=== PATIENT | female | born 1955 | race Caucasian/White ===

== ENCOUNTER → 2016-08-15 | Outpatient (CLI) | payer BC ==
[~2016-08-15] MED LIST: ACET1TAB84 PO; CHOL100010 PO; GLUC1CAP35 PO; GLUCTAB7 PO; HEMP OIL PO; HYDR12.56 PO; HYZ/50125 PO; IBUP-1050 PO; LEVO175T PO; LEVO200T6 PO; MULT-884 PO; OXYC-57 PO; WARF2TAB PO
== END | disposition home or self-care (01) ==
LOC: C.RDSM 08:43
PROVIDERS: ATTEND Physical Medicine & Rehabilitation Sports Medicine
DX: M25.561 Pain in right knee (principal); M25.562 Pain in left knee

== ENCOUNTER → 2017-02-20 | Outpatient (CLI) | payer BC | END | disposition home or self-care (01) | LOC: C.RDSM 01-31 13:04 | PROVIDERS: ATTEND Physical Medicine & Rehabilitation Sports Medicine | DX: M17.0 Bilateral primary osteoarthritis of knee (principal); Z96.642 Presence of left artificial hip joint ==

== ENCOUNTER → 2017-03-03 | Outpatient (CLI) | payer BC ==
[~2017-03-03] MED LIST changes: -CHOL100010 PO; -GLUCTAB7 PO; -HYDR12.56 PO; -LEVO175T PO; -MULT-884 PO
--- NOTE | 2017-03-03 16:02 | DIAGNOSTIC IMAGING REPORT ---
CHEST 2 VIEWS ROUTINE HISTORY: PRE OP,LAB THEN RAD THEN CPL COMPARISON: Chest 04/10/2015. FINDINGS: The lungs are clear. Cardiac silhouette is normal in size. No pleural effusions. No pneumothorax. IMPRESSION: No acute process. Electronically signed by: Joce Minaya M.D. 03/03/2017 4:00 PM Dictated Date/Time: 03/03/2017 3:59 PM
[2017-03-03 16:37] LABS: BASO % 0.4 %; BASO ABS # 0.04 K/uL (0-0.2); COMPLETE YES; EOS % 2.3 %; HEMATOCRIT 43.4 % (37-47); IG% 0.2 %; LYMPH % 28.9 %; LYMPH ABS # 2.94 K/uL (1.2-3.4); MEAN CELL VOLUME 87.5 fL (80-100); MONO % 7.4 %; NEUT % 60.8 %; PLATELET COUNT 299 K/uL (130-400); RED BLOOD COUNT 4.96 M/uL (4.2-5.4); WHITE BLOOD COUNT 10.16 K/uL (4.8-10.8)
[2017-03-03 16:40] LABS: URINE APPEARANCE CLEAR (CLEAR); URINE BILIRUBIN NEG (NEG); URINE COLOR YELLOW; URINE NITRITE NEG (NEG); URINE SPECIFIC GRAVITY 1.021 (1.000-1.030); UROBILINOGEN NEG (NEG); ZZUR CULT IF INDIC CLEAN CATCH NO
[2017-03-03 16:41] LABS: MANUAL MICROSCOPIC REQUIRED? NO; REVIEW REQ? NO
[2017-03-03 16:44] LABS: INR 0.9 (0.9-1.1); PARTIAL THROMBOPLASTIN RATIO 1.1; PROTHROMBIN TIME (PATIENT) 9.9 SECONDS (9.0-12.0)
[2017-03-03 16:57] LABS: BLOOD UREA NITROGEN 19 mg/dl (7-18); BUN/CREATININE RATIO 21.7 (10-20); CALCIUM 9.9 mg/dl (8.5-10.1); CARBON DIOXIDE 29 mmol/L (21-32); CHLORIDE 103 mmol/L (98-107); CREATININE 0.89 mg/dl (0.60-1.20); GLUCOSE 82 mg/dl (70-99); SODIUM 139 mmol/L (136-145)
== END | disposition home or self-care (01) ==
LOC: C.RAD 15:26
PROVIDERS: ATTEND Family Medicine
DX: Z01.810 Encounter for preprocedural cardiovascular examination (principal); Z01.811 Encounter for preprocedural respiratory examination; Z01.812 Encounter for preprocedural laboratory examination; R94.31 Abnormal electrocardiogram [ECG] [EKG]

== ENCOUNTER 2017-03-22 05:00 | Inpatient (IN) | payer BC ==
[2017-02-28 10:12] VITALS: BMI 48.0
--- NOTE | 2017-03-13 20:29 | HISTORY & PHYSICAL EXAMINATION ---
DATE OF ADMISSION: 03/22/[address] Mari. CHIEF COMPLAINT: Left knee pain. HISTORY OF PRESENT ILLNESS: This 61-year-old white female presented to the office with complaints of ongoing left knee pain. She has bilateral knee pain, left greater than right, for the last several years. Pain has become worse over the last 6-9 months. She previously tried activity modification, use of a cane, physical therapy, oral anti-inflammatories, oral pain medication, and viscosupplementation without lasting relief. She elects to proceed with surgical intervention in hopes of alleviating her pain. Pain is worse with weightbearing. It is affecting her ADLs. She denies any effusions. She does get night pain. She has a history of total hip arthroplasties and did well with those. No numbness or tingling. PAST MEDICAL HISTORY: Significant for depression, heart murmur, hypothyroidism, obesity, osteoarthritis, TMJ syndrome, and chronic low back pain. PREVIOUS SURGERIES: Right and left total hip arthroplasties, endometrial ablation, dilation and curettage, oophorectomy, tonsillectomy, adenoidectomy, and cholecystectomy. ALLERGIES: KNOWN ALLERGY TO DOXYCYCLINE, LATEX AND MORPHINE. CURRENT MEDICATIONS: Losartan unknown dose daily, Synthroid 175 mcg p.o. daily, Tylenol Arthritis p.r.n. FAMILY HISTORY: Significant for cancer. SOCIAL HISTORY: The patient is employed at the [employer]. . No tobacco use, no ETOH use. REVIEW OF SYSTEMS: Significant for above stated conditions, otherwise unremarkable. PHYSICAL EXAMINATION: GENERAL: Well-developed, well-nourished middle aged white female in no acute distress. Sitting in a chair. Alert and oriented. SKIN: Warm and dry with good turgor. No rashes or lesions. No ecchymosis or erythema. HEENT: Normocephalic, atraumatic. EYES: PERRLA, EOMI. Nares patent bilaterally without turbinate enlargement. Oropharynx without erythema or exudate. No lesions noted. Uvula midline. Oral mucosa moist. Good dentition. HEART: RRR. No MGR. LUNGS: Clear to auscultation bilaterally. No crackles, rhonchi or wheezing. Good air movement. ABDOMEN: Obese. Bowel sounds present x4, soft, nontender. No organomegaly. No masses. MUSCULOSKELETAL: Left knee reveals no intra-articular effusion. No redness or warmth. She lacks about 5 degrees of terminal extension. Flexion to greater than 100 degrees. Strength is 5/5 with fair quad tone. Focal discomfort with palpation over the medial and lateral joint lines. Slight varus alignment. Stable collateral ligaments. No defect in the patellar tendon or quadriceps tendon. Ambulatory with an antalgic gait. NEUROLOGIC: Gross sensation is intact across the lower extremities by soft touch. Peripheral pulses are 2+. DATA: Radiographic imaging previously obtained shows end-stage DJD of the medial compartment with varus alignment and subluxation of the tibia laterally. Periarticular osteophytes and subchondral sclerosis are also present. IMPRESSION: Left knee end-stage degenerative joint disease. PLAN: The patient was educated regarding today's findings. Informed written consent will be obtained the day of surgery to proceed with left total knee arthroplasty. Anticipate discharge to home with home health services. She already has a walker and cane. Preoperative lab work, EKG, and chest x-ray have been ordered. Medical clearance has been requested from Dr. Walls.
[2017-03-22] VITALS (9 sets, daily range): BP systolic 122–152; BP diastolic 69–90; PULSE 66–78; TEMP 36.3–36.8; O2SAT 92–99; Ht 170.2 cm; Wt 140.0 kg
[~2017-03-22] VITALS: Ht 170.2 cm; Wt 140.0 kg
[~2017-03-22 05:00] MED LIST changes: -GLUC1CAP35 PO; -IBUP-1050 PO; -OXYC-57 PO; -WARF2TAB PO
[2017-03-22] MEDS ORDERED: TRANEXAMIC ACID INJ 1,000 MG in SODIUM CHLORIDE 0.9% 100ML 100 ML IV SCH ×2 (06:00→15:00)
[2017-03-22] MEDS ORDERED: CEFAZOLIN 3000 MG/65 ML D5W IV SCH (06:00)
[2017-03-22] MEDS ORDERED: LACTATED RINGER'S 1000ML 1,000 ML IV SCH (06:00)
[2017-03-22] MEDS ORDERED: ROPIVACAINE 5MG/ML 30 ML 150 MG, BUPIVACAINE/EPINEPHR 0.5% MPF 30 ML, KETOROLAC TROMETH... INFIL SCH ×7 (06:00)
[2017-03-22] MEDS ORDERED: LACTATED RINGER'S 1000ML IV SCH (06:00)
[2017-03-22] MEDS ORDERED: EpINEphrine INJ 1MG/ML AMP 1 MG/ML AMP ONE (06:20)
[2017-03-22] MEDS ORDERED: BUPIVACAINE 0.5 % 5 MG/1 ML PF 10ML VIAL ONE (06:20)
[2017-03-22] MEDS ORDERED: BUPIVACAINE 0.25% 30 ML VIAL ONE (06:20)
--- NOTE | 2017-03-22 06:27 | History & Physical Bridge Note ---
H&P Re-Evaluation Bridge Note: I have examined the patient, reviewed the History & Physical and in the interval since the performance of the History & Physical I have noted the following changes of clinical significance: consent obtained.No changes noted
[2017-03-22] MEDS ORDERED: POVIDONE-IODINE OP SOLN 30 ML BTL ONE (06:32)
[2017-03-22] MEDS ORDERED: ORTHO JOINT ANESTHETIC ONE (06:32)
[2017-03-22] MEDS ORDERED: MIDAZOLAM HCL 1 MG/ML 2ML VIAL ONE ×3 (06:40→08:05)
[2017-03-22] MEDS ORDERED: PHENYLEPHRINE 100MCG/ML 5ML SYR ONE (07:30)
[2017-03-22] MEDS ORDERED: PROPOFOL IV EMULSION 10 MG/ML 20 ML VIAL IV ONE ×2 (07:42→09:45)
[2017-03-22] MEDS ORDERED: EpHEDrine SULFATE INJ 50 MG/ML AMP IV PRN (08:15)
[2017-03-22] MEDS ORDERED: ATROPINE SULFATE 0.1 MG/ML 5ML SYR IV PRN (08:15)
--- NOTE | 2017-03-22 08:46 | [facility] Post Operative Brief Note ---
Immediate Operative Summary Operative Date Mar 22, 2017. Pre-Operative Diagnosis Left Knee End-Stage Degenerative Joint Disease Post-Operative Diagnosis Left Knee End-Stage Degenerative Joint Disease Procedure(s) Performed Left Total Knee Arthroplasty Surgeon Dr. Mari Life Skills Educator Surgeon(s) Dr. Rivera (Fellow)/VEL Boyd Estimated Blood Loss 50 ml Findings severe disease with flexion/varus deformity Fluids (cc crystalloids) 1900cc Specimens A. Left Knee Bone and Tissue Drains none Anesthesia spinal/obturator block Complication(s) None Disposition Recovery Room / PACU
--- NOTE | 2017-03-22 09:11 | OPERATIVE REPORT ---
DATE OF OPERATION: 03/22/2017 SURGEON: Pasha Mari MD OIL WELL SHOOTER: Miguel. SECOND OIL WELL SHOOTER: Andrew Ponce MD THIRD OIL WELL SHOOTER: Albert Gan PA-C PREOPERATIVE DIAGNOSIS: Severe osteoarthritis with varus and flexion deformity, left knee. POSTOPERATIVE DIAGNOSIS: Same. OPERATION PERFORMED: Cemented left total knee replacement. SUMMARY OF IMPLANTS: Size 3 posterior cruciate substituting femur, size 3 rotating tibial platform with keel, oval domed 3 peg patella size 38, tibial insert platform, rotating platform stabilized, posterior cruciate size 3 10 mm thick. Two bags of Palacos G cement. ESTIMATED BLOOD LOSS: 50 mL. FLUIDS: 1800 mL of fluid. PERIOPERATIVE SITUATION: Medically cleared female with intractable knee pain, has significant varus and flexion deformity bilaterally, wants to proceed with the left knee first. PROCEDURE: The patient appropriately identified, site verified, consent verified, 3 grams of Ancef confirmed as being given. The left lower extremity was prepped and draped in the usual routine fashion. Total tourniquet time was approximately an hour. Midline exposure utilized, parapatellar arthrotomy performed. Soft tissue release was performed. Distal femur resected 12 mm, proximal tibia 4 mm, extension gap was excellent after slight adjustment on the posterior capsule. The femur was sized to between a 4 and a 3, it was measured 4 cut 3, there was no notching. The flexion gap was then slightly tight laterally. Capsular release took care of that. The femur was then cut 2-3 with appropriate condylar and chamfer cuts. Again, the flexion gap was excellent. The box cut was then made and then the size 3 trial fit well. The tibia was then subluxated and broached and reamed to a size 3 with appropriate rotation and a 10 mm spacer offered excellent stability in all full range including mid range flexion and the extension was 0. The patella tracked well. The patella was sized to a 38, it was resected leaving 15 mm and then the seating holes made and the trial tracked well. All trial implants were then removed. The wound irrigated with a Betadine Pulsavac and injected with ortho mix, and then the permanents cemented into position. After 12 minutes, the tourniquet was deflated. After 14 minutes, the knee was flexed, minor cement removal occurred, irrigation with Betadine, removal of trial implant and spacer. Permanent spacer then inserted and seated, knee reduced, and then closed in flexion with #1 Ethibond, #1 Vicryl, 2-0 Vicryl, and stainless steel clips. Appropriate dressing applied. The patient will be kept without motion due to her size to prevent wound problems for 10 days. She will have a Zane Fields dressing on overnight, then placed with an incisional wound VAC, knee immobilizer, and then follow up in a week and see how things are going. Will leave sutures in at least 2 weeks. DVT prophylaxis with Coumadin. Estimated blood loss again 50 mL, crystalloid 1900 mL SUMMARY OF IMPLANTS: Size 3 posterior cruciate substituting femur, size 3 rotating tibial platform, size 3 spacer 10 mm thick posterior cruciate substituting, oval domed 3 pegged patella size 38, Palacos G 2 bags. I attest to the content of the Intraoperative Record and any orders documented therein. Any exception s are noted below.
[2017-03-22] MEDS ORDERED: ACETAMINOPHEN 325 MG TAB PO PRN (09:15)
[2017-03-22] MEDS ORDERED: BISACODYL 10 MG SUPP PR PRN (09:15)
[2017-03-22] MEDS ORDERED: ALUMINUM/MAGNESIUM/SIMETH (MAALOX MAX) 30 ML UDC PO PRN (09:15)
[2017-03-22] MEDS ORDERED: ONDANSETRON INJ 2 MG/ML 2 ML VIAL IV PRN (09:15)
[2017-03-22] MEDS ORDERED: ACETAMINOPHEN IV 100 ML IV PRN (09:15)
[2017-03-22] MEDS ORDERED: HYDROmorphone INJ 1 MG/ML SYR IV PRN (09:15)
[2017-03-22] MEDS ORDERED: MAGNESIUM HYDROXIDE SUSP 30 ML UDC PO PRN (09:15)
[2017-03-22] MEDS ORDERED: DiphenhydrAMINE HCL 50 MG/ML VIAL IV PRN (09:15)
[2017-03-22] MEDS: FENTANYL CITRATE INJ 50 MCG/1 ML 2 ML VIAL IV PRN ×2 (09:23→09:29)
--- NOTE | 2017-03-22 09:34 | Anesthesiology Progress Note ---
Anesthesia Post Op Note Date & Time Mar 22, 2017 at 09:33 Vital Signs Pain Intensity: 6 Vital Signs Past 12 Hours Date Time Temp Pulse Resp B/P (MAP) Pulse Ox O2 Delivery O2 Flow Rate FiO2 03/22/17 09:20 70 15 141/77 98 Nasal Cannula 2 03/22/17 09:10 36.0 71 19 127/75 99 Nasal Cannula 2 03/22/17 09:03 36.0 70 16 116/88 100 Nasal Cannula 2 03/22/17 05:46 36.8 78 20 125/90 99 Room Air Notes Mental Status: alert / awake / arousable, participated in evaluation Pt Amnestic to Procedure: Yes Nausea / Vomiting: adequately controlled Pain: adequately controlled Airway Patency, RR, SpO2: stable & adequate BP & HR: stable & adequate Hydration State: stable & adequate Neuraxial Anesthesia: was administered, sensory block is resolving Anesthetic Complications: no major complications apparent
[2017-03-22] MEDS ORDERED: VANCOMYCIN INJ 2,000 MG in SODIUM CHLORIDE 0.9% 500ML 500 ML IV SCH (10:00)
--- NOTE | 2017-03-22 10:52 | DIAGNOSTIC IMAGING REPORT ---
TWO VIEWS LEFT KNEE CLINICAL HISTORY: Postoperative examination. FINDINGS: AP and crosstable lateral portable views of the left knee are obtained. A left knee arthroplasty is in near anatomic alignment. There has been undersurface remodeling of the patella. No acute fracture is seen. There are expected postoperative changes around the knee including skin clips, soft tissue edema, and subcutaneous gas. IMPRESSION: Expected postoperative changes status post left knee arthroplasty. No acute fracture is seen. Electronically signed by: Red Storm M.D. 03/22/2017 10:51 AM Dictated Date/Time: 03/22/2017 10:50 AM
[2017-03-22] MEDS ORDERED: OXYCODONE HCL IR 5 MG TAB (IMMEDIATE RELEASE) ONE (11:03)
[2017-03-22] MEDS: OXYCODONE HCL IR 5 MG TAB (IMMEDIATE RELEASE) PO PRN ×3 (11:06→19:45)
[2017-03-22] MEDS: KETOROLAC TROMETHAMINE 30 MG/ML VIAL IV. SCH ×3 (11:07→23:31)
[2017-03-22] MEDS ORDERED: D5W AND 1/2NSS + 20MEQ KCL 1,000 ML IV SCH (11:30)
--- NOTE | 2017-03-22 11:36 | [facility] Operative Report ---
Operative Report Operative Date Mar 22, 2017. Pre-Operative Diagnosis Left Knee End-Stage Degenerative Joint Disease Post-Operative Diagnosis Left Knee End-Stage Degenerative Joint Disease Procedure(s) Performed Left Total Knee Arthroplasty Surgeon Dr. Mari Home Health Nurse Licensed Practical Surgeon(s) Dr. Rivera (Fellow)/VEL Boyd Estimated Blood Loss 50 ml Findings Left knee DJD Fluids (cc crystalloids) 1900cc Specimens A. Left Knee Bone and Tissue Drains none Complication(s) None Disposition Recovery Room / PACU Indications This 61-year-old white female presented the office with complaints of intractable left knee pain. She had tried conservative care measures including activity modification, oral anti-inflammatories, horizontal injections, viscous supplementation injections, and use of assistive devices. Preoperative imaging was obtained. She elected to proceed with surgical intervention after being educated about potential risks and outcomes. Description of Procedure Patient was administered a spinal anesthetic and then taken to the operating room where she was given sedation. She was prepped and draped in usual sterile fashion. Please see Dr. Mari's operative report for specifics of the procedure. I was present for the entire case from initial patient positioning through final wound closure. Assistance was provided in tissue traction, hemostasis, trial implant placement, final implant placement, and final wound closure. Patient was taken to the recovery room in satisfactory condition. I attest to the content of the Intraoperative Record and any orders documented therein. Any exceptions are noted below.
[2017-03-22] MEDS ORDERED: IBUP-1050 PO (12:17)
[2017-03-22] MEDS ORDERED: GLUC1CAP35 PO (12:17)
[2017-03-22] MEDS: FERROUS GLUCONATE 324 MG TAB PO SCH ×2 (12:39→17:50)
--- NOTE | 2017-03-22 12:40 | PROGRESS NOTE ---
DATE: 03/22/2017 Postop check status post left total knee replacement. The patient is doing well. Denies chest pain, shortness of breath, fever, chills, nausea, vomiting or headache. Abdomen is soft and nontender. On neurovascular check, femoral sciatic nerve is good. Cast is in place and no issues. ASSESSMENT: Doing well. Continue with the pressure dressing and Zane Fields cast. We will remove that tomorrow, place an incisional wound VAC on, and knee immobilizer. No bend to her knee for roughly 10 days. This is based on the quality of the soft tissue envelope of the knee and the thickness of the subcutaneous tissue. We will try to minimize seroma and wound complication. DVT prophylaxis with Coumadin.
[2017-03-22] MEDS ORDERED: NURSING VERBAL MED ORDER ONE (13:15)
--- NOTE | 2017-03-22 13:19 | Medical Consult ---
Consultation Date of Consultation: Mar 22, 2017. Attending Physician: Pasha Mari M.D. Reason for Consultation: Post Op Medical Management History of Present Illness 61 year old female who is s/p left total knee arthroplasty today by Dr. Mari. Patient has been having increasing knee pain for the past several years. She failed outpatient conservative measures and therefore presented for the planned procedure today. Post operatively the patient is doing well. She reports her pain is well controlled. She denies numbness or tingling to the BLLE. No chest pain, shortness of breath, or palpitations. She denies abdominal pain, nausea, or vomiting. No lightheadedness or dizziness. She has not voided since surgery. Past Medical/Surgical History Medical Problems: (1) Fibromyalgia Status: Chronic (2) HTN (hypertension) Status: Chronic (3) Hypothyroidism Status: Chronic (4) Obesity Status: Chronic Surgical Problems: (1) History of bilateral oophorectomy Status: Chronic (2) History of cholecystectomy Status: Chronic (3) History of tonsillectomy Status: Chronic (4) History of total left hip arthroplasty Status: Chronic (5) History of total right hip arthroplasty Status: Chronic (6) S/P endometrial ablation Status: Chronic Family History Hypertension MOTHER Social History Smoking Status: Former Smoker Alcohol Use: none Drug Use: none Occupation Status: employed Allergies Coded Allergies: Adhesives (Verified Allergy, Unknown, SOME TAPE-RED BLISTERS, 03/22/17) Doxycycline (Verified Allergy, Unknown, RASH, 02/28/17) Latex1 -Allergic Contact Dermititis (Verified Allergy, Unknown, RASH, RED BLISTERS, 02/28/17) Morphine (Verified Allergy, Unknown, WHOLE BODY HOT,SOB,CHEST PAIN, ) TOLERATES OXYCODONE AND HYDROCODONE Penicillins (Verified Allergy, Unknown, rash, 02/28/17) Has had PCNs in past without ADRs Home Medications Glucosamine Chondroitin (Aawgcjupknw-Wscupuqaqiw-Pcb C-) 1 Cap Cap 1 Cap PO BID Advil (Ibuprofen) 200 Mg Tab 400-600 Mg PO Q6H PRN [Hemp Oil ] 1 Tbs PO QAM Hyzaar 12.5MG/50MG (HCTZ/Losartan Potassium) Tab 1 Tab PO QAM Tylenol Arthritis Ext Rel (Acetaminophen) 650 Mg Cplt 650 Mg PO QID PRN Levothyroxine Sodium 200 Mcg Tab 1 Tab PO QAM 90 Days Current Inpatient Medications Current Inpatient Medications Medications (Trade) Dose Ordered Sig/Natalya Route Start Time Stop Time Status Last Admin Dose Admin Fentanyl Citrate (Fentanyl Inj) 50 mcg Q5M PRN IV 03/22/17 08:15 03/22/17 13:15 03/22/17 09:29 50 MCG Ephedrine Sulfate (EpHEDrine SULFATE INJ) 5 mg Q5M PRN IV 03/22/17 08:15 03/22/17 13:15 Atropine Sulfate (Atropine Sulfate 0.1MG/Ml Inj) 0.5 mg Q1M PRN IV 03/22/17 08:15 03/22/17 13:15 Potassium Chloride/Dextrose/ Sod Cl 1,000 ml @ 100 mls/hr Q10H IV 03/22/17 11:30 03/23/17 09:03 03/22/17 11:39 100 MLS/HR Cefazolin Sodium 2000 mg/Dextrose 60 ml @ 100 mls/hr Q8H IV 03/22/17 14:00 03/22/17 22:35 Vancomycin HCl 2000 mg/Sodium Chloride 540 ml @ 125 mls/hr TODAY@1000 IV 03/22/17 10:00 03/22/17 14:00 03/22/17 09:48 125 MLS/HR Ketorolac Tromethamine (Toradol Inj) 30 mg Q6H IV. 03/22/17 12:00 03/23/17 09:14 03/22/17 11:07 30 MG Oxycodone HCl (Roxicodone Immediate Rel Tab) 1 TABLET FOR PAIN RATING... Q4H PRN PO 03/22/17 09:15 04/05/17 09:14 03/22/17 11:06 10 MG Acetaminophen (Tylenol Tab) 650 mg Q6H PRN PO 03/22/17 09:15 04/21/17 09:14 Magnesium Hydroxide (Milk Of Magnesia Susp) 30 ml Q6H PRN PO 03/22/17 09:15 04/21/17 09:14 Bisacodyl (Dulcolax Supp) 10 mg DAILY PRN NE 03/22/17 09:15 04/21/17 09:14 Docusate Sodium (coLACE CAP) 100 mg BID PO 03/22/17 21:00 04/21/17 20:59 Diphenhydramine HCl (Benadryl Inj) 25 mg Q8H PRN IV 03/22/17 09:15 04/21/17 09:14 Al Hydrox/Mg Hydrox/Simethicone (Maalox Max Susp) 15 ml Q4H PRN PO 03/22/17 09:15 04/21/17 09:14 Multivitamins (Multivitamin Tab) 1 tab QAM PO 03/23/17 09:00 04/22/17 08:59 Ondansetron HCl (Zofran Inj) 4 mg Q6H PRN IV 03/22/17 09:15 04/21/17 09:14 Ferrous Gluconate (Ferrous Gluconate Tab) 324 mg TIDM PO 03/22/17 12:30 04/21/17 12:29 03/22/17 12:39 324 MG Pantoprazole Sodium (Protonix Tab) 40 mg QAM PO 03/23/17 09:00 04/22/17 08:59 Tranexamic Acid 1000 mg/Sodium Chloride 110 ml @ 660 mls/hr Q6H IV 03/22/17 15:00 03/22/17 15:09 Dexamethasone Sodium Phosphate 10 mg/Syringe 2.5 ml @ 1 mls/min TODAY@0730 IV 03/23/17 07:30 03/23/17 07:33 HCTZ/Losartan Potassium (Hyzaar 50-12.5 Tab) 1 tab QAM PO 03/23/17 09:00 04/22/17 08:59 Levothyroxine Sodium (Synthroid Tab) 200 mcg DAILYBB PO 03/23/17 06:00 04/22/17 05:59 Acetaminophen 100 ml @ 400 mls/hr Q8H PRN IV 03/22/17 09:15 03/23/17 09:00 Hydromorphone HCl (Dilaudid Inj) 1 mg Q2H PRN IV 03/22/17 09:15 04/05/17 09:14 Warfarin Sodium (Coumadin Tab) 5 mg DAILY@16 PO 03/22/17 16:00 03/22/17 16:01 Miscellaneous Information (Pending Order) 1 ea TODAY@1400 N/A 03/22/17 14:00 03/22/17 14:01 Review of Systems ROS per HPI, all other systems reviewed and negative Physical Exam Date Time Temp Pulse Resp B/P (MAP) Pulse Ox O2 Delivery O2 Flow Rate FiO2 03/22/17 12:16 36.5 69 18 140/69 (92) 98 Nasal Cannula 2.0 03/22/17 11:20 66 18 152/77 (102) 97 03/22/17 10:50 70 16 151/78 (102) 98 Nasal Cannula 2.0 03/22/17 10:20 98 Nasal Cannula 2.0 03/22/17 10:20 36.4 74 16 122/74 (90) 98 Nasal Cannula 2.0 03/22/17 10:20 98 Nasal Cannula 2.0 03/22/17 10:00 75 18 138/81 98 Nasal Cannula 2 03/22/17 09:50 73 15 143/77 96 Nasal Cannula 2 03/22/17 09:40 73 15 142/77 96 Nasal Cannula 2 03/22/17 09:30 72 14 144/81 95 Nasal Cannula 2 03/22/17 09:20 70 15 141/77 98 Nasal Cannula 2 03/22/17 09:10 36.0 71 19 127/75 99 Nasal Cannula 2 03/22/17 09:03 36.0 70 16 116/88 100 Nasal Cannula 2 03/22/17 05:46 36.8 78 20 125/90 99 Room Air General Appearance: no apparent distress Head: normocephalic, atraumatic Eyes: normal inspection, sclerae normal ENT: hearing grossly normal Neck: supple, no JVD Respiratory/Chest: lungs clear, normal breath sounds, no respiratory distress Cardiovascular: regular rate, rhythm, no edema, normal peripheral pulses Abdomen/GI: normal bowel sounds, non tender, soft Extremities/Musculoskelatal: + pertinent finding (s/p right knee surgery, cast in place to RLE, CSM checks intact to RLE) Neurologic/Psych: no motor/sensory deficits, alert, normal mood/affect, oriented x 3 Skin: normal color, warm/dry Laboratory Results Last 24 Hours Test 03/22/17 12:43 Assessment & Plan S/P RIGHT TKA - POD#0 - activity and wound care orders as per ortho - pain control with bowel regimen - PT/OT - monitor H/H for acute blood loss anemia and transfuse blood products PRN HTN - BP controlled, continue losartan/HCTZ HYPOTHYROIDISM - continue levothyroxine DVT PROPHYLAXIS - Coumadin as per ortho Thank you for this consultation. We will follow the patient with you during their hospital stay. You can reach a [facility] via pager @ . ADDENDUM: I have seen and examined the patient and agree with the assessment and plan as stated above. Gautam, DO
[2017-03-22] MEDS ORDERED: INFLUENZA VIRUS QUAD VACCINE 0.5 ML SYR IM. ONE (14:15)
[2017-03-22] MEDS ORDERED: INFLUENZA ADMINISTRATION CHARGE ONE (14:15)
[2017-03-22] MEDS: CEFAZOLIN IV 2,000 MG in DEXTROSE 5% 50ML 50 ML IV SCH ×2 (15:24→23:31)
[2017-03-22] MEDS ORDERED: WARFARIN SOD 5 MG TAB PO SCH (16:00)
[2017-03-22] MEDS: DOCUSATE SODIUM 100 MG CAP PO SCH (20:42)
[2017-03-23 03:08] VITALS: BP 124/74; PULSE 77; TEMP 36.5; O2SAT 96
[2017-03-23] MEDS: KETOROLAC TROMETHAMINE 30 MG/ML VIAL IV. SCH (05:31)
[2017-03-23 05:52] LABS: HEMATOCRIT 35.2 % (37-47); MEAN CELL VOLUME 88.7 fL (80-100); MEAN CORPUSCULAR HEMOGLOBIN 27.5 pg (25-34); MEAN PLATELET VOLUME 9.9 fL (7.4-10.4); PLATELET COUNT 260 K/uL (130-400); RED BLOOD COUNT 3.97 M/uL (4.2-5.4); WHITE BLOOD COUNT 11.77 K/uL (4.8-10.8)
[2017-03-23 06:00] LABS: PROTHROMBIN TIME (PATIENT) 10.2 SECONDS (9.0-12.0)
[2017-03-23] MEDS ORDERED: LEVOTHYROXINE 200 MCG TAB PO SCH (06:00)
[2017-03-23 06:26] LABS: BUN/CREATININE RATIO 20.8 (10-20); CALCIUM 8.3 mg/dl (8.5-10.1); CREATININE 0.81 mg/dl (0.60-1.20); POTASSIUM 4.1 mmol/L (3.5-5.1)
[2017-03-23] MEDS: OXYCODONE HCL IR 5 MG TAB (IMMEDIATE RELEASE) PO PRN ×3 (06:42→15:47)
--- NOTE | 2017-03-23 07:16 | PROGRESS NOTE ---
DATE: 03/23/2017 Postop day #1 progress note status post left total knee replacement. SUBJECTIVE: The patient denies chest pain, shortness of breath, fever, chills, nausea, vomiting or headache. She is comfortable. Pain is well managed. OBJECTIVE: VITAL SIGNS: Vital signs are stable. She is afebrile. Abdomen, chest, nontender. Calves nontender. Neurovascular check femoral sciatic nerve is good. Can do a straight leg raise. Bulky Zane Fields dressing without drainage. Neurovascular check again femoral sciatic nerve is normal. Hematocrit stable. INR is subtherapeutic. ASSESSMENT: Doing well. Will proceed with removal of Zane Fields dressing later today followed by placing an incisional wound VAC secondary to her leg size and prevent knee range of motion for a week. It will be in a straight leg immobilizer, can be full weightbearing. Can do a straight leg raise and quad sets but no knee range of motion. Keep INR 1.8-2.2. Coumadin per nomogram today; if she goes home today, discharge on 4 mg. We will see how she does with PT, OT, get social media intern assessment on how she does well this afternoon could to be discharged. Follow up 1 week for wound check. TR
[2017-03-23 07:20] VITALS: BP 126/73; PULSE 79; TEMP 36.3; O2SAT 94
--- NOTE | 2017-03-23 07:24 | DISCHARGE SUMMARY ---
____ CHIEF COMPLAINT: Left knee pain. HISTORY OF PRESENT ILLNESS: A 61-year-old female who has significant problems with bilateral knee osteoarthritis. She has failed conservative management and wants to proceed with surgical treatment. She underwent left total knee replacement. Due to her size and the depth of the subcutaneous tissue was elected to treat her with no motion for at least a week until the wound is clean and dry. She was placed in a Zane Fields cotton dressing with a cast material overnight. This will be removed and placed in an incisional wound VAC and a knee immobilizer. She can do straight leg raise, quad sets with no range of motion. She can be full weightbearing once the cast is off. PAST MEDICAL HISTORY: Remarkable for depression, heart murmur, hypothyroidism, obesity, osteoarthritis, TMJ syndrome, chronic low back pain. PAST SURGICAL HISTORY: Includes bilateral hip replacements, endometrial ablation, dilatation and curettage, oophorectomy, tonsillectomy, adenoidectomy, and cholecystectomy. ALLERGIES: DOXYCYCLINE, LATEX AND MORPHINE. PREADMISSION MEDICATIONS: Include losartan, Synthroid and Tylenol Arthritis p.r.n. She will discontinue the Tylenol Arthritis and continue her other meds and add Coumadin to keep INR 1.8 to 2.2, will discharge on 4 mg daily. Check INR on Monday. p.r.n. pain management. A prescription for that to be given by [facility]. FAMILY HISTORY: Remarkable for cancer. SOCIAL HISTORY: Reveals she is employed. She works at the [employer]. She is . She has no tobacco or alcohol use. REVIEW OF SYSTEMS: Reveals no chest pain, shortness of breath, fever, chills, nausea, vomiting or headache. ASSESSMENT: Did well after total knee replacement. PLAN: As mentioned above in order to prevent wound seroma and issues, will keep knee range of motion still for 1 solid week and reevaluate in the office at that time. She can be full weightbearing. She will have an incisional wound VAC on until she returns to get her wound check. Coumadin to keep INR 1.8 to 2.2, discharge on 4 mg. Check INR on Monday.
[2017-03-23] MEDS ORDERED: DEXAMETHASONE INJ 10 MG in SYRINGE 0 ML IV SCH (07:30)
[2017-03-23 07:55] VITALS: O2SAT 96
[2017-03-23] MEDS ORDERED: MULTIVITAMIN TAB PO SCH (09:00)
[2017-03-23] MEDS ORDERED: PANTOprazole SOD 40 MG TAB PO SCH (09:00)
[2017-03-23] MEDS ORDERED: LOSARTAN/HCTZ 50-12.5 EA TAB PO SCH (09:00)
[2017-03-23] MEDS: FERROUS GLUCONATE 324 MG TAB PO SCH ×2 (09:04→12:43)
[2017-03-23] MEDS: DOCUSATE SODIUM 100 MG CAP PO SCH (09:05)
--- NOTE | 2017-03-23 09:20 | Anesthesiology Progress Note ---
Anesthesia Post Op Note Date & Time Mar 23, 2017 at 09:20 Vital Signs Pain Intensity: 5.0 Vital Signs Past 12 Hours Date Time Temp Pulse Resp B/P (MAP) Pulse Ox O2 Delivery O2 Flow Rate FiO2 03/23/17 07:55 96 Room Air 03/23/17 07:20 36.3 79 16 126/73 (90) 94 Room Air 03/23/17 03:08 36.5 77 16 124/74 (91) 96 Room Air 03/22/17 23:19 36.6 68 16 135/79 (97) 94 Room Air 03/22/17 22:30 Room Air Notes Mental Status: alert / awake / arousable, participated in evaluation Pt Amnestic to Procedure: Yes Nausea / Vomiting: adequately controlled Pain: adequately controlled Airway Patency, RR, SpO2: stable & adequate BP & HR: stable & adequate Hydration State: stable & adequate Neuraxial Anesthesia: sensory block resolved Anesthetic Complications: no major complications apparent
--- NOTE | 2017-03-23 10:40 | Orthopedic Progress Note ---
Orthopedic Progress Note Date of Service Mar 23, 2017. Subjective Post OP Day: 1 Reports: feeling well, pain controlled w PO medications, Denies: complaints, chest pain, SOB, nausea / vomiting, light headedness, calf pain Additional Notes: states she has minimal pain. Has been out of bed multiple times. Objective calves soft nontender, N/V intact, splint C/D/I, hip located, capillary refill less than 2 sec., dressing C/D/I, incision C/D/I, A&O x3, toes mobile, CMS intact cast removed. Scant drainage on dressings, no active drainage. Date Time Temp Pulse Resp B/P (MAP) Pulse Ox O2 Delivery O2 Flow Rate FiO2 03/23/17 07:55 96 Room Air 03/23/17 07:20 36.3 79 16 126/73 (90) 94 Room Air 03/23/17 03:08 36.5 77 16 124/74 (91) 96 Room Air 03/22/17 23:19 36.6 68 16 135/79 (97) 94 Room Air 03/22/17 22:30 Room Air 03/22/17 19:17 36.3 71 18 133/87 (102) 92 Room Air 03/22/17 15:35 Room Air 03/22/17 15:12 36.7 67 18 128/80 (96) 93 Room Air 03/22/17 13:20 36.7 68 16 127/69 (88) 95 Nasal Cannula 2.0 03/22/17 12:16 36.5 69 18 140/69 (92) 98 Nasal Cannula 2.0 03/22/17 11:20 66 18 152/77 (102) 97 03/22/17 10:50 70 16 151/78 (102) 98 Nasal Cannula 2.0 Laboratory Results 24 Hours: Test 03/23/17 05:34 Hematocrit 35.2 % Hemoglobin 10.9 g/dL Prothromb Time International Ratio 1.0 Prothrombin Time 10.2 SECONDS Assessment & Plan Assessment: Left knee s/p total knee arthroplasty, post op day 1 Plan: PT/OT today incisional wound vac applied. coumadin per nomogram dressing changed this morning-wound looks very good D/C to home today start [facility] PT in 1 week, start home nursing on Monday for PT/ INR follow up in office in 1 week for wound vac eval. Discharge Planning Discharge Planning: home with home health Pain Management: Percocet DVT Prophylaxis: TEDs, SCDs, Coumadin Therapy: Physical Therapy
[2017-03-23] MEDS ORDERED: OXYC-57 PO (10:42)
[2017-03-23] MEDS ORDERED: WARF2TAB PO (10:42)
--- NOTE | 2017-03-23 10:43 | Discharge Instructions ---
Discharge Instructions Date of Service Mar 22, 2017. Admission Reason for Admission: Left Knee Degenerative Joint Disease Discharge Discharge Diagnosis / Problem: Left knee s/p total knee replacement Discharge Goals Goal(s): Decrease discomfort, Improve function, Increase independence Activity Recommendations Activity Limitations: as noted below Lifting Limitations: gradually increase as tolerated Exercise/Sports Limitations: until after follow-up appointment Shower/Bathe: keep incision dry Driving or Machine Use: No driving until cleared by Dr. Mari Weightbearing Status: Left weightbearing (as tolerated) . Instructions / Follow-Up Instructions / Follow-Up New Medicine: * You will likely be taking one or more of these medications: 1. Percocet - Take, as directed, when you need it, every four to six hours to control your pain. 2. Coumadin - Thins your blood to lessen the chance of forming a blood clot. The dose of this is different for each person and is based on your blood tests that are done twice a week. * The most common side effects of pain medicine and iron are nausea and constipation. If nausea or constipation is too much of a problem or if you have any questions about your new medicines or doses, call [facility] at . We will try to help you manage these issues. VERY IMPORTANT TO READ AND REVIEW" Blood Clots and Blood Thinning Medicine: * You are given Coumadin during the immediate post-operative period to lessen the risk of blood clots forming in your legs and/or lungs. Coumadin is usually given for six weeks after surgery. * The prescription is for 2 mg tablets. At discharge, you should understand your dose and take it all at the same time every day, preferably after dinner. * You need to get your blood checked 1 - 2 times per week for six weeks or as directed. * If your dose needs to change, we will call you. Do not take your medication on the day of the blood test until we call you. Pain: * The immediate post-operative period after knee replacement surgery is often quite painful. * You are given a prescription for pain medicine. You should take it, as directed, when you need it, especially before physical therapy and before going to bed. Pain that interferes with sleep is very common and can last several months. * You will likely need pain medicine for the first four to six weeks. It will not stop all of the pain. The pain will lessen and as you feel better, you may change to milder pain medicine such as Tylenol. * The most common side effects of pain medicine are nausea and constipation, so don't take more than you need. Physical Therapy: * You will have physical therapy two or three times each week for four to six weeks after your surgery in order to regain your knee range of motion and to retrain your knee to work properly. * It is just as important to make sure you are getting your knee perfectly straight as it is to regain your knee bend. * Taking a pain pill an hour before therapy can help you have a more productive and comfortable therapy session if needed. Home Exercise: * You were shown a series of exercises (heel props, heel slides, etc.) in the hospital. Do these exercises three to four times each day including the exercises you were shown in physical therapy. Walking: * Get up and walk several times each day. For the first four weeks, try not to stand or walk for more than one hour at a time. If you do stand or walk for more than one hour, you will not hurt anything, but your knee and leg will likely swell. * As you feel comfortable, you may change from the walker or crutches to a cane and then to independent walking. SELF CARE INSTRUCTIONS AFTER TOTAL KNEE REPLACEMENT A. You may need to continue a physical therapy program after discharge from the hospital. There are several options available to you. Your doctor will assist you in selecting the best one for you. 1. An out-patient facility 2 to 3 times a week for therapy or home therapy. 2. Continue working on all exercises taught to you in the hospital. Your goals should be to increase bending of your knee to 90 degrees and beyond and to fully straighten your knee. B. You may progress at your own pace from walking with a walker or crutches to a cane; then to no assistive devices. C. Make walking a part of your daily routine. Be up as much as comfortable with rest periods throughout the day. Rest with leg elevation is very important. Use the ice wrap frequently for the first 3-4 weeks. D. There are no restrictions on activities. You may ride in a car, shop, participate in process improvement analyst and all social activities. E. Wear the long elastic stockings (JOHN hose) 20 hours a day for six weeks after surgery. They can be removed several times a day for laundering and for a shower. F. Do not place a pillow behind your knee when resting. A pillow at your ankle is okay. VERY IMPORTANT TO READ AND REVIEW A. Take Coumadin, Aspirin or Lovenox (blood thinning medications) as directed by your doctor. If on Coumadin, have a pro-time (blood test) drawn according to your doctor's instructions. This will tell the doctor how well the Coumadin is thinning your blood. 1. YOU WILL BE GIVEN AN ORDER AT DISCHARGE FOR PT/INR (BLOOD WORK). PLEASE HAVE THIS DONE INSTRUCTED. PLEASE CALL OUR OFFICE AFTER YOUR BLOODWORK IS COMPLETE SO WE CAN TRACK YOUR RESULTS. IF YOU ARE GOING TO OUTPATIENT PHYSICAL THERAPY, YOU WILL NEED TO GO TO OUTPATIENT TESTING TO HAVE IT DRAWN. B. There are a few signs you need to watch for after you are home. Call [facility] if you notice any of the followin. Increased severe knee pain. Some pain is expected especially when you exercise. 2. Increased swelling in your leg or knee; pain or swelling of the calf muscle in either lower leg. 3. Any fluid drainage from the incision. 4. Shortness of breath or chest pain. C. Please call [facility] at if you have any concerns or questions about your operation or recovery. The doctor or his nurse will return your call promptly. D. You must take antibiotics before dental work, bladder, bowel or other surgery. Call the office to obtain a prescription at least 2 days prior to your appointment. * CALL IF INCREASED PAIN, REDNESS, DRAINAGE OR FEVER GREATER THAT 101. * Sutures should be removed 12-14 days after surgery unless you are on chronic steriods, then it will be 14-18 days after surgery. Call your doctor if: * Temperature above 101 degrees F. * Pain not relieved by pain medicine ordered. * Increased drainage or redness from incision. * Notify your doctor with any questions or concerns. Current Hospital Diet Patient's current hospital diet: Regular Diet Discharge Diet Recommended Diet: Regular Diet Procedures Procedures Performed: Left Total Knee Arthroplasty Pending Studies Studies pending at discharge: no Medical Emergencies . Who to Call and When: Medical Emergencies: If at any time you feel your situation is an emergency, please call 911 immediately. . Non-Emergent Contact Non-Emergency issues call your: Primary Care Provider, Surgeon Call Non-Emergent contact if: temperature is above 101, wound has increased drainage, wound has increased redness, wound has increased pain, you have any medication questions . "Provider Documentation" section prepared by Albert Gan PA-C. . VTE Core Measure Inpt VTE Proph given/why not?: Warfarin (Coumadin), T.E.D. Stockings, SCD's [place] Drug Monitoring Program Search Results: no issues identified
[2017-03-23 11:55] VITALS: BP 145/81; PULSE 67; TEMP 36.7; O2SAT 96
[2017-03-23 15:36] VITALS: BP 143/85; PULSE 81; TEMP 36.8; O2SAT 99
[2017-03-23] MEDS ORDERED: WARFARIN SOD 5 MG TAB PO SCH (16:00)
== END 2017-03-23 14:45 | disposition home or self-care (01) | DRG 470 ==
LOC: C.ACU 05:00 → C.3E 06:20 → ENRESERV 09:49
PROVIDERS: ADMIT Physical Medicine & Rehabilitation Sports Medicine; ATTEND Physical Medicine & Rehabilitation Sports Medicine
PROC: 0SRD0J9 Replacement of Left Knee Joint with Synthetic Substitute, Cemented, Open Approach (ICD-10-PCS; principal; 2017-03-22 07:00)
DX: M17.12 Unilateral primary osteoarthritis, left knee (principal); Z68.42 Body mass index [BMI] 45.0-49.9, adult; F32.9 Major depressive disorder, single episode, unspecified; R01.1 Cardiac murmur, unspecified; E03.9 Hypothyroidism, unspecified; E66.9 Obesity, unspecified; G89.29 Other chronic pain; M54.5 Low back pain; Z96.643 Presence of artificial hip joint, bilateral; Z90.49 Acquired absence of other specified parts of digestive tract; Z80.9 Family history of malignant neoplasm, unspecified

== ENCOUNTER → 2017-03-24 | Outpatient (CLI) | payer BC ==
[~2017-03-24] MED LIST changes: +OXYC-57 PO; +WARF2TAB PO
[2017-03-24 13:23] LABS: PROTHROMBIN TIME (PATIENT) 10.6 SECONDS (9.0-12.0)
--- NOTE | 2017-03-31 18:12 | CODING QUERY NO DIAGNOSIS ---
Valid Physician Order Needed A valid physician order must be submitted in order to properly bill for the service(s) provided, including date of service(s), valid diagnosis, and physician signature. If these tests are done on a recurring basis the original physican order must be submitted in order to code and bill for the service(s) provided. Please fax us the original, signed physician order so that we may expedite billing to [phone] DOS 03/24/17 * PT/INR Thank you Natalia [facility] Information Management
== END | disposition home or self-care (01) ==
LOC: C.LABSPEC 12:26
PROVIDERS: ATTEND Physical Medicine & Rehabilitation Sports Medicine
DX: Z01.89 Encounter for other specified special examinations (principal)

== ENCOUNTER → 2017-03-27 | Outpatient (CLI) | payer BC ==
[2017-03-27 12:04] LABS: INR 1.1 (0.9-1.1); PROTHROMBIN TIME (PATIENT) 11.5 SECONDS (9.0-12.0)
== END | disposition home or self-care (01) ==
LOC: C.LABSPEC 11:45
PROVIDERS: ATTEND Physical Medicine & Rehabilitation Sports Medicine
DX: Z51.81 Encounter for therapeutic drug level monitoring (principal); Z79.01 Long term (current) use of anticoagulants

== ENCOUNTER → 2017-05-15 | Outpatient (CLI) | payer BC | END | disposition home or self-care (01) | LOC: C.RDSM 10:31 | PROVIDERS: ATTEND Physical Medicine & Rehabilitation Sports Medicine | DX: M17.0 Bilateral primary osteoarthritis of knee (principal) ==

== ENCOUNTER → 2018-02-12 | Outpatient (CLI) | payer BC, OTHER ==
[~2018-02-12] MED LIST changes: -OXYC-57 PO; -WARF2TAB PO
== END | disposition home or self-care (01) ==
LOC: C.RDSM 09:18
PROVIDERS: ATTEND Physical Medicine & Rehabilitation Sports Medicine
DX: Z96.652 Presence of left artificial knee joint (principal)

== ENCOUNTER 2020-11-20 17:20 | Inpatient (IN) ==
[2020-11-20] MEDS ORDERED: ONDANSETRON INJ 2 MG/ML 2 ML VIAL IV STA (18:03)
[2020-11-20] MEDS ORDERED: HYDROmorphone INJ 0.5 MG/0.5 ML SYR IV PRN ×4 (18:03→23:31)
--- NOTE | 2020-11-20 18:13 | Emergency Department Note ---
Impression & Plan Bilateral ureteral calculi, Acute right flank pain, Nausea & vomiting, Staghorn calculus, REINA (acute kidney injury) ED Provider Note INFORMANT: Patient ED PROVIDER(S): Ren Banuelos MD CHIEF COMPLAINT: Flank pain PLAN: Disposition: Admitted Condition: Good Outpatient prescription management: none Referral: None MEDICAL DECISION MAKING: Patient presented to emergency room complaining of flank pain. Her symptoms were concerning for possible kidney stone or UTI. She had an IV established blood work was obtained. The patient had an unremarkable urinalysis. Chemistry panel was concerning for acute kidney injury. The patient underwent CT imaging and was found to have not only a right ureteral stone but I left ureteral stone as well. Consultation was made with Dr. Dias of urology. He recommended admission and the patient will need surgical intervention. His plan is for surgery in the morning. Given the patient's leukocytosis and bilateral obstruction he felt an antibiotic dose would be reasonable. The patient was given a dose of IV Rocephin. [facility] Patient was evaluated in the ER admitted for further management. Triage Nursing notes reviewed and agree them. Vital Signs: reviewed and remarkable for no significant abnormalities Differential diagnosis: Renal colic, UTI, appendicitis, diverticulitis, mesenteric ischemia, aortic pathology, infections, inflammatory bowel disease, PUD, biliary pathology, as well as other pathologies. Diagnostics interpreted by me: ECG: none Cardiac Monitoring: Cardiac monitoring ordered by me: The patient was placed on continuous cardiac monitoring and observed. It revealed a normal sinus rhythm at 90 beats per minute without ectopy or evidence of dysrhythmia. Imaging studies: CT: 1. A 4 mm obstructing stone at the left ureteropelvic junction resulting in mild left hydronephrosis. 2. A 3.1 x 2.1 cm left renal staghorn calculus. 3. There is moderate right hydroureteronephrosis which extends into the deep pelvis. 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 However, coronal reformatted images suggest the possibility of a 4 mm stone within the distal right ureter immediately proximal to the right ureterovesical junction. HPI: The patient is a 65 year old female who presents to the Emergency Room with complaints of right flank pain. This started last night and is waxing and waning, sharp and radiated to the RLQ. The patient also notes the following associated symptoms, nausea, vomiting, dysuria. The patient has found no relieving factors. Current pain is rated as 4/10. Pain was a 8/10. Pt denies LOC, headache, fevers, chills, diaphoresis, visual changes, neck pain, chest pain, breathing difficulties, nback pain, melena, hematochezia, numbness, weakness, lymphadenopathy, rash, or other complaints. ROS: See above HPI for pertinent positives & negatives. A total of 10 systems reviewed and were otherwise negative. PAST MEDICAL HISTORY:See Below , kidney stones PAST SURGICAL HISTORY:See Below, THR FAMILY HISTORY:See Below SOCIAL HISTORY:See Below, no tobacco HOME MEDICATIONS:See Below ALLERGIES:See Below VITALS:See Below PHYSICAL EXAMINATION: GENERAL: Awake, alert, well-appearing, in no distress HENT: Normocephalic, atraumatic. Oropharynx unremarkable. EYES: Normal conjunctiva. Sclera non-icteric. NECK: Inspection normal. Non-tender. Supple. No nuchal rigidity. FROM. No masses. RESPIRATORY: Clear to auscultation. No wheezes. No rales. Normal respiratory effort. CARDIAC: Normal rate. Normal rhythm. No murmurs. No rubs. Extremities warm and well perfused. Pulses equal. No JVD. GI: Soft, non-distended. No tenderness to palpation. No rebound or guarding. No masses. RECTAL: Deferred. MUSCULOSKELETAL: Atraumatic. Chest examination reveals no tenderness. The back is symmetrical on inspection without obvious abnormality. There is right CVA tenderness to palpation. No joint edema. LOWER EXTREMITIES: Calves are equal size bilaterally and non-tender. No edema. No discoloration. NEURO: Normal sensorium. No sensory or motor deficits noted. SKIN: No rash or jaundice noted. Ren Banuelos MD Past Med/Surg History Medical History (Updated 11/21/20 @ 00:08 by Ren Banuelos MD) Adjustment reaction with anxiety and depression Dietary counseling and surveillance Elevated blood-pressure reading, without diagnosis of hypertension Fatigue Fibromyalgia HTN (hypertension) Hypothyroidism Morbid obesity Obesity Osteoarthritis Recurrent UTI (urinary tract infection) Surgical History History of bilateral oophorectomy History of cholecystectomy History of tonsillectomy History of total left hip arthroplasty History of total right hip arthroplasty S/P endometrial ablation Family History Mother , MVA, age 72 Osteoarthritis Fibromyalgia Hypothyroidism (acquired) Obesity Father , age 91 Lymphoma Sister Fibromyalgia Osteoarthritis Autoimmune disease Brother Osteoarthritis Social History Smoking Status: Never smoker Hx Alcohol Use: No Hx Substance Use: No marital status: marital status details: 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 Current Living Situation: Alone current occupational status: employed 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[employer], 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 [employer] Feels Safe at Home: Yes Allergies Allergies Allergy/AdvReac Type Severity Reaction Status Date / Time adhesive Allergy Unknown SOME Verified 11/20/20 20:39 TAPE-RED BLISTERS doxycycline Allergy Unknown RASH Verified 11/20/20 20:39 latex Allergy Unknown RASH, RED Verified 11/20/20 20:39 BLISTERS morphine Allergy Unknown WHOLE BODY Verified 11/20/20 20:39 HOT,SOB,CHEST PAIN Penicillins Allergy Unknown rash Verified 11/20/20 20:39 gluten AdvReac FAMILY HX Unverified 11/20/20 20:41 OF GI DISTRESS Home Meds Home Medications Medication Instructions Recorded Confirmed acetaminophen 650 mg 650 mg PO Q12H 11/13/19 11/20/20 tablet,extended release flurbiprofen 100 mg tablet 100 mg PO BID 11/13/19 11/20/20 levothyroxine 200 mcg tablet 200 mcg PO DAILY 11/13/19 11/20/20 cholecalciferol (vitamin D3) 0 mcg PO DAILY 11/20/20 11/20/20 [Vitamin D3] vitamin K2 0 mcg PO DAILY 11/20/20 11/20/20 Previous Rx's Medication Instructions Recorded levothyroxine 25 mcg tablet 25 mcg PO DAILY #30 tab 12/17/19 Results & Data (ED) Vital Signs Vital Signs - 24 hr 11/20/20 17:23 11/20/20 18:01 11/20/20 18:03 Temperature 36.0 C L Temperature Source Skin Pulse Rate 93 H 86 81 Pulse Rate from SpO2 Sensor 85 81 Respiratory Rate 20 19 22 Respiratory Effort / Characteristics Non-Labored Spontaneous Respiratory Depth Normal Respiratory Pattern Regular Blood Pressure 161/70 H 158/106 H Blood Pressure Mean 100 123 Pulse Oximetry 96 95 95 Oxygen Delivery Method Room Air Sepsis Recent Fever Within 48 Hours No Sepsis New/Unexplained Change in Mental Status N/A Sepsis Action Taken by Nursing No Action Required 11/20/20 18:30 11/20/20 18:31 11/20/20 19:00 Temperature Temperature Source Pulse Rate 77 77 84 Pulse Rate from SpO2 Sensor 78 77 84 Respiratory Rate 21 21 25 H Respiratory Effort / Characteristics Respiratory Depth Respiratory Pattern Blood Pressure 191/94 H Blood Pressure Mean 126 Pulse Oximetry 93 93 96 Oxygen Delivery Method Sepsis Recent Fever Within 48 Hours Sepsis New/Unexplained Change in Mental Status Sepsis Action Taken by Nursing 11/20/20 19:01 11/20/20 19:30 11/20/20 20:00 Temperature Temperature Source Pulse Rate 82 79 81 Pulse Rate from SpO2 Sensor 81 79 Respiratory Rate 27 H 30 H 20 Respiratory Effort / Characteristics Respiratory Depth Respiratory Pattern Blood Pressure 183/96 H 172/100 H 123/99 Blood Pressure Mean 125 124 107 Pulse Oximetry 96 96 Oxygen Delivery Method Sepsis Recent Fever Within 48 Hours Sepsis New/Unexplained Change in Mental Status Sepsis Action Taken by Nursing 11/20/20 20:30 Temperature Temperature Source Pulse Rate 84 Pulse Rate from SpO2 Sensor Respiratory Rate 21 Respiratory Effort / Characteristics Respiratory Depth Respiratory Pattern Blood Pressure 172/65 H Blood Pressure Mean 100 Pulse Oximetry Oxygen Delivery Method Sepsis Recent Fever Within 48 Hours Sepsis New/Unexplained Change in Mental Status Sepsis Action Taken by Nursing Laboratory Data Result diagrams: 11/20/20 17:43 11/20/20 17:43 Lab Results 11/20/20 11/20/20 11/20/20 Range/Units 17:43 17:43 17:49 WBC 17.12 H (4.8-10.8) K/uL RBC 5.14 (4.2-5.4) M/uL Hgb 14.1 (12.0-16.0) g/dL Hct 43.3 (37-47) % MCV 84.2 (80-100) fL MCH 27.4 (25-34) pg MCHC 32.6 (32-36) g/dL RDW Std Deviation 46.1 (36.4-46.3) fL RDW Coeff of Rose 14.9 H (11.5-14.5) % Plt Count 287 (130-400) K/uL MPV 11.3 H (7.4-10.4) fL Immature Gran % (Auto) 0.4 % Neut % (Auto) 82.8 % Lymph % (Auto) 9.6 % Pickett % (Auto) 7.0 % Eos % (Auto) 0.1 % Baso % (Auto) 0.1 % Neut # (Auto) 14.20 H (1.4-6.5) K/uL Lymph # (Auto) 1.64 (1.2-3.4) K/uL Pickett # (Auto) 1.19 H (0.11-0.59) K/uL Eos # (Auto) 0.01 (0-0.5) K/uL Baso # (Auto) 0.02 (0-0.2) K/uL Immature Gran # (Auto) 0.06 H (0.00-0.02) K/uL Sodium 136 (136-145) mmol/L Potassium 4.4 (3.5-5.1) mmol/L Chloride 104 (98-107) mmol/L Carbon Dioxide 24 (21-32) mmol/L Anion Gap 8.0 (3-11) BUN 28 H (7-18) mg/dl Creatinine 1.69 H (0.6-1.2) mg/dl Est Cr Clr Drug Dosing 57.5 ml/min Est GFR ( Amer) 36.6 ml/min Est GFR (Non-Af Amer) 31.5 ml/min BUN/Creatinine Ratio 16.3 (10-20) Glucose 268 H (70-99) mg/dl Calcium 9.3 (8.5-10.1) mg/dl Total Bilirubin 0.5 (0.2-1) mg/dl AST 24 (15-37) U/L ALT 39 (12-78) U/L Alkaline Phosphatase 90 (45-117) U/L Total Protein 8.4 H (6.4-8.2) gm/dl Albumin 3.5 (3.4-5.0) gm/dl Globulin 4.9 H (2.5-4.0) gm/dl Albumin/Globulin Ratio 0.7 L (0.9-2) Lipase 86 (73-393) U/L Urine Color Scott Urine Appearance Slightly Cloudy (Clear) Urine pH (4.5-7.5) Ur Specific [place] 1.014 (1.000-1.030) Urine Protein (Negative) Urine Glucose (UA) (Negative) Urine Ketones (Negative) Urine Blood (Negative) Urine Nitrite (Negative) Urine Bilirubin (Negative) Urine Urobilinogen (Negative) Ur Leukocyte Esterase (Negative) Urine RBC >30 H (0-4) /hpf Urine WBC 10-30 H (0-5) /hpf Ur Epithelial Cells >30 H (0-5) /lpf Urine Bacteria 1+ H (Negative) COVID-19 Eval Order SARS-CoV-2 (PCR) (Negative) 11/20/20 11/20/20 Range/Units 20:28 20:28 WBC (4.8-10.8) K/uL RBC (4.2-5.4) M/uL Hgb (12.0-16.0) g/dL Hct (37-47) % MCV (80-100) fL MCH (25-34) pg MCHC (32-36) g/dL RDW Std Deviation (36.4-46.3) fL RDW Coeff of Rose (11.5-14.5) % Plt Count (130-400) K/uL MPV (7.4-10.4) fL Immature Gran % (Auto) % Neut % (Auto) % Lymph % (Auto) % Pickett % (Auto) % Eos % (Auto) % Baso % (Auto) % Neut # (Auto) (1.4-6.5) K/uL Lymph # (Auto) (1.2-3.4) K/uL Pickett # (Auto) (0.11-0.59) K/uL Eos # (Auto) (0-0.5) K/uL Baso # (Auto) (0-0.2) K/uL Immature Gran # (Auto) (0.00-0.02) K/uL Sodium (136-145) mmol/L Potassium (3.5-5.1) mmol/L Chloride (98-107) mmol/L Carbon Dioxide (21-32) mmol/L Anion Gap (3-11) BUN (7-18) mg/dl Creatinine (0.6-1.2) mg/dl Est Cr Clr Drug Dosing ml/min Est GFR ( Amer) ml/min Est GFR (Non-Af Amer) ml/min BUN/Creatinine Ratio (10-20) Glucose (70-99) mg/dl Calcium (8.5-10.1) mg/dl Total Bilirubin (0.2-1) mg/dl AST (15-37) U/L ALT (12-78) U/L Alkaline Phosphatase (45-117) U/L Total Protein (6.4-8.2) gm/dl Albumin (3.4-5.0) gm/dl Globulin (2.5-4.0) gm/dl Albumin/Globulin Ratio (0.9-2) Lipase (73-393) U/L Urine Color Urine Appearance (Clear) Urine pH (4.5-7.5) Ur Specific [place]opus (1.000-1.030) Urine Protein (Negative) Urine Glucose (UA) (Negative) Urine Ketones (Negative) Urine Blood (Negative) Urine Nitrite (Negative) Urine Bilirubin (Negative) Urine Urobilinogen (Negative) Ur Leukocyte Esterase (Negative) Urine RBC (0-4) /hpf Urine WBC (0-5) /hpf Ur Epithelial Cells (0-5) /lpf Urine Bacteria (Negative) COVID-19 Eval Order Covid19 at [facility] SARS-CoV-2 (PCR) NEGATIVE (Negative) Administered Medications Discontinued Medications Ceftriaxone Sodium (Rocephin) 1,000 mg in 50 mls @ 100 mls/hr IV NOW STA Stop: 11/20/20 20:16 Last Infusion: 11/20/20 21:03 Dose: 0 mls/hr Documented by: [id number] Admin: 11/20/20 20:15 Dose: 100 mls/hr Documented by: [id number] Ondansetron HCl (Ondansetron Inj 2 Mg/Ml 2 Ml Vial) 4 mg IV NOW STA Stop: 11/20/20 18:04 Last Admin: 11/20/20 18:11 Dose: 4 mg Documented by: [id number] Imaging Data Radiologist's Impression: Abdomen/Pelvis CT 11/20/20 18:[address] WITHOUT CONTRAST CT DOSE: 2185.27 mGy.cm HISTORY: right flank pain, UTI symptoms. hx of stones TECHNIQUE: Multiaxial CT images of the abdomen and pelvis were performed without contrast. A dose lowering technique was utilized adhering to the principles of ALARA. COMPARISON STUDY: None. FINDINGS: Mild interstitial thickening at the lung bases. No pneumoperitoneum. No pneumatosis. There are bilateral total hip arthroplasties. No suspicious lytic or blastic osseous lesions. Hepatic steatosis. Cholecystectomy. The unenhanced spleen, adrenal glands, and pancreas are within normal limits. There is a 5.7 cm exophytic hypodense lesion within the left kidney. This is incompletely characterized on this noncontrast study but likely represents a cyst. There is a 3.1 x 2.1 cm staghorn calculus seen within the lower pole of the left kidney which extends to the left renal pelvis. In addition, there is a 4 mm obstructing stone at the left ureteropelvic junction on image 252 resulting in mild left hydronephrosis. There is bilateral perinephric edema, right greater than left as well as right periureteral edema. There is moderate right hydroureteronephrosis which extends into the deep pelvis. 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 However, coronal reformatted images suggest the possibility of a 4 mm stone within the distal right ureter immediately proximal to the right ureterovesical junction. The bladder is decompressed and not well visualized. Multiple additional punctate calcifications in the deep pelvis are consistent with phleboliths. Suboptimal evaluation for bowel pathology due to the lack of intravenous and oral contrast. However, there is no definite bowel wall thickening or obstruction. Normal appendix. Colonic diverticulosis. No evidence for acute diverticulitis. No right renal calculi. No retroperitoneal lymphadenopathy. Normal caliber abdominal aorta. IMPRESSION: 1. A 4 mm obstructing stone at the left ureteropelvic junction resulting in mild left hydronephrosis. 2. A 3.1 x 2.1 cm left renal staghorn calculus. 3. There is moderate right hydroureteronephrosis which extends into the deep pelvis. 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 However, coronal reformatted images suggest the possibility of a 4 mm stone within the distal right ureter immediately proximal to the right ureterovesical junction. ACT 112: Negative or not required by law. Electronically signed by: Joce iMnaya M.D. 11/20/2020 7:13 PM Discharge Plan Visit Data Chief Complaint: Illness Stated Complaint: CONSTANT VOMITING, NAUSEA, WEAKNESS ED Provider: Ren Banuelos Discharge Problem: Bilateral ureteral calculi, Acute right flank pain, Nausea & vomiting, Staghorn calculus, REINA (acute kidney injury) Patient Disposition: Admitted As Inpatient Discharge Instructions Interventions: ED Discharge Assessment Last Done: 11/20/20 23:23
[2020-11-20 18:24] LABS: Basophils # (auto) 0.02 K/uL (0-0.2); Basophils % (auto) 0.1 %; Eosinophils # (auto) 0.01 K/uL (0-0.5); Eosinophils % (auto) 0.1 %; Hematocrit (blood only) 43.3 % (37-47); Hemoglobin 14.1 g/dL (12.0-16.0); Immature Granulocytes # (auto) 0.06 K/uL (0.00-0.02); Immature Granulocytes % (auto) 0.4 %; Lymphocytes # (auto) 1.64 K/uL (1.2-3.4); Lymphocytes % (auto) 9.6 %; Mean Corpuscular Hemoglobin 27.4 pg (25-34); Mean Corpuscular Hgb Conc 32.6 g/dL (32-36); Mean Corpuscular Volume 84.2 fL (80-100); Mean Platelet Volume 11.3 fL (7.4-10.4); Monocytes # (auto) 1.19 K/uL (0.11-0.59); Neutrophils % (auto) 82.8 %; Platelet Count 287 K/uL (130-400); RDW Coefficient of Variation 14.9 % (11.5-14.5); RDW Standard Deviation 46.1 fL (36.4-46.3); Red Blood Count 5.14 M/uL (4.2-5.4); White Blood Count 17.12 K/uL (4.8-10.8)
[2020-11-20 18:29] LABS: Albumin Level 3.5 gm/dl (3.4-5.0); BUN Creatinine Ratio 16.3 (10-20); Calcium 9.3 mg/dl (8.5-10.1); Creatinine Clr Calc Pharmacy 57.5 ml/min; Est GFR (African American) 36.6 ml/min; Est GFR (Non-African American) 31.5 ml/min; Potassium 4.4 mmol/L (3.5-5.1)
[2020-11-20 18:32] LABS: Albumin Globulin Ratio 0.7 (0.9-2); Bilirubin,Total 0.5 mg/dl (0.2-1); Globulin 4.9 gm/dl (2.5-4.0); Total Protein 8.4 gm/dl (6.4-8.2)
[2020-11-20 18:47] LABS: Appearance Urine Slightly Cloudy (Clear); Color Urine Orange
[2020-11-20 18:48] LABS: Specific Gravity Urine 1.014 (1.000-1.030)
[2020-11-20 18:51] LABS: Epithelial Cell Urine >30 /lpf (0-5)
[2020-11-20 18:52] LABS: RBC Urine >30 /hpf (0-4)
[2020-11-20 18:53] LABS: Bacteria Urine 1+ (Negative)
--- NOTE | 2020-11-20 19:15 | CT Scan Report ---
ABDOMEN AND PELVIS CT WITHOUT CONTRAST CT DOSE: 2185.27 mGy.cm HISTORY: right flank pain, UTI symptoms. hx of stones TECHNIQUE: Multiaxial CT images of the abdomen and pelvis were performed without contrast. A dose lo wering technique was utilized adhering to the principles of ALARA. COMPARISON STUDY: None. FINDINGS: Mild interstitial thickening at the lung bases. No pneumoperitoneum. No pneumatosis. There are bilateral total hip arthroplasties. No suspicious lytic or blastic osseous lesions. Hepatic steat osis. Cholecystectomy. The unenhanced spleen, adrenal glands, and pancreas are within normal limits. There is a 5.7 cm exophytic hypodense lesion within the left kidney. This is incompletely characteriz ed on this noncontrast study but likely represents a cyst. There is a 3.1 x 2.1 cm staghorn calculus seen within the lower pole of the left kidney which extends to the left renal pelvis. In addition, th ere is a 4 mm obstructing stone at the left ureteropelvic junction on image 252 resulting in mild lef t hydronephrosis. There is bilateral perinephric edema, right greater than left as well as right wan ureteral edema. There is moderate right hydroureteronephrosis which extends into the deep pelvis. Of note, the distal right ureter/UVJ is obscured by the metallic artifact from the bilateral total hip a rthroplasties. However, coronal reformatted images suggest the possibility of a 4 mm stone within the distal right ureter immediately proximal to the right ureterovesical junction. The bladder is decomp ressed and not well visualized. Multiple additional punctate calcifications in the deep pelvis are co nsistent with phleboliths. Suboptimal evaluation for bowel pathology due to the lack of intravenous a nd oral contrast. However, there is no definite bowel wall thickening or obstruction. Normal appendix . Colonic diverticulosis. No evidence for acute diverticulitis. No right renal calculi. No retroperit loya lymphadenopathy. Normal caliber abdominal aorta. IMPRESSION: 1. A 4 mm obstructing stone at the left ureteropelvic junction resulting in mild left hydronephrosis. 2. A 3.1 x 2.1 cm left renal staghorn calculus. 3. There is moderate right hydroureteronephrosis which extends into the deep pelvis. Of note, the dis sirena right ureter/UVJ is obscured by the metallic artifact from the bilateral total hip arthroplasties . However, coronal reformatted images suggest the possibility of a 4 mm stone within the distal right ureter immediately proximal to the right ureterovesical junction. ACT 112: Negative or not required by law. Electronically signed by: Joce Minaya M.D. 11/20/2020 7:13 PM
[2020-11-20] MEDS ORDERED: cefTRIAXone SODIUM 1,000 MG/50 ML BAG IV STA (19:47)
--- NOTE | 2020-11-20 20:46 | History & Physical Report ---
Date of Service November 20, 2020 Assessment & Plan (1) Bilateral ureteral calculi: Bilateral ureteral calculi with bilateral hydronephrosis- Admit to medical surgical floor N.p.o. after midnight Follow urine culture and sensitivity Tylenol 650 mg p.o. every 6 hours as needed mild pain or fever Dilaudid 0.25 mg IV every 3 hours as needed moderate pain Dilaudid 0.5 mg IV every 3 hours as needed severe pain Famotidine 20 mg IV every 12 hours Zofran 4 mg IV every 6 hours as needed Ceftriaxone 2 g IV daily Consult urology Present on Admission?: Yes (2) Bilateral hydronephrosis: See above Present on Admission?: Yes (3) Nausea & vomiting: Zofran 4 mg IV every 6 hours as needed Present on Admission?: Yes (4) Staghorn calculus: Noted on CT, urology to address Present on Admission?: Yes (5) Recurrent UTI (urinary tract infection): Empiric ceftriaxone as noted above. Follow urine culture and sensitivity Present on Admission?: Yes (6) Hypothyroidism: Levothyroxine 2025 mcg p.o. daily Present on Admission?: Yes History of Present Illness Chief Complaint: The patient presents to the emergency department with complaint of right flank pain that initially began about 3 weeks ago, and more recently has developed nausea and vomiting Primary Care Provider: SANA Booth The patient is a 65-year-old female with a past medical history including recurrent urinary tract infection, hypertension, obesity, hypothyroidism, fibromyalgia, elevated blood pressure without diagnosis of hypertension, osteoarthritis, anxiety and depression, fatigue and binge eating disorder. She presents to the emergency department with approximately 3 weeks of right flank pain, and more recently developed nausea and vomiting. Work-up in the emergency department included CT scan of abdomen pelvis which showed a left UPJ stone approximately 4 mm in size with mild left hydronephrosis. Also showed a right UVJ stone 4 mm in size with moderate right hydronephrosis. Patient did receive ceftriaxone 1 g IV, Dilaudid 0.5 mg IV and Zofran 4 mg IV from the ED. Allergies Allergy/AdvReac Type Severity Reaction Status Date / Time adhesive Allergy Unknown SOME Verified 11/20/20 20:39 TAPE-RED BLISTERS doxycycline Allergy Unknown RASH Verified 11/20/20 20:39 latex Allergy Unknown RASH, RED Verified 11/20/20 20:39 BLISTERS morphine Allergy Unknown WHOLE BODY Verified 11/20/20 20:39 HOT,SOB,CHEST PAIN Penicillins Allergy Unknown rash Verified 11/20/20 20:39 gluten AdvReac FAMILY HX Unverified 11/20/20 20:41 OF GI DISTRESS Home Medications Medication Instructions Recorded Confirmed Type acetaminophen 650 mg 650 mg PO Q12H 11/13/19 11/20/20 History tablet,extended release flurbiprofen 100 mg tablet 100 mg PO BID 11/13/19 11/20/20 History levothyroxine 200 mcg tablet 200 mcg PO DAILY 11/13/19 11/20/20 History levothyroxine 25 mcg tablet 25 mcg PO DAILY #30 tab 12/17/19 11/20/20 Rx cholecalciferol (vitamin D3) 0 mcg PO DAILY 11/20/20 11/20/20 History [Vitamin D3] vitamin K2 0 mcg PO DAILY 11/20/20 11/20/20 History Past Med/Surg History Medical History (Updated 11/21/20 @ 04:45 by Matthew Rashid MD) Adjustment reaction with anxiety and depression Dietary counseling and surveillance Elevated blood-pressure reading, without diagnosis of hypertension Fatigue Fibromyalgia HTN (hypertension) Hypothyroidism Morbid obesity Obesity Osteoarthritis Recurrent UTI (urinary tract infection) Surgical History History of bilateral oophorectomy History of cholecystectomy History of tonsillectomy History of total left hip arthroplasty History of total right hip arthroplasty S/P endometrial ablation Family History Mother , MVA, age 72 Osteoarthritis Fibromyalgia Hypothyroidism (acquired) Obesity Father , age 91 Lymphoma Sister Fibromyalgia Osteoarthritis Autoimmune disease Brother Osteoarthritis Social History Smoking Status: Former smoker Hx Alcohol Use: No Hx Substance Use: No Preferred Language: Yemeni Executive Receptionist Required: No Beliefs That Will Affect Care: None marital status: marital status details: 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 Current Living Situation: Alone current occupational status: employed 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, 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[employer] @ [employer] Feels Safe at Home: Yes Safety Concerns: Feels Safe At This Time Assistive Devices: None Review of Systems Review of Systems: The patient denies chest pain, palpitations, shortness of breath, dyspnea on exertion, cough, lower extremity swelling, sore throat, fevers, chills, sweats, diarrhea , constipation, abdominal pain, pelvic pain, blood in urine or stool, dysuria, urinary frequency or urgency, lightheadedness, dizziness, headache, memory loss, loss of consciousness, rash, abnormal bruising or bleeding, imbalance, focal or generalized weakness, numbness or tingling in arms or legs, generalized arthralgias or myalgias, neck pain, or night sweats. The review of systems is otherwise negative other than for that already noted above, and at least 10 systems have been reviewed. Physical Exam Physical Exam: The patient is awake, alert and oriented 3, well developed and well nourished, normocephalic and atraumatic, lying in bed and in no acute distress. HEENT--PERRL, EOMI, mucous membranes and oropharynx normal. Neck--supple. No JVD. No bruits. Thyroid normal, trachea midline, no adenopathy. Heart--normal S1 and S2. No murmurs, rubs or gallops. Lungs--clear bilaterally, no respiratory distress, no accessory muscle use. Abdomen--normal bowel sounds and soft. Nontender. Nondistended. Morbidly obese Extremities--no cyanosis or clubbing. No edema. Dermatologic--normal skin turgor, normal color, no abnormal lymph nodes, no rash. Neurologic--cranial nerves II through XII grossly intact. Rheumatologic--normal range of motion. Psychiatric--normal affect. Results & Data Results & Data ([facility]) Vital Signs (Past 12 Hours) Vital Signs Temp Pulse Resp BP Pulse Ox 11/20/20 20:00 81 20 123/99 11/20/20 19:30 79 30 H 172/100 H 96 11/20/20 19:01 82 27 H 183/96 H 96 11/20/20 19:00 84 25 H 96 11/20/20 18:31 77 21 93 11/20/20 18:30 77 21 191/94 H 93 11/20/20 18:03 81 22 95 11/20/20 18:01 86 19 158/106 H 95 11/20/20 17:23 96.8 F L 93 H 20 161/70 H 96 Laboratory Results Laboratory Results WBC 17.12 K/uL (4.8-10.8) H 11/20/20 17:43 RBC 5.14 M/uL (4.2-5.4) 11/20/20 17:43 Hgb 14.1 g/dL (12.0-16.0) 11/20/20 17:43 Hct 43.3 % (37-47) 11/20/20 17:43 MCV 84.2 fL (80-100) 11/20/20 17:43 MCH 27.4 pg (25-34) 11/20/20 17:43 MCHC 32.6 g/dL (32-36) 11/20/20 17:43 RDW Std Deviation 46.1 fL (36.4-46.3) 11/20/20 17:43 RDW Coeff of Rose 14.9 % (11.5-14.5) H 11/20/20 17:43 Plt Count 287 K/uL (130-400) 11/20/20 17:43 MPV 11.3 fL (7.4-10.4) H 11/20/20 17:43 Immature Gran % (Auto) 0.4 % 11/20/20 17:43 Neut % (Auto) 82.8 % 11/20/20 17:43 Lymph % (Auto) 9.6 % 11/20/20 17:43 [place] % (Auto) 7.0 % 11/20/20 17:43 Eos % (Auto) 0.1 % 11/20/20 17:43 Baso % (Auto) 0.1 % 11/20/20 17:43 Neut # (Auto) 14.20 K/uL (1.4-6.5) H 11/20/20 17:43 Lymph # (Auto) 1.64 K/uL (1.2-3.4) 11/20/20 17:43 [place] # (Auto) 1.19 K/uL (0.11-0.59) H 11/20/20 17:43 Eos # (Auto) 0.01 K/uL (0-0.5) 11/20/20 17:43 Baso # (Auto) 0.02 K/uL (0-0.2) 11/20/20 17:43 Immature Gran # (Auto) 0.06 K/uL (0.00-0.02) H 11/20/20 17:43 Sodium 136 mmol/L (136-145) 11/20/20 17:43 Potassium 4.4 mmol/L (3.5-5.1) 11/20/20 17:43 Chloride 104 mmol/L (98-107) 11/20/20 17:43 Carbon Dioxide 24 mmol/L (21-32) 11/20/20 17:43 Anion Gap 8.0 (3-11) 11/20/20 17:43 BUN 28 mg/dl (7-18) H 11/20/20 17:43 Creatinine 1.69 mg/dl (0.6-1.2) H 11/20/20 17:43 Est Cr Clr Drug Dosing 57.5 ml/min 11/20/20 17:43 Est GFR ( Amer) 36.6 ml/min 11/20/20 17:43 Est GFR (Non-Af Amer) 31.5 ml/min 11/20/20 17:43 BUN/Creatinine Ratio 16.3 (10-20) 11/20/20 17:43 Glucose 268 mg/dl (70-99) H 11/20/20 17:43 POC Glucose 213 mg/dl (70-99) H 11/20/20 23:37 Calcium 9.3 mg/dl (8.5-10.1) 11/20/20 17:43 Total Bilirubin 0.5 mg/dl (0.2-1) 11/20/20 17:43 AST 24 U/L (15-37) 11/20/20 17:43 ALT 39 U/L (12-78) 11/20/20 17:43 Alkaline Phosphatase 90 U/L (45-117) 11/20/20 17:43 Total Protein 8.4 gm/dl (6.4-8.2) H 11/20/20 17:43 Albumin 3.5 gm/dl (3.4-5.0) 11/20/20 17:43 Globulin 4.9 gm/dl (2.5-4.0) H 11/20/20 17:43 Albumin/Globulin Ratio 0.7 (0.9-2) L 11/20/20 17:43 Lipase 86 U/L (73-393) 11/20/20 17:43 Urine Color Normal 11/20/20 17:49 Urine Appearance Slightly Cloudy (Clear) 11/20/20 17:49 Urine pH (4.5-7.5) 11/20/20 17:49 Ur Specific [place] 1.014 (1.000-1.030) 11/20/20 17:49 Urine Protein (Negative) 11/20/20 17:49 Urine Glucose (UA) (Negative) 11/20/20 17:49 Urine Ketones (Negative) 11/20/20 17:49 Urine Blood (Negative) 11/20/20 17:49 Urine Nitrite (Negative) 11/20/20 17:49 Urine Bilirubin (Negative) 11/20/20 17:49 Urine Urobilinogen (Negative) 11/20/20 17:49 Ur Leukocyte Esterase (Negative) 11/20/20 17:49 Urine RBC >30 /hpf (0-4) H 11/20/20 17:49 Urine WBC 10-30 /hpf (0-5) H 11/20/20 17:49 Ur Epithelial Cells >30 /lpf (0-5) H 11/20/20 17:49 Urine Bacteria 1+ (Negative) H 11/20/20 17:49 COVID-19 Eval Order Covid19 at [facility] 11/20/20 20:28 SARS-CoV-2 (PCR) NEGATIVE (Negative) 11/20/20 20:28 Impressions Abdomen/Pelvis CT 11/20/20 18:[address] WITHOUT CONTRAST CT DOSE: 2185.27 mGy.cm HISTORY: right flank pain, UTI symptoms. hx of stones TECHNIQUE: Multiaxial CT images of the abdomen and pelvis were performed without contrast. A dose lowering technique was utilized adhering to the principles of ALARA. COMPARISON STUDY: None. FINDINGS: Mild interstitial thickening at the lung bases. No pneumoperitoneum. No pneumatosis. There are bilateral total hip arthroplasties. No suspicious lytic or blastic osseous lesions. Hepatic steatosis. Cholecystectomy. The unenhanced spleen, adrenal glands, and pancreas are within normal limits. There is a 5.7 cm exophytic hypodense lesion within the left kidney. This is incompletely characterized on this noncontrast study but likely represents a cyst. There is a 3.1 x 2.1 cm staghorn calculus seen within the lower pole of the left kidney which extends to the left renal pelvis. In addition, there is a 4 mm obstructing stone at the left ureteropelvic junction on image 252 resulting in mild left hydronephrosis. There is bilateral perinephric edema, right greater than left as well as right periureteral edema. There is moderate right hydroureteronephrosis which extends into the deep pelvis. 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 However, coronal reformatted images suggest the possibility of a 4 mm stone within the distal right ureter immediately proximal to the right ureterovesical junction. The bladder is decompressed and not well visualized. Multiple additional punctate calcifications in the deep pelvis are consistent with phleboliths. Suboptimal evaluation for bowel pathology due to the lack of intravenous and oral contrast. However, there is no definite bowel wall thickening or obstruction. Normal appendix. Colonic diverticulosis. No evidence for acute diverticulitis. No right renal calculi. No retroperitoneal lymphadenopathy. Normal caliber abdominal aorta. IMPRESSION: 1. A 4 mm obstructing stone at the left ureteropelvic junction resulting in mild left hydronephrosis. 2. A 3.1 x 2.1 cm left renal staghorn calculus. 3. There is moderate right hydroureteronephrosis which extends into the deep pelvis. 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 However, coronal reformatted images suggest the possibility of a 4 mm stone within the distal right ureter immediately proximal to the right ureterovesical junction. ACT 112: Negative or not required by law. Electronically signed by: Joce Minaya M.D. 11/20/2020 7:13 PM Code Status & VTE Plan Code Status Full code VTE Prophylaxis Plan VTE Prophylaxis will be ordered: Yes PG Care Time/CCT Total # of Minutes Spent Total Time Spent with Patient: Total time spent is greater than 50% in coordination of care (as documented) at patient's floor/unit and/or counseling patient: Coding Level of Care Code 71419 Initial Inpt Care Lvl 2 Diagnoses Bilateral ureteral calculi N20.1 Bilateral hydronephrosis N13.30 Nausea & vomiting R11.2 Staghorn calculus N20.0 Recurrent UTI (urinary tract infection) N39.0 Hypothyroidism E03.9
[2020-11-20] MEDS ORDERED: GLUCOSE 40% GEL 15 GM TUBE PO PRN (23:31)
[2020-11-20] MEDS ORDERED: GLUCOSE 10 TABS/TUBE PO PRN (23:31)
[2020-11-20] MEDS ORDERED: ONDANSETRON INJ 2 MG/ML 2 ML VIAL IV PRN (23:31)
[2020-11-20] MEDS ORDERED: GLUCAGON FOR INJ 1 MG VIAL SQ PRN (23:31)
[2020-11-20] MEDS ORDERED: DEXTROSE 50% 50 ML SYRINGE IV PRN (23:31)
[2020-11-20] MEDS ORDERED: CARBOHYDRATES FOR HYPOGLYCEMIA PO PRN (23:31)
[2020-11-20] MEDS ORDERED: ACETAMINOPHEN 325 MG TAB PO PRN (23:31)
[2020-11-21] MEDS: INSULIN ASPART 100 UNITS/ML 3 ML PEN SC SCH ×5 (00:33→21:01)
[2020-11-21] MEDS: FAMOTIDINE 20 MG in SYRINGE 3 ML IV SCH ×2 (00:34→13:01)
[2020-11-21] MEDS: SODIUM CHLORIDE 0.9% 1000ML 1,000 ML IV SCH ×2 (00:34→10:20)
[2020-11-21] MEDS: LEVOTHYROXINE SODIUM 200 MCG TABLET PO SCH (05:32)
[2020-11-21] MEDS: LEVOTHYROXINE SODIUM 25 MCG TABLET PO SCH ×2 (05:32→10:22)
[2020-11-21] MEDS ORDERED: fentaNYL citrate 100 MCG/2 ML VIAL ONE (06:52)
[2020-11-21] MEDS ORDERED: LIDOCAINE 2% 2 ML VIAL/AMP(20MG/ML) INFIL ONE (06:52)
[2020-11-21] MEDS ORDERED: MIDAZOLAM HCL 1 MG/ML 2ML VIAL ONE (06:52)
[2020-11-21] MEDS ORDERED: PROPOFOL IV EMULSION 10 MG/ML 20 ML VIAL IV ONE ×2 (06:52→08:15)
--- NOTE | 2020-11-21 07:18 | Urology Consultation ---
Date of Consultation November 21, 2020 Assessment & Plan (1) Bilateral hydronephrosis: (2) Nausea & vomiting: (3) Bilateral ureteral calculi: b/l obstructing calculi with associated REINA requires emergent intervention plan for cysto, bilateral ureteral stent placement this AM had a dose of ceftriaxone last evening which should provide sufficient coverage for today risks, benefits, expectations reviewed History of Present Illness Attending Physician: Matthew Rashid MD History of Present Illness 55y/o female w/ a hx of UTIs and kidney stones began to experience flank pain earlier this week ultimately prompted an ER visit no fevers/chills/rigors severe nausea and vomiting upon arrival was found to have REINA (Cr 1.6 - Bl 0.8) leukocytosis hemodynamically stable CT showing a right distal ureteral calculus with hydro and a left UPJ fragment with hydro as well as a larger stone within the left renal pelvis Allergies Allergy/AdvReac Type Severity Reaction Status Date / Time adhesive Allergy Unknown SOME Verified 11/20/20 20:39 TAPE-RED BLISTERS doxycycline Allergy Unknown RASH Verified 11/20/20 20:39 latex Allergy Unknown RASH, RED Verified 11/20/20 20:39 BLISTERS morphine Allergy Unknown WHOLE BODY Verified 11/20/20 20:39 HOT,SOB,CHEST PAIN Penicillins Allergy Unknown rash Verified 11/20/20 20:39 gluten AdvReac FAMILY HX Unverified 11/20/20 20:41 OF GI DISTRESS Home Medications Medication Instructions Recorded Confirmed Type acetaminophen 650 mg 650 mg PO Q12H 11/13/19 11/20/20 History tablet,extended release flurbiprofen 100 mg tablet 100 mg PO BID 11/13/19 11/20/20 History levothyroxine 200 mcg tablet 200 mcg PO DAILY 11/13/19 11/20/20 History levothyroxine 25 mcg tablet 25 mcg PO DAILY #30 tab 12/17/19 11/20/20 Rx cholecalciferol (vitamin D3) 0 mcg PO DAILY 11/20/20 11/20/20 History [Vitamin D3] vitamin K2 0 mcg PO DAILY 11/20/20 11/20/20 History Patient History Medical History Adjustment reaction with anxiety and depression Dietary counseling and surveillance Elevated blood-pressure reading, without diagnosis of hypertension Fatigue Fibromyalgia HTN (hypertension) Hypothyroidism Morbid obesity Obesity Osteoarthritis Recurrent UTI (urinary tract infection) Surgical History History of bilateral oophorectomy History of cholecystectomy History of tonsillectomy History of total left hip arthroplasty History of total right hip arthroplasty S/P endometrial ablation Family History Mother , MVA, age 72 Osteoarthritis Fibromyalgia Hypothyroidism (acquired) Obesity Father , age 91 Lymphoma Sister Fibromyalgia Osteoarthritis Autoimmune disease Brother Osteoarthritis Social History Smoking Status: Former smoker Hx Alcohol Use: No Hx Substance Use: No Preferred Language: Malay Back Office Medical Assistant Required: No Beliefs That Will Affect Care: None marital status: marital status details: 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 Current Living Situation: Alone current occupational status: employed 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, 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[employer] @ [employer] Feels Safe at Home: Yes Safety Concerns: Feels Safe At This Time Assistive Devices: None Review of Systems Review of Systems: All systems reviewed & are unremarkable except as noted in HPI & below Physical Exam Constitutional: well developed and well nourished Neck: neck nontender Respiratory: normal respiratory effort; no respiratory distress and does not use accessory muscles Cardiovascular: Rate/Rhythm: regular rate Vessels: radial pulses present Extremities: no edema Gastrointestinal (Abdomen): Inspection/Auscultation: abdomen normal to inspection Percussion/Palpation: abdomen soft; abdomen nontender and no guarding Musculoskeletal: Head/Neck/Chest: normocephalic and head atraumatic Extremities: extremities normal to inspection Skin: no rashes and no lesions Trauma: no evidence of skin trauma Neurologic: awake; not obtunded Speech / Cognition: normal speech Motor/Sensory: no tremor Psychiatric: Orientation: alert and oriented x 3 Lymphatic: no lymphadenopathy Results & Data ([facility]) Vital Signs (Past 12 Hours) Vital Signs Temp Pulse Pulse Resp BP BP Pulse Ox 11/20/20 23:31 37.0 C 90 18 156/66 H 91 11/20/20 23:00 87 27 H 175/89 H 11/20/20 22:30 85 21 156/76 H 11/20/20 22:00 86 24 164/83 H 11/20/20 21:30 80 26 H 164/78 H 11/20/20 21:00 81 16 186/83 H 11/20/20 20:30 84 21 172/65 H 11/20/20 20:00 81 20 123/99 11/20/20 19:30 79 30 H 172/100 H 96 PG Care Time/CCT Total # of Minutes Spent Total Time Spent with Patient: Total time spent is greater than 50% in coordination of care (as documented) at patient's floor/unit and/or counseling patient: Coding Level of Care Code 66418 Inpt Consult Level 5 Diagnoses Bilateral hydronephrosis N13.30 Nausea & vomiting R11.2 Bilateral ureteral calculi N20.1
--- NOTE | 2020-11-21 07:22 | Anesthesiology Consultation ---
Date of Service November 21, 2020 Assessment & Plan (1) Encounter for pre-operative examination: Chart Review Chart Review: Acceptable Risk for Surgery and Patient NOT seen in Pre Admission Testing Consults Requested none ASA ASA3 Proposed Anesthesia Anesthesia Type: MAC Risk / Benefits Reviewed With: PT / POA / Parent / Guardian, Accepts Plan and Informed Consent Obtained History Surgery Operation Date: 11/21/20 07:30 Proposed Procedures p Cystoscopy, Bilateral Ureteral Stent Insertion(Bilateral) - Nick Dias MD Height/Weight Height: 5 ft 7 in Weight: 176 kg Allergies Allergy/AdvReac Type Severity Reaction Status Date / Time adhesive Allergy Unknown SOME Verified 11/20/20 20:39 TAPE-RED BLISTERS doxycycline Allergy Unknown RASH Verified 11/20/20 20:39 latex Allergy Unknown RASH, RED Verified 11/20/20 20:39 BLISTERS morphine Allergy Unknown WHOLE BODY Verified 11/20/20 20:39 HOT,SOB,CHEST PAIN Penicillins Allergy Unknown rash Verified 11/20/20 20:39 gluten AdvReac FAMILY HX Unverified 11/20/20 20:41 OF GI DISTRESS Medications Home Medications Medication Instructions Recorded Confirmed Last Taken acetaminophen 650 mg 650 mg PO Q12H 11/13/19 11/20/20 Unknown tablet,extended release flurbiprofen 100 mg tablet 100 mg PO BID 11/13/19 11/20/20 Unknown levothyroxine 200 mcg tablet 200 mcg PO DAILY 11/13/19 11/20/20 Unknown levothyroxine 25 mcg tablet 25 mcg PO DAILY #30 tab 12/17/19 11/20/20 Unknown cholecalciferol (vitamin D3) 0 mcg PO DAILY 11/20/20 11/20/20 Unknown [Vitamin D3] vitamin K2 0 mcg PO DAILY 11/20/20 11/20/20 Unknown Active Medications Generic Name Dose Route Start Last Admin Trade Name Freq PRN Reason Stop Dose Admin Sodium Chloride 1,000 mls @ 100 mls/hr 11/20/20 23:31 11/21/20 00:34 Nss 1000ml IV 12/20/20 23:30 100 mls/hr .Q10H VALERY Administration Famotidine 20 mg/ Syringe 5 mls @ 2.5 mls/min 11/21/20 00:00 11/21/20 00:34 IV 12/21/20 00:00 2.5 mls/min Q12H VALERY Administration Insulin Aspart 0 units 11/21/20 00:30 11/21/20 06:26 Insulin Aspart 100 Units/Ml 3 Ml Pen SC 12/21/20 00:29 2 units Q6 VALERY Administration Levothyroxine Sodium 200 mcg 11/21/20 06:30 11/21/20 05:32 Levothyroxine Sodium 200 Mcg Tablet PO 12/21/20 06:29 Not Given DAILYBB VALERY Levothyroxine Sodium 25 mcg 11/21/20 06:30 11/21/20 05:32 Levothyroxine Sodium 25 Mcg Tablet PO 12/21/20 06:29 Not Given DAILYBB VALERY Ondansetron HCl 4 mg 11/20/20 23:31 11/21/20 00:41 Ondansetron Inj 2 Mg/Ml 2 Ml Vial IV 12/20/20 23:30 4 mg Q6H PRN Administration Nausea NPO Date Last Intake of Fluids: 11/20/20 Time Last Intake of Fluids: 23:59 Date Last Intake of Solids: 11/19/20 Time Last Intake of Solids: 15:00 Past Medical History Medical History Adjustment reaction with anxiety and depression Dietary counseling and surveillance Elevated blood-pressure reading, without diagnosis of hypertension Fatigue Fibromyalgia HTN (hypertension) Hypothyroidism Morbid obesity Obesity Osteoarthritis Recurrent UTI (urinary tract infection) Exercise / Class Metabolic Activity III < 4 Walking/Shop/Light housework Past Family History Family History Mother , MVA, age 72 Osteoarthritis Fibromyalgia Hypothyroidism (acquired) Obesity Father , age 91 Lymphoma Sister Fibromyalgia Osteoarthritis Autoimmune disease Brother Osteoarthritis Past Surgical History Surgical History History of bilateral oophorectomy History of cholecystectomy History of tonsillectomy History of total left hip arthroplasty History of total right hip arthroplasty S/P endometrial ablation Past Anesthesia History No Hx of Anesthesia Complications History of PONV History of PONV Social History Smoking Status: Former smoker Hx Alcohol Use: No Hx Substance Use: No substance use type: does not use Review of Systems Positive for UTI sx this morning - denies N/V today Denies CP or SOB at this time Physical Exam Vital Signs Last Vital Signs Temp 36.9 C 11/21/20 07:18 Pulse 78 11/21/20 07:18 Resp 16 11/21/20 07:18 BP 159/80 H 11/21/20 07:18 Pulse Ox 90 11/21/20 07:18 Constitutional + morbidly obese ENMT Mouth: no TMJ abnormality and oral opening not small Thyromental Distance: > or= 3.5 Finger Breadths Mallampati Class: II Mouth / Teeth: 1. chipped Neck normal visual inspection; neck extension not limited Respiratory normal respiratory effort Auscultation: lungs clear to auscultation bilaterally Cardiovascular Rate/Rhythm: regular rate and regular rhythm Heart Sounds: no murmur Neurologic moves all extremities Psychiatric Orientation: alert and oriented x 3 Testing Laboratory Results 11/20/20 17:43 11/20/20 17:43 Urine Color [place] 11/20/20 17:49 Urine Appearance Slightly Cloudy (Clear) 11/20/20 17:49 Urine pH (4.5-7.5) 11/20/20 17:49 Ur Specific Alpha 1.014 (1.000-1.030) 11/20/20 17:49 Urine Protein (Negative) 11/20/20 17:49 Urine Glucose (UA) (Negative) 11/20/20 17:49 Urine Ketones (Negative) 11/20/20 17:49 Urine Nitrite (Negative) 11/20/20 17:49 Ur Leukocyte Esterase (Negative) 11/20/20 17:49 Urine RBC >30 /hpf (0-4) H 11/20/20 17:49 Urine WBC 10-30 /hpf (0-5) H 11/20/20 17:49 Ur Epithelial Cells >30 /lpf (0-5) H 11/20/20 17:49 11/21/20 11/20/20 06:24 23:37 POC Glucose 254 H 213 H
--- NOTE | 2020-11-21 07:51 | Hospitalist Progress Note ---
Date of Service November 21, 2020 Assessment & Plan (1) Bilateral ureteral calculi: Bilateral ureteral calculi with bilateral hydronephrosis- CTAP * 1. A 4 mm obstructing stone at the left ureteropelvic junction resulting in mild left hydronephrosis. * 2. A 3.1 x 2.1 cm left renal staghorn calculus. * 3. There is moderate right hydroureteronephrosis which extends into the deep pelvis. 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 However, coronal reformatted images suggest the possibility of a 4 mm stone within the distal right ureter immediately proximal to the right ureterovesical junction. FEELING MUCH BETTER * Urology consulted * s/p Cystoscopy, Bilateral Ureteral Stent Insertion(Bilateral) - Tj Dias MD * Cr elevated to 1.69 on admission (baseline 0.8-0.9) -- 2.1 on AM labs post- procedure but expect to improve on AM labs. Making good urine * Continues Ceftriaxone 2gm IV daily * --Monitor urine cx * WBC 17.1--> 13k * Afebrile * Labs in AM * DAHA diet today -- encouraged to push oral fluids * CXR with some mild congestion post -op (not obtained prior to OR) -- no sob but is 93% on RA. Encouraged incentive spirometer and will d/c fluids this evening if oral intake acceptable * Will need f/u with Urology for further tx staghorn kidney stone (2) Bilateral hydronephrosis: See above (3) Diabetes mellitus: NEW A1c 10.0 BSG ACHS ISS -- will consult pharmacy and home health physical therapist given new diagnosis -- of note, she did report increased polydipsia/polyphagia/abd fullness Will need plan and f/u with PCP at d/c for management (4) Nausea & vomiting: Zofran 4 mg IV every 6 hours as needed NONE TODAY (5) Staghorn calculus: Noted on CT, urology to address -- continued f/u needed (6) Recurrent UTI (urinary tract infection): Empiric ceftriaxone as noted above. Follow urine culture and sensitivity (7) Hypothyroidism: Levothyroxine 200+25 mcg p.o. daily -- can only take name brand Will repeat TSH in AM Anxiety/depression --stable but no longer takes wellbutrin DVT prophylaxis --AMbulation encourage Dispo: continued inpatient stay -- possible d/c tomorrow (8) Morbid obesity: BMI 60 Admission and Anticipated Discharge Date Admission Date: November 20, 2020 Supervising Physician Co-Signing Physician Notes Attending Attestation - Chart reviewed, care plan d/w VEL Eduardo. I agree w/ the crawford components of her documentation. POD #0 - s/p b/l ureteral stent placement for b/l kidney stones. REINA 2nd to obstruction. ?UTI - remains on IV antibiotics while culture is pending . BMP in am. Appreciate urology assistance. José Miguel Teran MD Subjective Patient seen this morning. Pain resolved but does have some burning. Controlled with pyridium. Making lots of urine and on second glass of water. She is aware she will need further tx for her staghorn kidney stone. She has admitted to n/v/and increased polydipsia/polyphagia as she does have hx binge eating (although states related to emotions) but we did discuss elevated A1c and diabetes. She did not know of any prior hx. She states she has had her heart checked in the past and it "is strong". Agreeable to talk with home health physical therapist and get good plan for her at d/c and will follow up with her PCP in [facility] (from [facility]). Issues with weight loss but does have many joint repair/replacement in past which limited exercise. Staying overnight to ensure improvement of renal function and to get blood sugar control with hopes for d/c in AM. No fever, chills, chest pain, shortness of breath, abdominal pain, nausea, vomiting. Review of Systems Review of Systems: All systems reviewed & are unremarkable except as noted in HPI & below Physical Exam Physical Exam: The patient is awake, alert and oriented 3, well developed and well nourished, normocephalic and atraumatic, sitting up in chair, NAD. HEENT--PERRL, EOMI, mucous membranes and oropharynx normal. Neck--supple. No JVD. No bruits. Thyroid normal, trachea midline, no adenopathy. Heart--normal S1 and S2. No murmurs, rubs or gallops. Lungs--clear bilaterally, no respiratory distress, no accessory muscle use. diminished in the bases Abdomen--normal bowel sounds and soft. Nontender. Nondistended. minimal suprapubic discomfort. Morbidly obese Extremities--no cyanosis or clubbing. No edema. Dermatologic--normal skin turgor, normal color, no abnormal lymph nodes, no rash. dry skin Neurologic--cranial nerves II through XII grossly intact. Rheumatologic--normal range of motion. Psychiatric--normal affect. Results & Data Results & Data ([facility]) Vital Signs (Past 12 Hours) Vital Signs Temp Pulse Pulse Resp BP BP Pulse Ox 11/21/20 07:18 36.9 C 78 16 159/80 H 90 11/20/20 23:31 37.0 C 90 18 156/66 H 91 11/20/20 23:00 87 27 H 175/89 H 11/20/20 22:30 85 21 156/76 H 11/20/20 22:00 86 24 164/83 H 11/20/20 21:30 80 26 H 164/78 H 11/20/20 21:00 81 16 186/83 H 11/20/20 20:30 84 21 172/65 H 11/20/20 20:00 81 20 123/99 Laboratory Results 11/21/20 11/21/20 11/21/20 Range/Units 10:29 10:29 10:29 WBC (4.8-10.8) K/uL RBC (4.2-5.4) M/uL Hgb (12.0-16.0) g/dL Hct (37-47) % MCV (80-100) fL MCH (25-34) pg MCHC (32-36) g/dL RDW Std Deviation (36.4-46.3) fL RDW Coeff of Rose (11.5-14.5) % Plt Count (130-400) K/uL MPV (7.4-10.4) fL Immature Gran % (Auto) % Neut % (Auto) % Lymph % (Auto) % [place] % (Auto) % Eos % (Auto) % Baso % (Auto) % Neut # (Auto) (1.4-6.5) K/uL Lymph # (Auto) (1.2-3.4) K/uL [place] # (Auto) (0.11-0.59) K/uL Eos # (Auto) (0-0.5) K/uL Baso # (Auto) (0-0.2) K/uL Immature Gran # (Auto) (0.00-0.02) K/uL Sodium 137 (136-145) mmol/L Potassium 4.3 (3.5-5.1) mmol/L Chloride 106 (98-107) mmol/L Carbon Dioxide 24 (21-32) mmol/L Anion Gap 6.0 (3-11) BUN 34 H (7-18) mg/dl Creatinine 2.10 H D (0.6-1.2) mg/dl Est Cr Clr Drug Dosing 45.9 ml/min Est GFR ( Amer) 28.1 ml/min Est GFR (Non-Af Amer) 24.3 ml/min BUN/Creatinine Ratio 16.3 (10-20) Glucose 255 H (70-99) mg/dl POC Glucose (70-99) mg/dl Estimat Average Glucose 258 mg/dl Hemoglobin A1c 10.6 H (4.5-5.6) % Calcium 8.8 (8.5-10.1) mg/dl Magnesium 2.3 (1.8-2.4) mg/dl Total Bilirubin 0.4 (0.2-1) mg/dl AST 20 (15-37) U/L ALT 31 (12-78) U/L Alkaline Phosphatase 80 (45-117) U/L Total Protein 7.5 (6.4-8.2) gm/dl Albumin 3.2 L (3.4-5.0) gm/dl Globulin 4.3 H (2.5-4.0) gm/dl Albumin/Globulin Ratio 0.7 L (0.9-2) Lipase (73-393) U/L Urine Color Urine Appearance (Clear) Urine pH (4.5-7.5) Ur Specific [place] (1.000-1.030) Urine Protein (Negative) Urine Glucose (UA) (Negative) Urine Ketones (Negative) Urine Blood (Negative) Urine Nitrite (Negative) Urine Bilirubin (Negative) Urine Urobilinogen (Negative) Ur Leukocyte Esterase (Negative) Urine RBC (0-4) /hpf Urine WBC (0-5) /hpf Ur Epithelial Cells (0-5) /lpf Urine Bacteria (Negative) COVID-19 Eval Order SARS-CoV-2 (PCR) (Negative) Hepatitis C Ab Screen Pending 11/21/20 11/21/20 11/20/20 Range/Units 10:29 06:24 23:37 WBC 13.09 H (4.8-10.8) K/uL RBC 4.76 (4.2-5.4) M/uL Hgb 12.8 (12.0-16.0) g/dL Hct 40.4 (37-47) % MCV 84.9 (80-100) fL MCH 26.9 (25-34) pg MCHC 31.7 L (32-36) g/dL RDW Std Deviation 47.4 H (36.4-46.3) fL RDW Coeff of Rose 15.2 H (11.5-14.5) % Plt Count 234 (130-400) K/uL MPV 10.6 H (7.4-10.4) fL Immature Gran % (Auto) 0.4 % Neut % (Auto) 76.3 % Lymph % (Auto) 11.7 % [place] % (Auto) 10.6 % Eos % (Auto) 0.8 % Baso % (Auto) 0.2 % Neut # (Auto) 9.99 H (1.4-6.5) K/uL Lymph # (Auto) 1.53 (1.2-3.4) K/uL [place] # (Auto) 1.39 H (0.11-0.59) K/uL Eos # (Auto) 0.11 (0-0.5) K/uL Baso # (Auto) 0.02 (0-0.2) K/uL Immature Gran # (Auto) 0.05 H (0.00-0.02) K/uL Sodium (136-145) mmol/L Potassium (3.5-5.1) mmol/L Chloride (98-107) mmol/L Carbon Dioxide (21-32) mmol/L Anion Gap (3-11) BUN (7-18) mg/dl Creatinine (0.6-1.2) mg/dl Est Cr Clr Drug Dosing ml/min Est GFR ( Amer) ml/min Est GFR (Non-Af Amer) ml/min BUN/Creatinine Ratio (10-20) Glucose (70-99) mg/dl POC Glucose 254 H 213 H (70-99) mg/dl Estimat Average Glucose mg/dl Hemoglobin A1c (4.5-5.6) % Calcium (8.5-10.1) mg/dl Magnesium (1.8-2.4) mg/dl Total Bilirubin (0.2-1) mg/dl AST (15-37) U/L ALT (12-78) U/L Alkaline Phosphatase (45-117) U/L Total Protein (6.4-8.2) gm/dl Albumin (3.4-5.0) gm/dl Globulin (2.5-4.0) gm/dl Albumin/Globulin Ratio (0.9-2) Lipase (73-393) U/L Urine Color Urine Appearance (Clear) Urine pH (4.5-7.5) Ur Specific [place] (1.000-1.030) Urine Protein (Negative) Urine Glucose (UA) (Negative) Urine Ketones (Negative) Urine Blood (Negative) Urine Nitrite (Negative) Urine Bilirubin (Negative) Urine Urobilinogen (Negative) Ur Leukocyte Esterase (Negative) Urine RBC (0-4) /hpf Urine WBC (0-5) /hpf Ur Epithelial Cells (0-5) /lpf Urine Bacteria (Negative) COVID-19 Eval Order SARS-CoV-2 (PCR) (Negative) Hepatitis C Ab Screen 11/20/20 11/20/20 11/20/20 Range/Units 20:28 20:28 17:49 WBC (4.8-10.8) K/uL RBC (4.2-5.4) M/uL Hgb (12.0-16.0) g/dL Hct (37-47) % MCV (80-100) fL MCH (25-34) pg MCHC (32-36) g/dL RDW Std Deviation (36.4-46.3) fL RDW Coeff of Rose (11.5-14.5) % Plt Count (130-400) K/uL MPV (7.4-10.4) fL Immature Gran % (Auto) % Neut % (Auto) % Lymph % (Auto) % [place] % (Auto) % Eos % (Auto) % Baso % (Auto) % Neut # (Auto) (1.4-6.5) K/uL Lymph # (Auto) (1.2-3.4) K/uL [place] # (Auto) (0.11-0.59) K/uL Eos # (Auto) (0-0.5) K/uL Baso # (Auto) (0-0.2) K/uL Immature Gran # (Auto) (0.00-0.02) K/uL Sodium (136-145) mmol/L Potassium (3.5-5.1) mmol/L Chloride (98-107) mmol/L Carbon Dioxide (21-32) mmol/L Anion Gap (3-11) BUN (7-18) mg/dl Creatinine (0.6-1.2) mg/dl Est Cr Clr Drug Dosing ml/min Est GFR ( Amer) ml/min Est GFR (Non-Af Amer) ml/min BUN/Creatinine Ratio (10-20) Glucose (70-99) mg/dl POC Glucose (70-99) mg/dl Estimat Average Glucose mg/dl Hemoglobin A1c (4.5-5.6) % Calcium (8.5-10.1) mg/dl Magnesium (1.8-2.4) mg/dl Total Bilirubin (0.2-1) mg/dl AST (15-37) U/L ALT (12-78) U/L Alkaline Phosphatase (45-117) U/L Total Protein (6.4-8.2) gm/dl Albumin (3.4-5.0) gm/dl Globulin (2.5-4.0) gm/dl Albumin/Globulin Ratio (0.9-2) Lipase (73-393) U/L Urine Color [place] Urine Appearance Slightly Cloudy (Clear) Urine pH (4.5-7.5) Ur Specific [place] 1.014 (1.000-1.030) Urine Protein (Negative) Urine Glucose (UA) (Negative) Urine Ketones (Negative) Urine Blood (Negative) Urine Nitrite (Negative) Urine Bilirubin (Negative) Urine Urobilinogen (Negative) Ur Leukocyte Esterase (Negative) Urine RBC >30 H (0-4) /hpf Urine WBC 10-30 H (0-5) /hpf Ur Epithelial Cells >30 H (0-5) /lpf Urine Bacteria 1+ H (Negative) COVID-19 Eval Order Covid19 at [facility] SARS-CoV-2 (PCR) NEGATIVE (Negative) Hepatitis C Ab Screen 11/20/20 11/20/20 Range/Units 17:43 17:43 WBC 17.12 H (4.8-10.8) K/uL RBC 5.14 (4.2-5.4) M/uL Hgb 14.1 (12.0-16.0) g/dL Hct 43.3 (37-47) % MCV 84.2 (80-100) fL MCH 27.4 (25-34) pg MCHC 32.6 (32-36) g/dL RDW Std Deviation 46.1 (36.4-46.3) fL RDW Coeff of Rose 14.9 H (11.5-14.5) % Plt Count 287 (130-400) K/uL MPV 11.3 H (7.4-10.4) fL Immature Gran % (Auto) 0.4 % Neut % (Auto) 82.8 % Lymph % (Auto) 9.6 % [place] % (Auto) 7.0 % Eos % (Auto) 0.1 % Baso % (Auto) 0.1 % Neut # (Auto) 14.20 H (1.4-6.5) K/uL Lymph # (Auto) 1.64 (1.2-3.4) K/uL [place] # (Auto) 1.19 H (0.11-0.59) K/uL Eos # (Auto) 0.01 (0-0.5) K/uL Baso # (Auto) 0.02 (0-0.2) K/uL Immature Gran # (Auto) 0.06 H (0.00-0.02) K/uL Sodium 136 (136-145) mmol/L Potassium 4.4 (3.5-5.1) mmol/L Chloride 104 (98-107) mmol/L Carbon Dioxide 24 (21-32) mmol/L Anion Gap 8.0 (3-11) BUN 28 H (7-18) mg/dl Creatinine 1.69 H (0.6-1.2) mg/dl Est Cr Clr Drug Dosing 57.5 ml/min Est GFR ( Amer) 36.6 ml/min Est GFR (Non-Af Amer) 31.5 ml/min BUN/Creatinine Ratio 16.3 (10-20) Glucose 268 H (70-99) mg/dl POC Glucose (70-99) mg/dl Estimat Average Glucose mg/dl Hemoglobin A1c (4.5-5.6) % Calcium 9.3 (8.5-10.1) mg/dl Magnesium (1.8-2.4) mg/dl Total Bilirubin 0.5 (0.2-1) mg/dl AST 24 (15-37) U/L ALT 39 (12-78) U/L Alkaline Phosphatase 90 (45-117) U/L Total Protein 8.4 H (6.4-8.2) gm/dl Albumin 3.5 (3.4-5.0) gm/dl Globulin 4.9 H (2.5-4.0) gm/dl Albumin/Globulin Ratio 0.7 L (0.9-2) Lipase 86 (73-393) U/L Urine Color Urine Appearance (Clear) Urine pH (4.5-7.5) Ur Specific [place] (1.000-1.030) Urine Protein (Negative) Urine Glucose (UA) (Negative) Urine Ketones (Negative) Urine Blood (Negative) Urine Nitrite (Negative) Urine Bilirubin (Negative) Urine Urobilinogen (Negative) Ur Leukocyte Esterase (Negative) Urine RBC (0-4) /hpf Urine WBC (0-5) /hpf Ur Epithelial Cells (0-5) /lpf Urine Bacteria (Negative) COVID-19 Eval Order SARS-CoV-2 (PCR) (Negative) Hepatitis C Ab Screen Diagnostic Findings Abdomen/Pelvis CT 11/20/20 18:[address] WITHOUT CONTRAST CT DOSE: 2185.27 mGy.cm HISTORY: right flank pain, UTI symptoms. hx of stones TECHNIQUE: Multiaxial CT images of the abdomen and pelvis were performed without contrast. A dose lowering technique was utilized adhering to the principles of ALARA. COMPARISON STUDY: None. FINDINGS: Mild interstitial thickening at the lung bases. No pneumoperitoneum. No pneumatosis. There are bilateral total hip arthroplasties. No suspicious lytic or blastic osseous lesions. Hepatic steatosis. Cholecystectomy. The unenhanced spleen, adrenal glands, and pancreas are within normal limits. There is a 5.7 cm exophytic hypodense lesion within the left kidney. This is incompletely characterized on this noncontrast study but likely represents a cyst. There is a 3.1 x 2.1 cm staghorn calculus seen within the lower pole of the left kidney which extends to the left renal pelvis. In addition, there is a 4 mm obstructing stone at the left ureteropelvic junction on image 252 resulting in mild left hydronephrosis. There is bilateral perinephric edema, right greater than left as well as right periureteral edema. There is moderate right hydroureteronephrosis which extends into the deep pelvis. Of note, the distal right ureter/UVJ is obscured by the metallic artifact from the bilateral total h ip arthroplasties. However, coronal reformatted images suggest the possibility of a 4 mm stone within the distal right ureter immediately proximal to the right ureterovesical junction. The bladder is decompressed and not well visualized. Multiple additional punctate calcifications in the deep pelvis are consistent with phleboliths. Suboptimal evaluation for bowel pathology due to the lack of intravenous and oral contrast. However, there is no definite bowel wall thickening or obstruction. Normal appendix. Colonic diverticulosis. No evidence for acute diverticulitis. No right renal calculi. No retroperitoneal lymphadenopathy. Normal caliber abdominal aorta. IMPRESSION: 1. A 4 mm obstructing stone at the left ureteropelvic junction resulting in mild left hydronephrosis. 2. A 3.1 x 2.1 cm left renal staghorn calculus. 3. There is moderate right hydroureteronephrosis which extends into the deep pelvis. 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 However, coronal reformatted images suggest the possibility of a 4 mm stone within the distal right ureter immediately proximal to the right ureterovesical junction. ACT 112: Negative or not required by law. Electronically signed by: Joce Minaya M.D. 11/20/2020 7:13 PM Retrograde Pyelogram 11/21/20 07:00 [place] retrograde includes kub HISTORY: 65 years-old Female BILATERAL STENTS STATUS post placement of bilateral ureteral stents COMPARISON: CT abdomen and pelvis 11/20/2020 TECHNIQUE: 2 spot fluoroscopic images of the abdomen were obtained utilizing 16.4 seconds fluoroscopy time FINDINGS: The proximal portion of the bilateral ureteral stents appear to be in satisfactory positioning. The distal portion of the stents are not imaged. Calculus within the region of the left renal pelvis. IMPRESSION: Fluoroscopic assistance as above. ACT 112: Negative or not required by law. The above report was generated using voice recognition software. It may contain grammatical, syntax or spelling errors. Electronically signed by: Adonis Reyes M.D. 11/21/2020 8:37 AM Chest X-Ray 11/21/20 07:42 SINGLE VIEW CHEST CLINICAL HISTORY: Preoperative examination. Reported history of hypertension. FINDINGS: An AP, portable, upright chest radiograph is compared to study dated 12/21/2012. The cardiomediastinal silhouette is unremarkable noting atherosclerotic calcification of the thoracic aorta. There is prominence of the pulmonary vasculature. Atelectasis is seen at the lung bases. No airspace consolidation or large pleural effusion is identified. No pneumothorax is seen. The skeletal structures are osteopenic. The bony thorax is grossly intact. IMPRESSION: 1. There is prominence of the pulmonary vasculature. Correlate clinically for evidence of mild fluid overload. 2. No airspace consolidation or large pleural effusion is identified. ACT 112: Negative or not required by law. Electronically signed by: Red Storm M.D. 11/21/2020 10:13 AM PG Care Time/CCT Total # of Minutes Spent Total Time Spent with Patient: Total time spent is greater than 50% in coordination of care (as documented) at patient's floor/unit and/or counseling patient: Coding Level of Care Code 30510 Subseq Hosp Care Lvl 3 Diagnoses Bilateral ureteral calculi N20.1 Bilateral hydronephrosis N13.30 Diabetes mellitus E11.9 Nausea & vomiting R11.2 Staghorn calculus N20.0 Recurrent UTI (urinary tract infection) N39.0 Hypothyroidism E03.9 Morbid obesity E66.01
[2020-11-21] MEDS ORDERED: ONDANSETRON INJ 2 MG/ML 2 ML VIAL IV PRN (07:56)
[2020-11-21] MEDS ORDERED: ePHEDrine sulfate 50 MG/ML AMP IV PRN (07:56)
[2020-11-21] MEDS ORDERED: fentaNYL citrate 100 MCG/2 ML VIAL IV PRN (07:56)
[2020-11-21] MEDS ORDERED: ATROPINE SULFATE 0.1 MG/ML 10ML SYR IV PRN (07:56)
[2020-11-21] MEDS ORDERED: KETAMINE 50 MG/5 ML SYRINGE ONE (08:02)
--- NOTE | 2020-11-21 08:29 | Operative Report ---
PG Post Operative Report Pre & Post Diagnosis Operation Date: 11/21/20 07:30 Pre-Op Diagnosis: Bilateral Ureteral Stones with Hydronephrosis Post-Op Diagnosis: Bilateral Ureteral Stones with Hydronephrosis I identified the patient and participated in the time-out.: Yes Procedure Operation Date: 11/21/20 07:30 Actual Procedures p Cystoscopy, Bilateral Ureteral Stent Insertion(Bilateral) - Nick Dias MD Surgeon Tj Dias MD Real Estate Teacher none Estimated Blood Loss 0 Findings Consistent with Post-Op Diagnosis Specimens none Description of Procedure The patient was identified in the preoperative holding area, appropriate informed consents were reviewed and completed and the patient was transferred to the operative suite. Upon arrival, appropriate antibiotics and anesthesia were administered and the patient was placed in dorsal lithotomy position and prepped and draped in sterile fashion. Begin the case a 22 [place] cystoscope was passed per urethra. Inspection revealed a Pyridium filled bladder with some debris in the dependent portionI believe there is a stone in the dependent portion of the bladder and I am wondering if this is the stone that was in the extreme distal ureter. I irrigated all this out of the bladder although the stone did not want to readily evacuate. Following my inspection I turned my attention to the right ureteral orifice and cannulated it with a sensor wire and a 5 [place] open-ended catheter. I placed a 6 [place] by 24 cm double-J ureteral stent seeing a good curl in the kidney as well as the bladder. I then turned my attention of the left UO and cannulated it with a wire and 5 [place] open-ended catheter. I also placed a 6 [place] by 24 cm double-J stent seeing good curl in the kidney as well as the bladder. I decompressed the bladder and concluded the case. Of note, there was good urine draining through both stents after placement. She was reversed of incision taken to the recovery room in stable condition. I attest to the content of the Intraoperative Record and any orders documented therein. Any exceptions are noted below.
--- NOTE | 2020-11-21 08:39 | Fluoroscopy Report ---
FL retrograde includes kub HISTORY: 65 years-old Female BILATERAL STENTS STATUS post placement of bilateral ureteral stents COMPARISON: CT abdomen and pelvis 11/20/2020 TECHNIQUE: 2 spot fluoroscopic images of the abdomen were obtained utilizing 16.4 seconds fluoroscopy time FINDINGS: The proximal portion of the bilateral ureteral stents appear to be in satisfactory positioning. The d istal portion of the stents are not imaged. Calculus within the region of the left renal pelvis. IMPRESSION: Fluoroscopic assistance as above. ACT 112: Negative or not required by law. The above report was generated using voice recognition software. It may contain grammatical, syntax o r spelling errors. Electronically signed by: Adonis Reyes M.D. 11/21/2020 8:37 AM
--- NOTE | 2020-11-21 08:52 | Anesthesiology Progress Note ---
Date of Service November 21, 2020 Anesthesia Post Procedure Vital Signs Vital Signs: Temp Pulse Pulse Pulse Resp BP BP 11/21/20 08:40 85 18 138/81 11/21/20 08:31 36.0 C L 88 18 127/80 11/21/20 07:18 36.9 C 78 16 11/20/20 23:31 37.0 C 90 18 11/20/20 23:00 87 27 H 175/89 H 11/20/20 22:30 85 21 156/76 H 11/20/20 22:00 86 24 164/83 H 11/20/20 21:30 80 26 H 164/78 H 11/20/20 21:00 81 16 186/83 H 11/20/20 20:30 84 21 172/65 H 11/20/20 20:00 81 20 123/99 11/20/20 19:30 79 30 H 172/100 H 11/20/20 19:01 82 27 H 183/96 H 11/20/20 19:00 84 25 H 11/20/20 18:31 77 21 11/20/20 18:30 77 21 191/94 H 11/20/20 18:03 81 22 11/20/20 18:01 86 19 158/106 H 11/20/20 17:23 36.0 C L 93 H 20 161/70 H BP Pulse Ox 11/21/20 08:40 97 11/21/20 08:31 98 11/21/20 07:18 159/80 H 90 11/20/20 23:31 156/66 H 91 11/20/20 23:00 11/20/20 22:30 11/20/20 22:00 11/20/20 21:30 11/20/20 21:00 11/20/20 20:30 11/20/20 20:00 11/20/20 19:30 96 11/20/20 19:01 96 11/20/20 19:00 96 11/20/20 18:31 93 11/20/20 18:30 93 11/20/20 18:03 95 11/20/20 18:01 95 11/20/20 17:23 96 Transfer of Care Handoff Completed per policy Notes Mental Status: alert / awake / arousable and participated in evaluation Nausea / Vomiting: adequately controlled Pain: adequately controlled Airway Patency, RR, SpO2: stable & adequate BP & HR: stable & adequate Hydration State: stable & adequate Anesthetic Complications: no major complications apparent and Pt Satisfied with anesthetic care
--- NOTE | 2020-11-21 10:14 | XRay Report ---
SINGLE VIEW CHEST CLINICAL HISTORY: Preoperative examination. Reported history of hypertension. FINDINGS: An AP, portable, upright chest radiograph is compared to study dated 12/21/2012. The cardiom ediastinal silhouette is unremarkable noting atherosclerotic calcification of the thoracic aorta. The re is prominence of the pulmonary vasculature. Atelectasis is seen at the lung bases. No airspace con solidation or large pleural effusion is identified. No pneumothorax is seen. The skeletal structures are osteopenic. The bony thorax is grossly intact. IMPRESSION: 1. There is prominence of the pulmonary vasculature. Correlate clinically for evidence of mild fluid overload. 2. No airspace consolidation or large pleural effusion is identified. ACT 112: Negative or not required by law. Electronically signed by: Red Storm M.D. 11/21/2020 10:13 AM
[2020-11-21] MEDS: cefTRIAXone SODIUM 2,000 MG in DEXTROSE 5% 50 ML IV SCH (10:20)
[2020-11-21] MEDS: buPROPion XL 150 MG TABCR PO SCH ×3 (10:22→10:26)
[2020-11-21 10:47] LABS: Basophils # (auto) 0.02 K/uL (0-0.2); Basophils % (auto) 0.2 %; Eosinophils # (auto) 0.11 K/uL (0-0.5); Eosinophils % (auto) 0.8 %; Hematocrit (blood only) 40.4 % (37-47); Hemoglobin 12.8 g/dL (12.0-16.0); Immature Granulocytes # (auto) 0.05 K/uL (0.00-0.02); Immature Granulocytes % (auto) 0.4 %; Lymphocytes # (auto) 1.53 K/uL (1.2-3.4); Lymphocytes % (auto) 11.7 %; Mean Corpuscular Hemoglobin 26.9 pg (25-34); Mean Corpuscular Hgb Conc 31.7 g/dL (32-36); Mean Corpuscular Volume 84.9 fL (80-100); Mean Platelet Volume 10.6 fL (7.4-10.4); Monocytes # (auto) 1.39 K/uL (0.11-0.59); Monocytes % (auto) 10.6 %; Neutrophils # (auto) 9.99 K/uL (1.4-6.5); Neutrophils % (auto) 76.3 %; Platelet Count 234 K/uL (130-400); RDW Coefficient of Variation 15.2 % (11.5-14.5); RDW Standard Deviation 47.4 fL (36.4-46.3); Red Blood Count 4.76 M/uL (4.2-5.4); White Blood Count 13.09 K/uL (4.8-10.8)
[2020-11-21 11:07] LABS: Albumin Level 3.2 gm/dl (3.4-5.0); BUN Creatinine Ratio 16.3 (10-20); Calcium 8.8 mg/dl (8.5-10.1); Creatinine Clr Calc Pharmacy 45.9 ml/min; Est GFR (African American) 28.1 ml/min; Est GFR (Non-African American) 24.3 ml/min; Magnesium 2.3 mg/dl (1.8-2.4); Potassium 4.3 mmol/L (3.5-5.1)
[2020-11-21 11:08] LABS: Estimated Average Glucose 258 mg/dl; Hemoglobin A1C 10.6 % (4.5-5.6)
[2020-11-21 11:09] LABS: Albumin Globulin Ratio 0.7 (0.9-2); Bilirubin,Total 0.4 mg/dl (0.2-1); Globulin 4.3 gm/dl (2.5-4.0); Total Protein 7.5 gm/dl (6.4-8.2)
[2020-11-21] MEDS ORDERED: PHARMACY GLYCEMIC MGMT CONSULT PRN (11:53)
[2020-11-21] MEDS ORDERED: INSULIN GLARGINE SOLOSTAR 100 UNITS/ML 3 ML PEN SC ONE (12:15)
--- NOTE | 2020-11-21 13:41 | Pharmacy Report ---
Pharmacy Glycemic Short Note 2 - Date of Service November 21, 2020 - Glycemic Short BSG Results (Last 24 hours): 11/20/20 11/20/20 11/21/20 17:43 23:37 06:24 Glucose 268 H POC Glucose 213 H 254 H 11/21/20 11/21/20 10:29 13:05 Glucose 255 H POC Glucose 234 H OUTPATIENT ANTIDIABETIC REGIMEN: * NONE * HbA1c = 10.6% ASSESSMENT: * 65 y/o F admitted for b/l ureteral stones and stent procedure. Patient was found to have elevated BSGs. Per A1c, noted above, pt is a newly diagnosed diabetic. * Pt was started on Novolog q6h on admission last with really loose parameters. BSGs have been above 200 since last night. * Fasting BSG = 254 mg/dl today. Pharmacy was consulted around noon today. Lantus 25 units x1 dose based on weight and stress between 1 and 2 was ordered soon after consult obtained. * Novolog parameters were tightened with lunch today. Provider further tightened Novolog correction factor to a 12 at lunch today. * Since pt is insulin naive, will titrate up slowly. * HS Lantus dose scale ordered based on BSG. PLAN FOR INPATIENT GLYCEMIC CONTROL: * Hold outpatient oral diabetes medications * Basal insulin * Lantus 25 units SQ x1 today afternoon * Lantus 0-16 units scale based on BSG at HS (see EMR for details). * Bolus insulin: tightened CF/CR. * NovoLog per scale ACHS or Q6hrs while NPO * Goal Range: Low 110 mg/dL - High 140 mg/dL * Correction Factor: 15 mg/dL/unit * Nutritional / Prandial insulin per carb ratio of 1 unit per 5 grams CHO consumed PLAN FOR DISCHARGE: * TBD
[2020-11-21] MEDS: INSULIN GLARGINE SOLOSTAR 100 UNITS/ML 3 ML PEN SC SCH (21:02)
[2020-11-22] MEDS: INSULIN ASPART 100 UNITS/ML 3 ML PEN SC SCH ×6 (00:10→21:15)
[2020-11-22] MEDS: FAMOTIDINE 20 MG in SYRINGE 3 ML IV SCH ×2 (00:10→14:55)
[2020-11-22] MEDS: LEVOTHYROXINE SODIUM 200 MCG TABLET PO SCH (05:52)
--- NOTE | 2020-11-22 06:14 | Electrocardiogram Report ---
Test Reason : Blood Pressure : / mmHG Vent. Rate : 079 BPM Atrial Rate : 079 BPM P-R Int : 198 ms QRS Dur : 126 ms QT Int : 404 ms P-R-T Axes : 059 -39 044 degrees QTc Int : 463 ms Normal sinus rhythm Left axis deviation Left ventricular hypertrophy with QRS widening Abnormal ECG When compared with ECG of 03-MAR-2017 16:03, QRS duration has increased Confirmed by Hitesh Perez ([id number]) on 11/22/2020 6:14:40 AM Referred By: REFERRED SELF Confirmed By:Hitesh Perez
[2020-11-22 07:26] LABS: Basophils # (auto) 0.03 K/uL (0-0.2); Basophils % (auto) 0.3 %; Eosinophils # (auto) 0.31 K/uL (0-0.5); Hematocrit (blood only) 39.5 % (37-47); Hemoglobin 12.2 g/dL (12.0-16.0); Immature Granulocytes # (auto) 0.06 K/uL (0.00-0.02); Immature Granulocytes % (auto) 0.6 %; Lymphocytes # (auto) 2.18 K/uL (1.2-3.4); Lymphocytes % (auto) 21.1 %; Mean Corpuscular Hemoglobin 26.8 pg (25-34); Mean Corpuscular Hgb Conc 30.9 g/dL (32-36); Mean Corpuscular Volume 86.6 fL (80-100); Mean Platelet Volume 10.9 fL (7.4-10.4); Monocytes % (auto) 9.7 %; Neutrophils # (auto) 6.76 K/uL (1.4-6.5); Neutrophils % (auto) 65.3 %; Platelet Count 242 K/uL (130-400); RDW Coefficient of Variation 15.7 % (11.5-14.5); Red Blood Count 4.56 M/uL (4.2-5.4); White Blood Count 10.34 K/uL (4.8-10.8)
--- NOTE | 2020-11-22 08:04 | Hospitalist Progress Note ---
Date of Service November 22, 2020 Assessment & Plan (1) Bilateral ureteral calculi: Bilateral ureteral calculi with bilateral hydronephrosis- CTAP * 1. A 4 mm obstructing stone at the left ureteropelvic junction resulting in mild left hydronephrosis. * 2. A 3.1 x 2.1 cm left renal staghorn calculus. * 3. There is moderate right hydroureteronephrosis which extends into the deep pelvis. 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 However, coronal reformatted images suggest the possibility of a 4 mm stone within the distal right ureter immediately proximal to the right ureterovesical junction. * Urology consulted * POD#1 s/p Cystoscopy, Bilateral Ureteral Stent Insertion(Bilateral) - Tj Dias MD * Cr elevated to 1.69 on admission, bumped to 2.1 post-procedure but down to 1.2 on AM labs. Making good urine * Encouraged PO intake, no further IVF * Ceftriaxone 2gm IV daily -- URINE CX NEGATIVE. DISCUSSED WITH UROLOGY AND DC ABX, no evidence for infected stone * WBC trending down, now WNL. * Afebrile * Will need f/u with Urology for further tx staghorn kidney stone * Labs in AM (2) Bilateral hydronephrosis: * See above, s/p bilateral stents (3) Diabetes mellitus: * NEW * A1c 10.0 * BSG ACHS * ISS -- will consult pharmacy and community educator given new diagnosis -- of note, she did report increased polydipsia/polyphagia/abd fullness * Will need plan and f/u with PCP at d/c for management PLans for Metformin XR 500mg BID at d/c with titration up to 1000mg BID She would like to avoid insulin at this time but did discuss once weekly dosing to further discuss with her PCP at follow up Also with elevated BPs in setting of discomfort, however given DM consider addition of JEANA/ARB for renal protection once Cr stabilizes. (4) Nausea & vomiting: Zofran 4 mg IV every 6 hours as needed NONE REPORTED (5) Staghorn calculus: Noted on CT, urology to address -- continued f/u needed (6) Recurrent UTI (urinary tract infection): Empiric ceftriaxone as noted above. Follow urine culture and sensitivity -- negative. abx d/c'd as above (7) Hypothyroidism: TSH 1.43 Continued Levothyroxine 200+25 mcg p.o. daily -- can only take name brand (boyfriend brought in) Anxiety/depression --stable but no longer takes wellbutrin -- discontinued DVT prophylaxis --Ambulation encouraged Dispo: continued inpatient stay -- possible d/c tomorrow AM Admission and Anticipated Discharge Date Admission Date: November 20, 2020 Subjective Patient evaluated his morning. Feeling better overall but more cramping/bleeding with urination due to stents. Pain controlled. Discussed DM and recs. She would like to start with metformin and avoid insulin at this time but would be willing to consider once weekly injectable at f/u with her PCP. Would like to ensure resolution of kidney function and decreased discomfort prior to d/c and will plan on d/c tomorrow. Per urology, no need for continued abx and will d/c at this time. Monitoring sugars and labs in AM. No fever, chills,chest pain ,shortness of breath, abdominal pain, nausea or vomiting at this time. Review of Systems Review of Systems: All systems reviewed & are unremarkable except as noted in HPI & below Physical Exam Physical Exam: The patient is awake, alert and oriented 3, well developed and well nourished, normocephalic and atraumatic, resting in bed,, NAD. HEENT--PERRL, EOMI, mucous membranes and oropharynx moist. Neck--supple. No JVD. No bruits. Thyroid normal, trachea midline, no adenopathy. Heart--normal S1 and S2. No murmurs, rubs or gallops. Lungs--clear bilaterally, no respiratory distress, no accessory muscle use. diminished in the bases Abdomen--normal bowel sounds and soft. Nontender. Nondistended. minimal suprapubic discomfort. Morbidly obese Extremities--no cyanosis or clubbing. No edema. Dermatologic--normal skin turgor, normal color, no abnormal lymph nodes, no rash. dry skin Neurologic--cranial nerves II through XII grossly intact. Rheumatologic--normal range of motion. Psychiatric--normal affect. Results & Data Results & Data ([facility]) Vital Signs (Past 12 Hours) Vital Signs Temp Pulse Pulse Resp BP Pulse Ox 05/23/21 07:57 36.7 C 75 18 173/76 H 95 11/22/20 04:17 36.7 C 74 18 145/76 H 94 11/21/20 22:50 36.2 C L 75 17 148/77 H 95 Laboratory Results 11/22/20 11/22/20 11/22/20 Range/Units 12:10 08:15 06:42 WBC (4.8-10.8) K/uL RBC (4.2-5.4) M/uL Hgb (12.0-16.0) g/dL Hct (37-47) % MCV (80-100) fL MCH (25-34) pg MCHC (32-36) g/dL RDW Std Deviation (36.4-46.3) fL RDW Coeff of Rose (11.5-14.5) % Plt Count (130-400) K/uL MPV (7.4-10.4) fL Immature Gran % (Auto) % Neut % (Auto) % Lymph % (Auto) % [place] % (Auto) % Eos % (Auto) % Baso % (Auto) % Neut # (Auto) (1.4-6.5) K/uL Lymph # (Auto) (1.2-3.4) K/uL [place] # (Auto) (0.11-0.59) K/uL Eos # (Auto) (0-0.5) K/uL Baso # (Auto) (0-0.2) K/uL Immature Gran # (Auto) (0.00-0.02) K/uL Sodium 138 (136-145) mmol/L Potassium 3.6 D (3.5-5.1) mmol/L Chloride 105 (98-107) mmol/L Carbon Dioxide 28 (21-32) mmol/L Anion Gap 5.0 (3-11) BUN 27 H (7-18) mg/dl Creatinine 1.29 H D (0.6-1.2) mg/dl Est Cr Clr Drug Dosing 74.7 ml/min Est GFR ( Amer) 50.7 ml/min Est GFR (Non-Af Amer) 43.7 ml/min BUN/Creatinine Ratio 20.9 H (10-20) Glucose 167 H (70-99) mg/dl POC Glucose 156 H 171 H (70-99) mg/dl Calcium 8.9 (8.5-10.1) mg/dl Magnesium 2.5 H (1.8-2.4) mg/dl Total Bilirubin 0.5 (0.2-1) mg/dl AST 14 L (15-37) U/L ALT 28 (12-78) U/L Alkaline Phosphatase 78 (45-117) U/L Total Protein 7.5 (6.4-8.2) gm/dl Albumin 3.1 L (3.4-5.0) gm/dl Globulin 4.4 H (2.5-4.0) gm/dl Albumin/Globulin Ratio 0.7 L (0.9-2) TSH 1.430 (0.300-4.500) uIu/ml 11/22/20 11/22/20 11/22/20 Range/Units 06:42 03:57 00:04 WBC 10.34 (4.8-10.8) K/uL RBC 4.56 (4.2-5.4) M/uL Hgb 12.2 (12.0-16.0) g/dL Hct 39.5 (37-47) % MCV 86.6 (80-100) fL MCH 26.8 (25-34) pg MCHC 30.9 L (32-36) g/dL RDW Std Deviation 50.0 H (36.4-46.3) fL RDW Coeff of Rose 15.7 H (11.5-14.5) % Plt Count 242 (130-400) K/uL MPV 10.9 H (7.4-10.4) fL Immature Gran % (Auto) 0.6 % Neut % (Auto) 65.3 % Lymph % (Auto) 21.1 % [place] % (Auto) 9.7 % Eos % (Auto) 3.0 % Baso % (Auto) 0.3 % Neut # (Auto) 6.76 H (1.4-6.5) K/uL Lymph # (Auto) 2.18 (1.2-3.4) K/uL [place] # (Auto) 1.00 H (0.11-0.59) K/uL Eos # (Auto) 0.31 (0-0.5) K/uL Baso # (Auto) 0.03 (0-0.2) K/uL Immature Gran # (Auto) 0.06 H (0.00-0.02) K/uL Sodium (136-145) mmol/L Potassium (3.5-5.1) mmol/L Chloride (98-107) mmol/L Carbon Dioxide (21-32) mmol/L Anion Gap (3-11) BUN (7-18) mg/dl Creatinine (0.6-1.2) mg/dl Est Cr Clr Drug Dosing ml/min Est GFR ( Amer) ml/min Est GFR (Non-Af Amer) ml/min BUN/Creatinine Ratio (10-20) Glucose (70-99) mg/dl POC Glucose 167 H 138 H (70-99) mg/dl Calcium (8.5-10.1) mg/dl Magnesium (1.8-2.4) mg/dl Total Bilirubin (0.2-1) mg/dl AST (15-37) U/L ALT (12-78) U/L Alkaline Phosphatase (45-117) U/L Total Protein (6.4-8.2) gm/dl Albumin (3.4-5.0) gm/dl Globulin (2.5-4.0) gm/dl Albumin/Globulin Ratio (0.9-2) TSH (0.300-4.500) uIu/ml 11/21/20 11/21/20 11/21/20 Range/Units 20:23 17:20 13:05 WBC (4.8-10.8) K/uL RBC (4.2-5.4) M/uL Hgb (12.0-16.0) g/dL Hct (37-47) % MCV (80-100) fL MCH (25-34) pg MCHC (32-36) g/dL RDW Std Deviation (36.4-46.3) fL RDW Coeff of Rose (11.5-14.5) % Plt Count (130-400) K/uL MPV (7.4-10.4) fL Immature Gran % (Auto) % Neut % (Auto) % Lymph % (Auto) % [place] % (Auto) % Eos % (Auto) % Baso % (Auto) % Neut # (Auto) (1.4-6.5) K/uL Lymph # (Auto) (1.2-3.4) K/uL [place] # (Auto) (0.11-0.59) K/uL Eos # (Auto) (0-0.5) K/uL Baso # (Auto) (0-0.2) K/uL Immature Gran # (Auto) (0.00-0.02) K/uL Sodium (136-145) mmol/L Potassium (3.5-5.1) mmol/L Chloride (98-107) mmol/L Carbon Dioxide (21-32) mmol/L Anion Gap (3-11) BUN (7-18) mg/dl Creatinine (0.6-1.2) mg/dl Est Cr Clr Drug Dosing ml/min Est GFR ( Amer) ml/min Est GFR (Non-Af Amer) ml/min BUN/Creatinine Ratio (10-20) Glucose (70-99) mg/dl POC Glucose 154 H 146 H 234 H (70-99) mg/dl Calcium (8.5-10.1) mg/dl Magnesium (1.8-2.4) mg/dl Total Bilirubin (0.2-1) mg/dl AST (15-37) U/L ALT (12-78) U/L Alkaline Phosphatase (45-117) U/L Total Protein (6.4-8.2) gm/dl Albumin (3.4-5.0) gm/dl Globulin (2.5-4.0) gm/dl Albumin/Globulin Ratio (0.9-2) TSH (0.300-4.500) uIu/ml PG Care Time/CCT Total # of Minutes Spent Total Time Spent with Patient: Total time spent is greater than 50% in coordination of care (as documented) at patient's floor/unit and/or counseling patient: Coding Level of Care Code 65527 Subseq Hosp Care Lvl 3 Diagnoses Bilateral ureteral calculi N20.1 Bilateral hydronephrosis N13.30 Diabetes mellitus E11.9 Nausea & vomiting R11.2 Staghorn calculus N20.0 Recurrent UTI (urinary tract infection) N39.0 Hypothyroidism E03.9
[2020-11-22 08:07] LABS: Albumin Level 3.1 gm/dl (3.4-5.0); BUN Creatinine Ratio 20.9 (10-20); Calcium 8.9 mg/dl (8.5-10.1); Creatinine Clr Calc Pharmacy 74.7 ml/min; Est GFR (African American) 50.7 ml/min; Est GFR (Non-African American) 43.7 ml/min; Magnesium 2.5 mg/dl (1.8-2.4); Potassium 3.6 mmol/L (3.5-5.1)
[2020-11-22 08:10] LABS: Albumin Globulin Ratio 0.7 (0.9-2); Bilirubin,Total 0.5 mg/dl (0.2-1); Globulin 4.4 gm/dl (2.5-4.0); Thyroid Stimulating Hormone 1.43 uIu/ml (0.300-4.500); Total Protein 7.5 gm/dl (6.4-8.2)
[2020-11-22] MEDS: cefTRIAXone SODIUM 2,000 MG in DEXTROSE 5% 50 ML IV SCH (08:59)
[2020-11-22] MEDS ORDERED: INSULIN GLARGINE SOLOSTAR 100 UNITS/ML 3 ML PEN SC SCH (09:00)
--- NOTE | 2020-11-22 09:21 | Urology Progress Note ---
Date of Service November 22, 2020 Assessment & Plan (1) Bilateral hydronephrosis: pod #1 s/p b/l stents - cr better - subjectively better - likely d/c home today - outpt f/u for definitive treatment (2) Bilateral ureteral calculi: Admission and Anticipated Discharge Date Admission Date: November 20, 2020 Subjective no subjective complaints feels much better than she did yesterday tolerating b/l stents well right now Physical Exam Constitutional: well developed and well nourished Respiratory: no respiratory distress Cardiovascular: Extremities: no pedal edema Gastrointestinal (Abdomen): Inspection/Auscultation: abdomen normal to inspection Results & Data ([facility]) Vital Signs (Past 12 Hours) Vital Signs Temp Pulse Pulse Resp BP Pulse Ox 11/22/20 07:57 36.7 C 75 18 173/76 H 95 11/22/20 04:17 36.7 C 74 18 145/76 H 94 11/21/20 22:50 36.2 C L 75 17 148/77 H 95 PG Care Time/CCT Total # of Minutes Spent Total Time Spent with Patient: Total time spent is greater than 50% in coordination of care (as documented) at patient's floor/unit and/or counseling patient: Coding Level of Care Code 82145 Subseq Hosp Care Lvl 2 Diagnoses Bilateral hydronephrosis N13.30 Bilateral ureteral calculi N20.1
--- NOTE | 2020-11-22 09:25 | Pharmacy Report ---
Pharmacy Glycemic Short Note 2 - Date of Service November 22, 2020 - Glycemic Short BSG Results (Last 24 hours): 11/21/20 11/21/20 11/21/20 10:29 13:05 17:20 Glucose 255 H POC Glucose 234 H 146 H 11/21/20 11/22/20 11/22/20 20:23 00:04 03:57 Glucose POC Glucose 154 H 138 H 167 H 11/22/20 11/22/20 06:42 08:15 Glucose 167 H POC Glucose 171 H OUTPATIENT ANTIDIABETIC REGIMEN: * NONE * HbA1c = 10.6% ASSESSMENT: 11/22: * Patient received total of 63 units of insulin yesterday; 35 units basal + 28 units bolus. * Fasting BSG = 171 mg/dl. AM basal dose increased slightly. HS dose scale ordered again based BSG. * Serum creatinine improved today- possibly trial starting Metformin while in- patient? * Post-prandial BSGs yesterday improved. Continued Novolog parameters. 11/21: * 65 y/o F admitted for b/l ureteral stones and stent procedure. Patient was found to have elevated BSGs. Per A1c, noted above, pt is a newly diagnosed diabetic. * Pt was started on Novolog q6h on admission last with really loose parameters. BSGs have been above 200 since last night. * Fasting BSG = 254 mg/dl today. Pharmacy was consulted around noon today. Lantus 25 units x1 dose based on weight and stress between 1 and 2 was ordered soon after consult obtained. * Novolog parameters were tightened with lunch today. Provider further tightened Novolog correction factor to a 12 at lunch today. * Since pt is insulin naive, will titrate up slowly. * HS Lantus dose scale ordered based on BSG. PLAN FOR INPATIENT GLYCEMIC CONTROL: * Hold outpatient oral diabetes medications * Basal insulin * Lantus 30 units SQ QAM * Lantus 0-10 units scale based on BSG at HS (see EMR for details). * Bolus insulin: * NovoLog per scale ACHS or Q6hrs while NPO * Goal Range: Low 110 mg/dL - High 140 mg/dL * Correction Factor: 15 mg/dL/unit * Nutritional / Prandial insulin per carb ratio of 1 unit per 5 grams CHO consumed PLAN FOR DISCHARGE: * HbA1c = 10.6% * Goal A1c is less than 7% based on age and comorbidities. * Patient is a newly diagnosed diabetic. * Recommend starting Metformin XR 500 mg PO BID with morning and evening meals. This should be titrated upwards slowly by outpatient provider. * Also recommend basal insulin Lantus 15-20 units SQ QAM OR GLP-1 RA such as Victoza 0.6 mg SQ once daily or Trulicity 0.75 mg SQ once weekly on discharge. * The GLP1-RA will be based off insurance coverage and patient preference of weekly vs. daily injection. * Patient will need educated on checking blood sugars routinely. 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
[2020-11-22] MEDS ORDERED: amLODIPine BESYLATE 5 MG TAB PO ONE (12:15)
[2020-11-22] MEDS: INSULIN GLARGINE SOLOSTAR 100 UNITS/ML 3 ML PEN SC SCH (21:15)
[2020-11-23] MEDS: LEVOTHYROXINE SODIUM 200 MCG TABLET PO SCH (05:50)
[2020-11-23] MEDS: LEVOTHYROXINE SODIUM 25 MCG TABLET PO SCH (05:50)
[2020-11-23 06:09] LABS: Basophils # (auto) 0.04 K/uL (0-0.2); Basophils % (auto) 0.5 %; Eosinophils # (auto) 0.31 K/uL (0-0.5); Eosinophils % (auto) 3.7 %; Hematocrit (blood only) 39.5 % (37-47); Hemoglobin 12.2 g/dL (12.0-16.0); Immature Granulocytes # (auto) 0.04 K/uL (0.00-0.02); Immature Granulocytes % (auto) 0.5 %; Lymphocytes # (auto) 1.78 K/uL (1.2-3.4); Lymphocytes % (auto) 21.1 %; Mean Corpuscular Hemoglobin 27.1 pg (25-34); Mean Corpuscular Hgb Conc 30.9 g/dL (32-36); Mean Corpuscular Volume 87.6 fL (80-100); Mean Platelet Volume 10.9 fL (7.4-10.4); Monocytes # (auto) 0.68 K/uL (0.11-0.59); Monocytes % (auto) 8.1 %; Neutrophils # (auto) 5.58 K/uL (1.4-6.5); Neutrophils % (auto) 66.1 %; Platelet Count 244 K/uL (130-400); RDW Coefficient of Variation 15.5 % (11.5-14.5); RDW Standard Deviation 49.9 fL (36.4-46.3); Red Blood Count 4.51 M/uL (4.2-5.4); White Blood Count 8.43 K/uL (4.8-10.8)
[2020-11-23 06:39] LABS: BUN Creatinine Ratio 18.4 (10-20); Calcium 8.8 mg/dl (8.5-10.1); Est GFR (African American) 57.6 ml/min; Est GFR (Non-African American) 49.7 ml/min; Magnesium 2.3 mg/dl (1.8-2.4); Potassium 3.8 mmol/L (3.5-5.1)
[2020-11-23 06:41] LABS: Albumin Globulin Ratio 0.7 (0.9-2); Bilirubin,Total 0.4 mg/dl (0.2-1); Globulin 4.3 gm/dl (2.5-4.0); Total Protein 7.3 gm/dl (6.4-8.2)
[2020-11-23] MEDS ORDERED: INSULIN GLARGINE SOLOSTAR 100 UNITS/ML 3 ML PEN SC SCH (09:00)
[2020-11-23] MEDS: INSULIN ASPART 100 UNITS/ML 3 ML PEN SC SCH ×2 (09:05→12:42)
--- NOTE | 2020-11-23 09:12 | Urology Progress Note ---
Date of Service November 23, 2020 Assessment & Plan (1) Bilateral hydronephrosis: (2) Bilateral ureteral calculi: 65yo F admitted with bilateral ureteral calculi and bilateral hydronephrosis - Postop day #2 status post Cystoscopy, Bilateral Ureteral Stent Insertion with Dr. Dias. - Patient is clinically progressing with improvement in symptoms. - Tolerating b/l ureteral stents with minimal discomfort. - Afebrile, non-toxic appearing. - Labs reviewed, Wbc and creatinine are stable. - Urine culture negative. - OK for discharge from perspective. - Will arrange outpatient follow-up within 1-2 weeks for definitive stone management. - Recommend home with pain control, tamsulosin, and pyridium as needed for stent pain. - Expected clinical course reviewed with patient, all questions were answered. Thank you for allowing us to participate in the acute care of Mrs. Mcintyre. Please reconsult us with additional questions, concerns or changes in patient status. Admission and Anticipated Discharge Date Admission Date: November 20, 2020 Subjective Pt examined at bedside this AM. Awake, sitting in bedside chair on arrival. Feeling much better overall. Tolerating b/l stents with minimal discomfort. Some mild hematuria and dysuria as expected. Feels she is emptying her bladder well. No fevers or chills. Tolerating diet, no nausea or vomiting. Eager to go home. Chart review: Afebrile Wbc 8.43 Hgb 12.2 Cr 1.16 No additional complaints at this time. Review of Systems Constitutional: as per Subjective / HPI Gastrointestinal: as per Subjective / HPI Genitourinary: as per Subjective / HPI Physical Exam Constitutional: well developed and well nourished; no acute distress and not ill appearing Respiratory: normal respiratory effort and able to speak in complete sentences Gastrointestinal (Abdomen): Inspection/Auscultation: abdomen normal to inspection; abdomen not distended Musculoskeletal: Head/Neck/Chest: normocephalic Neurologic: awake Psychiatric: A+Ox3, euthymic affect Results & Data ([facility]) Vital Signs (Past 12 Hours) Vital Signs Temp Pulse Resp BP Pulse Ox 11/23/20 06:08 36.6 C 75 17 143/76 H 92 11/22/20 22:04 37.1 C 80 17 139/86 93 PG Care Time/CCT Total # of Minutes Spent Total Time Spent with Patient: Total time spent is greater than 50% in coordination of care (as documented) at patient's floor/unit and/or counseling patient: Coding Level of Care Code 54722 Subseq Hosp Care [facility] 2 Diagnoses Bilateral hydronephrosis N13.30 Bilateral ureteral calculi N20.1
[2020-11-23] MEDS ORDERED: PHENAZOPYRIDINE HCL 200 MG TAB PO PRN (09:45)
--- NOTE | 2020-11-23 09:51 | Pharmacy Report ---
Pharmacy Glycemic Short Note 2 - Date of Service November 23, 2020 - Glycemic Short BSG Results (Last 24 hours): 11/22/20 11/22/20 11/22/20 12:10 17:10 20:58 Glucose POC Glucose 156 H 125 H 135 H 11/23/20 11/23/20 05:50 08:20 Glucose 161 H POC Glucose 147 H OUTPATIENT ANTIDIABETIC REGIMEN: * NONE * HbA1c = 10.6% ASSESSMENT: 11/23 * Stressors stable * AM fasting BSG above goal - will slightly increase Lantus * Post prandial BSG's in goal range - no change to Novolog * Will hold off starting metformin for now - will defer to hospitalist team 11/22: * Patient received total of 63 units of insulin yesterday; 35 units basal + 28 units bolus. * Fasting BSG = 171 mg/dl. AM basal dose increased slightly. HS dose scale ordered again based BSG. * Serum creatinine improved today- possibly trial starting Metformin while in- patient? * Post-prandial BSGs yesterday improved. Continued Novolog parameters. PLAN FOR INPATIENT GLYCEMIC CONTROL: * Hold outpatient oral diabetes medications * Basal insulin * Lantus 35 units SQ QAM * Lantus 0-10 units scale based on BSG at HS (see EMR for details). * Bolus insulin: * NovoLog per scale ACHS or Q6hrs while NPO * Goal Range: Low 110 mg/dL - High 140 mg/dL * Correction Factor: 15 mg/dL/unit * Nutritional / Prandial insulin per carb ratio of 1 unit per 5 grams CHO consumed PLAN FOR DISCHARGE: * see 11/22 note
--- NOTE | 2020-11-23 11:12 | Discharge Summary ---
Date of Service November 23, 2020 Admission HPI Per Admitting Provider The patient is a 65-year-old female with a past medical history including recurrent urinary tract infection, hypertension, obesity, hypothyroidism, fibromyalgia, elevated blood pressure without diagnosis of hypertension, osteoarthritis, anxiety and depression, fatigue and binge eating disorder. She presents to the emergency department with approximately 3 weeks of right flank pain, and more recently developed nausea and vomiting. Work-up in the emergency department included CT scan of abdomen pelvis which showed a left UPJ stone approximately 4 mm in size with mild left hydronephrosis. Also showed a right UVJ stone 4 mm in size with moderate right hydronephrosis. Patient did receive ceftriaxone 1 g IV, Dilaudid 0.5 mg IV and Zofran 4 mg IV from the ED. Admission Exam Per Admitting Provider The patient is awake, alert and oriented 3, well developed and well nourished, normocephalic and atraumatic, lying in bed and in no acute distress. HEENT--PERRL, EOMI, mucous membranes and oropharynx normal. Neck--supple. No JVD. No bruits. Thyroid normal, trachea midline, no adenopathy. Heart--normal S1 and S2. No murmurs, rubs or gallops. Lungs--clear bilaterally, no respiratory distress, no accessory muscle use. Abdomen--normal bowel sounds and soft. Nontender. Nondistended. Morbidly obese Extremities--no cyanosis or clubbing. No edema. Dermatologic--normal skin turgor, normal color, no abnormal lymph nodes, no rash. Neurologic--cranial nerves II through XII grossly intact. Rheumatologic--normal range of motion. Psychiatric--normal affect. Principal Diagnosis Bilateral ureteral stone with hydronephrosis Type 2 diabetes mellitus Discharge Data Allergies Allergy/AdvReac Type Severity Reaction Status Date / Time adhesive Allergy Unknown SOME Verified 11/20/20 20:39 TAPE-RED BLISTERS doxycycline Allergy Unknown RASH Verified 11/20/20 20:39 latex Allergy Unknown RASH, RED Verified 11/20/20 20:39 BLISTERS morphine Allergy Unknown WHOLE BODY Verified 11/20/20 20:39 HOT,SOB,CHEST PAIN Penicillins Allergy Unknown rash Verified 11/20/20 20:39 gluten AdvReac FAMILY HX Unverified 11/20/20 20:41 OF GI DISTRESS Consultations 11/20/20 19:49 ED Decision to Admit Stat 11/20/20 23:31 Consult Urology Routine Procedures Performed Operation Date: 11/21/20 07:30 Actual Procedures p Cystoscopy, Bilateral Ureteral Stent Insertion(Bilateral) - Nick Dias MD Ordered Studies 11/20/20 18:03 CT abd pelvis wo con Stat IMPRESSION: 1. A 4 mm obstructing stone at the left ureteropelvic junction resulting in mild left hydronephrosis. 2. A 3.1 x 2.1 cm left renal staghorn calculus. 3. There is moderate right hydroureteronephrosis which extends into the deep pelvis. 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 However, coronal reformatted images suggest the possibility of a 4 mm stone within the distal right ureter immediately proximal to the right ureterovesical junction. 11/21/20 07:00 FL retrograde includes kub Routine Diabetes Follow up Diabetes Follow-up Needed for HgbA1c >9%,Newly Diagnosed Diabetes Hospital Course (1) Bilateral ureteral calculi: Myriam Mcintyre is a 65 year old female admitted to [facility] from November 20-2020 due to right flank pain. She was diagnosed with bilateral obstructing ureteral stones including staghorn calculus causing bilateral hydronephrosis and subsequent acute kidney injury. She was treated with IV fluids and bilateral ureteral stent insertion by urology on November 21. Renal function improved to baseline and no infection was found therefore antibiotics were discontinued. She will follow-up with urology in 1 to 2 weeks for definitive stone management. She was also incidentally noted to have a new diagnosis of type 2 diabetes mellitus. HbA1C 10.6. This was treated with insulin as an inpatient. She will be transitioned to metformin and Trulicity as an outpatient after discussion with our extension educator. Recommend she calls her PCP for follow up regarding this in 1-2 weeks regarding this. (2) Bilateral hydronephrosis: (3) Diabetes mellitus: (4) Nausea & vomiting: (5) Staghorn calculus: (6) Recurrent UTI (urinary tract infection): (7) Hypothyroidism: (8) Morbid obesity: Total Time Total Time Spent Total Time Spent (In Minutes): 35 Total Time Includes: Examination of the Patient, Discharge Planning, Medication Reconciliation and Communication With Other Providers Discharge Plan Discharge Items Patient Disposition: Home - Self-Care Reason For Visit: B/L URETERAL STONES WITH HYDRO Discharge Diagnosis: Bilateral ureteral stone with hydronephrosis Type 2 diabetes mellitus Activity: Resume your previous activity Non-emergency contact: Primary Care Provider Call non-emergency contact if: you have any medication questions Follow-up/Referrals: Nick Dias MD [Physician] - ([facility]ctors office will call you with a date and time for your appointment) Mery Liang CRNP [Primary Care Provider] - 11/27/20 11:10 am () Diet: Carb Consistent or DM2 Addtl Attending Provider Instructions: You were admitted to [facility] from November 20-2020 due to right flank pain. You were diagnosed with bilateral obstructing ureteral stones causing backup of urine to your kidneys and subsequent acute kidney failure. This was treated with intravenous fluids and bilateral ureteral stent insertion by urology on November 21. Please follow-up with urology in 1 to 2 weeks for definitive stone management. You were also incidentally noted to have a new diagnosis of type 2 diabetes mellitus. This was treated with insulin as an inpatient but you will be transitioned to metformin and Trulicity as an outpatient. Depending on your insurance Trulicity may be expensive and alternatives exist. Please call your PCP if this medication is too expensive. Please see multiple education leaflets below regarding diabetes. Please follow up with your PCP in 1-2 weeks regarding this. Kind regards, Dr José Miguel Polk Pending Studies at Discharge: No Stand-Alone Forms: My [facility], Smoking Cessation Medications and DC Order Prescriptions: New phenazopyridine [Pyridium] 200 mg Tablet 200 mg PO TID PRN (Reason: pain) Qty: 20 RF: 0 tamsulosin 0.4 mg Capsule 0.4 mg PO HS Qty: 30 RF: 0 metformin 500 mg tablet extended release 24 hr 500 mg PO BID Qty: 60 RF: 0 Trulicity 0.75 mg/0.5 mL pen injector 0.75 mg subcut .week Qty: 2 RF: 0 (DME) OneTouch Verio test strips Strip See Rx Instructions .ROUTE .MEDSUPPLY Qty: 100 RF: 0 (DME) lancets [OneTouch Delica Lancets] 33 gauge misc See Rx Instructions .ROUTE .MEDSUPPLY Qty: 100 RF: 0 Continued levothyroxine [Synthroid] 25 mcg tablet 25 mcg PO DAILY Qty: 30 RF: 2 levothyroxine [Synthroid] 200 mcg tablet 200 mcg PO DAILY RF: 0 acetaminophen [Tylenol Arthritis Pain] 650 mg tablet extended release 650 mg PO Q12H RF: 0 vitamin K2 40 mcg Tablet 0 mcg PO DAILY RF: 0 cholecalciferol (vitamin D3) [Vitamin D3] 25 mcg (1,000 unit) Capsule 0 mcg PO DAILY RF: 0 Discontinued flurbiprofen 100 mg tablet 100 mg PO BID RF: 0 Discharge Orders: Discharge Order (Routine); Ordered 11/23/20 Ordered By: José Miguel Sewell/Other Patient Handouts: High Blood Sugar (Hyperglycemia), Hypoglycemia (Low Blood Sugar), Managing Type 2 Diabetes, Insulin How to Use and Where to Inject, 5 Steps for Eating Healthier, Blood Sugar Monitoring and ..., Type 2 Diabetes, A1C Admission Data Admit Date/Time: 11/20/20 20:42 Attending Provider: José Miguel Polk Admit Provider: Matthew Rashid Primary Care Provider: Mery Liang Other Providers: Matthew Rashid ; Jr Covarrubias Other Interventions: Discharge Summary Assessment (RN) Last Done: 11/23/20 11:47 Coding Level of Care Code D/C Day Management >30 mins Diagnoses Bilateral ureteral calculi N20.1 Bilateral hydronephrosis N13.30 Diabetes mellitus E11.9 Nausea & vomiting R11.2 Staghorn calculus N20.0 Recurrent UTI (urinary tract infection) N39.0 Hypothyroidism E03.9 Morbid obesity E66.01
[2020-11-23] MEDS ORDERED: TAMSULOSIN HCL 0.4 MG CAP PO SCH (21:00)
== END 2020-11-23 13:30 | disposition home or self-care (01) | DRG 660 ==
LOC: ED 17:20 → 3N 20:42 → SUATTDRO 20:42 → 3N 23:23
DX: R11.2 Nausea with vomiting, unspecified; Z87.442 Personal history of urinary calculi; E66.01 Morbid (severe) obesity due to excess calories; Z79.1 Long term (current) use of non-steroidal anti-inflammatories (NSAID); N13.6 Pyonephrosis; Z88.1 Allergy status to other antibiotic agents; E11.9 Type 2 diabetes mellitus without complications; Z91.048 Other nonmedicinal substance allergy status; N17.9 Acute kidney failure, unspecified; Z87.891 Personal history of nicotine dependence; Z91.040 Latex allergy status; Z88.5 Allergy status to narcotic agent; Z87.440 Personal history of urinary (tract) infections; E03.9 Hypothyroidism, unspecified; Z88.0 Allergy status to penicillin; Z68.44 Body mass index [BMI] 60.0-69.9, adult; Z79.890 Hormone replacement therapy; Z86.59 Personal history of other mental and behavioral disorders

== ENCOUNTER 2020-12-14 18:11 | Inpatient (IN) ==
[2020-12-14] MEDS ORDERED: SODIUM CHLORIDE 0.9% 1000ML 1,000 ML IV STA (19:58)
[2020-12-14 20:10] LABS: Appearance Urine Turbid (Clear); Bacteria Urine Automated 2+ (Negative); Bilirubin Urine Negative (Negative); Blood Urine 2+ (Negative); Color Urine Yellow; Glucose Urine UA Negative (Negative); Ketones Urine Negative (Negative); Leukocyte Esterase Urine 3+ (Negative); Nitrite Urine Positive (Negative); Protein Urine Trace (Negative); Specific Gravity Urine 1.011 (1.000-1.030); Urobilinogen Urine Negative (Negative); WBC Urine Automated >30 /hpf (0-5); pH Urine 5.5 (4.5-7.5)
[2020-12-14 20:11] LABS: Basophils # (auto) 0.04 K/uL (0-0.2); Basophils % (auto) 0.3 %; Eosinophils # (auto) 0.37 K/uL (0-0.5); Eosinophils % (auto) 2.5 %; Hemoglobin 11.4 g/dL (12.0-16.0); Immature Granulocytes # (auto) 0.17 K/uL (0.00-0.02); Immature Granulocytes % (auto) 1.2 %; Lymphocytes # (auto) 1.64 K/uL (1.2-3.4); Lymphocytes % (auto) 11.2 %; Mean Corpuscular Hemoglobin 26.6 pg (25-34); Mean Corpuscular Hgb Conc 31.7 g/dL (32-36); Mean Corpuscular Volume 83.9 fL (80-100); Mean Platelet Volume 9.8 fL (7.4-10.4); Monocytes % (auto) 8.2 %; Neutrophils # (auto) 11.24 K/uL (1.4-6.5); Neutrophils % (auto) 76.6 %; Platelet Count 425 K/uL (130-400); RDW Coefficient of Variation 15.9 % (11.5-14.5); RDW Standard Deviation 48.5 fL (36.4-46.3); Red Blood Count 4.29 M/uL (4.2-5.4); White Blood Count 14.66 K/uL (4.8-10.8)
[2020-12-14 20:25] LABS: Alanine Aminotransferase 29 U/L (12-78); Albumin Level 2.5 gm/dl (3.4-5.0); Aspartate Aminotransferase 23 U/L (15-37); BUN Creatinine Ratio 15.7 (10-20); Blood Urea Nitrogen 28 mg/dl (7-18); Calcium 8.8 mg/dl (8.5-10.1); Carbon Dioxide 23 mmol/L (21-32); Chloride 105 mmol/L (98-107); Est GFR (African American) 34.1 ml/min; Est GFR (Non-African American) 29.4 ml/min; Glucose 124 mg/dl (70-99); Lipase 125 U/L (73-393); Potassium 3.3 mmol/L (3.5-5.1); Sodium 138 mmol/L (136-145)
[2020-12-14 20:27] LABS: Albumin Globulin Ratio 0.4 (0.9-2); Alkaline Phosphatase 114 U/L (45-117); Bilirubin,Total 0.2 mg/dl (0.2-1); Globulin 5.7 gm/dl (2.5-4.0); Total Protein 8.2 gm/dl (6.4-8.2); Troponin I < 0.015 ng/ml (0-0.045)
--- NOTE | 2020-12-14 20:47 | Emergency Department Note ---
Impression & Plan S/P ureteral stent placement, UTI (urinary tract infection), Persistent fever ED Provider Note CHIEF COMPLAINT: Fever for 13 days, elevated creatinine HISTORY OF PRESENTING ILLNESS: This is a 65-year-old female who presents to the emergency department by private vehicle with concern for fevers that have been ongoing for the past 13 days. The patient states that she saw her PCP today and had blood work drawn, they told her creatinine was elevated and told her to come to the ER for evaluation. Patient was recently admitted for kidney stones and had bilateral stents placed by urology. She was also diagnosed newly diabetic while in the hospital and was started on Metformin and Trulicity. She notes that she has had fluctuating fevers for the past 13 days, ranging from 99 to as high as 102. She has not been taking any Tylenol or ibuprofen. She states that she has had severe nausea for several days and has not been eating very much over the past week and has lost 15 lbs. She has not been vomiting and has not had abdominal or back pain. She notes that her urine is dark and strong smelling. She currently denies any pain and rates her pain level 0/10. She is not currently taking any antibiotics. REVIEW OF SYSTEMS: A complete 10 point review of systems was reviewed with the patient with pertinent positives and negatives as per history of present illness. All else were negative. PAST MEDICAL HISTORY: Hypertension, hypothyroidism, morbid obesity, osteoarthritis, fibromyalgia, anxiety, depression, history of total left and right hip arthroplasty, history of tonsillectomy, history of cholecystectomy, history of kidney stones and bilateral stent placement SOCIAL HISTORY: Lives at home, she is a former smoker ALLERGIES: Reviewed in chart and with the patient PHYSICAL EXAM: CONSTITUTIONAL: Pleasant and cooperative. Nontoxic-appearing and in no acute distress. Mildly dehydrated, but otherwise well appearing and well nourished. HEENT: Normocephalic, atraumatic. Pharynx normal. Tacky mucous membranes. NECK: Supple, full active range of motion without discomfort. No cervical adenopathy. RESPIRATORY: Clear to auscultation bilaterally with no wheezing, crackles, rh onchi or stridor. Equal expansion bilaterally. CARDIOVASCULAR: Regular rate and rhythm with no murmurs, rubs or gallops. Normal peripheral perfusion. No edema. GASTROINTESTINAL: Soft, nontender to palpation throughout, nondistended. Obese abdomen. No palpable masses or HSM. Bowel sounds present in all quadrants. No CVA tenderness bilaterally. MUSCULOSKELETAL: Full range of motion of all joints without discomfort. INTEGUMENTARY: No rash or other significant dermatologic conditions noted. NEUROLOGIC: Alert and oriented X 4 with normal affect. Normal strength and sensation in all 4 extremities. Normal speech. Normal gait observed. ED COURSE AND MEDICAL DECISION MAKING: CC: Patient presenting with complaint of ongoing fever, elevated creatinine DIFFERENTIAL DIAGNOSIS: Includes, but not limited to UTI, pyelonephritis, infected ureteral stent, intra-abdominal abscess/infection, viral syndrome, sepsis, bacteremia, acute kidney injury, dehydration, electrolyte abnormality, as well as other pathologies. INTERPRETATION OF LABS: Leukocytosis, mild anemia, mildly elevated platelets, mild hypokalemia, no other significant electrolyte abnormalities, elevated BUN and creatinine consistent with REINA, normal liver enzymes and lipase. Lactate within normal limits. Procalcitonin elevated. Urinalysis appears consistent with a UTI, urine culture pending. EKG: Shows normal sinus rhythm with a rate of 68 bpm, left axis deviation, LVH with QRS widening, no ST elevation or depression, no ectopy, no significant change when compared to previous EKG from 11/21/2020 by my interpretation. MEDICATION RECONCILIATION: I attest that I have personally reviewed the patient's current medication list. INITIAL VITAL SIGNS REVIEW: I reviewed the patient's initial vital signs and interpret them as follows: T: Afebrile; BP: Hypertensive; HR: Within normal limits; RR: Within normal limit; Pulse Ox: Within normal limits on room air. MDM SUMMARY: Patient was evaluated at bedside, history and physical exam performed. Patient is alert and oriented, in no acute distress, resting calmly in stretcher. She is afebrile and nontoxic-appearing, but does appear to be mildly dehydrated. Abdomen is nontender to palpation throughout, no acute abdomen. No CVA tenderness. Cardiac monitoring: An order was placed for continuous cardiac monitoring. The monitor shows a rate of 78 bpm with normal sinus rhythm. Review of the chart noting the patient was recently admitted and discharged after having stents placed for an acute kidney injury related to kidney stones. Orders were placed for labs including blood cultures x2, lactate and procalcitonin, urinalysis and urine culture, IV fluid bolus for hydration, EKG, CT abdomen/pelvis noncontrast to evaluate for complication with stents. The patient was offered something for pain or nausea, she denies any pain and states her nausea is currently well controlled. Patient discussed with Dr. Horan, who agrees with my assessment, plan, and di sposition. Labs and imaging reviewed, labs notable for leukocytosis, acute kidney injury, and elevated procalcitonin. Lactate was within normal limits. Blood cultures are pending. UA appears consistent with a UTI, urine cultures pending. 2 g IV Rocephin was ordered empirically for UTI. CT imaging did not show any acute inflammatory process in the abdomen and the stents do not appear unchanged. There was no note of an abscess or other significant infectious process. I spoke with Dr. Rashid, [facility] Hospitalist, who agrees to admit the patient. Patient reassessed multiple times throughout ED stay, she has remained hemodynamically stable and afebrile, she remains pain-free and her nausea has not returned, and she is overall feeling improved after IV fluids. The patient was updated on all results and plan for admission,, she was agreeable to this plan. The patient was stable at time of admission. The chart was completed utilizing [employer] Speech voice recognition software. Grammatical errors, random word insertions, pronoun errors, and incomplete sentences are an occasional consequence of this system due to software limitations, ambient noise, and hardware issues. Any formal questions or concerns about the content, text, or information contained within the body of this dictation should be directly addressed to the nurse practitioner for clarification. Past Med/Surg History Medical History Adjustment reaction with anxiety and depression Dietary counseling and surveillance Elevated blood-pressure reading, without diagnosis of hypertension Fatigue Fibromyalgia HTN (hypertension) Hypothyroidism Morbid obesity Obesity Osteoarthritis Recurrent UTI (urinary tract infection) Surgical History History of bilateral oophorectomy History of cholecystectomy History of tonsillectomy History of total left hip arthroplasty History of total right hip arthroplasty S/P endometrial ablation Family History Mother , MVA, age 72 Osteoarthritis Fibromyalgia Hypothyroidism (acquired) Obesity Father , age 91 Lymphoma Sister Fibromyalgia Osteoarthritis Autoimmune disease Brother Osteoarthritis Social History Smoking Status: Former smoker Hx Alcohol Use: No Hx Substance Use: No Preferred Language: Bruneian Communication Ability: Effective Munitions Handler Required: No Beliefs That Will Affect Care: None marital status: marital status details: 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 Current Living Situation: Alone current occupational status: employed 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, 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 [employer] Feels Safe at Home: Yes Safety Concerns: Feels Safe At This Time Assistive Devices: Glasses Allergies Allergies Allergy/AdvReac Type Severity Reaction Status Date / Time morphine Allergy Severe WHOLE BODY Verified 12/14/20 20:27 HOT,SOB,CHEST PAIN adhesive Allergy Intermediate SOME Verified 12/14/20 20:27 TAPE-RED BLISTERS doxycycline Allergy Intermediate RASH Verified 12/14/20 20:27 latex Allergy Intermediate RASH, RED Verified 12/14/20 20:27 BLISTERS Penicillins Allergy Mild rash Verified 12/14/20 20:27 gluten AdvReac Unknown FAMILY HX Verified 12/14/20 20:27 OF GI DISTRESS Home Meds Home Medications Medication Instructions Recorded Confirmed acetaminophen 650 mg 650 mg PO DIRECTED PRN 11/13/19 12/14/20 tablet,extended release levothyroxine 200 mcg tablet 200 mcg PO DAILY 11/13/19 12/14/20 dulaglutide [Trulicity] 0.75 mg SUBCUT WK PRN 12/14/20 12/14/20 ondansetron HCl 4 mg PO Q8H PRN 12/14/20 12/14/20 Previous Rx's Medication Instructions Recorded levothyroxine 25 mcg tablet 25 mcg PO DAILY #30 tab 12/17/19 blood sugar diagnostic [OneTouch #100 ea 11/23/20 Verio test strips] lancets [OneTouch Delica Lancets] #100 ea 11/23/20 metformin 500 mg PO BID #60 tab 11/23/20 tamsulosin 0.4 mg PO HS #30 cap 11/23/20 Results & Data (ED) Vital Signs Vital Signs - 24 hr 12/14/20 18:30 Temperature 37.4 C Temperature Source Oral Pulse Rate 73 Respiratory Rate 18 Blood Pressure 154/86 H Blood Pressure Mean 108 Pulse Oximetry 96 Oxygen Delivery Method Room Air Sepsis Recent Fever Within 48 Hours Yes Sepsis New/Unexplained Change in Mental Status N/A Sepsis Action Taken by Nursing No Action Required Laboratory Data Result diagrams: 12/14/20 19:36 12/14/20 19:36 Lab Results 12/14/20 12/14/20 12/14/20 Range/Units 19:36 19:36 19:36 WBC 14.66 H (4.8-10.8) K/uL RBC 4.29 (4.2-5.4) M/uL Hgb 11.4 L (12.0-16.0) g/dL Hct 36.0 L (37-47) % MCV 83.9 (80-100) fL MCH 26.6 (25-34) pg MCHC 31.7 L (32-36) g/dL RDW Std Deviation 48.5 H (36.4-46.3) fL RDW Coeff of Rose 15.9 H (11.5-14.5) % Plt Count 425 H (130-400) K/uL MPV 9.8 (7.4-10.4) fL Immature Gran % (Auto) 1.2 % Neut % (Auto) 76.6 % Lymph % (Auto) 11.2 % Stone % (Auto) 8.2 % Eos % (Auto) 2.5 % Baso % (Auto) 0.3 % Neut # (Auto) 11.24 H (1.4-6.5) K/uL Lymph # (Auto) 1.64 (1.2-3.4) K/uL Stone # (Auto) 1.20 H (0.11-0.59) K/uL Eos # (Auto) 0.37 (0-0.5) K/uL Baso # (Auto) 0.04 (0-0.2) K/uL Immature Gran # (Auto) 0.17 H (0.00-0.02) K/uL Sodium 138 (136-145) mmol/L Potassium 3.3 L (3.5-5.1) mmol/L Chloride 105 (98-107) mmol/L Carbon Dioxide 23 (21-32) mmol/L Anion Gap 11.0 (3-11) BUN 28 H (7-18) mg/dl Creatinine 1.79 H (0.6-1.2) mg/dl Est Cr Clr Drug Dosing Not Reportable Est GFR ( Amer) 34.1 ml/min Est GFR (Non-Af Amer) 29.4 ml/min BUN/Creatinine Ratio 15.7 (10-20) Glucose 124 H (70-99) mg/dl POC Glucose (70-99) mg/dl Lactate (0.4-2.0) mmol/L Calcium 8.8 (8.5-10.1) mg/dl Total Bilirubin 0.2 (0.2-1) mg/dl AST 23 (15-37) U/L ALT 29 (12-78) U/L Alkaline Phosphatase 114 (45-117) U/L Troponin I < 0.015 (0-0.045) ng/ml Total Protein 8.2 (6.4-8.2) gm/dl Albumin 2.5 L (3.4-5.0) gm/dl Globulin 5.7 H (2.5-4.0) gm/dl Albumin/Globulin Ratio 0.4 L (0.9-2) Lipase 125 (73-393) U/L Procalcitonin 1.13 H (0-0.5) ng/ml Specimen Hemolysis Urine Color Urine Appearance (Clear) Urine pH (4.5-7.5) Ur Specific [place] (1.000-1.030) Urine Protein (Negative) Urine Glucose (UA) (Negative) Urine Ketones (Negative) Urine Blood (Negative) Urine Nitrite (Negative) Urine Bilirubin (Negative) Urine Urobilinogen (Negative) Ur Leukocyte Esterase (Negative) Urine WBC (Auto) (0-5) /hpf Urine RBC (Auto) (0-4) /hpf U Hyaline Cast (Auto) (0-5) /lpf U Epithel Cells (Auto) (0-5) /lpf Urine Bacteria (Auto) (Negative) Urine Yeast COVID-19 Eval Order SARS-CoV-2 (PCR) (Negative) 12/14/20 12/14/20 12/14/20 Range/Units 19:36 20:15 21:46 WBC (4.8-10.8) K/uL RBC (4.2-5.4) M/uL Hgb (12.0-16.0) g/dL Hct (37-47) % MCV (80-100) fL MCH (25-34) pg MCHC (32-36) g/dL RDW Std Deviation (36.4-46.3) fL RDW Coeff of Rose (11.5-14.5) % Plt Count (130-400) K/uL MPV (7.4-10.4) fL Immature Gran % (Auto) % Neut % (Auto) % Lymph % (Auto) % Stone % (Auto) % Eos % (Auto) % Baso % (Auto) % Neut # (Auto) (1.4-6.5) K/uL Lymph # (Auto) (1.2-3.4) K/uL Stone # (Auto) (0.11-0.59) K/uL Eos # (Auto) (0-0.5) K/uL Baso # (Auto) (0-0.2) K/uL Immature Gran # (Auto) (0.00-0.02) K/uL Sodium (136-145) mmol/L Potassium (3.5-5.1) mmol/L Chloride (98-107) mmol/L Carbon Dioxide (21-32) mmol/L Anion Gap (3-11) BUN (7-18) mg/dl Creatinine (0.6-1.2) mg/dl Est Cr Clr Drug Dosing Est GFR ( Amer) ml/min Est GFR (Non-Af Amer) ml/min BUN/Creatinine Ratio (10-20) Glucose (70-99) mg/dl POC Glucose (70-99) mg/dl Lactate 1.2 (0.4-2.0) mmol/L Calcium (8.5-10.1) mg/dl Total Bilirubin (0.2-1) mg/dl AST (15-37) U/L ALT (12-78) U/L Alkaline Phosphatase (45-117) U/L Troponin I (0-0.045) ng/ml Total Protein (6.4-8.2) gm/dl Albumin (3.4-5.0) gm/dl Globulin (2.5-4.0) gm/dl Albumin/Globulin Ratio (0.9-2) Lipase (73-393) U/L Procalcitonin (0-0.5) ng/ml Specimen Hemolysis Urine Color Yellow Urine Appearance Turbid A (Clear) Urine pH 5.5 (4.5-7.5) Ur Specific [place] 1.011 (1.000-1.030) Urine Protein Trace H (Negative) Urine Glucose (UA) Negative (Negative) Urine Ketones Negative (Negative) Urine Blood 2+ H (Negative) Urine Nitrite Positive A (Negative) Urine Bilirubin Negative (Negative) Urine Urobilinogen Negative (Negative) Ur Leukocyte Esterase 3+ H (Negative) Urine WBC (Auto) >30 H (0-5) /hpf Urine RBC (Auto) 5-10 H (0-4) /hpf U Hyaline Cast (Auto) 1-5 (0-5) /lpf U Epithel Cells (Auto) 10-20 H (0-5) /lpf Urine Bacteria (Auto) 2+ H (Negative) Urine Yeast Not Reportable COVID-19 Eval Order Covid19 at [facility] SARS-CoV-2 (PCR) (Negative) 12/14/20 12/14/20 Range/Units 21:46 22:48 WBC (4.8-10.8) K/uL RBC (4.2-5.4) M/uL Hgb (12.0-16.0) g/dL Hct (37-47) % MCV (80-100) fL MCH (25-34) pg MCHC (32-36) g/dL RDW Std Deviation (36.4-46.3) fL RDW Coeff of Rose (11.5-14.5) % Plt Count (130-400) K/uL MPV (7.4-10.4) fL Immature Gran % (Auto) % Neut % (Auto) % Lymph % (Auto) % Stone % (Auto) % Eos % (Auto) % Baso % (Auto) % Neut # (Auto) (1.4-6.5) K/uL Lymph # (Auto) (1.2-3.4) K/uL Stone # (Auto) (0.11-0.59) K/uL Eos # (Auto) (0-0.5) K/uL Baso # (Auto) (0-0.2) K/uL Immature Gran # (Auto) (0.00-0.02) K/uL Sodium (136-145) mmol/L Potassium (3.5-5.1) mmol/L Chloride (98-107) mmol/L Carbon Dioxide (21-32) mmol/L Anion Gap (3-11) BUN (7-18) mg/dl Creatinine (0.6-1.2) mg/dl Est Cr Clr Drug Dosing Est GFR ( Amer) ml/min Est GFR (Non-Af Amer) ml/min BUN/Creatinine Ratio (10-20) Glucose (70-99) mg/dl POC Glucose 122 H (70-99) mg/dl Lactate (0.4-2.0) mmol/L Calcium (8.5-10.1) mg/dl Total Bilirubin (0.2-1) mg/dl AST (15-37) U/L ALT (12-78) U/L Alkaline Phosphatase (45-117) U/L Troponin I (0-0.045) ng/ml Total Protein (6.4-8.2) gm/dl Albumin (3.4-5.0) gm/dl Globulin (2.5-4.0) gm/dl Albumin/Globulin Ratio (0.9-2) Lipase (73-393) U/L Procalcitonin (0-0.5) ng/ml Specimen Hemolysis Urine Color Urine Appearance (Clear) Urine pH (4.5-7.5) Ur Specific [place] (1.000-1.030) Urine Protein (Negative) Urine Glucose (UA) (Negative) Urine Ketones (Negative) Urine Blood (Negative) Urine Nitrite (Negative) Urine Bilirubin (Negative) Urine Urobilinogen (Negative) Ur Leukocyte Esterase (Negative) Urine WBC (Auto) (0-5) /hpf Urine RBC (Auto) (0-4) /hpf U Hyaline Cast (Auto) (0-5) /lpf U Epithel Cells (Auto) (0-5) /lpf Urine Bacteria (Auto) (Negative) Urine Yeast COVID-19 Eval Order SARS-CoV-2 (PCR) NEGATIVE (Negative) Administered Medications Discontinued Medications Sodium Chloride (Nss 1000ml) 1,000 mls @ 999 mls/hr IV .[id number] STA Stop: 12/14/20 20:58 Last Infusion: 12/14/20 21:56 Dose: 0 mls/hr Documented by: [id number] Admin: 12/14/20 20:25 Dose: 999 mls/hr Documented by: [id number] Ceftriaxone Sodium (Rocephin) 2,000 mg in 70 mls @ 140 mls/hr IV NOW STA Stop: 12/14/20 21:27 Last Infusion: 12/14/20 21:56 Dose: 0 mls/hr Documented by: [id number] Admin: 12/14/20 21:25 Dose: 140 mls/hr Documented by: [id number] Imaging Data Radiologist's Impression: Abdomen/Pelvis CT 12/14/20 19:58 CT SCAN OF THE ABDOMEN AND PELVIS WITHOUT CONTRAST CLINICAL HISTORY: nausea, uti symptoms, fevers, REINA, recent stents COMPARISON STUDY: November 20, 2020 TECHNIQUE: CT scan of the abdomen and pelvis was performed from the lung bases to the proximal femurs. Images are reviewed in the axial, sagittal, and coronal planes. IV contrast was not administered for this examination. A dose lowering technique was utilized adhering to the principles of ALARA. CT DOSE: 2123.27 mGy.cm FINDINGS: Lower chest: Mild septal thickening is seen within bilateral basis, unchanged since prior. Liver: Diffuse decrease in attenuation of liver parenchyma is seen without evidence of focal lesions. Gallbladder: Surgically absent Spleen: Normal in size and attenuation. Pancreas: Unremarkable. Adrenal glands: Unremarkable. Kidneys: Moderate hydronephrosis is again seen bilaterally not significantly changed since prior. Bilateral urinary stents are again seen. Previously seen extensive calcifications within left renal pelvis are again visualized. Large cystic lesion within left renal cortex is not significantly changed since November 20, 2020 exam. Overall evaluation is limited due to beam hardening artifact from patient body habitus. Evaluation of lower pelvic region is also limited due to beam hardening artifact from metallic orthopedic hardware within bilateral hip joints. Bowel: Bowel loops are nondilated. Appendix shows normal morphology and gas filled. Mild diverticulosis of descending and sigmoid colon is seen. No evidence of diverticulitis. Peritoneum: There is no intraperitoneal free air or abdominal ascites. Vasculature: The abdominal aorta is normal in course and caliber. Adenopathy: None. Pelvic viscera: Urinary bladder is not well seen due to beam hardening artifact from prosthetic hip joints. Visualized portion of the uterus is normal. Skeletal structures: Degenerative changes of the spine. IMPRESSION: 1. Unchanged bilateral hydronephrosis. Nephrolithiasis is again seen on the left, not significantly changed since prior. Bilateral ureteral stents. Evaluation of the urinary bladder is limited due to beam hardening artifact from orthopedic hardware. 2. No acute inflammatory process is seen within the abdomen however evaluation is limited due to beam hardening artifact from patient's body habitus. 3. Hepatic steatosis. 4. Diverticulosis. ACT 112: Negative or not required by law. The above report was generated using voice recognition software. It may contain grammatical, syntax or spelling errors. Electronically signed by: Clemencia Hastings DO 12/14/2020 10:16 PM Discharge Plan Visit Data Chief Complaint: Fever Stated Complaint: KIDNEY FUNCTION/FEVER ED Provider: Juni Horan ED Midlevel Provider: Kathe Torrez Discharge Problem: S/P ureteral stent placement, UTI (urinary tract infection), Persistent fever Patient Disposition: Admitted As Inpatient Discharge Instructions Interventions: ED Discharge Assessment Last Done: 12/14/20 23:44 Discharge Problem: UTI (urinary tract infection) Qualifiers: Urinary tract infection type: acute cystitis Hematuria presence: with hematuria Qualified Code(s): N30.01 - Acute cystitis with hematuria
[2020-12-14] MEDS ORDERED: cefTRIAXone SODIUM 2,000 MG/70 ML BAG IV STA (20:58)
--- NOTE | 2020-12-14 22:17 | CT Scan Report ---
CT SCAN OF THE ABDOMEN AND PELVIS WITHOUT CONTRAST CLINICAL HISTORY: nausea, uti symptoms, fevers, REINA, recent stents COMPARISON STUDY: November 20, 2020 TECHNIQUE: CT scan of the abdomen and pelvis was performed from the lung bases to the proximal femurs . Images are reviewed in the axial, sagittal, and coronal planes. IV contrast was not administered fo r this examination. A dose lowering technique was utilized adhering to the principles of ALARA. CT DOSE: 2123.27 mGy.cm FINDINGS: Lower chest: Mild septal thickening is seen within bilateral basis, unchanged since prior. Liver: Diffuse decrease in attenuation of liver parenchyma is seen without evidence of focal lesions. Gallbladder: Surgically absent Spleen: Normal in size and attenuation. Pancreas: Unremarkable. Adrenal glands: Unremarkable. Kidneys: Moderate hydronephrosis is again seen bilaterally not significantly changed since prior. Willie ateral urinary stents are again seen. Previously seen extensive calcifications within left renal pelv is are again visualized. Large cystic lesion within left renal cortex is not significantly changed si nce November 20, 2020 exam. Overall evaluation is limited due to beam hardening artifact from patient body habitus. Evaluation of lower pelvic region is also limited due to beam hardening artifact from metallic orthop edic hardware within bilateral hip joints. Bowel: Bowel loops are nondilated. Appendix shows normal morphology and gas filled. Mild diverticulos is of descending and sigmoid colon is seen. No evidence of diverticulitis. Peritoneum: There is no intraperitoneal free air or abdominal ascites. Vasculature: The abdominal aorta is normal in course and caliber. Adenopathy: None. Pelvic viscera: Urinary bladder is not well seen due to beam hardening artifact from prosthetic hip j oints. Visualized portion of the uterus is normal. Skeletal structures: Degenerative changes of the spine. IMPRESSION: 1. Unchanged bilateral hydronephrosis. Nephrolithiasis is again seen on the left, not significantly changed since prior. Bilateral ureteral stents. Evaluation of the urinary bladder is limited due to b eam hardening artifact from orthopedic hardware. 2. No acute inflammatory process is seen within the abdomen however evaluation is limited due to shmuel m hardening artifact from patient's body habitus. 3. Hepatic steatosis. 4. Diverticulosis. ACT 112: Negative or not required by law. The above report was generated using voice recognition software. It may contain grammatical, syntax o r spelling errors. Electronically signed by: Clemencia Hastings DO 12/14/2020 10:16 PM
--- NOTE | 2020-12-14 22:53 | History & Physical Report ---
Date of Service December 14, 2020 Assessment & Plan (1) UTI (urinary tract infection): Urinary tract infection/status post bilateral ureteral stents/bilateral nephrolithiasis/bilateral hydroureteronephrosis- Follow urine culture and sensitivities Empiric ceftriaxone 2 g IV daily NSS at 80 mils per hour Continue tamsulosin Consult urology Present on Admission?: Yes (2) S/P ureteral stent placement: See above Present on Admission?: Yes (3) Bilateral nephrolithiasis: See above Present on Admission?: Yes (4) Diabetes mellitus: Hold Trulicity and Metformin Placed on Accu-Cheks before meals and at bedtime with NovoLog coverage per scale Present on Admission?: Yes (5) Hypothyroidism: Continue levothyroxine Present on Admission?: Yes History of Present Illness Chief Complaint: The patient presents to the emergency department with complaint of fevers off and on for the past 13 days, and was referred to the ED by her PCPs office after having an outpatient laboratories drawn revealing an elevated creatinine. Primary Care Provider: SANA Booth The patient is a 65-year-old female with a past medical history including bilateral ureteral stents, bilateral nephrolithiasis, diabetes mellitus, bilateral hydronephrosis, staghorn calculus, REINA, recurrent UTI, hypertension, hypothyroidism, fibromyalgia, morbid obesity, osteoarthritis, adjustment reaction with anxiety and depression, fatigue and binge eating disorder. Patient was most recently admitted to [facility] from 11/20-11/23/20 when she was noted to have bilateral obstructing ureteral stones, with bilateral hydroureteronephrosis, and had bilateral ureteral stents placed. The patient presents with symptoms as noted above. Allergies Allergy/AdvReac Type Severity Reaction Status Date / Time morphine Allergy Severe WHOLE BODY Verified 12/14/20 20:27 HOT,SOB,CHEST PAIN adhesive Allergy Intermediate SOME Verified 12/14/20 20:27 TAPE-RED BLISTERS doxycycline Allergy Intermediate RASH Verified 12/14/20 20:27 latex Allergy Intermediate RASH, RED Verified 12/14/20 20:27 BLISTERS Penicillins Allergy Mild rash Verified 12/14/20 20:27 gluten AdvReac Unknown FAMILY HX Verified 12/14/20 20:27 OF GI DISTRESS Home Medications Medication Instructions Recorded Confirmed Type acetaminophen 650 mg 650 mg PO DIRECTED PRN 11/13/19 12/14/20 History tablet,extended release levothyroxine 200 mcg tablet 200 mcg PO DAILY 11/13/19 12/14/20 History levothyroxine 25 mcg tablet 25 mcg PO DAILY #30 tab 12/17/19 12/14/20 Rx blood sugar diagnostic [OneTouch #100 ea 11/23/20 Rx Verio test strips] lancets [OneTouch Delica Lancets] #100 ea 11/23/20 Rx metformin 500 mg PO BID #60 tab 11/23/20 12/14/20 Rx tamsulosin 0.4 mg PO HS #30 cap 11/23/20 12/14/20 Rx dulaglutide [Trulicity] 0.75 mg SUBCUT WK PRN 12/14/20 12/14/20 History ondansetron HCl 4 mg PO Q8H PRN 12/14/20 12/14/20 History Past Med/Surg History Medical History Adjustment reaction with anxiety and depression Dietary counseling and surveillance Elevated blood-pressure reading, without diagnosis of hypertension Fatigue Fibromyalgia HTN (hypertension) Hypothyroidism Morbid obesity Obesity Osteoarthritis Recurrent UTI (urinary tract infection) Surgical History History of bilateral oophorectomy History of cholecystectomy History of tonsillectomy History of total left hip arthroplasty History of total right hip arthroplasty S/P endometrial ablation Family History Mother , MVA, age 72 Osteoarthritis Fibromyalgia Hypothyroidism (acquired) Obesity Father , age 91 Lymphoma Sister Fibromyalgia Osteoarthritis Autoimmune disease Brother Osteoarthritis Social History Smoking Status: Former smoker Hx Alcohol Use: No Hx Substance Use: No Preferred Language: Venezuelan Communication Ability: Effective Sales Intern Required: No Beliefs That Will Affect Care: None marital status: marital status details: 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 Current Living Situation: Alone current occupational status: employed 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[employer], 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 [employer] Feels Safe at Home: Yes Safety Concerns: Feels Safe At This Time Assistive Devices: Cane Review of Systems Review of Systems: The patient denies chest pain, palpitations, shortness of breath, dyspnea on exertion, cough, lower extremity swelling, sore throat, chills, sweats, nausea, vomiting, diarrhea , constipation, abdominal pain, pelvic pain, blood in urine or stool, dysuria, urinary frequency or urgency, lightheadedness, dizziness, headache, memory loss, loss of consciousness, rash, abnormal bruising or bleeding, imbalance, focal weakness, numbness or tingling in arms or legs, generalized arthralgias or myalgias, back or neck pain, or night sweats. The review of systems is otherwise negative other than for that already noted above, and at least 10 systems have been reviewed. Physical Exam Physical Exam: The patient is awake, alert and oriented 3, well developed and well nourished, normocephalic and atraumatic, lying in bed and in no acute distress. HEENT--PERRL, EOMI, mucous membranes and oropharynx dry. Neck--supple. No JVD. No bruits. Thyroid normal, trachea midline, no adenopathy. Heart--normal S1 and S2. No murmurs, rubs or gallops. Lungs--clear bilaterally, no respiratory distress, no accessory muscle use. Abdomen--normal bowel sounds and soft. Nontender. Nondistended, no hernias or masses, no organomegaly. Extremities--no cyanosis or clubbing. No edema. There are good distal pulses b/l. Dermatologic--normal skin turgor, normal color, no abnormal lymph nodes, no rash. Neurologic--cranial nerves II through XII grossly intact. Rheumatologic--normal range of motion. Psychiatric--normal affect. Results & Data Results & Data ([facility]) Vital Signs (Past 12 Hours) Vital Signs Temp Pulse Resp BP Pulse Ox 12/14/20 18:30 99.3 F 73 18 154/86 H 96 Laboratory Results Laboratory Results WBC 14.66 K/uL (4.8-10.8) H 12/14/20 19:36 RBC 4.29 M/uL (4.2-5.4) 12/14/20 19:36 Hgb 11.4 g/dL (12.0-16.0) L 12/14/20 19:36 Hct 36.0 % (37-47) L 12/14/20 19:36 MCV 83.9 fL (80-100) 12/14/20 19:36 MCH 26.6 pg (25-34) 12/14/20 19:36 MCHC 31.7 g/dL (32-36) L 12/14/20 19:36 RDW Std Deviation 48.5 fL (36.4-46.3) H 12/14/20 19:36 RDW Coeff of Rose 15.9 % (11.5-14.5) H 12/14/20 19:36 Plt Count 425 K/uL (130-400) H 12/14/20 19:36 MPV 9.8 fL (7.4-10.4) 12/14/20 19:36 Immature Gran % (Auto) 1.2 % 12/14/20 19:36 Neut % (Auto) 76.6 % 12/14/20 19:36 Lymph % (Auto) 11.2 % 12/14/20 19:36 [place] % (Auto) 8.2 % 12/14/20 19:36 Eos % (Auto) 2.5 % 12/14/20 19:36 Baso % (Auto) 0.3 % 12/14/20 19:36 Neut # (Auto) 11.24 K/uL (1.4-6.5) H 12/14/20 19:36 Lymph # (Auto) 1.64 K/uL (1.2-3.4) 12/14/20 19:36 [place] # (Auto) 1.20 K/uL (0.11-0.59) H 12/14/20 19:36 Eos # (Auto) 0.37 K/uL (0-0.5) 12/14/20 19:36 Baso # (Auto) 0.04 K/uL (0-0.2) 12/14/20 19:36 Immature Gran # (Auto) 0.17 K/uL (0.00-0.02) H 12/14/20 19:36 Sodium 138 mmol/L (136-145) 12/14/20 19:36 Potassium 3.3 mmol/L (3.5-5.1) L 12/14/20 19:36 Chloride 105 mmol/L (98-107) 12/14/20 19:36 Carbon Dioxide 23 mmol/L (21-32) 12/14/20 19:36 Anion Gap 11.0 (3-11) 12/14/20 19:36 BUN 28 mg/dl (7-18) H 12/14/20 19:36 Creatinine 1.79 mg/dl (0.6-1.2) H 12/14/20 19:36 Est Cr Clr Drug Dosing Not Reportable 12/14/20 19:36 Est GFR ( Amer) 34.1 ml/min 12/14/20 19:36 Est GFR (Non-Af Amer) 29.4 ml/min 12/14/20 19:36 BUN/Creatinine Ratio 15.7 (10-20) 12/14/20 19:36 Glucose 124 mg/dl (70-99) H 12/14/20 19:36 POC Glucose 122 mg/dl (70-99) H 12/14/20 22:48 Lactate 1.2 mmol/L (0.4-2.0) 12/14/20 20:15 Calcium 8.8 mg/dl (8.5-10.1) 12/14/20 19:36 Total Bilirubin 0.2 mg/dl (0.2-1) 12/14/20 19:36 AST 23 U/L (15-37) 12/14/20 19:36 ALT 29 U/L (12-78) 12/14/20 19:36 Alkaline Phosphatase 114 U/L (45-117) 12/14/20 19:36 Troponin I < 0.015 ng/ml (0-0.045) 12/14/20 19:36 Total Protein 8.2 gm/dl (6.4-8.2) 12/14/20 19:36 Albumin 2.5 gm/dl (3.4-5.0) L 12/14/20 19:36 Globulin 5.7 gm/dl (2.5-4.0) H 12/14/20 19:36 Albumin/Globulin Ratio 0.4 (0.9-2) L 12/14/20 19:36 Lipase 125 U/L (73-393) 12/14/20 19:36 Procalcitonin 1.13 ng/ml (0-0.5) H 12/14/20 19:36 Specimen Hemolysis 12/14/20 19:36 Urine Color Yellow 12/14/20 19:36 Urine Appearance Turbid (Clear) A 12/14/20 19:36 Urine pH 5.5 (4.5-7.5) 12/14/20 19:36 Ur Specific [place] 1.011 (1.000-1.030) 12/14/20 19:36 Urine Protein Trace (Negative) H 12/14/20 19:36 Urine Glucose (UA) Negative (Negative) 12/14/20 19:36 Urine Ketones Negative (Negative) 12/14/20 19:36 Urine Blood 2+ (Negative) H 12/14/20 19:36 Urine Nitrite Positive (Negative) A 12/14/20 19:36 Urine Bilirubin Negative (Negative) 12/14/20 19:36 Urine Urobilinogen Negative (Negative) 12/14/20 19:36 Ur Leukocyte Esterase 3+ (Negative) H 12/14/20 19:36 Urine WBC (Auto) >30 /hpf (0-5) H 12/14/20 19:36 Urine RBC (Auto) 5-10 /hpf (0-4) H 12/14/20 19:36 U Hyaline Cast (Auto) 1-5 /lpf (0-5) 12/14/20 19:36 U Epithel Cells (Auto) 10-20 /lpf (0-5) H 12/14/20 19:36 Urine Bacteria (Auto) 2+ (Negative) H 12/14/20 19:36 Urine Yeast Not Reportable 12/14/20 19:36 COVID-19 Eval Order Covid19 at [facility] 12/14/20 21:46 SARS-CoV-2 (PCR) NEGATIVE (Negative) 12/14/20 21:46 Impressions Abdomen/Pelvis CT 12/14/20 19:58 CT SCAN OF THE ABDOMEN AND PELVIS WITHOUT CONTRAST CLINICAL HISTORY: nausea, uti symptoms, fevers, REINA, recent stents COMPARISON STUDY: November 20, 2020 TECHNIQUE: CT scan of the abdomen and pelvis was performed from the lung bases to the proximal femurs. Images are reviewed in the axial, sagittal, and coronal planes. IV contrast was not administered for this examination. A dose lowering technique was utilized adhering to the principles of ALARA. CT DOSE: 2123.27 mGy.cm FINDINGS: Lower chest: Mild septal thickening is seen within bilateral basis, unchanged since prior. Liver: Diffuse decrease in attenuation of liver parenchyma is seen without evidence of focal lesions. Gallbladder: Surgically absent Spleen: Normal in size and attenuation. Pancreas: Unremarkable. Adrenal glands: Unremarkable. Kidneys: Moderate hydronephrosis is again seen bilaterally not significantly changed since prior. Bilateral urinary stents are again seen. Previously seen extensive calcifications within left renal pelvis are again visualized. Large cystic lesion within left renal cortex is not significantly changed since November 20, 2020 exam. Overall evaluation is limited due to beam hardening artifact from patient body habitus. Evaluation of lower pelvic region is also limited due to beam hardening artifact from metallic orthopedic hardware within bilateral hip joints. Bowel: Bowel loops are nondilated. Appendix shows normal morphology and gas filled. Mild diverticulosis of descending and sigmoid colon is seen. No evidence of diverticulitis. Peritoneum: There is no intraperitoneal free air or abdominal ascites. Vasculature: The abdominal aorta is normal in course and caliber. Adenopathy: None. Pelvic viscera: Urinary bladder is not well seen due to beam hardening artifact from prosthetic hip joints. Visualized portion of the uterus is normal. Skeletal structures: Degenerative changes of the spine. IMPRESSION: 1. Unchanged bilateral hydronephrosis. Nephrolithiasis is again seen on the left, not significantly changed since prior. Bilateral ureteral stents. Evaluation of the urinary bladder is limited due to beam hardening artifact from orthopedic hardware. 2. No acute inflammatory process is seen within the abdomen however evaluation is limited due to beam hardening artifact from patient's body habitus. 3. Hepatic steatosis. 4. Diverticulosis. ACT 112: Negative or not required by law. The above report was generated using voice recognition software. It may contain grammatical, syntax or spelling errors. Electronically signed by: Clemencia Hastings DO 12/14/2020 10:16 PM Code Status & VTE Plan Code Status Full code VTE Prophylaxis Plan VTE Prophylaxis will be ordered: Yes PG Care Time/CCT Total # of Minutes Spent Total Time Spent with Patient: Total time spent is greater than 50% in coordination of care (as documented) at patient's floor/unit and/or counseling patient: Coding Level of Care Code 29642 OBS Care - Level 3 Diagnoses UTI (urinary tract infection) N30.01 Hematuria presence: with hematuria Urinary tract infection type: acute cystitis S/P ureteral stent placement Z96.0 Bilateral nephrolithiasis N20.0 Diabetes mellitus E11.9 Hypothyroidism E03.9 (1) UTI (urinary tract infection) Hematuria presence: with hematuria Urinary tract infection type: acute cystitis Qualified Code(s): N30.01 - Acute cystitis with hematuria
[2020-12-15] MEDS ORDERED: CARBOHYDRATES FOR HYPOGLYCEMIA PO PRN (00:07)
[2020-12-15] MEDS ORDERED: NON-FORMULARY MEDICATION (Acetaminophen [Tylenol Arthritis Pain] 650 mg tablet extended re PO PRN (00:07)
[2020-12-15] MEDS ORDERED: DEXTROSE 50% 50 ML SYRINGE IV PRN (00:07)
[2020-12-15] MEDS ORDERED: ONDANSETRON INJ 2 MG/ML 2 ML VIAL IV PRN (00:07)
[2020-12-15] MEDS ORDERED: GLUCAGON FOR INJ 1 MG VIAL SQ PRN (00:07)
[2020-12-15] MEDS ORDERED: GLUCOSE 40% GEL 15 GM TUBE PO PRN (00:07)
[2020-12-15] MEDS ORDERED: GLUCOSE 10 TABS/TUBE PO PRN (00:07)
[2020-12-15] MEDS: SODIUM CHLORIDE 0.9% 1000ML 1,000 ML IV SCH ×2 (00:30→13:49)
[2020-12-15] MEDS ORDERED: ONDANSETRON 4 MG OD TAB PO PRN (01:00)
[2020-12-15] MEDS: HEPARIN SOD 5,000 UNIT/0.5 ML VIAL SQ SCH ×3 (05:52→22:06)
[2020-12-15] MEDS: LEVOTHYROXINE SODIUM 200 MCG TABLET PO SCH (05:52)
[2020-12-15] MEDS: LEVOTHYROXINE SODIUM 25 MCG TABLET PO SCH (05:53)
--- NOTE | 2020-12-15 07:53 | Hospitalist Progress Note ---
Date of Service December 15, 2020 Assessment & Plan (1) UTI (urinary tract infection): * s/p Cystoscopy, Bilateral Ureteral Stent Insertion(Bilateral) - Tj Dias MD on 11/21 * Had been having ongoing fevers 99-102F for past 13-14 days. Saw PCP three times but thought to be related to COVID vaccination x 2. * Continued to have dysuria (now improved), fever, chills, back pain, nausea. Had labwork [employer] and was sent to ER for elevated Cr * Presented to ER and found to have likely UTI with continued unchanged bilateral hydronephrosis. Nephrolithiasis is again seen on the left, not significantly changed since prior. Bilateral ureteral stents. (Does note large cystic lesion within left renal cortex is not significantly changed since November 20, 2020 exam. * Urine cx with pin-point growth -- follow * Continues on Ceftriaxone IV daily -- consider treating extended course for pyelo? given back pain and possible CVA tenderness * NSS + 20meq KCL @ 80cc/hr for now * WBC 15.2k --> 14.7k, procal 1.13 * remains afebrile * Blood cultures pending * DM diet * Continue tamsulosin * Urology consulted -- continued supportive care and follow up appointments. To contact with continued issues. * Continue to monitor (2) S/P ureteral stent placement: * See above (3) Bilateral nephrolithiasis: * See above (4) Diabetes mellitus: * Hold Trulicity and Metformin while inpatient -- recently started during last admission for A1c 10.6 * She states she has been checking sugars at home and recently AM sugar 118 * ISS while inpatient * BSGs acceptable (5) Hypothyroidism: * Continue levothyroxine 225cg daily * Last TSH wnl 1.430 (6) Acute kidney injury: * Secondary to UTI/stone * Cr 1.86 on admission, currently 1.7 * Abx, IVF as above * BMP in AM (7) Fibromyalgia: * Chronic. No acute needs (8) Staghorn calculus: * noted (9) Nausea & vomiting: * none reported today * zofran prn DVT Prophylaxis * Heparin SQ -- patient has been refusing Dispo: continued inpatient stay, follow urine cx/blood cx possible d/c in next 1-2 pending symptom control and tolerance to oral abx Admission and Anticipated Discharge Date Admission Date: December 14, 2020 Supervising Physician Co-Signing Physician Notes PA Supervision Note: I did not personally see or examine the patient today, but I verified all crawford points of VEL Eduardo's assessment and plan with the following exceptions/additions: None Subjective Patient evaluated this afternoon. She states that her pain is much improved from admission. She states that she had been having ongoing fever, nausea, abdominal discomfort and back discomfort for the past 2 weeks and had contacted her primary care provider regarding this information however this was complicated by the fact that she had received her first and second Covid vaccinations and felt that fever up to 102 F was felt to be reactive from her vaccination status. She does note that the Metformin could also have been causing diarrhea and discomfort and she initially thought that this was the issue was. She states she never had resolution of her dysuria following stent placement but did not contact urology but is now is aware that is what she should do in the future if this occurs. She was going I will have a follow-up appointment with [facility] regarding procedure for stone extraction however after discussion with Vilma Elkins from urology she is going to collect information regarding this possible intervention but likely will continue to follow locally. Appointment was initially scheduled for this but she does think she might make that this week given current issue. She has been compliant with her Trulicity Metformin and states that her blood sugar prior to admission was in the 110s in the morning prior to admission. She states that she has not had any further fever or chills, no abdominal discomfort is resolving she is no longer nauseous. She states she has had back pain R>L but could be combination of her fibromyalgia/low back pain/or possible pyelonephritis. She has eaten more today than she has in 2 weeks which has been decreased due to nausea and general malaise. Discussed awaiting urine cultures today bilateral hydronephrosis will likely have distended course of antibiotics pending culture results. Review of Systems Review of Systems: All systems reviewed & are unremarkable except as noted in HPI & below Physical Exam Physical Exam: The patient is awake, alert and oriented 3, well developed and well nourished, normocephalic and atraumatic, sitting up in bed, no acute distress HEENT: PERRLA, EOMI, mm slightly dy Neck: trachea midline, no deviation Cardiac: RRR, S1/S2, no r/m/g Resp: CTAB, diminished in the bases. no wheezing noted Abd: +BS throughout, soft, non-tender MSK: moves all extremities, possible R sided CVA tenderness however patient with fibromyalgia and unable to tell if worse than usual Skin: warm, dry Neurologic--cranial nerves II through XII grossly intact. Rheumatologic--normal range of motion. Psychiatric--AOx3, normal affect. Results & Data Results & Data ([facility]) Vital Signs (Past 12 Hours) Vital Signs Temp Pulse Pulse Resp BP BP Pulse Ox 12/15/20 07:21 37.2 C 72 16 161/82 H 94 12/15/20 00:07 37 C 83 16 176/82 H 95 12/14/20 23:44 77 14 97 Laboratory Results 12/15/20 12/15/20 12/15/20 Range/Units 17:18 12:04 08:07 WBC (4.8-10.8) K/uL RBC (4.2-5.4) M/uL Hgb (12.0-16.0) g/dL Hct (37-47) % MCV (80-100) fL MCH (25-34) pg MCHC (32-36) g/dL RDW Std Deviation (36.4-46.3) fL RDW Coeff of Rose (11.5-14.5) % Plt Count (130-400) K/uL MPV (7.4-10.4) fL Immature Gran % (Auto) % Neut % (Auto) % Lymph % (Auto) % [place] % (Auto) % Eos % (Auto) % Baso % (Auto) % Neut # (Auto) (1.4-6.5) K/uL Lymph # (Auto) (1.2-3.4) K/uL [place] # (Auto) (0.11-0.59) K/uL Eos # (Auto) (0-0.5) K/uL Baso # (Auto) (0-0.2) K/uL Immature Gran # (Auto) (0.00-0.02) K/uL Sodium (136-145) mmol/L Potassium (3.5-5.1) mmol/L Chloride (98-107) mmol/L Carbon Dioxide (21-32) mmol/L Anion Gap (3-11) BUN (7-18) mg/dl Creatinine (0.6-1.2) mg/dl Est Cr Clr Drug Dosing Est GFR ( Amer) ml/min Est GFR (Non-Af Amer) ml/min BUN/Creatinine Ratio (10-20) Glucose (70-99) mg/dl POC Glucose 150 H 118 H 140 H (70-99) mg/dl Lactate (0.4-2.0) mmol/L Calcium (8.5-10.1) mg/dl Magnesium (1.8-2.4) mg/dl Total Bilirubin (0.2-1) mg/dl AST (15-37) U/L ALT (12-78) U/L Alkaline Phosphatase (45-117) U/L Troponin I (0-0.045) ng/ml Total Protein (6.4-8.2) gm/dl Albumin (3.4-5.0) gm/dl Globulin (2.5-4.0) gm/dl Albumin/Globulin Ratio (0.9-2) Lipase (73-393) U/L Procalcitonin (0-0.5) ng/ml Specimen Hemolysis Urine Color Urine Appearance (Clear) Urine pH (4.5-7.5) Ur Specific [place] (1.000-1.030) Urine Protein (Negative) Urine Glucose (UA) (Negative) Urine Ketones (Negative) Urine Blood (Negative) Urine Nitrite (Negative) Urine Bilirubin (Negative) Urine Urobilinogen (Negative) Ur Leukocyte Esterase (Negative) Urine WBC (Auto) (0-5) /hpf Urine RBC (Auto) (0-4) /hpf U Hyaline Cast (Auto) (0-5) /lpf U Epithel Cells (Auto) (0-5) /lpf Urine Bacteria (Auto) (Negative) Urine Yeast COVID-19 Eval Order SARS-CoV-2 (PCR) (Negative) 12/15/20 12/15/20 12/14/20 Range/Units 08:06 08:06 22:48 WBC 14.76 H (4.8-10.8) K/uL RBC 3.98 L (4.2-5.4) M/uL Hgb 10.5 L (12.0-16.0) g/dL Hct 33.5 L (37-47) % MCV 84.2 (80-100) fL MCH 26.4 (25-34) pg MCHC 31.3 L (32-36) g/dL RDW Std Deviation 49.0 H (36.4-46.3) fL RDW Coeff of Rose 15.8 H (11.5-14.5) % Plt Count 421 H (130-400) K/uL MPV 9.6 (7.4-10.4) fL Immature Gran % (Auto) % Neut % (Auto) % Lymph % (Auto) % [place] % (Auto) % Eos % (Auto) % Baso % (Auto) % Neut # (Auto) (1.4-6.5) K/uL Lymph # (Auto) (1.2-3.4) K/uL [place] # (Auto) (0.11-0.59) K/uL Eos # (Auto) (0-0.5) K/uL Baso # (Auto) (0-0.2) K/uL Immature Gran # (Auto) (0.00-0.02) K/uL Sodium 138 (136-145) mmol/L Potassium 3.4 L (3.5-5.1) mmol/L Chloride 107 (98-107) mmol/L Carbon Dioxide 21 (21-32) mmol/L Anion Gap 10.0 (3-11) BUN 28 H (7-18) mg/dl Creatinine 1.70 H (0.6-1.2) mg/dl Est Cr Clr Drug Dosing 54.8 Est GFR ( Amer) 36.3 ml/min Est GFR (Non-Af Amer) 31.3 ml/min BUN/Creatinine Ratio 16.5 (10-20) Glucose 137 H (70-99) mg/dl POC Glucose 122 H (70-99) mg/dl Lactate (0.4-2.0) mmol/L Calcium 8.0 L (8.5-10.1) mg/dl Magnesium 2.3 (1.8-2.4) mg/dl Total Bilirubin (0.2-1) mg/dl AST (15-37) U/L ALT (12-78) U/L Alkaline Phosphatase (45-117) U/L Troponin I (0-0.045) ng/ml Total Protein (6.4-8.2) gm/dl Albumin (3.4-5.0) gm/dl Globulin (2.5-4.0) gm/dl Albumin/Globulin Ratio (0.9-2) Lipase (73-393) U/L Procalcitonin (0-0.5) ng/ml Specimen Hemolysis Urine Color Urine Appearance (Clear) Urine pH (4.5-7.5) Ur Specific [place] (1.000-1.030) Urine Protein (Negative) Urine Glucose (UA) (Negative) Urine Ketones (Negative) Urine Blood (Negative) Urine Nitrite (Negative) Urine Bilirubin (Negative) Urine Urobilinogen (Negative) Ur Leukocyte Esterase (Negative) Urine WBC (Auto) (0-5) /hpf Urine RBC (Auto) (0-4) /hpf U Hyaline Cast (Auto) (0-5) /lpf U Epithel Cells (Auto) (0-5) /lpf Urine Bacteria (Auto) (Negative) Urine Yeast COVID-19 Eval Order SARS-CoV-2 (PCR) (Negative) 12/14/20 12/14/20 12/14/20 Range/Units 21:46 21:46 20:15 WBC (4.8-10.8) K/uL RBC (4.2-5.4) M/uL Hgb (12.0-16.0) g/dL Hct (37-47) % MCV (80-100) fL MCH (25-34) pg MCHC (32-36) g/dL RDW Std Deviation (36.4-46.3) fL RDW Coeff of Rose (11.5-14.5) % Plt Count (130-400) K/uL MPV (7.4-10.4) fL Immature Gran % (Auto) % Neut % (Auto) % Lymph % (Auto) % [place] % (Auto) % Eos % (Auto) % Baso % (Auto) % Neut # (Auto) (1.4-6.5) K/uL Lymph # (Auto) (1.2-3.4) K/uL [place] # (Auto) (0.11-0.59) K/uL Eos # (Auto) (0-0.5) K/uL Baso # (Auto) (0-0.2) K/uL Immature Gran # (Auto) (0.00-0.02) K/uL Sodium (136-145) mmol/L Potassium (3.5-5.1) mmol/L Chloride (98-107) mmol/L Carbon Dioxide (21-32) mmol/L Anion Gap (3-11) BUN (7-18) mg/dl Creatinine (0.6-1.2) mg/dl Est Cr Clr Drug Dosing Est GFR ( Amer) ml/min Est GFR (Non-Af Amer) ml/min BUN/Creatinine Ratio (10-20) Glucose (70-99) mg/dl POC Glucose (70-99) mg/dl Lactate 1.2 (0.4-2.0) mmol/L Calcium (8.5-10.1) mg/dl Magnesium (1.8-2.4) mg/dl Total Bilirubin (0.2-1) mg/dl AST (15-37) U/L ALT (12-78) U/L Alkaline Phosphatase (45-117) U/L Troponin I (0-0.045) ng/ml Total Protein (6.4-8.2) gm/dl Albumin (3.4-5.0) gm/dl Globulin (2.5-4.0) gm/dl Albumin/Globulin Ratio (0.9-2) Lipase (73-393) U/L Procalcitonin (0-0.5) ng/ml Specimen Hemolysis Urine Color Urine Appearance (Clear) Urine pH (4.5-7.5) Ur Specific [place] (1.000-1.030) Urine Protein (Negative) Urine Glucose (UA) (Negative) Urine Ketones (Negative) Urine Blood (Negative) Urine Nitrite (Negative) Urine Bilirubin (Negative) Urine Urobilinogen (Negative) Ur Leukocyte Esterase (Negative) Urine WBC (Auto) (0-5) /hpf Urine RBC (Auto) (0-4) /hpf U Hyaline Cast (Auto) (0-5) /lpf U Epithel Cells (Auto) (0-5) /lpf Urine Bacteria (Auto) (Negative) Urine Yeast COVID-19 Eval Order Covid19 at [facility] SARS-CoV-2 (PCR) NEGATIVE (Negative) 12/14/20 12/14/20 12/14/20 Range/Units 19:36 19:36 19:36 WBC 14.66 H (4.8-10.8) K/uL RBC 4.29 (4.2-5.4) M/uL Hgb 11.4 L (12.0-16.0) g/dL Hct 36.0 L (37-47) % MCV 83.9 (80-100) fL MCH 26.6 (25-34) pg MCHC 31.7 L (32-36) g/dL RDW Std Deviation 48.5 H (36.4-46.3) fL RDW Coeff of Rose 15.9 H (11.5-14.5) % Plt Count 425 H (130-400) K/uL MPV 9.8 (7.4-10.4) fL Immature Gran % (Auto) 1.2 % Neut % (Auto) 76.6 % Lymph % (Auto) 11.2 % [place] % (Auto) 8.2 % Eos % (Auto) 2.5 % Baso % (Auto) 0.3 % Neut # (Auto) 11.24 H (1.4-6.5) K/uL Lymph # (Auto) 1.64 (1.2-3.4) K/uL [place] # (Auto) 1.20 H (0.11-0.59) K/uL Eos # (Auto) 0.37 (0-0.5) K/uL Baso # (Auto) 0.04 (0-0.2) K/uL Immature Gran # (Auto) 0.17 H (0.00-0.02) K/uL Sodium (136-145) mmol/L Potassium (3.5-5.1) mmol/L Chloride (98-107) mmol/L Carbon Dioxide (21-32) mmol/L Anion Gap (3-11) BUN (7-18) mg/dl Creatinine (0.6-1.2) mg/dl Est Cr Clr Drug Dosing Est GFR ( Amer) ml/min Est GFR (Non-Af Amer) ml/min BUN/Creatinine Ratio (10-20) Glucose (70-99) mg/dl POC Glucose (70-99) mg/dl Lactate (0.4-2.0) mmol/L Calcium (8.5-10.1) mg/dl Magnesium (1.8-2.4) mg/dl Total Bilirubin (0.2-1) mg/dl AST (15-37) U/L ALT (12-78) U/L Alkaline Phosphatase (45-117) U/L Troponin I (0-0.045) ng/ml Total Protein (6.4-8.2) gm/dl Albumin (3.4-5.0) gm/dl Globulin (2.5-4.0) gm/dl Albumin/Globulin Ratio (0.9-2) Lipase (73-393) U/L Procalcitonin 1.13 H (0-0.5) ng/ml Specimen Hemolysis Urine Color Yellow Urine Appearance Turbid A (Clear) Urine pH 5.5 (4.5-7.5) Ur Specific [place] 1.011 (1.000-1.030) Urine Protein Trace H (Negative) Urine Glucose (UA) Negative (Negative) Urine Ketones Negative (Negative) Urine Blood 2+ H (Negative) Urine Nitrite Positive A (Negative) Urine Bilirubin Negative (Negative) Urine Urobilinogen Negative (Negative) Ur Leukocyte Esterase 3+ H (Negative) Urine WBC (Auto) >30 H (0-5) /hpf Urine RBC (Auto) 5-10 H (0-4) /hpf U Hyaline Cast (Auto) 1-5 (0-5) /lpf U Epithel Cells (Auto) 10-20 H (0-5) /lpf Urine Bacteria (Auto) 2+ H (Negative) Urine Yeast Not Reportable COVID-19 Eval Order SARS-CoV-2 (PCR) (Negative) 12/14/20 Range/Units 19:36 WBC (4.8-10.8) K/uL RBC (4.2-5.4) M/uL Hgb (12.0-16.0) g/dL Hct (37-47) % MCV (80-100) fL MCH (25-34) pg MCHC (32-36) g/dL RDW Std Deviation (36.4-46.3) fL RDW Coeff of Rose (11.5-14.5) % Plt Count (130-400) K/uL MPV (7.4-10.4) fL Immature Gran % (Auto) % Neut % (Auto) % Lymph % (Auto) % [place] % (Auto) % Eos % (Auto) % Baso % (Auto) % Neut # (Auto) (1.4-6.5) K/uL Lymph # (Auto) (1.2-3.4) K/uL [place] # (Auto) (0.11-0.59) K/uL Eos # (Auto) (0-0.5) K/uL Baso # (Auto) (0-0.2) K/uL Immature Gran # (Auto) (0.00-0.02) K/uL Sodium 138 (136-145) mmol/L Potassium 3.3 L (3.5-5.1) mmol/L Chloride 105 (98-107) mmol/L Carbon Dioxide 23 (21-32) mmol/L Anion Gap 11.0 (3-11) BUN 28 H (7-18) mg/dl Creatinine 1.79 H (0.6-1.2) mg/dl Est Cr Clr Drug Dosing Not Reportable Est GFR ( Amer) 34.1 ml/min Est GFR (Non-Af Amer) 29.4 ml/min BUN/Creatinine Ratio 15.7 (10-20) Glucose 124 H (70-99) mg/dl POC Glucose (70-99) mg/dl Lactate (0.4-2.0) mmol/L Calcium 8.8 (8.5-10.1) mg/dl Magnesium (1.8-2.4) mg/dl Total Bilirubin 0.2 (0.2-1) mg/dl AST 23 (15-37) U/L ALT 29 (12-78) U/L Alkaline Phosphatase 114 (45-117) U/L Troponin I < 0.015 (0-0.045) ng/ml Total Protein 8.2 (6.4-8.2) gm/dl Albumin 2.5 L (3.4-5.0) gm/dl Globulin 5.7 H (2.5-4.0) gm/dl Albumin/Globulin Ratio 0.4 L (0.9-2) Lipase 125 (73-393) U/L Procalcitonin (0-0.5) ng/ml Specimen Hemolysis Urine Color Urine Appearance (Clear) Urine pH (4.5-7.5) Ur Specific [place] (1.000-1.030) Urine Protein (Negative) Urine Glucose (UA) (Negative) Urine Ketones (Negative) Urine Blood (Negative) Urine Nitrite (Negative) Urine Bilirubin (Negative) Urine Urobilinogen (Negative) Ur Leukocyte Esterase (Negative) Urine WBC (Auto) (0-5) /hpf Urine RBC (Auto) (0-4) /hpf U Hyaline Cast (Auto) (0-5) /lpf U Epithel Cells (Auto) (0-5) /lpf Urine Bacteria (Auto) (Negative) Urine Yeast COVID-19 Eval Order SARS-CoV-2 (PCR) (Negative) Diagnostic Findings Abdomen/Pelvis CT 12/14/20 19:58 CT SCAN OF THE ABDOMEN AND PELVIS WITHOUT CONTRAST CLINICAL HISTORY: nausea, uti symptoms, fevers, REINA, recent stents COMPARISON STUDY: November 20, 2020 TECHNIQUE: CT scan of the abdomen and pelvis was performed from the lung bases to the proximal femurs. Images are reviewed in the axial, sagittal, and coronal planes. IV contrast was not administered for this examination. A dose lowering technique was utilized adhering to the principles of ALARA. CT DOSE: 2123.27 mGy.cm FINDINGS: Lower chest: Mild septal thickening is seen within bilateral basis, unchanged since prior. Liver: Diffuse decrease in attenuation of liver parenchyma is seen without evidence of focal lesions. Gallbladder: Surgically absent Spleen: Normal in size and attenuation. Pancreas: Unremarkable. Adrenal glands: Unremarkable. Kidneys: Moderate hydronephrosis is again seen bilaterally not significantly changed since prior. Bilateral urinary stents are again seen. Previously seen extensive calcifications within left renal pelvis are again visualized. Large cystic lesion within left renal cortex is not significantly changed since November 20, 2020 exam. Overall evaluation is limited due to beam hardening artifact from patient body habitus. Evaluation of lower pelvic region is also limited due to beam hardening artifact from metallic orthopedic hardware within bilateral hip joints. Bowel: Bowel loops are nondilated. Appendix shows normal morphology and gas filled. Mild diverticulosis of descending and sigmoid colon is seen. No evidence of diverticulitis. Peritoneum: There is no intraperitoneal free air or abdominal ascites. Vasculature: The abdominal aorta is normal in course and caliber. Adenopathy: None. Pelvic viscera: Urinary bladder is not well seen due to beam hardening artifact from prosthetic hip joints. Visualized portion of the uterus is normal. Skeletal structures: Degenerative changes of the spine. IMPRESSION: 1. Unchanged bilateral hydronephrosis. Nephrolithiasis is again seen on the left, not significantly changed since prior. Bilateral ureteral stents. Evaluation of the urinary bladder is limited due to beam hardening artifact from orthopedic hardware. 2. No acute inflammatory process is seen within the abdomen however evaluation is limited due to beam hardening artifact from patient's body habitus. 3. Hepatic steatosis. 4. Diverticulosis. ACT 112: Negative or not required by law. The above report was generated using voice recognition software. It may contain grammatical, syntax or spelling errors. Electronically signed by: Clemencia Hastings DO 12/14/2020 10:16 PM PG Care Time/CCT Total # of Minutes Spent Total Time Spent with Patient: Total time spent is greater than 50% in coordination of care (as documented) at patient's floor/unit and/or counseling patient: Coding Level of Care Code 33523 Subseq Obs Care Lvl 3 Diagnoses UTI (urinary tract infection) N30.01 Hematuria presence: with hematuria Urinary tract infection type: acute cystitis S/P ureteral stent placement Z96.0 Bilateral nephrolithiasis N20.0 Diabetes mellitus E11.9 Hypothyroidism E03.9 Acute kidney injury N17.9 Fibromyalgia M79.7 Staghorn calculus N20.0 Nausea & vomiting R11.2 (1) UTI (urinary tract infection) Hematuria presence: with hematuria Urinary tract infection type: acute cystitis Qualified Code(s): N30.01 - Acute cystitis with hematuria
[2020-12-15] MEDS ORDERED: POTASSIUM CHLORIDE CRTAB 20 MEQ TABCR PO SCH (08:00)
--- NOTE | 2020-12-15 08:08 | Urology Consultation ---
Date of Consultation December 15, 2020 Assessment & Plan (1) UTI (urinary tract infection): (2) Bilateral nephrolithiasis: (3) S/P ureteral stent placement: 65yo F who is s/p recent bilateral stent placement for obstructing stones now admitted with UTI and REINA. - Hospital course, CT imaging, labs and urinalysis reviewed. - Plan of care reviewed with Dr. Dias, on-call urologist. - Patient is status post cystoscopy, bilateral ureteral stent placement with Dr. Dias on 11/21/20. - CTAP from 12/14 notes unchanged bilateral hydronephrosis, bilateral ureteral stents in position, and left sided nephrolithiasis. - She is afebrile, non-toxic appearing. - Labs reviewed, Wbc 14.76 and creatinine 1.70. - Urine and blood cultures pending. - No acute intervention warranted at this time. - Continue supportive care and antibiotic therapy, follow cultures. - Will keep outpatient follow-up as scheduled with urology service. - Expected clinical course reviewed with patient, all questions were answered. - Thank you for allowing us to participate in the acute care of Ms. Mcintyre. - Please reconsult us with additional questions, concerns or changes in patient status. History of Present Illness Reason for Consultation: UTI, B/L ureteral stents Attending Physician: Magdalena Lamas MD History of Present Illness 65 year-old female who presented to the ED with c/o fevers for the past 13 days with recent labs showing elevated creatinine and white count, and therefore she was sent to the ER for evaluation. She was admitted with UTI and REINA. Urology consulted for UTI and b/l ureteral stents. Past medical and surgical history reviewed. History was significant for anxiety/depression, hypothyroidism, hypertension, recurrent UTI and recent diagnosis of diabetes. Surgical history is notable for bilateral oophorectomy, cholecystectomy and right and left total hip arthroplasty. Of note, patient with recent hospitalization from 11-20-20 to 11-23-20 due to acute kidney failure due to bilateral obstructing ureteral calculi. She is s/p cystoscopy and bilateral ureteral stent placement on 11/21/[address] Dias. The patient was seen as an outpatient in the urology clinic on 11/27/20. She is scheduled for stone treatment with a cystoscopy, left ureteronephroscopy, retrograde pyelogram, laser destruction or extraction of stone, and left stent exchange with Dr. Dias on 01/07/21. Chart review: Afebrile Wbc 14.76 Hgb 10.5 Cr 1.70 Urinalysis with 2+blood, 3+leuks, >30 WBC, 5-10RBC, 2+bacteria, positive nitrite. Urine and blood cultures pending. CT abdomen pelvis: 1. Unchanged bilateral hydronephrosis. Nephrolithiasis is again seen on the left, not significantly changed since prior. Bilateral ureteral stents. Evaluation of the urinary bladder is limited due to beam hardening artifact from orthopedic hardware. 2. No acute inflammatory process is seen within the abdomen however evaluation is limited due to beam hardening artifact from patient's body habitus. 3. Hepatic steatosis. 4. Diverticulosis. Patient examined at bedside this AM. Awake, resting in bed on arrival. She den ies any back, flank, or suprapubic pain at this time. Denies hematuria and dysuria. She does report urinary frequency and urgency. Feels she is emptying her bladder without difficulty. No fevers or chills. Denies nausea and vomiting. Tolerating PO diet. The patient states prior to admission she had intermittent fevers for 13 days. The patient states she did see her PCP, however she had her second dose of the covid vaccine and she presumed her fevers were related to the vaccine. She had not been taking any Tylenol or ibuprofen. She states that she had severe nausea for several days and has not been eating very much over the past week. She noted that her urine was dark and strong smelling. Of note, she does have an appointment with [facility] this to discuss PCNL. No additional complaints today Allergies Allergy/AdvReac Type Severity Reaction Status Date / Time morphine Allergy Severe WHOLE BODY Verified 12/14/20 20:27 HOT,SOB,CHEST PAIN adhesive Allergy Intermediate SOME Verified 12/14/20 20:27 TAPE-RED BLISTERS doxycycline Allergy Intermediate RASH Verified 12/14/20 20:27 latex Allergy Intermediate RASH, RED Verified 12/14/20 20:27 BLISTERS Penicillins Allergy Mild rash Verified 12/14/20 20:27 Home Medications Medication Instructions Recorded Confirmed Type acetaminophen 650 mg 650 mg PO DIRECTED PRN 11/13/19 12/14/20 History tablet,extended release levothyroxine 200 mcg tablet 200 mcg PO DAILY 11/13/19 12/14/20 History levothyroxine 25 mcg tablet 25 mcg PO DAILY #30 tab 12/17/19 12/14/20 Rx blood sugar diagnostic [OneTouch #100 ea 11/23/20 Rx Verio test strips] lancets [OneTouch Delica Lancets] #100 ea 11/23/20 Rx metformin 500 mg PO BID #60 tab 11/23/20 12/14/20 Rx tamsulosin 0.4 mg PO HS #30 cap 11/23/20 12/14/20 Rx dulaglutide [Trulicity] 0.75 mg SUBCUT WK PRN 12/14/20 12/14/20 History ondansetron HCl 4 mg PO Q8H PRN 12/14/20 12/14/20 History Patient History Medical History Adjustment reaction with anxiety and depression Dietary counseling and surveillance Elevated blood-pressure reading, without diagnosis of hypertension Fatigue Fibromyalgia HTN (hypertension) Hypothyroidism Morbid obesity Obesity Osteoarthritis Recurrent UTI (urinary tract infection) Surgical History History of bilateral oophorectomy History of cholecystectomy History of tonsillectomy History of total left hip arthroplasty History of total right hip arthroplasty S/P endometrial ablation Family History Mother , MVA, age 72 Osteoarthritis Fibromyalgia Hypothyroidism (acquired) Obesity Father , age 91 Lymphoma Sister Fibromyalgia Osteoarthritis Autoimmune disease Brother Osteoarthritis Social History Smoking Status: Former smoker Hx Alcohol Use: No Hx Substance Use: No Preferred Language: Macedonian Communication Ability: Effective Client Relationship Consultant Required: No Beliefs That Will Affect Care: None marital status: Single marital status details: 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 Current Living Situation: Alone current occupational status: employed 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[employer], 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 [employer] Feels Safe at Home: Yes Assistive Devices: Cane Review of Systems Review of Systems: All systems reviewed & are unremarkable except as noted in HPI & below Physical Exam Constitutional: well developed and well nourished; no acute distress Respiratory: no labored breathing and no audible wheezes Gastrointestinal (Abdomen): Percussion/Palpation: abdomen soft; abdomen nontender and no guarding Musculoskeletal: Head/Neck/Chest: normocephalic Skin: no rashes, warm and dry Neurologic: awake Psychiatric: A+Ox3, euthymic affect Orientation: cooperative Results & Data ([facility]) Vital Signs (Past 12 Hours) Vital Signs Temp Pulse Pulse Resp BP BP Pulse Ox 12/15/20 07:21 37.2 C 72 16 161/82 H 94 12/15/20 00:07 37 C 83 16 176/82 H 95 12/14/20 23:44 77 14 97 PG Care Time/CCT Total # of Minutes Spent Total Time Spent with Patient: Total time spent is greater than 50% in coordination of care (as documented) at patient's floor/unit and/or counseling patient: Coding Level of Care Code 53323 Inpt Consult Level 4 Diagnoses UTI (urinary tract infection) N30.01 Hematuria presence: with hematuria Urinary tract infection type: acute cystitis Bilateral nephrolithiasis N20.0 S/P ureteral stent placement Z96.0 (1) UTI (urinary tract infection) Hematuria presence: with hematuria Urinary tract infection type: acute cystitis Qualified Code(s): N30.01 - Acute cystitis with hematuria
[2020-12-15] MEDS: cefTRIAXone SODIUM 2,000 MG in DEXTROSE 5% 50 ML IV SCH (08:17)
[2020-12-15 08:35] LABS: Hematocrit (blood only) 33.5 % (37-47); Hemoglobin 10.5 g/dL (12.0-16.0); Mean Corpuscular Hemoglobin 26.4 pg (25-34); Mean Corpuscular Hgb Conc 31.3 g/dL (32-36); Mean Corpuscular Volume 84.2 fL (80-100); Mean Platelet Volume 9.6 fL (7.4-10.4); Platelet Count 421 K/uL (130-400); RDW Coefficient of Variation 15.8 % (11.5-14.5); Red Blood Count 3.98 M/uL (4.2-5.4); White Blood Count 14.76 K/uL (4.8-10.8)
[2020-12-15 08:53] LABS: BUN Creatinine Ratio 16.5 (10-20); Creatinine Clr Calc Pharmacy 54.8 ml/min; Est GFR (African American) 36.3 ml/min; Est GFR (Non-African American) 31.3 ml/min; Magnesium 2.3 mg/dl (1.8-2.4); Potassium 3.4 mmol/L (3.5-5.1)
[2020-12-15] MEDS: INSULIN ASPART 100 UNITS/ML 3 ML PEN SC SCH ×4 (09:04→21:37)
[2020-12-15] MEDS: ACETAMINOPHEN 325 MG TAB PO PRN (12:03)
--- NOTE | 2020-12-15 12:03 | Electrocardiogram Report ---
Test Reason : Blood Pressure : / mmHG Vent. Rate : 068 BPM Atrial Rate : 068 BPM P-R Int : 188 ms QRS Dur : 126 ms QT Int : 428 ms P-R-T Axes : 036 -38 036 degrees QTc Int : 455 ms Poor data quality, interpretation may be adversely affected Normal sinus rhythm Left axis deviation Left ventricular hypertrophy with QRS widening Abnormal ECG When compared with ECG of 21-NOV-2020 07:51, No significant change was found Confirmed by Tj Flowers ([id number]) on 12/15/2020 12:03:31 PM Referred By: Ranjit Garcia Confirmed By:Octavio Flowers
[2020-12-15] MEDS: NSS + 20MEQ KCL 20 MEQ/1,000 ML BAG IV SCH (18:24)
[2020-12-15] MEDS: TAMSULOSIN HCL 0.4 MG CAP PO SCH (20:40)
[2020-12-16] MEDS: LEVOTHYROXINE SODIUM 200 MCG TABLET PO SCH (05:23)
[2020-12-16] MEDS: LEVOTHYROXINE SODIUM 25 MCG TABLET PO SCH (05:23)
[2020-12-16] MEDS: HEPARIN SOD 5,000 UNIT/0.5 ML VIAL SQ SCH ×3 (05:24→21:57)
[2020-12-16 06:22] LABS: Basophils # (auto) 0.04 K/uL (0-0.2); Basophils % (auto) 0.3 %; Eosinophils # (auto) 0.36 K/uL (0-0.5); Eosinophils % (auto) 2.3 %; Hematocrit (blood only) 34.7 % (37-47); Hemoglobin 10.7 g/dL (12.0-16.0); Immature Granulocytes % (auto) 1.3 %; Lymphocytes # (auto) 2.04 K/uL (1.2-3.4); Mean Corpuscular Hemoglobin 26.6 pg (25-34); Mean Corpuscular Hgb Conc 30.8 g/dL (32-36); Mean Corpuscular Volume 86.1 fL (80-100); Mean Platelet Volume 9.4 fL (7.4-10.4); Monocytes # (auto) 1.31 K/uL (0.11-0.59); Monocytes % (auto) 8.4 %; Neutrophils # (auto) 11.73 K/uL (1.4-6.5); Neutrophils % (auto) 74.7 %; Platelet Count 480 K/uL (130-400); RDW Standard Deviation 51.3 fL (36.4-46.3); Red Blood Count 4.03 M/uL (4.2-5.4); White Blood Count 15.68 K/uL (4.8-10.8)
[2020-12-16 06:45] LABS: BUN Creatinine Ratio 14.7 (10-20); Calcium 8.7 mg/dl (8.5-10.1); Creatinine Clr Calc Pharmacy 48.5 ml/min; Est GFR (African American) 31.3 ml/min; Potassium 3.8 mmol/L (3.5-5.1)
[2020-12-16] MEDS: NSS + 20MEQ KCL 20 MEQ/1,000 ML BAG IV SCH (07:08)
[2020-12-16] MEDS: cefTRIAXone SODIUM 2,000 MG in DEXTROSE 5% 50 ML IV SCH (08:02)
[2020-12-16] MEDS ORDERED: hydrALAZINE HCL 20 MG/ML VIAL IV STA (09:09)
[2020-12-16] MEDS ORDERED: SODIUM CHLORIDE 0.9% 1000ML 1,000 ML IV SCH (09:15)
--- NOTE | 2020-12-16 09:15 | Hospitalist Progress Note ---
Date of Service December 16, 2020 Assessment & Plan (1) UTI (urinary tract infection): * s/p Cystoscopy, Bilateral Ureteral Stent Insertion(Bilateral) - Tj Dias MD on 11/21 * Had been having ongoing fevers 99-102F for past 13-14 days. Saw PCP three times but thought to be related to COVID vaccination x 2. * Continued to have dysuria (now improved), fever, chills, back pain, nausea. Had labwork [employer] and was sent to ER for elevated Cr * Presented to ER and found to have likely UTI with continued unchanged bilateral hydronephrosis. Nephrolithiasis is again seen on the left, not significantly changed since prior. Bilateral ureteral stents. (Does note large cystic lesion within left renal cortex is not significantly changed since November 20, 2020 exam. * Continues on Ceftriaxone IV daily -- consider treating extended course for pyelo? given back pain and possible CVA tenderness * NSS + 20meq KCL @ 80cc/hr for now --> DISCONTINUED TODAY AND PUSH ORAL FLUIDS * WBC back up to 15.6k but remains afebrile (but does endorse chills) * Urine cx with pin-point growth -- amy albicans/gamma strep * --> Diflucan x 1 today for pyelo dosing * Discussed with Urology --> will consult ID for recs * Blood cultures pending NGTD - monitor * DM diet * Continue tamsulosin HTN/Volume overload/Cardiomegaly * *Obtaining ECHO for possible CHF/volume overload and cardiomegaly noted on CXR. Also likely with underlying LVH given longstanding HTN. * Given dose of hydralazine this AM for BP 153/97 * --> will need continued monitoring and would rec starting HTN agent at d/c. Would avoid JEANA/ARB given the elevated Cr as well as HCTZ. Could consider BB if HR allows (runs 60-90s) but will wait ECHO (2) S/P ureteral stent placement: * See above (3) Bilateral nephrolithiasis: * See above (4) Diabetes mellitus: * Hold Trulicity and Metformin while inpatient -- recently started during last admission for A1c 10.6 * She states she has been checking sugars at home and recently AM sugar 118 * ISS while inpatient * Glucose 147 on AM labs * BSGs acceptable (5) Hypothyroidism: * Continue levothyroxine 225cg daily * Last TSH wnl 1.430 (6) Acute kidney injury: * Secondary to UTI/stone * Cr 1.86 on admission, now up to 2.2 * On IV fluids * Treating infection as above, ECHO * BMP in AM (7) Fibromyalgia: * Chronic. No acute needs (8) Staghorn calculus: * noted (9) Nausea & vomiting: * none reported today * zofran prn DVT Prophylaxis * Heparin SQ -- patient has been refusing Dispo: continued inpatient stay, ID consultation as above pending Admission and Anticipated Discharge Date Admission Date: December 14, 2020 Supervising Physician Co-Signing Physician Notes PA Supervision Note: I did not personally see or examine the patient today, but I verified all crawford points of VEL Eduardo's assessment and plan with the following exceptions/additions: With worsening renal function today, concern for obstruction despite bilateral renal stents. Somers catheter placed today Carefully monitor volume status and renal function Consider nephrology consultation if renal failure worsens Defer to urology for management of stents Subjective Patient evaluated early this afternoon. Did feel a little chills but no fever or further nausea. Slightly decreased appetite today but is moving her bowels, no abdominal pain. Did have some back pain again today. Discussed amy in urine -- she has dysuria but no discharge. Discussed ID consultation given yeast and stents after discussion with Urology. Dosed Diflucan at pyelo dosing but want to make sure coverage sufficient. Also discussed CXR with congestion. She does note abdominal fullness and sob laying flat. Will obtain echo and hold off on IVF and have patient push oral fluids instead and monitor her kidney function in the AM. She does endorse fatigue still as well. Continue to monitor overnight and await ID consultation. Continued on abx for now. Review of Systems Review of Systems: All systems reviewed & are unremarkable except as noted in HPI & below Physical Exam Physical Exam: The patient is awake, alert and oriented 3, well developed and well nourished, normocephalic and atraumatic, sitting up in chair, no acute distress HEENT: PERRLA, EOMI, mm slightly moist Neck: trachea midline, no deviation Cardiac: RRR, S1/S2, qiuet sounds, no r/m/g Resp: CTAB, diminished in the bases. no wheezing noted Abd: +BS throughout, soft, non-tender MSK: moves all extremities, possible R sided CVA tenderness however patient with fibromyalgia and unable to tell if worse than usual Skin: warm, dry Neurologic--cranial nerves II through XII grossly intact. Rheumatologic--normal range of motion. Psychiatric--AOx3, normal affect. Results & Data Results & Data ([facility]) Vital Signs (Past 12 Hours) Vital Signs Temp Pulse Resp BP Pulse Ox 12/16/20 07:49 67 16 153/97 H 12/15/20 22:04 37.5 C 83 18 158/82 H 92 Laboratory Results 12/16/20 12/16/20 12/16/20 Range/Units 07:43 06:03 06:03 WBC 15.68 H (4.8-10.8) K/uL RBC 4.03 L (4.2-5.4) M/uL Hgb 10.7 L (12.0-16.0) g/dL Hct 34.7 L (37-47) % MCV 86.1 (80-100) fL MCH 26.6 (25-34) pg MCHC 30.8 L (32-36) g/dL RDW Std Deviation 51.3 H (36.4-46.3) fL RDW Coeff of Rose 16.0 H (11.5-14.5) % Plt Count 480 H (130-400) K/uL MPV 9.4 (7.4-10.4) fL Immature Gran % (Auto) 1.3 % Neut % (Auto) 74.7 % Lymph % (Auto) 13.0 % [place] % (Auto) 8.4 % Eos % (Auto) 2.3 % Baso % (Auto) 0.3 % Neut # (Auto) 11.73 H (1.4-6.5) K/uL Lymph # (Auto) 2.04 (1.2-3.4) K/uL [place] # (Auto) 1.31 H (0.11-0.59) K/uL Eos # (Auto) 0.36 (0-0.5) K/uL Baso # (Auto) 0.04 (0-0.2) K/uL Immature Gran # (Auto) 0.20 H (0.00-0.02) K/uL Sodium 138 (136-145) mmol/L Potassium 3.8 (3.5-5.1) mmol/L Chloride 107 (98-107) mmol/L Carbon Dioxide 24 (21-32) mmol/L Anion Gap 7.0 (3-11) BUN 28 H (7-18) mg/dl Creatinine 1.92 H (0.6-1.2) mg/dl Est Cr Clr Drug Dosing 48.5 ml/min Est GFR ( Amer) 31.3 ml/min Est GFR (Non-Af Amer) 27.0 ml/min BUN/Creatinine Ratio 14.7 (10-20) Glucose 147 H (70-99) mg/dl POC Glucose 145 H (70-99) mg/dl Calcium 8.7 (8.5-10.1) mg/dl 12/15/20 12/15/20 12/15/20 Range/Units 20:38 17:18 12:04 WBC (4.8-10.8) K/uL RBC (4.2-5.4) M/uL Hgb (12.0-16.0) g/dL Hct (37-47) % MCV (80-100) fL MCH (25-34) pg MCHC (32-36) g/dL RDW Std Deviation (36.4-46.3) fL RDW Coeff of Rose (11.5-14.5) % Plt Count (130-400) K/uL MPV (7.4-10.4) fL Immature Gran % (Auto) % Neut % (Auto) % Lymph % (Auto) % [place] % (Auto) % Eos % (Auto) % Baso % (Auto) % Neut # (Auto) (1.4-6.5) K/uL Lymph # (Auto) (1.2-3.4) K/uL [place] # (Auto) (0.11-0.59) K/uL Eos # (Auto) (0-0.5) K/uL Baso # (Auto) (0-0.2) K/uL Immature Gran # (Auto) (0.00-0.02) K/uL Sodium (136-145) mmol/L Potassium (3.5-5.1) mmol/L Chloride (98-107) mmol/L Carbon Dioxide (21-32) mmol/L Anion Gap (3-11) BUN (7-18) mg/dl Creatinine (0.6-1.2) mg/dl Est Cr Clr Drug Dosing ml/min Est GFR ( Amer) ml/min Est GFR (Non-Af Amer) ml/min BUN/Creatinine Ratio (10-20) Glucose (70-99) mg/dl POC Glucose 126 H 150 H 118 H (70-99) mg/dl Calcium (8.5-10.1) mg/dl PG Care Time/CCT Total # of Minutes Spent Total Time Spent with Patient: Total time spent is greater than 50% in coordination of care (as documented) at patient's floor/unit and/or counseling patient: Coding Level of Care Code 48388 Subseq Hosp Care Lvl 3 Diagnoses UTI (urinary tract infection) N30.01 Hematuria presence: with hematuria Urinary tract infection type: acute cystitis S/P ureteral stent placement Z96.0 Bilateral nephrolithiasis N20.0 Diabetes mellitus E11.9 Hypothyroidism E03.9 Acute kidney injury N17.9 Fibromyalgia M79.7 Staghorn calculus N20.0 Nausea & vomiting R11.2 (1) UTI (urinary tract infection) Hematuria presence: with hematuria Urinary tract infection type: acute cystitis Qualified Code(s): N30.01 - Acute cystitis with hematuria
--- NOTE | 2020-12-16 09:44 | XRay Report ---
XR chest 1V portable CLINICAL HISTORY: fever, eval for pneumonia, volume overload COMPARISON STUDY: Chest radiograph November 21, 2020. FINDINGS: Lung volumes are at the lower limits of normal. There is no pneumothorax or pleural effusio n. There is mild interstitial thickening. Mild cardiomegaly is noted. No lobar consolidation is prese nt. IMPRESSION: Interstitial prominence. This favors pulmonary vascular congestion with mild pulmonary edema. An infe ctious process could appear similar but is considered less likely. ACT 112: Negative or not required by law. Electronically signed by: Royer Proctor M.D. 12/16/2020 9:43 AM
[2020-12-16] MEDS: INSULIN ASPART 100 UNITS/ML 3 ML PEN SC SCH ×4 (10:48→21:19)
[2020-12-16] MEDS: ACETAMINOPHEN 325 MG TAB PO PRN ×3 (10:52→21:20)
[2020-12-16] MEDS ORDERED: FLUCONAZOLE 100 MG TAB PO SCH (11:00)
[2020-12-16] MEDS ORDERED: FLUCONAZOLE 100 MG TAB PO STA (11:43)
--- NOTE | 2020-12-16 14:21 | Urology Progress Note ---
Date of Service December 16, 2020 Assessment & Plan (1) Acute kidney injury: (2) UTI (urinary tract infection): (3) S/P ureteral stent placement: 65yo F who is s/p recent bilateral stent placement for obstructing stones now admitted with UTI and REINA. - Patient is status post cystoscopy, bilateral ureteral stent placement with Dr. Dias on 11/21/20. - CTAP from 12/14 notes unchanged bilateral hydronephrosis, bilateral ureteral stents in position, and left sided nephrolithiasis. - Patient reported right-sided back pain today. - Wbc count went up to 15.68 today and creatinine 1.92 (previously 1.70). - She is afebrile, non-toxic appearing. - Urine culture final with gamma strep not enterococcus and amy albicans/dubliniensis. - Blood cultures preliminary no growth. - Plan of care reviewed with Dr. Garcia, on-call urologist. - Recommend ID consultation for recommendations given the yeast in her urine. - We will await ID recommendations prior to stent manipulation. - If patient develops fevers or kidney function continues to rise, will likely need more urgent stent exchange. - Will make NPO at midnight for possible stent exchange tomorrow pending patient status and ID recommendations. - Continue supportive care and antibiotic therapy, follow cultures. - Please consult our service urgently if patient develops fever >101F, intractable pain or nausea, as this will necessitate urgent surgical intervention. - Will continue to follow Admission and Anticipated Discharge Date Admission Date: December 16, 2020 Supervising Physician Co-Signing Physician Notes Pt seen and appeared comfortable and while she had right flank pain earlier in day she had none when seen this afternoon . She had eaten lunch . Creatinine up slightly . No fever . Had hydro on right but stent in place without obvious encrustation. Awaiting ID recommendation for amy/ dublicans . Consider stent exchange and or possible ureteroscopy on right if creatinine worse . Reviewed ct with radiology not clear if she has distal stones . If she does they are small 2mm . On schedule for ureteroscopy in several weeks on right. Subjective Pt examined at bedside this afternoon along with Dr. Garcia. Awake, sitting in bedside chair on arrival. She does report some right-sided back pain today. No fevers or chills. Tolerating diet, no nausea or vomiting. She reports a decreased appetite today. Also feeling slightly more fatigued. However, she reports feeling better today than yesterday. Voiding spontaneously without difficulty. Chart review: Afebrile Wbc 15.68 (previously 14.76) Hgb 10.7 Cr 1.92 (previously 1.70) Urine culture with gamma strep not enterococcus and amy albicans/dubliniens is Blood cultures preliminary no growth On IV Ceftriaxone Review of Systems Constitutional: as per Subjective / HPI Gastrointestinal: as per Subjective / HPI Genitourinary: as per Subjective / HPI Physical Exam Constitutional: well developed and well nourished; no acute distress Respiratory: normal respiratory effort and able to speak in complete sentences Gastrointestinal (Abdomen): Inspection/Auscultation: abdomen normal to inspection Musculoskeletal: Head/Neck/Chest: normocephalic Skin: no rashes, warm and dry Neurologic: awake Psychiatric: A+Ox3, euthymic affect Results & Data ([facility]) Vital Signs (Past 12 Hours) Vital Signs Pulse Resp BP 12/16/20 07:49 67 16 153/97 H PG Care Time/CCT Total # of Minutes Spent Total Time Spent with Patient: Total time spent is greater than 50% in coordination of care (as documented) at patient's floor/unit and/or counseling patient: Coding Level of Care Code 04284 Subseq Hosp Care Lvl 2 Diagnoses Acute kidney injury N17.9 UTI (urinary tract infection) N30.01 Hematuria presence: with hematuria Urinary tract infection type: acute cystitis S/P ureteral stent placement Z96.0 (1) UTI (urinary tract infection) Hematuria presence: with hematuria Urinary tract infection type: acute cystitis Qualified Code(s): N30.01 - Acute cystitis with hematuria
--- NOTE | 2020-12-16 15:20 | XRay Report ---
KUB HISTORY: Kidney and ureteral stones. assess stones COMPARISON: Abdomen and pelvis CT 12/14/2020. FINDINGS: The bowel gas pattern is unremarkable. There are no dilated loops of small bowel to suggest an obstruction. Suboptimal evaluation of the kidneys and ureters due to the patient's body habitus. The patient's left lower pole staghorn calculus is faintly visualized. This measures approximately 2 .5 cm. No definite right renal calculi. No ureteral calculi identified. Bilateral ureteral stents chilo ear to be in good position. There are bilateral total hip arthroplasties. Prior cholecystectomy. No p neumoperitoneum or pneumatosis. IMPRESSION: 1. A 2.5 cm left lower pole staghorn calculus, unchanged. 2. Bilateral ureteral stents appear to be good position. ACT 112: Negative or not required by law. Electronically signed by: Joce Minaya M.D. 12/16/2020 3:18 PM
[2020-12-16] MEDS ORDERED: PHENAZOPYRIDINE HCL 100 MG TAB PO PRN (17:23)
[2020-12-16] MEDS ORDERED: traMADol HCL 50 MG TABLET PO PRN (17:45)
[2020-12-16] MEDS: TAMSULOSIN HCL 0.4 MG CAP PO SCH (21:20)
[2020-12-17] MEDS: LEVOTHYROXINE SODIUM 25 MCG TABLET PO SCH (05:48)
[2020-12-17] MEDS: LEVOTHYROXINE SODIUM 200 MCG TABLET PO SCH (05:48)
[2020-12-17] MEDS: HEPARIN SOD 5,000 UNIT/0.5 ML VIAL SQ SCH ×3 (05:50→20:25)
[2020-12-17 06:20] LABS: Basophils # (auto) 0.03 K/uL (0-0.2); Basophils % (auto) 0.2 %; Eosinophils # (auto) 0.41 K/uL (0-0.5); Eosinophils % (auto) 2.6 %; Hematocrit (blood only) 33.3 % (37-47); Hemoglobin 10.3 g/dL (12.0-16.0); Immature Granulocytes # (auto) 0.15 K/uL (0.00-0.02); Lymphocytes # (auto) 1.58 K/uL (1.2-3.4); Lymphocytes % (auto) 10.1 %; Mean Corpuscular Hemoglobin 25.9 pg (25-34); Mean Corpuscular Hgb Conc 30.9 g/dL (32-36); Mean Corpuscular Volume 83.9 fL (80-100); Mean Platelet Volume 9.7 fL (7.4-10.4); Monocytes # (auto) 1.33 K/uL (0.11-0.59); Monocytes % (auto) 8.5 %; Neutrophils # (auto) 12.11 K/uL (1.4-6.5); Neutrophils % (auto) 77.6 %; Platelet Count 392 K/uL (130-400); RDW Standard Deviation 49.1 fL (36.4-46.3); Red Blood Count 3.97 M/uL (4.2-5.4); White Blood Count 15.61 K/uL (4.8-10.8)
[2020-12-17] MEDS: INSULIN ASPART 100 UNITS/ML 3 ML PEN SC SCH ×3 (06:35→17:39)
[2020-12-17 07:11] LABS: Albumin Level 2.2 gm/dl (3.4-5.0); BUN Creatinine Ratio 14.5 (10-20); Calcium 8.6 mg/dl (8.5-10.1); Creatinine Clr Calc Pharmacy 42.3 ml/min; Est GFR (African American) 26.6 ml/min; Est GFR (Non-African American) 22.9 ml/min; Potassium 3.4 mmol/L (3.5-5.1)
[2020-12-17 07:12] LABS: Albumin Globulin Ratio 0.4 (0.9-2); Bilirubin,Total 0.2 mg/dl (0.2-1); Globulin 5.4 gm/dl (2.5-4.0); Total Protein 7.6 gm/dl (6.4-8.2)
[2020-12-17] MEDS ORDERED: hydrALAZINE HCL 20 MG/ML VIAL IV STA (07:55)
[2020-12-17] MEDS ORDERED: hydrALAZINE HCL 20 MG/ML VIAL IV PRN (07:55)
[2020-12-17] MEDS ORDERED: POTASSIUM CHLORIDE / WTR 10 MEQ/100 ML PLCT IV ONE (08:05)
[2020-12-17] MEDS: amLODIPine BESYLATE 5 MG TAB PO SCH (08:05)
--- NOTE | 2020-12-17 08:08 | Hospitalist Progress Note ---
Date of Service December 17, 2020 Assessment & Plan (1) UTI (urinary tract infection): * s/p Cystoscopy, Bilateral Ureteral Stent Insertion(Bilateral) - Tj Dias MD on 11/21 * Had been having ongoing fevers 99-102F for past 13-14 days. Saw PCP three times but thought to be related to COVID vaccination x 2. * Continued to have dysuria (now improved), fever, chills, back pain, nausea. Had labwork [employer] and was sent to ER for elevated Cr * Presented to ER and found to have likely UTI with continued unchanged bilateral hydronephrosis. Nephrolithiasis is again seen on the left, not significantly changed since prior. Bilateral ureteral stents. (Does note large cystic lesion within left renal cortex is not significantly changed since November 20, 2020 exam. * Continues on Ceftriaxone IV daily -- consider treating extended course for pyelo? given back pain and possible CVA tenderness * NSS + 20meq KCL @ 80cc/hr for now --> DISCONTINUED TODAY AND PUSH ORAL FLUIDS * WBC back up to 15.6k but remains afebrile (but does endorse chills) * Urine cx with pin-point growth -- amy albicans/gamma strep. Repeat again with 3+ repeat rec'd however pt already on abx * --> Diflucan x 1 12/16 for pyelo dosing, continued * Discussed with Urology --> will consult ID for recs to see if will cover for above. * Blood cultures pending NGTD - monitor * Continue tamsulosin Per urology, will have patient with Soto placement for rest/decompression and continue NPO and monitor progress while awaiting ID input * Cr elevated to 2.2 today however no further fevers, but WBC up to 15.6k * Switched to Cefepime for pseudomonal coverage per Urology request * --> discussed with ID preliminary (official consult not yet completed), and likely can back down to Ceftriaxone again and Keflex at discharge, * BUT INFECTION LIKELY NOT TO CLEAR until stents exchanged as likely infected --> discussed with Urology and will make NPO after midnight for eval in AM * Hydralazine prn HTN -- > discussed LVH on ECHO, diastolic grade I -- needs better BP control. Started amlodipine given reported fatigue, avoiding JEANA/ARB/HCTZ given kidney function and continue at d/c, increase as needed Tramadol, tylenol prn (2) S/P ureteral stent placement: * See above (3) Bilateral nephrolithiasis: * See above (4) Diabetes mellitus: * Hold Trulicity and Metformin while inpatient -- recently started during last admission for A1c 10.6 * She states she has been checking sugars at home and recently AM sugar 118 * ISS while inpatient * Glucose 141 on AM labs * BSGs acceptable (5) Hypothyroidism: * Continue levothyroxine 225cg daily * Last TSH wnl 1.430 (6) Acute kidney injury: * Secondary to UTI/stone * Cr 1.86 on admission, currently 2.2 but does have some congestion/pulm edema.dc IVFs * ECHO pending as above * Possible need for low dose diuretics but will hold off for now given elevated Cr * BMP in AM (7) Fibromyalgia: * Chronic. No acute needs (8) Staghorn calculus: * noted (9) Nausea & vomiting: * none reported today * zofran prn DVT Prophylaxis * Heparin SQ -- patient has been refusing Dispo: continued inpatient stay, ID consultation as above pending Admission and Anticipated Discharge Date Admission Date: December 16, 2020 Supervising Physician Co-Signing Physician Notes PA Supervision Note: I did not personally see or examine the patient today, but I verified all crawford points of VEL Eduardo's assessment and plan with the following exceptions/additions: With worsening renal function today, concern for obstruction despite bilateral renal stents. Soto catheter placed today Carefully monitor volume status and renal function Consider nephrology consultation if renal failure worsens Defer to urology for management of stents Subjective Patient evaluated this morning. Still endorsed R flank pain. Drinking/eating this afternoon and had soto placed, draining clear/yellow urine. Did have some suprapubic discomfort and got dose of tramadol but has been controlled. Awaiting ID consultation but discuss possibility stents may need to come out sooner than planned given continued elevation in WBC and worsening Cr. Still fatigued, does not want to continue metformin at d/c due to side effects but would continue Trulicity. Will look into other options but blood sugars have been much better controlled. No CP, SOB further nausea or vomiting reported. Questions/concerns addressed. Review of Systems Review of Systems: All systems reviewed & are unremarkable except as noted in HPI & below Physical Exam Physical Exam: The patient is awake, alert and oriented 3, well developed and well nourished, normocephalic and atraumatic, sitting up in chair, no acute distress HEENT: PERRLA, EOMI, mmm Neck: trachea midline, no deviation Cardiac: RRR, S1/S2, quiet sounds, no r/m/g, 1+ edema b/l LE Resp: CTAB, diminished in the bases. no wheezing noted Abd: +BS throughout, soft, some suprapubic discomfort MSK: moves all extremities, possible R sided CVA tenderness however patient with fibromyalgia and unable to tell if worse than usual Skin: warm, dry Neurologic--cranial nerves II through XII grossly intact. Rheumatologic--normal range of motion. Psychiatric--AOx3, normal affect. Results & Data Results & Data ([facility]) Vital Signs (Past 12 Hours) Vital Signs Temp Pulse Resp BP Pulse Ox 12/17/20 06:54 36.8 C 69 22 161/104 H 93 12/16/20 22:38 36.7 C 87 22 175/79 H 92 Laboratory Results 12/17/20 12/17/20 12/17/20 Range/Units 06:12 05:35 05:35 WBC 15.61 H (4.8-10.8) K/uL RBC 3.97 L (4.2-5.4) M/uL Hgb 10.3 L (12.0-16.0) g/dL Hct 33.3 L (37-47) % MCV 83.9 (80-100) fL MCH 25.9 (25-34) pg MCHC 30.9 L (32-36) g/dL RDW Std Deviation 49.1 H (36.4-46.3) fL RDW Coeff of Rose 16.0 H (11.5-14.5) % Plt Count 392 (130-400) K/uL MPV 9.7 (7.4-10.4) fL Immature Gran % (Auto) 1.0 % Neut % (Auto) 77.6 % Lymph % (Auto) 10.1 % Wood % (Auto) 8.5 % Eos % (Auto) 2.6 % Baso % (Auto) 0.2 % Neut # (Auto) 12.11 H (1.4-6.5) K/uL Lymph # (Auto) 1.58 (1.2-3.4) K/uL Wood # (Auto) 1.33 H (0.11-0.59) K/uL Eos # (Auto) 0.41 (0-0.5) K/uL Baso # (Auto) 0.03 (0-0.2) K/uL Immature Gran # (Auto) 0.15 H (0.00-0.02) K/uL Sodium 141 (136-145) mmol/L Potassium 3.4 L (3.5-5.1) mmol/L Chloride 109 H (98-107) mmol/L Carbon Dioxide 22 (21-32) mmol/L Anion Gap 9.0 (3-11) BUN 32 H (7-18) mg/dl Creatinine 2.20 H (0.6-1.2) mg/dl Est Cr Clr Drug Dosing 42.3 ml/min Est GFR ( Amer) 26.6 ml/min Est GFR (Non-Af Amer) 22.9 ml/min BUN/Creatinine Ratio 14.5 (10-20) Glucose 141 H (70-99) mg/dl POC Glucose 139 H (70-99) mg/dl Calcium 8.6 (8.5-10.1) mg/dl Total Bilirubin 0.2 (0.2-1) mg/dl AST 16 (15-37) U/L ALT 25 (12-78) U/L Alkaline Phosphatase 98 (45-117) U/L Total Protein 7.6 (6.4-8.2) gm/dl Albumin 2.2 L (3.4-5.0) gm/dl Globulin 5.4 H (2.5-4.0) gm/dl Albumin/Globulin Ratio 0.4 L (0.9-2) 12/16/20 12/16/20 12/16/20 Range/Units 20:40 17:05 11:44 WBC (4.8-10.8) K/uL RBC (4.2-5.4) M/uL Hgb (12.0-16.0) g/dL Hct (37-47) % MCV (80-100) fL MCH (25-34) pg MCHC (32-36) g/dL RDW Std Deviation (36.4-46.3) fL RDW Coeff of Rose (11.5-14.5) % Plt Count (130-400) K/uL MPV (7.4-10.4) fL Immature Gran % (Auto) % Neut % (Auto) % Lymph % (Auto) % Wood % (Auto) % Eos % (Auto) % Baso % (Auto) % Neut # (Auto) (1.4-6.5) K/uL Lymph # (Auto) (1.2-3.4) K/uL Wood # (Auto) (0.11-0.59) K/uL Eos # (Auto) (0-0.5) K/uL Baso # (Auto) (0-0.2) K/uL Immature Gran # (Auto) (0.00-0.02) K/uL Sodium (136-145) mmol/L Potassium (3.5-5.1) mmol/L Chloride (98-107) mmol/L Carbon Dioxide (21-32) mmol/L Anion Gap (3-11) BUN (7-18) mg/dl Creatinine (0.6-1.2) mg/dl Est Cr Clr Drug Dosing ml/min Est GFR ( Amer) ml/min Est GFR (Non-Af Amer) ml/min BUN/Creatinine Ratio (10-20) Glucose (70-99) mg/dl POC Glucose 133 H 132 H 160 H (70-99) mg/dl Calcium (8.5-10.1) mg/dl Total Bilirubin (0.2-1) mg/dl AST (15-37) U/L ALT (12-78) U/L Alkaline Phosphatase (45-117) U/L Total Protein (6.4-8.2) gm/dl Albumin (3.4-5.0) gm/dl Globulin (2.5-4.0) gm/dl Albumin/Globulin Ratio (0.9-2) PG Care Time/CCT Total # of Minutes Spent Total Time Spent with Patient: Total time spent is greater than 50% in coordination of care (as documented) at patient's floor/unit and/or counseling patient: Coding Level of Care Code 30059 Subseq Hosp Care Lvl 3 Diagnoses UTI (urinary tract infection) N30.01 Hematuria presence: with hematuria Urinary tract infection type: acute cystitis S/P ureteral stent placement Z96.0 Bilateral nephrolithiasis N20.0 Diabetes mellitus E11.9 Hypothyroidism E03.9 Acute kidney injury N17.9 Fibromyalgia M79.7 Staghorn calculus N20.0 Nausea & vomiting R11.2 (1) UTI (urinary tract infection) Hematuria presence: with hematuria Urinary tract infection type: acute cystitis Qualified Code(s): N30.01 - Acute cystitis with hematuria
[2020-12-17] MEDS: ACETAMINOPHEN 325 MG TAB PO PRN ×2 (08:09→19:51)
[2020-12-17] MEDS: cefTRIAXone SODIUM 2,000 MG in DEXTROSE 5% 50 ML IV SCH (08:39)
--- NOTE | 2020-12-17 09:25 | Urology Progress Note ---
Date of Service December 17, 2020 Assessment & Plan (1) Acute kidney injury: (2) UTI (urinary tract infection): (3) S/P ureteral stent placement: 65 year-old female patient who is s/p recent bilateral stent placement for obstructing stones, admitted with UTI and REINA. - Plan of care reviewed with Dr. Covarrubias. - Patient is status post cystoscopy, bilateral ureteral stent placement with Dr. Dias on 11/21/20. - Remains afebrile. - Labs reviewed - white count remains elevated, creatinine increased to 2.20 this AM. - Urine culture with gamma strep not enterococcus and vandana albicans/dubliniensis, repeat urine culture with three types organisms - all high counts. - Preliminary blood cultures no growth after 48 hours. - CTAP from 12/14 notes unchanged bilateral hydronephrosis, bilateral ureteral stents in position, and left sided nephrolithiasis. - Recommend changing antibiotic coverage to cover Pseudomonas species. - Await ID consult and recommendations. - Recommend soto catheter to allow bladder rest and decompression. - Keep NPO this AM, will continue to monitor clinical progress. - Continue supportive care and close monitoring. - Will continue to follow while inpatient. Admission and Anticipated Discharge Date Admission Date: December 16, 2020 Subjective Patient examined at bedside, she is alert and awake. Appears comfortable. Did have right-sided flank pain this morning, tolerable with PRN Tylenol. Denies abdominal pain. Denies bladder pain or pressure. Denies dysuria but notes intermittent hematuria. Does note urinary frequency/urgency. States she was up overnight every 1-2 hours voiding. Feels she empties her bladder for the most part. Denies incontinence. Denies fevers or chills. Denies nausea or vomiting. Has been NPO since midnight. Chart review: Afebrile Wbc 15.61 (previously 15.68) Hgb 10.3 Creatinine 2.20 (previously 1.92) Urine culture 12/14 with gamma strep not enterococcus and Vandana albicans/dubliniensis. Repeat urine culture 12/14 with three types of organisms, all high counts. Preliminary blood culture no growth after 48 hours. Patient currently on IV Ceftriaxone. Denies additional urologic concerns today. Review of Systems Constitutional: as per Subjective / HPI; no fever and no chills Gastrointestinal: as per Subjective / HPI; no nausea and no vomiting Genitourinary: as per Subjective / HPI Physical Exam Constitutional: well developed and well nourished; no acute distress and not ill appearing Respiratory: normal respiratory effort and able to speak in complete sentences; no respiratory distress and no audible wheezes Gastrointestinal (Abdomen): Inspection/Auscultation: abdomen normal to inspection; abdomen not distended Percussion/Palpation: abdomen soft; abdomen nontender and no guarding Psychiatric: Orientation: alert, oriented x 3 and cooperative Tearful at times during discussion. Results & Data ([facility]) Vital Signs (Past 12 Hours) Vital Signs Temp Pulse Resp BP Pulse Ox 12/17/20 06:54 36.8 C 69 22 161/104 H 93 12/16/20 22:38 36.7 C 87 22 175/79 H 92 PG Care Time/CCT Total # of Minutes Spent Total Time Spent with Patient: Total time spent is greater than 50% in coordination of care (as documented) at patient's floor/unit and/or counseling patient: Coding Level of Care Code 70474 Subseq Hosp Care Lvl 2 Diagnoses Acute kidney injury N17.9 UTI (urinary tract infection) N30.01 Hematuria presence: with hematuria Urinary tract infection type: acute cystitis S/P ureteral stent placement Z96.0 (1) UTI (urinary tract infection) Hematuria presence: with hematuria Urinary tract infection type: acute cystitis Qualified Code(s): N30.01 - Acute cystitis with hematuria
[2020-12-17] MEDS ORDERED: diphenhydrAMINE 50 MG/ML VIAL IV PRN (09:26)
[2020-12-17] MEDS ORDERED: CEFEPIME 1,000 MG in SYRINGE 0 ML IV SCH ×2 (10:00→22:00)
[2020-12-17] MEDS: NSS + 20MEQ KCL 20 MEQ/1,000 ML BAG IV SCH ×2 (10:35→21:56)
[2020-12-17] MEDS: FLUCONAZOLE 100 MG TAB PO SCH (10:37)
--- NOTE | 2020-12-17 12:35 | XCELERA ---
[id number]
[2020-12-17] MEDS: TAMSULOSIN HCL 0.4 MG CAP PO SCH (20:25)
[2020-12-18] MEDS: INSULIN ASPART 100 UNITS/ML 3 ML PEN SC SCH ×4 (00:06→18:14)
[2020-12-18] MEDS: HEPARIN SOD 5,000 UNIT/0.5 ML VIAL SQ SCH ×3 (00:06→21:23)
[2020-12-18] MEDS: ACETAMINOPHEN 325 MG TAB PO PRN ×3 (02:13→21:29)
[2020-12-18] MEDS: LEVOTHYROXINE SODIUM 25 MCG TABLET PO SCH (05:40)
[2020-12-18] MEDS: LEVOTHYROXINE SODIUM 200 MCG TABLET PO SCH (05:40)
[2020-12-18] MEDS: amLODIPine BESYLATE 5 MG TAB PO SCH (07:58)
[2020-12-18 08:22] LABS: Basophils # (auto) 0.03 K/uL (0-0.2); Basophils % (auto) 0.2 %; Eosinophils # (auto) 0.53 K/uL (0-0.5); Eosinophils % (auto) 4.2 %; Hematocrit (blood only) 31.1 % (37-47); Hemoglobin 9.4 g/dL (12.0-16.0); Immature Granulocytes # (auto) 0.12 K/uL (0.00-0.02); Immature Granulocytes % (auto) 0.9 %; Lymphocytes # (auto) 1.55 K/uL (1.2-3.4); Lymphocytes % (auto) 12.3 %; Mean Corpuscular Hemoglobin 26.2 pg (25-34); Mean Corpuscular Hgb Conc 30.2 g/dL (32-36); Mean Corpuscular Volume 86.6 fL (80-100); Mean Platelet Volume 9.5 fL (7.4-10.4); Monocytes % (auto) 7.1 %; Neutrophils # (auto) 9.51 K/uL (1.4-6.5); Neutrophils % (auto) 75.3 %; Platelet Count 453 K/uL (130-400); RDW Coefficient of Variation 16.2 % (11.5-14.5); RDW Standard Deviation 52.2 fL (36.4-46.3); Red Blood Count 3.59 M/uL (4.2-5.4); White Blood Count 12.64 K/uL (4.8-10.8)
--- NOTE | 2020-12-18 08:28 | Hospitalist Progress Note ---
Date of Service December 18, 2020 Assessment & Plan (1) UTI (urinary tract infection): * s/p Cystoscopy, Bilateral Ureteral Stent Insertion(Bilateral) - Tj Dias MD on 11/21 * Had been having ongoing fevers 99-102F for past 13-14 days. Saw PCP three times but thought to be related to COVID vaccination x 2. * Continued to have dysuria, fever, chills, back pain, nausea. Had labwork [employer] and was sent to ER for elevated Cr Nephrolithiasis is again seen on the left, not significantly changed since prior. Bilateral ureteral stents. (Does note large cystic lesion within left renal cortex is not significantly changed since November 20, 2020 exam. Urology consulted Urine culture with amy albicans and gamma strep ID consulted-recommends continued IV ceftriaxone and Diflucan x14 days and if stents removed then convert to p.o. cephalexin - likely infected stone and will remain until treated --> if spikes fever, WBC elevated, elevated Cr would highly recommend intervention for removal of stents prior to plan for upcoming Monday NPO last night for possible intervention today Diet resumed WBC 12.6k from 15.6k Cr 2.01 from 2.2 Hgb 9.4 from 10.3 but was on fluids, no bleeding reported BCx remain NGTD Continues on Flomax Pain control Continue to monitor (2) S/P ureteral stent placement: * See above (3) Bilateral nephrolithiasis: * See above (4) Diabetes mellitus: * Hold Trulicity and Metformin while inpatient -- recently started during last admission for A1c 10.6 * She states she has been checking sugars at home and recently AM sugar 118 * ISS while inpatient * BSGs acceptable * As stone treatment wanting to wait for Monday, may need to consider SSI short term while awaiting intervention/treatment as would hold Metformin at discharge given kidney function and watch sugars/diet closely. Could still consider continuing Trulicity in the meantime (5) Hypothyroidism: * Continue levothyroxine 225cg daily * Last TSH wnl 1.430 (6) Acute kidney injury: * Secondary to UTI/stone * Improved from yesterday after placement of Soto catheter, but still elevated to 2 * IVF d/c due to congestion/post-obstructive REINA * BMP in AM (7) Fibromyalgia: * Chronic. No acute needs (8) Staghorn calculus: * noted (9) HTN (hypertension): ECHO w LVH/diastolic grade I and 1+ edema, IVF discontinued yesterday evening post-obs REINA -- Started on amlodipine daily and BP improved but still elevated, can increase in AM. Asymptomatic. Discussed jail risks associated with untreated HTN. (10) Nausea & vomiting: * none reported today * zofran prn DVT Prophylaxis * Heparin SQ -- patient has been refusing Dispo: continued inpatient stay, ID consultation as above pending Admission and Anticipated Discharge Date Admission Date: December 16, 2020 Supervising Physician Co-Signing Physician Notes PA Supervision Note: I did not personally see or examine the patient today, but I verified all crawford points of VEL Eduardo's assessment and plan with the following exceptions/additions: None Subjective Patient seen this morning. Suprapubic discomfort but excited to get soto catheter removed. Passing gas but no BM today. Discussed trying oral antibiotics tomorrow and if labs improved/symptoms controlled possible d/c on oral and stent exchange on Monday vs continued IV abx until likely infected stone addressed. Urology not sure about stone to R side but hopeful to leave stent until Monday, treat and possible removal of r sided stent nd then repeat cysto/etc for L side and continued tx of staghorn kidney stone. No fever, chills, chest pain, shortness of breath or nausea. Urine yellow and pushing oral fluids , no further IVF due to post-obstructive nature. Monitoring overnight vs over the weekend and will re-assess to see if able to go home however IV abx this AM to cover for next 24 hours so may need monitored through monday on orals. She is agreeable to current plan. If fever or worsening Cr may need to exchange/address sooner. Questions/concerns addressed. Review of Systems Review of Systems: All systems reviewed & are unremarkable except as noted in HPI & below Physical Exam Physical Exam: The patient is awake, alert and oriented 3, well developed and well nourished, normocephalic and atraumatic, sitting up in chair, no acute distress HEENT: PERRLA, EOMI, mmm Neck: trachea midline, no deviation Cardiac: RRR, S1/S2, quiet sounds, no r/m/g, 1+ edema b/l LE Resp: CTAB, diminished in the bases, minimal wheezing end expiratory Abd: +BS throughout, soft, suprapubic discomfort MSK: moves all extremities, possible R sided CVA tenderness : soto draining yellow urine Skin: warm, dry Neurologic--cranial nerves II through XII grossly intact. Rheumatologic--normal range of motion. Psychiatric--AOx3, normal affect. Results & Data Results & Data ([facility]) Vital Signs (Past 12 Hours) Vital Signs Temp Pulse Resp BP Pulse Ox 12/17/20 22:45 36.7 C 66 18 157/88 H 97 Laboratory Results 12/18/20 12/18/20 12/18/20 Range/Units 12:23 07:56 07:56 WBC (4.8-10.8) K/uL RBC (4.2-5.4) M/uL Hgb (12.0-16.0) g/dL Hct (37-47) % MCV (80-100) fL MCH (25-34) pg MCHC (32-36) g/dL RDW Std Deviation (36.4-46.3) fL RDW Coeff of Rose (11.5-14.5) % Plt Count (130-400) K/uL MPV (7.4-10.4) fL Immature Gran % (Auto) % Neut % (Auto) % Lymph % (Auto) % Hardin % (Auto) % Eos % (Auto) % Baso % (Auto) % Neut # (Auto) (1.4-6.5) K/uL Lymph # (Auto) (1.2-3.4) K/uL Hardin # (Auto) (0.11-0.59) K/uL Eos # (Auto) (0-0.5) K/uL Baso # (Auto) (0-0.2) K/uL Immature Gran # (Auto) (0.00-0.02) K/uL PT 10.6 (9.0-12.0) Seconds INR 1.0 (0.9-1.1) Sodium 141 (136-145) mmol/L Potassium 3.8 (3.5-5.1) mmol/L Chloride 111 H (98-107) mmol/L Carbon Dioxide 23 (21-32) mmol/L Anion Gap 7.0 (3-11) BUN 28 H (7-18) mg/dl Creatinine 2.01 H (0.6-1.2) mg/dl Est Cr Clr Drug Dosing 46.3 ml/min Est GFR ( Amer) 29.6 ml/min Est GFR (Non-Af Amer) 25.6 ml/min BUN/Creatinine Ratio 13.7 (10-20) Glucose 108 H (70-99) mg/dl POC Glucose 92 (70-99) mg/dl Calcium 8.5 (8.5-10.1) mg/dl 12/18/20 12/18/20 12/18/20 Range/Units 07:56 05:49 00:00 WBC 12.64 H (4.8-10.8) K/uL RBC 3.59 L (4.2-5.4) M/uL Hgb 9.4 L (12.0-16.0) g/dL Hct 31.1 L (37-47) % MCV 86.6 (80-100) fL MCH 26.2 (25-34) pg MCHC 30.2 L (32-36) g/dL RDW Std Deviation 52.2 H (36.4-46.3) fL RDW Coeff of Rose 16.2 H (11.5-14.5) % Plt Count 453 H (130-400) K/uL MPV 9.5 (7.4-10.4) fL Immature Gran % (Auto) 0.9 % Neut % (Auto) 75.3 % Lymph % (Auto) 12.3 % Hardin % (Auto) 7.1 % Eos % (Auto) 4.2 % Baso % (Auto) 0.2 % Neut # (Auto) 9.51 H (1.4-6.5) K/uL Lymph # (Auto) 1.55 (1.2-3.4) K/uL Hardin # (Auto) 0.90 H (0.11-0.59) K/uL Eos # (Auto) 0.53 H (0-0.5) K/uL Baso # (Auto) 0.03 (0-0.2) K/uL Immature Gran # (Auto) 0.12 H (0.00-0.02) K/uL PT (9.0-12.0) Seconds INR (0.9-1.1) Sodium (136-145) mmol/L Potassium (3.5-5.1) mmol/L Chloride (98-107) mmol/L Carbon Dioxide (21-32) mmol/L Anion Gap (3-11) BUN (7-18) mg/dl Creatinine (0.6-1.2) mg/dl Est Cr Clr Drug Dosing ml/min Est GFR ( Amer) ml/min Est GFR (Non-Af Amer) ml/min BUN/Creatinine Ratio (10-20) Glucose (70-99) mg/dl POC Glucose 115 H 120 H (70-99) mg/dl Calcium (8.5-10.1) mg/dl 12/17/20 12/17/20 Range/Units 20:44 17:59 WBC (4.8-10.8) K/uL RBC (4.2-5.4) M/uL Hgb (12.0-16.0) g/dL Hct (37-47) % MCV (80-100) fL MCH (25-34) pg MCHC (32-36) g/dL RDW Std Deviation (36.4-46.3) fL RDW Coeff of Rose (11.5-14.5) % Plt Count (130-400) K/uL MPV (7.4-10.4) fL Immature Gran % (Auto) % Neut % (Auto) % Lymph % (Auto) % Hardin % (Auto) % Eos % (Auto) % Baso % (Auto) % Neut # (Auto) (1.4-6.5) K/uL Lymph # (Auto) (1.2-3.4) K/uL Hardin # (Auto) (0.11-0.59) K/uL Eos # (Auto) (0-0.5) K/uL Baso # (Auto) (0-0.2) K/uL Immature Gran # (Auto) (0.00-0.02) K/uL PT (9.0-12.0) Seconds INR (0.9-1.1) Sodium (136-145) mmol/L Potassium (3.5-5.1) mmol/L Chloride (98-107) mmol/L Carbon Dioxide (21-32) mmol/L Anion Gap (3-11) BUN (7-18) mg/dl Creatinine (0.6-1.2) mg/dl Est Cr Clr Drug Dosing ml/min Est GFR ( Amer) ml/min Est GFR (Non-Af Amer) ml/min BUN/Creatinine Ratio (10-20) Glucose (70-99) mg/dl POC Glucose 123 H 121 H (70-99) mg/dl Calcium (8.5-10.1) mg/dl PG Care Time/CCT Total # of Minutes Spent Total Time Spent with Patient: Total time spent is greater than 50% in coordination of care (as documented) at patient's floor/unit and/or counseling patient: Coding Level of Care Code 46935 Subseq Hosp Care Lvl 3 Diagnoses UTI (urinary tract infection) N30.01 Hematuria presence: with hematuria Urinary tract infection type: acute cystitis S/P ureteral stent placement Z96.0 Bilateral nephrolithiasis N20.0 Diabetes mellitus E11.9 Hypothyroidism E03.9 Acute kidney injury N17.9 Fibromyalgia M79.7 Staghorn calculus N20.0 HTN (hypertension) I10 Nausea & vomiting R11.2 (1) UTI (urinary tract infection) Hematuria presence: with hematuria Urinary tract infection type: acute cystitis Qualified Code(s): N30.01 - Acute cystitis with hematuria
[2020-12-18 08:30] LABS: Prothrombin Time 10.6 Seconds (9.0-12.0)
[2020-12-18 08:51] LABS: BUN Creatinine Ratio 13.7 (10-20); Calcium 8.5 mg/dl (8.5-10.1); Creatinine Clr Calc Pharmacy 46.3 ml/min; Est GFR (African American) 29.6 ml/min; Est GFR (Non-African American) 25.6 ml/min; Potassium 3.8 mmol/L (3.5-5.1)
[2020-12-18] MEDS ORDERED: cefTRIAXone SODIUM 2,000 MG in DEXTROSE 5% 50 ML IV SCH (09:00)
--- NOTE | 2020-12-18 10:12 | XRay Report ---
XR KUB/Abdomen 1 view CLINICAL HISTORY: f/u COMPARISON STUDY: December 16, 2020 FINDINGS: There are multiple gas and stool filled loops of bowel within upper limits of normal for size. Bilateral urinary stents are seen in unchanged position since recent prior study. Previously seen tina culus within left hemiabdomen is not well visualized however evaluation is limited due to overlying s tool filled loop of bowel. Cholecystectomy clips, degenerative changes of the spine and sacroiliac joints as well as bilateral h ip prosthesis are again seen. IMPRESSION: 1. Recently seen calculus within left hemiabdomen is not well visualized however evaluation is limit ed due to overlying stool filled loop of bowel. 2. Multiple gas and stool-filled loops of bowel are in upper limits of normal for size, could repres ent constipation pattern versus other etiology. Please correlate above-mentioned findings with clinic al presentation of abdominal pain. ACT 112: Negative or not required by law. The above report was generated using voice recognition software. It may contain grammatical, syntax o r spelling errors. Electronically signed by: Clemencia Hastings DO 12/18/2020 10:10 AM
--- NOTE | 2020-12-18 10:15 | Urology Progress Note ---
Date of Service December 18, 2020 Assessment & Plan (1) UTI (urinary tract infection): (2) Acute kidney injury: (3) Bilateral nephrolithiasis: (4) Bilateral hydronephrosis: 65 year-old female patient who is s/p recent bilateral stent placement for obstructing stones, admitted with UTI and REINA. - Plan of care reviewed with Dr. Dias. - Patient is status post cystoscopy, bilateral ureteral stent placement with Dr. Dias on 11/21/20. - Remains afebrile. - Labs reviewed - Wbc down to 12.64 (previously 15.61) and creatinine 2.01 (previously 2.2). - Urine culture with gamma strep not enterococcus and vandana albicans/dubliniensis, repeat urine culture with three types organisms - all high counts. - Preliminary blood cultures no growth after 48 hours. - CTAP from 12/14 notes unchanged bilateral hydronephrosis, bilateral ureteral stents in position, and left sided nephrolithiasis. - Will tentatively plan for cystoscopy, bilateral ureteroscopy, stone treatment, and stent exchange on 12/22/[address] Dias. - If discharged home prior to Monday, will arrange procedure as outpatient. - Recommend continue supportive and antibiotic therapy per ID recommendations. - OK to remove soto catheter and resume diet. - Will continue to follow while inpatient. Admission and Anticipated Discharge Date Admission Date: December 16, 2020 Subjective Patient examined at bedside, she is alert and awake. Appears comfortable. She reports suprapubic discomfort, tolerable with PRN Tylenol. Denies back and flank pain at this time. Soto catheter intact, draining clear yellow urine. Denies fevers or chills. Denies nausea or vomiting. Has been NPO since midnight. Chart review: Afebrile Wbc 12.64 (previously 15.61) Hgb 9.4 (previously 10.3) Creatinine 2.01 (previously 2.20) Urine culture 12/14 with gamma strep not enterococcus and Vandana albicans/dubliniensis. Repeat urine culture 12/14 with three types of organisms, all high counts. Preliminary blood culture no growth after 48 hours. Patient currently on IV Ceftriaxone. Soto output overnight - 950ml Review of Systems Constitutional: as per Subjective / HPI Gastrointestinal: as per Subjective / HPI Genitourinary: as per Subjective / HPI Physical Exam Constitutional: well developed and well nourished; no acute distress Respiratory: normal respiratory effort; no labored breathing and no audible wheezes Cardiovascular: Extremities: no calf tenderness Gastrointestinal (Abdomen): Percussion/Palpation: abdomen soft; abdomen nontender and no guarding Musculoskeletal: Head/Neck/Chest: normocephalic Skin: no rashes, warm and dry Neurologic: awake Psychiatric: A+Ox3, euthymic affect Genitourinary: Soto catheter intact Results & Data ([facility]) Vital Signs (Past 12 Hours) Vital Signs Temp Pulse Resp BP Pulse Ox 12/18/20 07:55 36.7 C 66 16 167/74 H 93 12/17/20 22:45 36.7 C 66 18 157/88 H 97 PG Care Time/CCT Total # of Minutes Spent Total Time Spent with Patient: Total time spent is greater than 50% in coordi nation of care (as documented) at patient's floor/unit and/or counseling patient: Coding Level of Care Code 20086 Subseq Hosp Care Lvl 2 Diagnoses UTI (urinary tract infection) N30.01 Hematuria presence: with hematuria Urinary tract infection type: acute cystitis Acute kidney injury N17.9 Bilateral nephrolithiasis N20.0 Bilateral hydronephrosis N13.30 (1) UTI (urinary tract infection) Hematuria presence: with hematuria Urinary tract infection type: acute cystitis Qualified Code(s): N30.01 - Acute cystitis with hematuria
[2020-12-18] MEDS: FLUCONAZOLE 100 MG TAB PO SCH (13:25)
[2020-12-18] MEDS: TAMSULOSIN HCL 0.4 MG CAP PO SCH (21:29)
[2020-12-19] MEDS: INSULIN ASPART 100 UNITS/ML 3 ML PEN SC SCH ×5 (00:19→21:26)
[2020-12-19] MEDS: ACETAMINOPHEN 325 MG TAB PO PRN ×3 (01:26→19:58)
[2020-12-19] MEDS: HEPARIN SOD 5,000 UNIT/0.5 ML VIAL SQ SCH ×3 (05:37→22:32)
[2020-12-19] MEDS ORDERED: Nursing to Pharmacy Communication SCH (06:00)
[2020-12-19] MEDS: LEVOTHYROXINE SODIUM 25 MCG TABLET PO SCH (06:02)
[2020-12-19] MEDS: LEVOTHYROXINE SODIUM 200 MCG TABLET PO SCH (06:02)
--- NOTE | 2020-12-19 08:31 | Hospitalist Progress Note ---
Date of Service December 19, 2020 Assessment & Plan (1) UTI (urinary tract infection): * s/p Cystoscopy, Bilateral Ureteral Stent Insertion(Bilateral) - Tj Dias MD on 11/21 * Had been having ongoing fevers 99-102F for past 13-14 days. Saw PCP three times but thought to be related to COVID vaccination x 2. * Continued to have dysuria, fever, chills, back pain, nausea. Had labwork [employer] and was sent to ER for elevated Cr Nephrolithiasis is again seen on the left, not significantly changed since prior. Bilateral ureteral stents. (Does note large cystic lesion within left renal cortex is not significantly changed since November 20, 2020 exam. Urology consulted Urine culture with amy albicans and gamma strep ID consulted -recommends continued IV ceftriaxone and Diflucan x14 days and if stents removed then convert to p.o. cephalexin - likely infected stone and will remain until treated --> if spikes fever, WBC elevated, elevated Cr would highly recommend intervention for removal of stents prior to plan for upcoming Monday WBC increased to 15.2k today, remains afebrile but repeat temp this am 37.4C but did get Tylenol this morning (stopped scheduled Tylenol) Cr up to 2.39 from 2.01 --> had Soto placement with improvement the other day but she is adamant about holding off --> if continues to worsen would recommend BCx ngtd Continued on flomax Antiemetics prn Continue supportive care Avoiding IVF given post-obstructive picture Likely to remain inpatient through intervention as she will require continued IV abx and close monitoring Discussed with Urology and they do not plan on intervention earlier than Monday at this time (2) S/P ureteral stent placement: * See above (3) Bilateral nephrolithiasis: * See above (4) Diabetes mellitus: * Hold Trulicity and Metformin while inpatient -- recently started during last admission for A1c 10.6 * She states she has been checking sugars at home and recently AM sugar 118 * ISS while inpatient * BSGs acceptable * As stone treatment wanting to wait for Monday, may need to consider SSI short term while awaiting intervention/treatment as would hold Metformin at discharge given kidney function and watch sugars/diet closely. Could still consider continuing Trulicity in the meantime (5) Hypothyroidism: * Continue levothyroxine 225cg daily * Last TSH wnl 1.430 (6) Acute kidney injury: * Secondary to UTI/stone * Improved from yesterday after placement of Soto catheter, but still elevated and worsened today * --> Pt avoiding soto due to discomfort at this time but may need to reconsider * IVF d/c due to congestion/post-obstructive REINA * BMP in AM (7) Fibromyalgia: * Chronic. No acute needs (8) Staghorn calculus: * noted (9) HTN (hypertension): * ECHO w LVH/diastolic grade I and 1+ edema, IVF discontinued due to post-obs REINA * -- Started on amlodipine daily and BP improved but still elevated, increased this AM * BP elevated but did not get medications this morning * Expect some elevation secondary to pain (10) Nausea & vomiting: Nausea today but no vomiting * zofran prn, can add Phenergan if needed DVT Prophylaxis * Heparin SQ -- patient has been refusing -- highly encouraged Dispo: continued inpatient stay Admission and Anticipated Discharge Date Admission Date: December 16, 2020 Supervising Physician Co-Signing Physician Notes VEL Supervision Note: I did not personally see or examine the patient today, but I verified all crawford points of VEL Eduardo's assessment and plan with the following exceptions/additions: None Subjective Patient evaluated this morning. Feels feverish -- checked temp 37.4C. Got dose of Tylenol earlier this morning. She does endorse worsened R back pain with her nausea at times and difficulty getting comfortable in bed. Cr worsened but patient continuing to urinate but does have some incontinence at times since Soto removed. She is adamant about holding off on soto placement at this time but she is agreeable to remain inpatient on IV abx until stent exchange on Monday. Not much of an appetite and some nausea but no vomiting. Got a dose of zofran this morning. passing gas but no BM yet. No chest pain, shortness of breath, headache reported. Review of Systems Review of Systems: All systems reviewed & are unremarkable except as noted in HPI & below Physical Exam Physical Exam: The patient is awake, alert and oriented 3, laying on her left side in bed, reported feeling feverish 37.4C temperature (last Tylenol 1am this morning) HEENT: PERRLA, EOMI, mmm Neck: trachea midline, no deviation Cardiac: RRR, S1/S2, quiet sounds, no r/m/g, 1+ edema b/l LE Resp: CTAB, diminished in the bases, diminished in the bases Abd: +BS throughout, soft, suprapubic discomfort MSK: moves all extremities, +R sided CVA tenderness : NO soto Skin: warm, moist Neurologic--cranial nerves II through XII grossly intact. Rheumatologic--normal range of motion. Psychiatric--AOx3, normal affect. Results & Data Results & Data ([facility]) Vital Signs (Past 12 Hours) Vital Signs Temp Pulse Resp BP Pulse Ox 12/19/20 07:32 37.3 C 73 18 161/92 H 96 12/18/20 22:48 36.5 C 71 17 146/72 H 94 Laboratory Results 12/19/20 12/19/20 12/19/20 Range/Units 12:08 09:34 09:34 WBC 15.21 H (4.8-10.8) K/uL RBC 3.94 L (4.2-5.4) M/uL Hgb 10.4 L (12.0-16.0) g/dL Hct 33.8 L (37-47) % MCV 85.8 (80-100) fL MCH 26.4 (25-34) pg MCHC 30.8 L (32-36) g/dL RDW Std Deviation 51.5 H (36.4-46.3) fL RDW Coeff of Rose 16.2 H (11.5-14.5) % Plt Count 500 H (130-400) K/uL MPV 9.8 (7.4-10.4) fL Immature Gran % (Auto) 0.5 % Neut % (Auto) 82.6 % Lymph % (Auto) 7.9 % Garrard % (Auto) 6.2 % Eos % (Auto) 2.6 % Baso % (Auto) 0.2 % Neut # (Auto) 12.56 H (1.4-6.5) K/uL Lymph # (Auto) 1.20 (1.2-3.4) K/uL Garrard # (Auto) 0.95 H (0.11-0.59) K/uL Eos # (Auto) 0.40 (0-0.5) K/uL Baso # (Auto) 0.03 (0-0.2) K/uL Immature Gran # (Auto) 0.07 H (0.00-0.02) K/uL Sodium 136 (136-145) mmol/L Potassium 3.7 (3.5-5.1) mmol/L Chloride 104 (98-107) mmol/L Carbon Dioxide 26 (21-32) mmol/L Anion Gap 6.0 (3-11) BUN 28 H (7-18) mg/dl Creatinine 2.39 H D (0.6-1.2) mg/dl Est Cr Clr Drug Dosing 39.0 ml/min Est GFR ( Amer) 24.0 ml/min Est GFR (Non-Af Amer) 20.7 ml/min BUN/Creatinine Ratio 11.8 (10-20) Glucose 210 H (70-99) mg/dl POC Glucose 97 (70-99) mg/dl Calcium 8.5 (8.5-10.1) mg/dl 12/19/20 12/18/20 12/18/20 Range/Units 07:59 20:36 17:16 WBC (4.8-10.8) K/uL RBC (4.2-5.4) M/uL Hgb (12.0-16.0) g/dL Hct (37-47) % MCV (80-100) fL MCH (25-34) pg MCHC (32-36) g/dL RDW Std Deviation (36.4-46.3) fL RDW Coeff of Rose (11.5-14.5) % Plt Count (130-400) K/uL MPV (7.4-10.4) fL Immature Gran % (Auto) % Neut % (Auto) % Lymph % (Auto) % Garrard % (Auto) % Eos % (Auto) % Baso % (Auto) % Neut # (Auto) (1.4-6.5) K/uL Lymph # (Auto) (1.2-3.4) K/uL Garrard # (Auto) (0.11-0.59) K/uL Eos # (Auto) (0-0.5) K/uL Baso # (Auto) (0-0.2) K/uL Immature Gran # (Auto) (0.00-0.02) K/uL Sodium (136-145) mmol/L Potassium (3.5-5.1) mmol/L Chloride (98-107) mmol/L Carbon Dioxide (21-32) mmol/L Anion Gap (3-11) BUN (7-18) mg/dl Creatinine (0.6-1.2) mg/dl Est Cr Clr Drug Dosing ml/min Est GFR ( Amer) ml/min Est GFR (Non-Af Amer) ml/min BUN/Creatinine Ratio (10-20) Glucose (70-99) mg/dl POC Glucose 126 H 127 H 133 H (70-99) mg/dl Calcium (8.5-10.1) mg/dl PG Care Time/CCT Total # of Minutes Spent Total Time Spent with Patient: Total time spent is greater than 50% in coordination of care (as documented) at patient's floor/unit and/or counseling patient: Coding Level of Care Code 30807 Subseq Hosp Care Lvl 3 Diagnoses UTI (urinary tract infection) N30.01 Hematuria presence: with hematuria Urinary tract infection type: acute cystitis S/P ureteral stent placement Z96.0 Bilateral nephrolithiasis N20.0 Diabetes mellitus E11.9 Hypothyroidism E03.9 Acute kidney injury N17.9 Fibromyalgia M79.7 Staghorn calculus N20.0 HTN (hypertension) I10 Nausea & vomiting R11.2 (1) UTI (urinary tract infection) Hematuria presence: with hematuria Urinary tract infection type: acute cystitis Qualified Code(s): N30.01 - Acute cystitis with hematuria
[2020-12-19] MEDS: DOCUSATE SODIUM 100 MG CAP PO SCH ×2 (08:52→20:00)
[2020-12-19] MEDS: POLYETHYLENE (MIRALAX) 17 GM PACK PO SCH (08:53)
[2020-12-19] MEDS ORDERED: cephALEXin 500 MG CAP PO SCH (09:00)
[2020-12-19] MEDS ORDERED: cefTRIAXone SODIUM 1,000 MG in DEXTROSE 5% 50 ML IV SCH (09:00)
[2020-12-19] MEDS: amLODIPine BESYLATE 5 MG TAB PO SCH (09:05)
[2020-12-19] MEDS: cefTRIAXone SODIUM 2,000 MG in DEXTROSE 5% 50 ML IV SCH (09:06)
--- NOTE | 2020-12-19 10:05 | Urology Progress Note ---
Date of Service December 19, 2020 Assessment & Plan (1) S/P ureteral stent placement: (2) UTI (urinary tract infection): (3) Acute kidney injury: (4) Staghorn calculus: Overall, she is clinically stable She is receiving IV antibiotics and antifungals per ID I suspect a significant portion of her symptomatology is directly related to having bilateral stents with infectious aspects likely secondary Continue antibiotic and antifungal treatment now I will tentatively plan for surgical intervention on Monday Admission and Anticipated Discharge Date Admission Date: December 16, 2020 Subjective Subjectively feels relatively well She has some incontinence She has some bladder pressureall consistent with expectations for having bilateral ureteral stents She is not having fevers, chills, rigors No severe pain She would very much like to go home Physical Exam Constitutional: well developed and well nourished Respiratory: no respiratory distress Cardiovascular: Extremities: no pedal edema Gastrointestinal (Abdomen): Inspection/Auscultation: abdomen normal to inspection Results & Data ([facility]) Vital Signs (Past 12 Hours) Vital Signs Temp Pulse Resp BP Pulse Ox 12/19/20 07:32 37.3 C 73 18 161/92 H 96 12/18/20 22:48 36.5 C 71 17 146/72 H 94 PG Care Time/CCT Total # of Minutes Spent Total Time Spent with Patient: Total time spent is greater than 50% in coordination of care (as documented) at patient's floor/unit and/or counseling patient: Coding Level of Care Code 03829 Subseq Hosp Care Lvl 2 Diagnoses S/P ureteral stent placement Z96.0 UTI (urinary tract infection) N30.01 Hematuria presence: with hematuria Urinary tract infection type: acute cystitis Acute kidney injury N17.9 Staghorn calculus N20.0 (1) UTI (urinary tract infection) Hematuria presence: with hematuria Urinary tract infection type: acute cystitis Qualified Code(s): N30.01 - Acute cystitis with hematuria
[2020-12-19 10:13] LABS: Basophils # (auto) 0.03 K/uL (0-0.2); Basophils % (auto) 0.2 %; Eosinophils % (auto) 2.6 %; Hematocrit (blood only) 33.8 % (37-47); Hemoglobin 10.4 g/dL (12.0-16.0); Immature Granulocytes # (auto) 0.07 K/uL (0.00-0.02); Immature Granulocytes % (auto) 0.5 %; Lymphocytes % (auto) 7.9 %; Mean Corpuscular Hemoglobin 26.4 pg (25-34); Mean Corpuscular Hgb Conc 30.8 g/dL (32-36); Mean Corpuscular Volume 85.8 fL (80-100); Mean Platelet Volume 9.8 fL (7.4-10.4); Monocytes # (auto) 0.95 K/uL (0.11-0.59); Monocytes % (auto) 6.2 %; Neutrophils # (auto) 12.56 K/uL (1.4-6.5); Neutrophils % (auto) 82.6 %; Platelet Count 500 K/uL (130-400); RDW Coefficient of Variation 16.2 % (11.5-14.5); RDW Standard Deviation 51.5 fL (36.4-46.3); Red Blood Count 3.94 M/uL (4.2-5.4); White Blood Count 15.21 K/uL (4.8-10.8)
[2020-12-19 10:33] LABS: BUN Creatinine Ratio 11.8 (10-20); Calcium 8.5 mg/dl (8.5-10.1); Est GFR (Non-African American) 20.7 ml/min; Potassium 3.7 mmol/L (3.5-5.1)
[2020-12-19] MEDS: FLUCONAZOLE 100 MG TAB PO SCH (11:46)
--- NOTE | 2020-12-19 15:41 | XRay Report ---
XR KUB/Abdomen 1 view CLINICAL HISTORY: f/u constipation COMPARISON STUDY: December 18, 2020 FINDINGS: Multiple gas-filled loops of small and large bowel are seen. Interval decrease in amount of stool. Redemonstration of the bilateral urinary stents. Small calcification is seen projecting to the proxim al-mid aspect of the left urinary stone which might represent calculus within the collecting system. Cholecystectomy clips, degenerative changes of the spine and bilateral sacroiliac joints are again se en. IMPRESSION: 1. Interval decrease in amount of stool and compared to recent prior study. ACT 112: Negative or not required by law. The above report was generated using voice recognition software. It may contain grammatical, syntax o r spelling errors. Electronically signed by: Clemencia Hastings DO 12/19/2020 3:40 PM
[2020-12-19] MEDS: TAMSULOSIN HCL 0.4 MG CAP PO SCH (19:59)
[2020-12-20] MEDS: HEPARIN SOD 5,000 UNIT/0.5 ML VIAL SQ SCH ×3 (05:56→21:29)
[2020-12-20] MEDS: LEVOTHYROXINE SODIUM 25 MCG TABLET PO SCH (05:57)
[2020-12-20] MEDS: LEVOTHYROXINE SODIUM 200 MCG TABLET PO SCH (05:57)
[2020-12-20] MEDS: ACETAMINOPHEN 325 MG TAB PO PRN ×4 (05:59→22:34)
[2020-12-20 06:19] LABS: Basophils # (auto) 0.02 K/uL (0-0.2); Basophils % (auto) 0.1 %; Eosinophils # (auto) 0.35 K/uL (0-0.5); Eosinophils % (auto) 2.1 %; Hematocrit (blood only) 30.1 % (37-47); Hemoglobin 9.5 g/dL (12.0-16.0); Immature Granulocytes % (auto) 0.6 %; Lymphocytes # (auto) 1.46 K/uL (1.2-3.4); Lymphocytes % (auto) 8.8 %; Mean Corpuscular Hemoglobin 26.3 pg (25-34); Mean Corpuscular Hgb Conc 31.6 g/dL (32-36); Mean Corpuscular Volume 83.4 fL (80-100); Mean Platelet Volume 9.4 fL (7.4-10.4); Monocytes # (auto) 1.26 K/uL (0.11-0.59); Monocytes % (auto) 7.6 %; Neutrophils # (auto) 13.42 K/uL (1.4-6.5); Neutrophils % (auto) 80.8 %; Platelet Count 401 K/uL (130-400); RDW Standard Deviation 48.9 fL (36.4-46.3); Red Blood Count 3.61 M/uL (4.2-5.4); White Blood Count 16.61 K/uL (4.8-10.8)
[2020-12-20 06:49] LABS: Albumin Level 2.2 gm/dl (3.4-5.0); BUN Creatinine Ratio 10.9 (10-20); Calcium 8.2 mg/dl (8.5-10.1); Est GFR (African American) 22.7 ml/min; Est GFR (Non-African American) 19.6 ml/min; Potassium 3.7 mmol/L (3.5-5.1)
[2020-12-20 06:52] LABS: Albumin Globulin Ratio 0.4 (0.9-2); Bilirubin,Total 0.3 mg/dl (0.2-1); Globulin 5.1 gm/dl (2.5-4.0); Total Protein 7.3 gm/dl (6.4-8.2)
--- NOTE | 2020-12-20 08:03 | Hospitalist Progress Note ---
Date of Service December 20, 2020 Assessment & Plan (1) UTI (urinary tract infection): * s/p Cystoscopy, Bilateral Ureteral Stent Insertion(Bilateral) - Tj Dias MD on 11/21 * Had been having ongoing fevers 99-102F for past 13-14 days. Saw PCP three times but thought to be related to COVID vaccination x 2. * Continued to have dysuria, fever, chills, back pain, nausea. Had lab-work [employer] and was sent to ER for elevated Cr Nephrolithiasis is again seen on the left, not significantly changed since prior. Bilateral ureteral stents. (Does note large cystic lesion within left renal cortex is not significantly changed since November 20, 2020 exam. Urology consulted Urine culture with amy albicans and gamma strep ID consulted -recommends continued IV ceftriaxone and Diflucan x14 days and if stents removed then convert to p.o. cephalexin - likely infected stone and will remain until treated --> if spikes fever, WBC elevated, elevated Cr would highly recommend intervention for removal of stents prior to plan for upcoming Monday --> As discussed with Dr. Dias today, he believes earlier intervention not to shorten course of recovery and length operation, possibly 2, if done today and believes Monday to be sufficient at this time. Remains on Ceftriaxone WBC max 16.6k today but remains afebrile Creatinine continues to climb --> 2.51, but BUN 27 remains the same -- reports making adequate urine. Would like to avoid soto catheter BCx NGTD Repeat Urine cx ordered Continues on Flomax Antiemetics, pain control prn Avoiding further IVF given post-obstructive picture -check Renal US to reassess for abscess of kidney and for hydronephrosis given that laboratory miller continues to rise with bilat stents in place (2) S/P ureteral stent placement: * See above (3) Bilateral nephrolithiasis: * See above (4) Diabetes mellitus: * Hold Trulicity and Metformin while inpatient -- recently started during last admission for A1c 10.6 * She states she has been checking sugars at home and recently AM sugar 118 * ISS while inpatient * BSGs acceptable * As stone treatment wanting to wait for Monday, may need to consider SSI short term while awaiting intervention/treatment as would hold Metformin at discharge given kidney function and watch sugars/diet closely. Could still consider continuing Trulicity in the meantime (5) Hypothyroidism: * Continue levothyroxine 225cg daily * Last TSH wnl 1.430 (6) Acute kidney injury: * Secondary to UTI/stone * Improved from yesterday after placement of Soto catheter, but still elevated and worsened today * --> Pt avoiding soto due to discomfort at this time but may need to reconsider * IVF d/c due to congestion/post-obstructive REINA * BMP in AM * check renal US as above (7) Fibromyalgia: * Chronic. No acute needs (8) Staghorn calculus: * noted (9) HTN (hypertension): * ECHO w LVH/diastolic grade I and 2+ edema, IVF discontinued due to post-obs REINA * -- Started on amlodipine and increased --> BPs better today 146/75 -- would continue at discharge * Continue to monitor (10) Nausea & vomiting: Nausea today but no vomiting * zofran prn, can add Phenergan if needed DVT Prophylaxis * Heparin SQ -- patient has been refusing -- highly encouraged * add on JOHN celeste Dispo: continued inpatient stay Admission and Anticipated Discharge Date Admission Date: December 16, 2020 Supervising Physician Co-Signing Physician Notes VEL Supervision Note: I did not personally see or examine the patient today, but I verified all crawford points of VEL Eduardo's assessment and plan with the following exceptions/additions: None Subjective Patient evaluated this afternoon. States she is feeling better than in days past. Some nausea due to smells and having family bring in her shampoo/conditioner. No vomiting. WBC and Cr up but she denies fever, chills. No further back pain reported today. She got her abx in her IV this morning but it blew since that time. She would like to avoid another IV until tomorrow and continue to push oral fluids. Agreed given her edema as well. No f/c/cp/sob. No hematuria. Hopeful to have improvement of labs in AM but she states she talked with Dr Dias and as he said to me later in the day, should not change course of recovery for labs/kidney function by waiting until Monday. +BM Questions/concerns addressed at this time. 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 She states she felt like she was just treated roughly and without much compassion. Review of Systems Review of Systems: All systems reviewed & are unremarkable except as noted in HPI & below Physical Exam Physical Exam: The patient is awake, alert and oriented 3, laying on her left side in bed, NAD HEENT: PERRLA, EOMI, mmm Neck: trachea midline, no deviation Cardiac: RRR, S1/S2, quiet sounds, no r/m/g, 2+ edema b/l LE Resp: CTAB, diminished in the bases, no w/c/r Abd: +BS throughout, soft, suprapubic discomfort MSK: moves all extremities, - CVA : NO soto Skin: warm, moist Neurologic--cranial nerves II through XII grossly intact. Rheumatologic--normal range of motion. Psychiatric--AOx3, normal affect. Results & Data Results & Data ([facility]) Vital Signs (Past 12 Hours) Vital Signs Temp Pulse Resp BP BP Pulse Ox 12/20/20 06:58 37.1 C 69 20 146/75 H 93 12/19/20 22:40 37.4 C 84 18 155/73 H 94 Laboratory Results 12/20/20 12/20/20 12/19/20 Range/Units 05:51 05:51 20:39 WBC 16.61 H (4.8-10.8) K/uL RBC 3.61 L (4.2-5.4) M/uL Hgb 9.5 L (12.0-16.0) g/dL Hct 30.1 L (37-47) % MCV 83.4 (80-100) fL MCH 26.3 (25-34) pg MCHC 31.6 L (32-36) g/dL RDW Std Deviation 48.9 H (36.4-46.3) fL RDW Coeff of Rose 16.0 H (11.5-14.5) % Plt Count 401 H (130-400) K/uL MPV 9.4 (7.4-10.4) fL Immature Gran % (Auto) 0.6 % Neut % (Auto) 80.8 % Lymph % (Auto) 8.8 % [place] % (Auto) 7.6 % Eos % (Auto) 2.1 % Baso % (Auto) 0.1 % Neut # (Auto) 13.42 H (1.4-6.5) K/uL Lymph # (Auto) 1.46 (1.2-3.4) K/uL [place] # (Auto) 1.26 H (0.11-0.59) K/uL Eos # (Auto) 0.35 (0-0.5) K/uL Baso # (Auto) 0.02 (0-0.2) K/uL Immature Gran # (Auto) 0.10 H (0.00-0.02) K/uL Sodium 138 (136-145) mmol/L Potassium 3.7 (3.5-5.1) mmol/L Chloride 105 (98-107) mmol/L Carbon Dioxide 26 (21-32) mmol/L Anion Gap 7.0 (3-11) BUN 27 H (7-18) mg/dl Creatinine 2.51 H (0.6-1.2) mg/dl Est Cr Clr Drug Dosing 37.0 ml/min Est GFR ( Amer) 22.7 ml/min Est GFR (Non-Af Amer) 19.6 ml/min BUN/Creatinine Ratio 10.9 (10-20) Glucose 133 H (70-99) mg/dl POC Glucose 155 H (70-99) mg/dl Calcium 8.2 L (8.5-10.1) mg/dl Total Bilirubin 0.3 (0.2-1) mg/dl AST 20 (15-37) U/L ALT 29 (12-78) U/L Alkaline Phosphatase 89 (45-117) U/L Total Protein 7.3 (6.4-8.2) gm/dl Albumin 2.2 L (3.4-5.0) gm/dl Globulin 5.1 H (2.5-4.0) gm/dl Albumin/Globulin Ratio 0.4 L (0.9-2) 12/19/20 12/19/20 12/19/20 Range/Units 17:31 12:08 09:34 WBC (4.8-10.8) K/uL RBC (4.2-5.4) M/uL Hgb (12.0-16.0) g/dL Hct (37-47) % MCV (80-100) fL MCH (25-34) pg MCHC (32-36) g/dL RDW Std Deviation (36.4-46.3) fL RDW Coeff of Rose (11.5-14.5) % Plt Count (130-400) K/uL MPV (7.4-10.4) fL Immature Gran % (Auto) % Neut % (Auto) % Lymph % (Auto) % [place] % (Auto) % Eos % (Auto) % Baso % (Auto) % Neut # (Auto) (1.4-6.5) K/uL Lymph # (Auto) (1.2-3.4) K/uL [place] # (Auto) (0.11-0.59) K/uL Eos # (Auto) (0-0.5) K/uL Baso # (Auto) (0-0.2) K/uL Immature Gran # (Auto) (0.00-0.02) K/uL Sodium 136 (136-145) mmol/L Potassium 3.7 (3.5-5.1) mmol/L Chloride 104 (98-107) mmol/L Carbon Dioxide 26 (21-32) mmol/L Anion Gap 6.0 (3-11) BUN 28 H (7-18) mg/dl Creatinine 2.39 H D (0.6-1.2) mg/dl Est Cr Clr Drug Dosing 39.0 ml/min Est GFR ( Amer) 24.0 ml/min Est GFR (Non-Af Amer) 20.7 ml/min BUN/Creatinine Ratio 11.8 (10-20) Glucose 210 H (70-99) mg/dl POC Glucose 140 H 97 (70-99) mg/dl Calcium 8.5 (8.5-10.1) mg/dl Total Bilirubin (0.2-1) mg/dl AST (15-37) U/L ALT (12-78) U/L Alkaline Phosphatase (45-117) U/L Total Protein (6.4-8.2) gm/dl Albumin (3.4-5.0) gm/dl Globulin (2.5-4.0) gm/dl Albumin/Globulin Ratio (0.9-2) 12/19/20 12/19/20 Range/Units 09:34 07:59 WBC 15.21 H (4.8-10.8) K/uL RBC 3.94 L (4.2-5.4) M/uL Hgb 10.4 L (12.0-16.0) g/dL Hct 33.8 L (37-47) % MCV 85.8 (80-100) fL MCH 26.4 (25-34) pg MCHC 30.8 L (32-36) g/dL RDW Std Deviation 51.5 H (36.4-46.3) fL RDW Coeff of Rose 16.2 H (11.5-14.5) % Plt Count 500 H (130-400) K/uL MPV 9.8 (7.4-10.4) fL Immature Gran % (Auto) 0.5 % Neut % (Auto) 82.6 % Lymph % (Auto) 7.9 % [place] % (Auto) 6.2 % Eos % (Auto) 2.6 % Baso % (Auto) 0.2 % Neut # (Auto) 12.56 H (1.4-6.5) K/uL Lymph # (Auto) 1.20 (1.2-3.4) K/uL [place] # (Auto) 0.95 H (0.11-0.59) K/uL Eos # (Auto) 0.40 (0-0.5) K/uL Baso # (Auto) 0.03 (0-0.2) K/uL Immature Gran # (Auto) 0.07 H (0.00-0.02) K/uL Sodium (136-145) mmol/L Potassium (3.5-5.1) mmol/L Chloride (98-107) mmol/L Carbon Dioxide (21-32) mmol/L Anion Gap (3-11) BUN (7-18) mg/dl Creatinine (0.6-1.2) mg/dl Est Cr Clr Drug Dosing ml/min Est GFR ( Amer) ml/min Est GFR (Non-Af Amer) ml/min BUN/Creatinine Ratio (10-20) Glucose (70-99) mg/dl POC Glucose 126 H (70-99) mg/dl Calcium (8.5-10.1) mg/dl Total Bilirubin (0.2-1) mg/dl AST (15-37) U/L ALT (12-78) U/L Alkaline Phosphatase (45-117) U/L Total Protein (6.4-8.2) gm/dl Albumin (3.4-5.0) gm/dl Globulin (2.5-4.0) gm/dl Albumin/Globulin Ratio (0.9-2) PG Care Time/CCT Total # of Minutes Spent Total Time Spent with Patient: Total time spent is greater than 50% in coordination of care (as documented) at patient's floor/unit and/or counseling patient: Coding Level of Care Code 91422 Subseq Hosp Care Lvl 2 Diagnoses UTI (urinary tract infection) N30.01 Hematuria presence: with hematuria Urinary tract infection type: acute cystitis S/P ureteral stent placement Z96.0 Bilateral nephrolithiasis N20.0 Diabetes mellitus E11.9 Hypothyroidism E03.9 Acute kidney injury N17.9 Fibromyalgia M79.7 Staghorn calculus N20.0 HTN (hypertension) I10 Nausea & vomiting R11.2 (1) UTI (urinary tract infection) Hematuria presence: with hematuria Urinary tract infection type: acute cystitis Qualified Code(s): N30.01 - Acute cystitis with hematuria
[2020-12-20] MEDS: INSULIN ASPART 100 UNITS/ML 3 ML PEN SC SCH ×4 (09:34→21:28)
[2020-12-20] MEDS: POLYETHYLENE (MIRALAX) 17 GM PACK PO SCH (09:38)
[2020-12-20] MEDS: DOCUSATE SODIUM 100 MG CAP PO SCH ×2 (09:38→21:29)
[2020-12-20] MEDS: amLODIPine BESYLATE 5 MG TAB PO SCH (09:40)
[2020-12-20] MEDS: cefTRIAXone SODIUM 2,000 MG in DEXTROSE 5% 50 ML IV SCH (09:44)
[2020-12-20] MEDS: FLUCONAZOLE 100 MG TAB PO SCH (10:29)
--- NOTE | 2020-12-20 10:36 | Urology Progress Note ---
Date of Service December 20, 2020 Assessment & Plan (1) Acute kidney injury: (2) UTI (urinary tract infection): (3) S/P ureteral stent placement: (4) Bilateral nephrolithiasis: Planned surgery for Mondaybilateral ureteroscopy, laser lithotripsy and stent exchange Continue antibiotics now Continue IV fluids Creatinine has increased, currently 2.5, leukocytosis persistent Believe she is doing well I don't believe we need to [place] to move up her surgery at this stage but will stick with the plan of operating on Monday Admission and Anticipated Discharge Date Admission Date: December 16, 2020 Subjective Subjectively she is actually feeling better Denies any significant flank pain or abdominal pain No hematuria Physical Exam Constitutional: well developed and well nourished Respiratory: no respiratory distress Cardiovascular: Extremities: no pedal edema Gastrointestinal (Abdomen): Inspection/Auscultation: abdomen normal to inspection Results & Data ([facility]) Vital Signs (Past 12 Hours) Vital Signs Temp Pulse Resp BP BP Pulse Ox 12/20/20 06:58 37.1 C 69 20 146/75 H 93 12/19/20 22:40 37.4 C 84 18 155/73 H 94 PG Care Time/CCT Total # of Minutes Spent Total Time Spent with Patient: Total time spent is greater than 50% in coordination of care (as documented) at patient's floor/unit and/or counseling patient: Coding Level of Care Code 08859 Subseq Hosp Care Lvl 3 Diagnoses Acute kidney injury N17.9 UTI (urinary tract infection) N30.01 Hematuria presence: with hematuria Urinary tract infection type: acute cystitis S/P ureteral stent placement Z96.0 Bilateral nephrolithiasis N20.0 (1) UTI (urinary tract infection) Hematuria presence: with hematuria Urinary tract infection type: acute cysti tis Qualified Code(s): N30.01 - Acute cystitis with hematuria
[2020-12-20 17:14] LABS: Appearance Urine Cloudy (Clear); Bacteria Urine Automated Negative (Negative); Bilirubin Urine Negative (Negative); Blood Urine Trace (Negative); Color Urine Yellow; Epithelial Cell Urine Auto 20-30 /lpf (0-5); Glucose Urine UA Negative (Negative); Ketones Urine Negative (Negative); Leukocyte Esterase Urine 3+ (Negative); Nitrite Urine Negative (Negative); Protein Urine Trace (Negative); RBC Urine Automated 0-4 /hpf (0-4); Specific Gravity Urine 1.009 (1.000-1.030); Urobilinogen Urine Negative (Negative); WBC Urine Automated >30 /hpf (0-5); pH Urine 5.5 (4.5-7.5)
[2020-12-20] MEDS: TAMSULOSIN HCL 0.4 MG CAP PO SCH (21:30)
[2020-12-21] MEDS: HEPARIN SOD 5,000 UNIT/0.5 ML VIAL SQ SCH ×3 (06:10→23:02)
[2020-12-21] MEDS: LEVOTHYROXINE SODIUM 200 MCG TABLET PO SCH (06:11)
[2020-12-21] MEDS: LEVOTHYROXINE SODIUM 25 MCG TABLET PO SCH (06:11)
[2020-12-21 07:08] LABS: Basophils # (auto) 0.03 K/uL (0-0.2); Basophils % (auto) 0.2 %; Eosinophils # (auto) 0.46 K/uL (0-0.5); Eosinophils % (auto) 3.1 %; Hematocrit (blood only) 32.7 % (37-47); Hemoglobin 9.9 g/dL (12.0-16.0); Immature Granulocytes # (auto) 0.09 K/uL (0.00-0.02); Immature Granulocytes % (auto) 0.6 %; Lymphocytes # (auto) 1.48 K/uL (1.2-3.4); Mean Corpuscular Hemoglobin 26.1 pg (25-34); Mean Corpuscular Hgb Conc 30.3 g/dL (32-36); Mean Corpuscular Volume 86.3 fL (80-100); Mean Platelet Volume 9.5 fL (7.4-10.4); Monocytes # (auto) 1.21 K/uL (0.11-0.59); Monocytes % (auto) 8.2 %; Neutrophils # (auto) 11.57 K/uL (1.4-6.5); Neutrophils % (auto) 77.9 %; Platelet Count 451 K/uL (130-400); RDW Coefficient of Variation 16.4 % (11.5-14.5); RDW Standard Deviation 52.4 fL (36.4-46.3); Red Blood Count 3.79 M/uL (4.2-5.4); White Blood Count 14.84 K/uL (4.8-10.8)
[2020-12-21 07:39] LABS: Albumin Level 2.1 gm/dl (3.4-5.0); BUN Creatinine Ratio 10.9 (10-20); Creatinine Clr Calc Pharmacy 36.7 ml/min; Est GFR (African American) 22.4 ml/min; Est GFR (Non-African American) 19.4 ml/min
[2020-12-21 07:42] LABS: Albumin Globulin Ratio 0.4 (0.9-2); Bilirubin,Total 0.2 mg/dl (0.2-1); Total Protein 8.1 gm/dl (6.4-8.2)
--- NOTE | 2020-12-21 08:47 | Urology Progress Note ---
Date of Service December 21, 2020 Assessment & Plan (1) Acute kidney injury: (2) UTI (urinary tract infection): (3) S/P ureteral stent placement: (4) Bilateral nephrolithiasis: 65 year-old female patient who is s/p recent bilateral stent placement for obstructing stones, admitted with UTI and REINA. - Patient is status post cystoscopy, bilateral ureteral stent placement with Dr. Dias on 11/21/20. - She remains afebrile. - Labs reviewed - Leukocytosis persistent and creatinine 2.53 today (previously 2.51). - Repeat urine culture pending, blood cultures with no growth. - Renal ultrasound this morning with moderate right and mild left hydroureteronephrosis and left nephrolithiasis. - Voiding without difficulty. - Will plan to proceed to OR tomorrow for cystoscopy, bilateral ureteroscopy, with stone treatment, and stent exchange with Dr. Dias given there are no acute changes in patient status. - NPO at midnight for procedure tomorrow. - Continue supportive and antibiotic therapy per ID recommendations. - Will continue to follow. Admission and Anticipated Discharge Date Admission Date: December 16, 2020 Subjective Pt examined at bedside this AM. Awake, sitting up in bed on arrival. She denies back, flank, and suprapubic pain at this time. She does report some suprapubic discomfort with a full bladder, which resolves after voiding. Voiding without difficulty. Feels she is emptying her bladder. No hematuria or dysuria. Some nausea due to smells. No vomiting. Decreased appetite. Offers no additional complaints at this time. Chart review: Afebrile Wbc 14.84, Hgb 9.9, Cr 2.53 Repeat urine culture pending Blood cultures no growth Continues on Ceftriaxone and fluconazole. On tamsulosin. Urine output overnight- 275ml Renal ultrasound: IMPRESSION: 1. Moderate right and mild left hydroureteronephrosis redemonstrated. 2. Left nephrolithiasis. Review of Systems Constitutional: as per Subjective / HPI Gastrointestinal: as per Subjective / HPI Genitourinary: as per Subjective / HPI Physical Exam Constitutional: well developed and well nourished; no acute distress Respiratory: no labored breathing and no audible wheezes Gastrointestinal (Abdomen): Percussion/Palpation: abdomen soft; abdomen nontender and no guarding Musculoskeletal: Head/Neck/Chest: normocephalic Skin: No visible rashes or lesions. Neurologic: moves all extremities and awake Psychiatric: A+Ox3, euthymic affect Genitourinary: no CVA tenderness Results & Data ([facility]) Vital Signs (Past 12 Hours) Vital Signs Temp Pulse Resp BP Pulse Ox 12/21/20 07:57 37.2 C 74 20 167/79 H 95 12/20/20 22:35 37.3 C 84 20 168/76 H 94 PG Care Time/CCT Total # of Minutes Spent Total Time Spent with Patient: Total time spent is greater than 50% in coordination of care (as documented) at patient's floor/unit and/or counseling patient: Coding Level of Care Code 40240 Subseq Hosp Care Lvl 2 Diagnoses Acute kidney injury N17.9 UTI (urinary tract infection) N30.01 Hematuria presence: with hematuria Urinary tract infection type: acute cystitis S/P ureteral stent placement Z96.0 Bilateral nephrolithiasis N20.0 (1) UTI (urinary tract infection) Hematuria presence: with hematuria Urinary tract infection type: acute cystitis Qualified Code(s): N30.01 - Acute cystitis with hematuria
[2020-12-21] MEDS: amLODIPine BESYLATE 5 MG TAB PO SCH (09:08)
[2020-12-21] MEDS: cefTRIAXone SODIUM 2,000 MG in DEXTROSE 5% 50 ML IV SCH (09:09)
[2020-12-21] MEDS: ACETAMINOPHEN 325 MG TAB PO PRN ×3 (09:09→21:45)
[2020-12-21] MEDS: INSULIN ASPART 100 UNITS/ML 3 ML PEN SC SCH ×4 (09:11→21:45)
[2020-12-21] MEDS: POLYETHYLENE (MIRALAX) 17 GM PACK PO SCH (09:13)
[2020-12-21] MEDS: DOCUSATE SODIUM 100 MG CAP PO SCH ×2 (09:13→23:01)
--- NOTE | 2020-12-21 09:34 | Ultrasound Report ---
US renal/blad retro comp HISTORY: 65 years-old Female eval for renal abscess, re-eval hydro follow up study in a patient with recent bilateral hydronephrosis COMPARISON: [facility] 12/19/2020, CT abdomen and pelvis 12/14/2020 TECHNIQUE: Multiple real-time sonographic images of the kidneys and urinary bladder were obtained ass essing grayscale appearance and color flow FINDINGS: Limited exam secondary to patient body habitus. The right kidney measures 12.1 cm in length. There is moderate right-sided hydroureteronephrosis rede monstrated. No right-sided renal calculi identified. The left kidney measures 11.7 cm in length and demonstrates mild hydronephrosis which is similar to c omparison CT. 3.3 x 2.8 x 1.3 cm calculus of the inferior pole left kidney. Cyst of the interpolar le ft kidney measures 6.9 x 5.4 x 5.2 cm. No perinephric fluid collections. Partial distention of the urinary bladder with wall thickening. Bilateral ureteral stents are better characterized on comparison KUB. Ureteral jets not visualized. IMPRESSION: 1. Moderate right and mild left hydroureteronephrosis redemonstrated. 2. Left nephrolithiasis. ACT 112: Negative or not required by law. The above report was generated using voice recognition software. It may contain grammatical, syntax o r spelling errors. Electronically signed by: Adonis Reyes M.D. 12/21/2020 9:32 AM
--- NOTE | 2020-12-21 10:24 | Hospitalist Progress Note ---
Date of Service December 21, 2020 Assessment & Plan (1) UTI (urinary tract infection): s/p Cystoscopy, Bilateral Ureteral Stent Insertion(Bilateral) - Tj Dias MD on 11/21 Symptoms for 13-14 days prior to admission. Saw PCP three times but thought to be related to COVID vaccination x 2. Continued to have dysuria, fever, chills, back pain, nausea. 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 Bilateral ureteral stents. (Does note large cystic lesion within left renal cortex is not significantly changed since November 20, 2020 exam. Urine culture with amy albicans and gamma strep ID consulted - recommends continued IV ceftriaxone and Diflucan x14 days and if stents removed then convert to p.o. cephalexin - likely infected stone and will remain until treated Urology consult - Planned surgery for tomorrow bilateral ureteroscopy, laser lithotripsy and stent exchange [12/14] NGTD [12/20] Repeat Urine cx pending Continues on Flomax Antiemetics, pain control prn Avoiding further IVF given post-obstructive picture and pitting edema Renal US - Moderate right and mild left hydroureteronephrosis redemonstrated. (2) S/P ureteral stent placement: See above (3) Bilateral nephrolithiasis: See above (4) Diabetes mellitus: Hold Trulicity and Metformin while inpatient -- recently started during last admission for A1c 10.6 * She states she has been checking sugars at home and recently AM sugar 118 * ISS while inpatient * BSGs acceptable * As stone treatment wanting to wait for Monday, may need to consider SSI short term while awaiting intervention/treatment as would hold Metformin at discharge given kidney function and watch sugars/diet closely. Could still consider continuing Trulicity in the meantime (5) Hypothyroidism: Continue levothyroxine 225cg daily Last TSH [10/2020] wnl 1.430 (6) Acute kidney injury: * Secondary to UTI/stone * Improved from yesterday after placement of Soto catheter, but still elevated and worsened today * --> Pt avoiding soto due to discomfort at this time but may need to reconsider * IVF d/c due to congestion/post-obstructive REINA * BMP in AM * hydronephrosis stable per renal US (7) Fibromyalgia: * Chronic. No acute needs (8) Staghorn calculus: * noted (9) HTN (hypertension): * ECHO w LVH/diastolic grade I and 2+ edema, IVF discontinued due to post-obs REINA * -- Started on amlodipine and increased --> BPs better today 146/75 -- will switch to diuretic at discharge as likely BP up from IV fluids and amlodipine contributing towards pitting edema * Continue to monitor (10) Nausea & vomiting: Nausea today but no vomiting * zofran prn, can add Phenergan if needed DVT Prophylaxis * Heparin SQ -- patient has been refusing -- highly encouraged * add on JOHN celeste Dispo: continued inpatient stay Admission and Anticipated Discharge Date Admission Date: December 16, 2020 Subjective No fevers, chills. Back pain much improved but still having b/l CVA tenderness, severity 0/10 without palpation, 3/10 on palpation. No radiation. Aching pain. No dysuria. Review of Systems Review of Systems: All systems reviewed & are unremarkable except as noted in HPI & below Physical Exam Constitutional: WD/WN, vitals as above + morbidly obese Eyes: + anicteric sclerae; normal pupil size Respiratory: normal respiratory effort, lungs clear to auscultation Cardiovascular: Rate/Rhythm: regular rate and regular rhythm Heart Sounds: no murmur Extremities: + pedal edema (pitting 1+ b/l pretibial) Gastrointestinal (Abdomen): normal bowel sounds, soft, nontender, no hepatosplenomegaly Musculoskeletal: no cyanosis or clubbing, extremities motor strength 5/5 Skin: no rashes, warm and dry Neurologic: moves all extremities and awake; not confused Psychiatric: A+Ox3, euthymic affect Genitourinary: + CVA tenderness (b/l) Results & Data Results & Data ([facility]) Vital Signs (Past 12 Hours) Vital Signs Temp Pulse Resp BP Pulse Ox 12/21/20 07:57 37.2 C 74 20 167/79 H 95 12/20/20 22:35 37.3 C 84 20 168/76 H 94 PG Care Time/CCT Total # of Minutes Spent Total Time Spent with Patient: Total time spent is greater than 50% in coordination of care (as documented) at patient's floor/unit and/or counseling patient: Coding Level of Care Code 96347 Subseq Hosp Care Lvl 2 Diagnoses UTI (urinary tract infection) N30.01 Hematuria presence: with hematuria Urinary tract infection type: acute cystitis S/P ureteral stent placement Z96.0 Bilateral nephrolithiasis N20.0 Diabetes mellitus E11.9 Hypothyroidism E03.9 Acute kidney injury N17.9 Fibromyalgia M79.7 Staghorn calculus N20.0 HTN (hypertension) I10 Nausea & vomiting R11.2 (1) UTI (urinary tract infection) Hematuria presence: with hematuria Urinary tract infection type: acute cystitis Qualified Code(s): N30.01 - Acute cystitis with hematuria
[2020-12-21] MEDS: FLUCONAZOLE 100 MG TAB PO SCH (11:43)
[2020-12-21] MEDS: TAMSULOSIN HCL 0.4 MG CAP PO SCH (21:46)
[2020-12-22] MEDS: ACETAMINOPHEN 325 MG TAB PO PRN ×4 (03:54→21:35)
[2020-12-22] MEDS: HEPARIN SOD 5,000 UNIT/0.5 ML VIAL SQ SCH ×3 (05:23→22:34)
[2020-12-22] MEDS ORDERED: CIPROFLOXACIN / D5W 400 MG/200 ML BAG IV SCH (06:00)
[2020-12-22] MEDS: LEVOTHYROXINE SODIUM 25 MCG TABLET PO SCH ×2 (06:04→11:43)
[2020-12-22] MEDS: LEVOTHYROXINE SODIUM 200 MCG TABLET PO SCH (06:04)
[2020-12-22] MEDS ORDERED: CIPROFLOXACIN 400MG / 200ML D5W IV ONE (07:06)
--- NOTE | 2020-12-22 07:22 | Urology Progress Note ---
Date of Service December 22, 2020 Assessment & Plan (1) Bilateral nephrolithiasis: plan for stone treatment today - hope to leave her stone free and possibly stent free on the right and treat as much of the left sided stone as possible -risks, benefits, and alternatives discussed Admission and Anticipated Discharge Date Admission Date: December 16, 2020 Subjective no major changes substantial stone burden on the left Physical Exam Constitutional: well developed and well nourished Neck: neck nontender Respiratory: normal respiratory effort; no respiratory distress and does not use accessory muscles Cardiovascular: Rate/Rhythm: regular rate Vessels: radial pulses present Extremities: no edema Gastrointestinal (Abdomen): Inspection/Auscultation: abdomen normal to inspection Percussion/Palpation: abdomen soft; abdomen nontender and no gua rding Musculoskeletal: Head/Neck/Chest: normocephalic and head atraumatic Extremities: extremities normal to inspection Skin: no rashes and no lesions Trauma: no evidence of skin trauma Neurologic: awake; not obtunded Speech / Cognition: normal speech Motor/Sensory: no tremor Psychiatric: Orientation: alert and oriented x 3 Lymphatic: no lymphadenopathy Results & Data ([facility]) Vital Signs (Past 12 Hours) Vital Signs Temp Pulse Resp BP Pulse Ox 12/22/20 06:39 37.0 C 69 22 157/81 H 96 12/22/20 06:00 36.5 C 78 20 174/85 H 95 12/21/20 22:45 37.1 C 84 24 161/74 H 92 12/21/20 21:43 37.5 C PG Care Time/CCT Total # of Minutes Spent Total Time Spent with Patient: Total time spent is greater than 50% in coordination of care (as documented) at patient's floor/unit and/or counseling patient: Coding Level of Care Code 58514 Subseq Hosp Care Lvl 2 Diagnoses Bilateral nephrolithiasis N20.0
--- NOTE | 2020-12-22 07:39 | Anesthesiology Consultation ---
Date of Service December 22, 2020 Assessment & Plan Chart Review Chart Review: Acceptable Risk for Surgery and Patient NOT seen in Pre Admission Testing Consults Requested none ASA ASA4 Proposed Anesthesia Anesthesia Type: General Risk / Benefits Reviewed With: PT / POA / Parent / Guardian, Accepts Plan and Informed Consent Obtained History Surgery Operation Date: 12/22/20 07:30 Proposed Procedures p Cystoscopy, Ureternephroscopy, Retrograde Pyelogram with POssible Ureteral Dilation, Laser Destruction or Extraction of the Stone, Insertion or Exchange Stent Catheter Bilateral - Nick Dias MD Height/Weight Height: 5 ft 6 in Weight: 169.512 kg Allergies Allergy/AdvReac Type Severity Reaction Status Date / Time morphine Allergy Severe WHOLE BODY Verified 12/14/20 20:27 HOT,SOB,CHEST PAIN adhesive Allergy Intermediate SOME Verified 12/14/20 20:27 TAPE-RED BLISTERS doxycycline Allergy Intermediate RASH Verified 12/14/20 20:27 latex Allergy Intermediate RASH, RED Verified 12/14/20 20:27 BLISTERS Penicillins Allergy Mild rash Verified 12/14/20 20:27 Medications Home Medications Medication Instructions Recorded Confirmed Last Taken acetaminophen 650 mg 650 mg PO DIRECTED PRN 11/13/19 12/14/20 Unknown tablet,extended release levothyroxine 200 mcg tablet 200 mcg PO DAILY 11/13/19 12/14/20 12/14/20 levothyroxine 25 mcg tablet 25 mcg PO DAILY #30 tab 12/17/19 12/14/20 12/14/20 blood sugar diagnostic [OneTouch #100 ea 11/23/20 Unknown Verio test strips] lancets [OneTouch Delica Lancets] #100 ea 11/23/20 Unknown metformin 500 mg PO BID #60 tab 11/23/20 12/14/20 12/14/20 08:00 tamsulosin 0.4 mg PO HS #30 cap 11/23/20 12/14/20 12/13/20 dulaglutide [Trulicity] 0.75 mg SUBCUT WK PRN 12/14/20 12/14/20 Unknown ondansetron HCl 4 mg PO Q8H PRN 12/14/20 12/14/20 Unknown Active Medications Generic Name Dose Route Start Last Admin Trade Name Freq PRN Reason Stop Dose Admin Acetaminophen 650 mg 12/15/20 00:07 12/22/20 03:54 Acetaminophen 325 Mg Tab PO 01/14/21 00:06 650 mg Q4H PRN Administration pain/fever Amlodipine Besylate 7.5 mg 12/19/20 09:00 12/21/20 09:08 Amlodipine Besylate 5 Mg Tab PO 01/18/21 08:59 7.5 mg QAM VALERY Administration Docusate Sodium 100 mg 12/19/20 09:00 12/21/20 23:01 Docusate Sodium 100 Mg Cap PO 01/18/21 08:59 Not Given BID VALERY Fluconazole 200 mg 12/17/20 11:00 12/21/20 11:43 Fluconazole 100 Mg Tab PO 12/27/20 10:59 200 mg Q24H VALERY Administration Protocol Heparin Sodium (Porcine) 7,500 units 12/15/20 06:00 12/22/20 05:23 Heparin Sod 5,000 Unit/0.5 Ml Vial SQ 01/14/21 05:59 Not Given Q8 VALERY Ceftriaxone Sodium 2,000 mg/ 70 mls @ 140 mls/hr 12/19/20 09:00 12/21/20 09:39 Dextrose IV 12/29/20 08:59 Infused QAM [facility] Infusion Insulin Aspart 0 units 12/19/20 07:30 12/21/20 21:45 Insulin Aspart 100 Units/Ml 3 Ml Pen SC 01/18/21 07:29 1 units ACHS VALERY Administration Levothyroxine Sodium 25 mcg 12/15/20 06:30 12/22/20 06:04 Levothyroxine Sodium 25 Mcg Tablet PO 01/14/21 06:29 Not Given DAILYBB [facility] Levothyroxine Sodium 200 mcg 12/15/20 06:30 12/22/20 06:04 Levothyroxine Sodium 200 Mcg Tablet PO 01/14/21 06:29 Not Given DAILYBB [facility] Ondansetron HCl 4 mg 12/15/20 00:07 12/19/20 11:47 Ondansetron Inj 2 Mg/Ml 2 Ml Vial IV 01/14/21 00:06 4 mg Q6H PRN Administration Nausea Polyethylene Glycol 17 gm 12/19/20 09:00 12/21/20 09:13 Polyethylene (Miralax) 17 Gm Pack PO 01/18/21 08:59 Not Given DAILY VALERY Tamsulosin HCl 0.4 mg 12/15/20 21:00 12/21/20 21:46 Tamsulosin Hcl 0.4 Mg Cap PO 01/14/21 20:59 0.4 mg HS VALERY Administration Tramadol HCl 50 mg 12/16/20 17:45 12/17/20 13:18 Tramadol Hcl 50 Mg Tablet PO 01/15/21 17:44 50 mg Q4H PRN Administration Pain NPO Date Last Intake of Fluids: 12/21/20 Time Last Intake of Fluids: 23:30 Date Last Intake of Solids: 12/21/20 Time Last Intake of Solids: 18:00 Past Medical History Medical History Adjustment reaction with anxiety and depression Dietary counseling and surveillance Elevated blood-pressure reading, without diagnosis of hypertension Fatigue Fibromyalgia HTN (hypertension) Hypothyroidism Morbid obesity Obesity Osteoarthritis Recurrent UTI (urinary tract infection) Exercise / Class Metabolic Activity III < 4 Walking/Shop/Light housework Past Family History Family History Mother , MVA, age 72 Osteoarthritis Fibromyalgia Hypothyroidism (acquired) Obesity Father , age 91 Lymphoma Sister Fibromyalgia Osteoarthritis Autoimmune disease Brother Osteoarthritis Past Surgical History Surgical History History of bilateral oophorectomy History of cholecystectomy History of tonsillectomy History of total left hip arthroplasty History of total right hip arthroplasty S/P endometrial ablation Past Anesthesia History No Hx of Anesthesia Complications and No Family Hx of Anesthesia Complications History of PONV No Hx of PONV and No Hx of Motion Sickness Social History Smoking Status: Former smoker Hx Alcohol Use: No Hx Substance Use: No substance use type: does not use Physical Exam Vital Signs Last Vital Signs Temp 37.0 C 12/22/20 06:39 Pulse 69 12/22/20 06:39 Resp 22 12/22/20 06:39 BP 157/81 H 12/22/20 06:39 Pulse Ox 96 12/22/20 06:39 Constitutional + morbidly obese ENMT Mouth: no dentition abnormality Thyromental Distance: < 3.5 Finger Breadths Mallampati Class: II Neck normal visual inspection, trachea midline, + short neck and + thick neck; neck extension not limited Respiratory normal respiratory effort Auscultation: lungs clear to auscultation bilaterally and + diminished lung sounds Cardiovascular Rate/Rhythm: regular rate and regular rhythm Heart Sounds: no murmur Vessels: no carotid bruit Musculoskeletal Spine: normal cervical ROM Extremities: extremities normal to inspection Neurologic moves all extremities Motor/Sensory: no sensory deficit Psychiatric Orientation: alert and oriented x 3 Testing Laboratory Results 12/21/20 06:38 12/21/20 06:38 PT 10.6 Seconds (9.0-12.0) 12/18/20 07:56 INR 1.0 (0.9-1.1) 12/18/20 07:56 Urine Color Yellow 12/20/20 16:55 Urine Appearance Cloudy (Clear) A 12/20/20 16:55 Urine pH 5.5 (4.5-7.5) 12/20/20 16:55 Ur Specific [place] 1.009 (1.000-1.030) 12/20/20 16:55 Urine Protein Trace (Negative) H 12/20/20 16:55 Urine Glucose (UA) Negative (Negative) 12/20/20 16:55 Urine Ketones Negative (Negative) 12/20/20 16:55 Urine Nitrite Negative (Negative) 12/20/20 16:55 Ur Leukocyte Esterase 3+ (Negative) H 12/20/20 16:55 Urine WBC (Auto) >30 /hpf (0-5) H 12/20/20 16:55 Urine RBC (Auto) 0-4 /hpf (0-4) 12/20/20 16:55 U Hyaline Cast (Auto) 1-5 /lpf (0-5) 12/20/20 16:55 U Epithel Cells (Auto) 20-30 /lpf (0-5) H 12/20/20 16:55 Urine Bacteria (Auto) Negative (Negative) 12/20/20 16:55 12/20/20 16:55 Urine Culture - Final Urine,Clean Catch Three types or organisms present, all moderate counts probable skin sivakumar. No further identifications or sensitivities to follow. 12/14/20 20:15 Aerobic Blood Culture - Final Blood No growth in Aerobic bottle after 5 days. Anaerobic Blood Culture - Final No growth in Anaerobic bottle after 5 days. 12/14/20 20:15 Aerobic Blood Culture - Final Blood No growth in Aerobic bottle after 5 days. Anaerobic Blood Culture - Final No growth in Anaerobic bottle after 5 days. 12/14/20 19:36 Urine Culture - Final Urine,Clean Catch Three types of organisms present, all high counts. Repeat collection recommended. No further identifications or sensitivities to follow. 12/21/20 20:59 POC Glucose 171 H
[2020-12-22] MEDS ORDERED: fentaNYL citrate 100 MCG/2 ML VIAL IV PRN (08:03)
[2020-12-22] MEDS ORDERED: ATROPINE SULFATE 0.1 MG/ML 10ML SYR IV PRN (08:03)
[2020-12-22] MEDS ORDERED: FLUMAZENIL 0.1 MG/1 ML 10 ML VIAL IV PRN (08:03)
[2020-12-22] MEDS ORDERED: LABETALOL HCL IV 5 MG/ML 20ML IV PRN (08:03)
[2020-12-22] MEDS ORDERED: ePHEDrine sulfate 50 MG/ML AMP IV PRN (08:03)
[2020-12-22] MEDS ORDERED: ONDANSETRON INJ 2 MG/ML 2 ML VIAL IV PRN (08:03)
[2020-12-22] MEDS ORDERED: PROMETHAZINE HCL 12.5 MG in SODIUM CHLORIDE 0.9% 50 ML IV PRN (08:03)
[2020-12-22] MEDS ORDERED: NALOXONE HCL 0.4 MG/1 ML VIAL/CARP IV PRN (08:03)
--- NOTE | 2020-12-22 09:44 | Operative Report ---
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 Upon arrival, appropriate antibiotics and anesthesia were administered and the patient was placed in dorsal lithotomy position and prepped and draped in sterile fashion. To begin the case I passed a 22 Kazakh cystoscope with 30 degree lens. Inspection revealed bilateral ureteral stents protruding from the orifices. There was some encrustation of both distal aspects. I began by grasping the distal portion of the right stent and withdrawn into the meatus. I was unable to intubate the secondary to encrustation. I reentered the bladder and passed a wire alongside the stent into the kidney. I then remove the stent. I passed a semirigid ureteroscope into the right distal ureter and advanced it maximally. There is no stone identified. There was minimal inflammation but some dilation of the ureter. I elected to withdraw the scope and wire. My plan will be to leave that side unstented. I then turned my attention of the left side. I grasped the distal aspect of the left stent withdrew to the meatus. I was able to intubate that stent with a sensor wire and advanced into the kidney. After removing the stent, I utilized a 10 Kazakh double-lumen catheter to advance a second wire into the kidney. I then placed a ureteral access sheath to the UPJ. A flexible ureteroscope was passed into the kidney where I immediately encountered numerous very large stones. These seem to be protruding from the lower pole. Utilizing a 350 m laser fiber I began fragmenting stones. I work for 1 hour and felt that I treated the majority of the stone although there still is a substantial amount of stone within the lower pole. I attempted to irrigate as much of the debris out of the kidney as possible, but she will certainly require second stage surgery. I completed the case after performing a careful exit ureteroscopy and placing a 6 Kazakh by 24 cm double-J ureteral stent. There was a good curl in the kidney and the bladder. The case was concluded, she was extubated and taken the PACU in stable condition. I attest to the content of the Intraoperative Record and any orders documented therein. Any exceptions are noted below.
--- NOTE | 2020-12-22 10:03 | Anesthesiology Progress Note ---
Date of Service December 22, 2020 Anesthesia Post Procedure Vital Signs Vital Signs: Temp Pulse Pulse Resp BP BP Pulse Ox 12/22/20 09:55 63 24 159/83 H 98 12/22/20 09:45 74 26 H 174/84 H 96 12/22/20 09:35 77 30 H 168/85 H 93 12/22/20 09:29 36.2 C L 81 22 180/82 H 91 12/22/20 06:39 37.0 C 69 22 157/81 H 96 12/22/20 06:00 36.5 C 78 20 174/85 H 95 12/21/20 22:45 37.1 C 84 24 161/74 H 92 12/21/20 21:43 37.5 C 12/21/20 16:11 37.2 C 76 18 161/98 H 95 Pain Intensity Back: Pain Intensity: 6 Pelvic: Pain Intensity: 6 Transfer of Care Handoff Completed per policy Notes Mental Status: alert / awake / arousable Patient Amnestic to Procedure: Yes Nausea / Vomiting: adequately controlled Pain: adequately controlled Airway Patency, RR, SpO2: stable & adequate BP & HR: stable & adequate Hydration State: stable & adequate Anesthetic Complications: no major complications apparent
[2020-12-22] MEDS: amLODIPine BESYLATE 5 MG TAB PO SCH (11:43)
[2020-12-22] MEDS: DOCUSATE SODIUM 100 MG CAP PO SCH ×3 (11:45→22:33)
[2020-12-22] MEDS: FLUCONAZOLE 100 MG TAB PO SCH (11:45)
[2020-12-22] MEDS: POLYETHYLENE (MIRALAX) 17 GM PACK PO SCH (11:45)
[2020-12-22] MEDS: INSULIN ASPART 100 UNITS/ML 3 ML PEN SC SCH ×4 (11:54→21:30)
[2020-12-22 11:59] LABS: BUN Creatinine Ratio 12.6 (10-20); Calcium 9.5 mg/dl (8.5-10.1); Creatinine Clr Calc Pharmacy 39.6 ml/min; Est GFR (African American) 24.7 ml/min; Est GFR (Non-African American) 21.3 ml/min; Potassium 4.6 mmol/L (3.5-5.1)
[2020-12-22] MEDS: cefTRIAXone SODIUM 2,000 MG in DEXTROSE 5% 50 ML IV SCH (12:03)
--- NOTE | 2020-12-22 19:27 | Hospitalist Progress Note ---
Date of Service December 22, 2020 Assessment & Plan (1) UTI (urinary tract infection): s/p Cystoscopy, Bilateral Ureteral Stent Insertion(Bilateral) - Tj Dias MD on 11/21 Symptoms for 13-14 days prior to admission. Saw PCP three times but thought to be related to COVID vaccination x 2. Continued to have dysuria, fever, chills, back pain, nausea. 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 Bilateral ureteral stents. (Does note large cystic lesion within left renal cortex is not significantly changed since November 20, 2020 exam. Urine culture with amy albicans and gamma strep ID consulted - recommends continued IV ceftriaxone and Diflucan x14 days and if stents removed then convert to p.o. cephalexin - will need to clarify on discharge if stent exchange is still ok to switch to PO antibiotics. - likely infected stone and will remain until treated Urology consult - s/p bilateral ureteroscopy, laser lithotripsy, right stent removal and left stent exchange [12/22] [12/14] NGTD [12/20] Repeat Urine cx three types of organisms present Continues on Flomax Antiemetics, pain control prn Avoiding further IVF given post-obstructive picture and pitting edema Renal US - Moderate right and mild left hydroureteronephrosis redemonstrated. (2) S/P ureteral stent placement: See above (3) Bilateral nephrolithiasis: See above (4) Diabetes mellitus: Hold Trulicity and Metformin while inpatient -- recently started during last admission for A1c 10.6, note never started Trulicity as BSG values low enough with metformin. Consider lower metformin dose on discharge given side effect of diarrhea. * She states she has been checking sugars at home and recently AM sugar 118 * ISS while inpatient * BSGs acceptable * As stone treatment wanting to wait for Monday, may need to consider SSI short term while awaiting intervention/treatment as would hold Metformin at discharge given kidney function and watch sugars/diet closely. Could still consider continuing Trulicity in the meantime (5) Hypothyroidism: Continue levothyroxine 225cg daily Last TSH [10/2020] wnl 1.430 (6) Acute kidney injury: * Secondary to UTI/stone * Improving * --> Pt avoiding soto due to discomfort at this time but may need to reconsider * IVF d/c due to congestion/post-obstructive REINA * BMP in AM * hydronephrosis stable per renal US (7) Fibromyalgia: * Chronic. No acute needs (8) Staghorn calculus: * noted (9) HTN (hypertension): * ECHO w LVH/diastolic grade I and 2+ edema, IVF discontinued due to post-obs REINA * -- Started on amlodipine and increased --> BPs better today 146/75 -- will switch to diuretic at discharge as likely BP up from IV fluids and amlodipine contributing towards pitting edema * Continue to monitor (10) Nausea & vomiting: Nausea today but no vomiting * zofran prn, can add Phenergan if needed DVT Prophylaxis * Heparin SQ -- patient has been refusing -- highly encouraged * add on JOHN celeste Dispo: continued inpatient stay Admission and Anticipated Discharge Date Admission Date: December 16, 2020 Subjective Doing well post operatively. No fever or chills. Back pain improved. Still with some lower abdominal discomfort. No nausea or vomiting. Review of Systems Review of Systems: All systems reviewed & are unremarkable except as noted in HPI & below Physical Exam Constitutional: WD/WN, vitals as above + morbidly obese Eyes: + anicteric sclerae; normal pupil size Respiratory: normal respiratory effort, lungs clear to auscultation Cardiovascular: Rate/Rhythm: regular rate and regular rhythm Heart Sounds: no murmur Extremities: + pedal edema (pitting 1+ b/l pretibial) Gastrointestinal (Abdomen): Inspection/Auscultation: abdomen normal to inspection and normal bowel sounds Percussion/Palpation: + abdomen tender (mild) and abdomen soft; no guarding and abdomen not rigid Musculoskeletal: no cyanosis or clubbing, extremities motor strength 5/5 Neurologic: moves all extremities and awake; not confused Psychiatric: A+Ox3, euthymic affect Genitourinary: + CVA tenderness (b/l) Results & Data Results & Data ([facility]) Vital Signs (Past 12 Hours) Vital Signs Temp Pulse Pulse Resp BP Pulse Ox 12/22/20 13:25 36.8 C 72 18 144/62 H 90 12/22/20 11:17 36.7 C 73 16 149/76 H 12/22/20 10:51 36.5 C 68 16 166/78 H 94 12/22/20 10:36 36.8 C 69 18 152/84 H 97 12/22/20 10:05 36.5 C 63 24 159/79 H 93 12/22/20 09:55 63 24 159/83 H 98 12/22/20 09:45 74 26 H 174/84 H 96 12/22/20 09:35 77 30 H 168/85 H 93 12/22/20 09:29 36.2 C L 81 22 180/82 H 91 PG Care Time/CCT Total # of Minutes Spent Total Time Spent with Patient: Total time spent is greater than 50% in coordination of care (as documented) at patient's floor/unit and/or counseling patient: Coding Level of Care Code 81070 Subseq Hosp Care Lvl 2 Diagnoses UTI (urinary tract infection) N30.01 Hematuria presence: with hematuria Urinary tract infection type: acute cystitis S/P ureteral stent placement Z96.0 Bilateral nephrolithiasis N20.0 Diabetes mellitus E11.9 Hypothyroidism E03.9 Acute kidney injury N17.9 Fibromyalgia M79.7 Staghorn calculus N20.0 HTN (hypertension) I10 Nausea & vomiting R11.2 (1) UTI (urinary tract infection) Hematuria presence: with hematuria Urinary tract infection type: acute cystitis Qualified Code(s): N30.01 - Acute cystitis with hematuria
[2020-12-22] MEDS: TAMSULOSIN HCL 0.4 MG CAP PO SCH (21:29)
[2020-12-23] MEDS: LEVOTHYROXINE SODIUM 200 MCG TABLET PO SCH (05:39)
[2020-12-23] MEDS: LEVOTHYROXINE SODIUM 25 MCG TABLET PO SCH (05:41)
[2020-12-23] MEDS: HEPARIN SOD 5,000 UNIT/0.5 ML VIAL SQ SCH ×2 (05:42→14:12)
--- NOTE | 2020-12-23 08:38 | Urology Progress Note ---
Date of Service December 23, 2020 Assessment & Plan (1) Acute kidney injury: (2) UTI (urinary tract infection): (3) Bilateral nephrolithiasis: (4) S/P ureteral stent placement: 65 year old female POD #1 s/p Cystoscopy, Bilateral URS, Right Stent Removal, Left Laser Destruction of stones, Left Stent Exchange with Dr. Dias. - Doing well, progressing as expected - Tolerating left ureteral stent with minimal bother - Afebrile, creatinine 2.34 on 12/22, no new lab work at time of exam today - Okay to d/c from perspective when medically stable - Recommend d/c with Tamsulosin, prn Pyridium, and prn pain management - Continue supportive care and antibiotics per ID - Expected clinical course reviewed, all questions answered - Discussed plan for another procedure to treat her left sided stones in a few weeks - Will arrange outpatient follow-up with our service to discuss definitive stone management Thank you for allowing us to participate in the acute care of Mrs. Mcintyre. Please reconsult us with additional questions, concerns or changes in patient status. Admission and Anticipated Discharge Date Admission Date: December 16, 2020 Subjective 65 yo F POD #1 s/p Cystoscopy, Bilateral URS, Right Stent Removal, Left Laser Destruction of stones, Left Stent Exchange with Dr. Dias. Patient awake and sitting up in bed Reports feeling very well this AM, much improved today Offers no complaints at present Denies abdominal or flank pain Voiding without difficulty No f/c/n/v No additional concerns today. Chart review: Afebrile, no new lab work at time of visit. Final UC&S - Three types or organisms present, all moderate counts probable skin sivakumar. BCx NGTD. On IV Ceftriaxone and Fluconazole. Review of Systems Constitutional: as per Subjective / HPI Gastrointestinal: as per Subjective / HPI Genitourinary: as per Subjective / HPI Physical Exam Constitutional: well developed and well nourished; no acute distress and not ill appearing Respiratory: normal respiratory effort; no respiratory distress and no labored breathing Gastrointestinal (Abdomen): Inspection/Auscultation: abdomen normal to inspection; abdomen not distended Musculoskeletal: Head/Neck/Chest: normocephalic and head atraumatic Skin: no rashes, warm and dry Neurologic: moves all extremities and awake Psychiatric: Orientation: alert and oriented x 3 Results & Data ([facility]) Vital Signs (Past 12 Hours) Vital Signs Temp Pulse Resp BP BP Pulse Ox 12/23/20 06:38 36.5 C 65 20 152/96 H 97 12/23/20 04:07 36.6 C 71 20 157/80 H 96 12/22/20 23:10 36.6 C 59 L 20 135/75 94 (1) UTI (urinary tract infection) Hematuria presence: with hematuria Urinary tract infection type: acute cystitis Qualified Code(s): N30.01 - Acute cystitis with hematuria
--- NOTE | 2020-12-23 08:53 | Hospitalist Progress Note ---
Date of Service December 23, 2020 Assessment & Plan Admission and Anticipated Discharge Date Admission Date: December 16, 2020 Results & Data Results & Data ([facility]) Vital Signs (Past 12 Hours) Vital Signs Temp Pulse Resp BP BP Pulse Ox 12/23/20 06:38 36.5 C 65 20 152/96 H 97 12/23/20 04:07 36.6 C 71 20 157/80 H 96 12/22/20 23:10 36.6 C 59 L 20 135/75 94 Laboratory Results 12/23/20 12/22/20 12/22/20 Range/Units 08:11 20:44 17:08 Sodium (136-145) mmol/L Potassium (3.5-5.1) mmol/L Chloride (98-107) mmol/L Carbon Dioxide (21-32) mmol/L Anion Gap (3-11) BUN (7-18) mg/dl Creatinine (0.6-1.2) mg/dl Est Cr Clr Drug Dosing ml/min Est GFR ( Amer) ml/min Est GFR (Non-Af Amer) ml/min BUN/Creatinine Ratio (10-20) Glucose (70-99) mg/dl POC Glucose 176 H 244 H 251 H (70-99) mg/dl Calcium (8.5-10.1) mg/dl 12/22/20 12/22/20 12/22/20 Range/Units 12:17 10:46 09:32 Sodium 140 (136-145) mmol/L Potassium 4.6 (3.5-5.1) mmol/L Chloride 110 H (98-107) mmol/L Carbon Dioxide 24 (21-32) mmol/L Anion Gap 6.0 (3-11) BUN 30 H (7-18) mg/dl Creatinine 2.34 H (0.6-1.2) mg/dl Est Cr Clr Drug Dosing 39.6 ml/min Est GFR ( Amer) 24.7 ml/min Est GFR (Non-Af Amer) 21.3 ml/min BUN/Creatinine Ratio 12.6 (10-20) Glucose 183 H (70-99) mg/dl POC Glucose 206 H 157 H (70-99) mg/dl Calcium 9.5 D (8.5-10.1) mg/dl PG Care Time/CCT Total # of Minutes Spent Total Time Spent with Patient: Total time spent is greater than 50% in coordination of care (as documented) at patient's floor/unit and/or counseling patient: Coding
[2020-12-23] MEDS: cefTRIAXone SODIUM 2,000 MG in DEXTROSE 5% 50 ML IV SCH (08:56)
[2020-12-23] MEDS: amLODIPine BESYLATE 5 MG TAB PO SCH (08:58)
[2020-12-23] MEDS: ACETAMINOPHEN 325 MG TAB PO PRN (08:59)
[2020-12-23] MEDS: POLYETHYLENE (MIRALAX) 17 GM PACK PO SCH (09:00)
[2020-12-23] MEDS: DOCUSATE SODIUM 100 MG CAP PO SCH (09:00)
[2020-12-23] MEDS: INSULIN ASPART 100 UNITS/ML 3 ML PEN SC SCH ×2 (09:02→13:37)
[2020-12-23 09:26] LABS: Basophils # (auto) 0.01 K/uL (0-0.2); Basophils % (auto) 0.1 %; Eosinophils # (auto) 0.01 K/uL (0-0.5); Eosinophils % (auto) 0.1 %; Hematocrit (blood only) 34.1 % (37-47); Hemoglobin 10.4 g/dL (12.0-16.0); Immature Granulocytes # (auto) 0.07 K/uL (0.00-0.02); Immature Granulocytes % (auto) 0.5 %; Lymphocytes # (auto) 1.42 K/uL (1.2-3.4); Lymphocytes % (auto) 10.7 %; Mean Corpuscular Hemoglobin 26.5 pg (25-34); Mean Corpuscular Hgb Conc 30.5 g/dL (32-36); Mean Platelet Volume 9.7 fL (7.4-10.4); Monocytes # (auto) 0.51 K/uL (0.11-0.59); Monocytes % (auto) 3.9 %; Neutrophils # (auto) 11.21 K/uL (1.4-6.5); Neutrophils % (auto) 84.7 %; Platelet Count 487 K/uL (130-400); RDW Coefficient of Variation 16.3 % (11.5-14.5); RDW Standard Deviation 52.9 fL (36.4-46.3); Red Blood Count 3.92 M/uL (4.2-5.4); White Blood Count 13.23 K/uL (4.8-10.8)
[2020-12-23 09:56] LABS: BUN Creatinine Ratio 19.6 (10-20); Calcium 9.1 mg/dl (8.5-10.1); Creatinine Clr Calc Pharmacy 55.5 ml/min; Est GFR (African American) 37.1 ml/min; Potassium 4.6 mmol/L (3.5-5.1)
[2020-12-23] MEDS: FLUCONAZOLE 100 MG TAB PO SCH (12:12)
--- NOTE | 2020-12-23 13:07 | Discharge Summary ---
Date of Service December 23, 2020 Admission HPI Per Admitting Provider The patient is a 65-year-old female with a past medical history including bilateral ureteral stents, bilateral nephrolithiasis, diabetes mellitus, bilateral hydronephrosis, staghorn calculus, REINA, recurrent UTI, hypertension, hypothyroidism, fibromyalgia, morbid obesity, osteoarthritis, adjustment reaction with anxiety and depression, fatigue and binge eating disorder. Patient was most recently admitted to [facility] from 11/20-11/23/20 when she was noted to have bilateral obstructing ureteral stones, with bilateral hydroureteronephrosis, and had bilateral ureteral stents placed. The patient presents with symptoms as noted above. Admission Exam Per Admitting Provider The patient is awake, alert and oriented 3, well developed and well nourished, normocephalic and atraumatic, lying in bed and in no acute distress. HEENT--PERRL, EOMI, mucous membranes and oropharynx dry. Neck--supple. No JVD. No bruits. Thyroid normal, trachea midline, no adenopathy. Heart--normal S1 and S2. No murmurs, rubs or gallops. Lungs--clear bilaterally, no respiratory distress, no accessory muscle use. Abdomen--normal bowel sounds and soft. Nontender. Nondistended, no hernias or masses, no organomegaly. Extremities--no cyanosis or clubbing. No edema. There are good distal pulses b/l. Dermatologic--normal skin turgor, normal color, no abnormal lymph nodes, no rash. Neurologic--cranial nerves II through XII grossly intact. Rheumatologic--normal range of motion. Psychiatric--normal affect. Principal Diagnosis UTI, PYELONEPHRITIS, BILATERAL STENT EXCHANGE Discharge Exam Constitutional WD/WN, vitals as above + morbidly obese Eyes + anicteric sclerae; normal pupil size ENMT Ears: no hearing impairment Neck trachea midline, no thyromegaly Respiratory normal respiratory effort, lungs clear to auscultation Cardiovascular Rate/Rhythm: regular rate and regular rhythm Heart Sounds: no murmur Extremities: + pedal edema (pitting 1+ b/l pretibial) Gastrointestinal (Abdomen) Inspection/Auscultation: abdomen normal to inspection and normal bowel sounds Percussion/Palpation: abdomen soft; abdomen nontender, no guarding and abdomen not rigid Musculoskeletal no cyanosis or clubbing, extremities motor strength 5/5 Skin no rashes, warm and dry Neurologic moves all extremities and awake; not confused Psychiatric A+Ox3, euthymic affect Genitourinary no CVA tenderness Lymphatic no cervical or axillary lymphadenopathy Discharge Data Allergies Allergy/AdvReac Type Severity Reaction Status Date / Time morphine Allergy Severe WHOLE BODY Verified 12/14/20 20:27 HOT,SOB,CHEST PAIN adhesive Allergy Intermediate SOME Verified 12/14/20 20:27 TAPE-RED BLISTERS doxycycline Allergy Intermediate RASH Verified 12/14/20 20:27 latex Allergy Intermediate RASH, RED Verified 12/14/20 20:27 BLISTERS Penicillins Allergy Mild rash Verified 12/14/20 20:27 Consultations 12/14/20 22:33 ED Decision to Admit Stat 12/15/20 00:07 Consult Urology Routine 12/16/20 12:06 Consult Infectious Diseases Routine 12/19/20 18:01 Consult Patient Rep / Service Excellence [Consult Patient Services] Routine Procedures Performed Operation Date: 12/22/20 07:30 Actual Procedures p Cystoscopy, Bilateral Ureternephroscopy, Left Side Laser Destruction of stones, (Bilateral) - Nick Dias MD s Right Side Stent Removal, Left Exchange Stent Catheter (Bilateral) - Nick Dias MD Ordered Studies Abdomen/Pelvis CT 12/14/20 19:58 CT SCAN OF THE ABDOMEN AND PELVIS WITHOUT CONTRAST CLINICAL HISTORY: nausea, uti symptoms, fevers, REINA, recent stents COMPARISON STUDY: November 20, 2020 TECHNIQUE: CT scan of the abdomen and pelvis was performed from the lung bases to the proximal femurs. Images are reviewed in the axial, sagittal, and coronal planes. IV contrast was not administered for this examination. A dose lowering technique was utilized adhering to the principles of ALARA. CT DOSE: 2123.27 mGy.cm FINDINGS: Lower chest: Mild septal thickening is seen within bilateral basis, unchanged since prior. Liver: Diffuse decrease in attenuation of liver parenchyma is seen without evidence of focal lesions. Gallbladder: Surgically absent Spleen: Normal in size and attenuation. Pancreas: Unremarkable. Adrenal glands: Unremarkable. Kidneys: Moderate hydronephrosis is again seen bilaterally not significantly changed since prior. Bilateral urinary stents are again seen. Previously seen extensive calcifications within left renal pelvis are again visualized. Large cystic lesion within left renal cortex is not significantly changed since November 20, 2020 exam. Overall evaluation is limited due to beam hardening artifact from patient body habitus. Evaluation of lower pelvic region is also limited due to beam hardening artifact from metallic orthopedic hardware within bilateral hip joints. Bowel: Bowel loops are nondilated. Appendix shows normal morphology and gas filled. Mild diverticulosis of descending and sigmoid colon is seen. No evidence of diverticulitis. Peritoneum: There is no intraperitoneal free air or abdominal ascites. Vasculature: The abdominal aorta is normal in course and caliber. Adenopathy: None. Pelvic viscera: Urinary bladder is not well seen due to beam hardening artifact from prosthetic hip joints. Visualized portion of the uterus is normal. Skeletal structures: Degenerative changes of the spine. IMPRESSION: 1. Unchanged bilateral hydronephrosis. Nephrolithiasis is again seen on the left, not significantly changed since prior. Bilateral ureteral stents. Evaluation of the urinary bladder is limited due to beam hardening artifact from orthopedic hardware. 2. No acute inflammatory process is seen within the abdomen however evaluation is limited due to beam hardening artifact from patient's body habitus. 3. Hepatic steatosis. 4. Diverticulosis. ACT 112: Negative or not required by law. The above report was generated using voice recognition software. It may contain grammatical, syntax or spelling errors. Electronically signed by: Clemencia Hastings DO 12/14/2020 10:16 PM Chest X-Ray 12/16/20 09:13 XR chest 1V portable CLINICAL HISTORY: fever, eval for pneumonia, volume overload COMPARISON STUDY: Chest radiograph November 21, 2020. FINDINGS: Lung volumes are at the lower limits of normal. There is no pneumothorax or pleural effusion. There is mild interstitial thickening. Mild cardiomegaly is noted. No lobar consolidation is present. IMPRESSION: Interstitial prominence. This favors pulmonary vascular congestion with mild pu lmonary edema. An infectious process could appear similar but is considered less likely. ACT 112: Negative or not required by law. Electronically signed by: Royer Proctor M.D. 12/16/2020 9:43 AM KUB X-Ray 12/16/20 14:22 KUB HISTORY: Kidney and ureteral stones. assess stones COMPARISON: Abdomen and pelvis CT 12/14/2020. FINDINGS: The bowel gas pattern is unremarkable. There are no dilated loops of small bowel to suggest an obstruction. Suboptimal evaluation of the kidneys and ureters due to the patient's body habitus. The patient's left lower pole staghorn calculus is faintly visualized. This measures approximately 2.5 cm. No definite right renal calculi. No ureteral calculi identified. Bilateral ureteral stents appear to be in good position. There are bilateral total hip arthroplasties. Prior cholecystectomy. No pneumoperitoneum or pneumatosis. IMPRESSION: 1. A 2.5 cm left lower pole staghorn calculus, unchanged. 2. Bilateral ureteral stents appear to be good position. ACT 112: Negative or not required by law. Electronically signed by: Joce Minaya M.D. 12/16/2020 3:18 PM KUB X-Ray 12/18/20 08:27 XR KUB/Abdomen 1 view CLINICAL HISTORY: f/u COMPARISON STUDY: December 16, 2020 FINDINGS: There are multiple gas and stool filled loops of bowel within upper limits of normal for size. Bilateral urinary stents are seen in unchanged position since recent prior study. Previously seen calculus within left hemiabdomen is not well visualized however evaluation is limited due to overlying stool filled loop of bowel. Cholecystectomy clips, degenerative changes of the spine and sacroiliac joints as well as bilateral hip prosthesis are again seen. IMPRESSION: 1. Recently seen calculus within left hemiabdomen is not well visualized however evaluation is limited due to overlying stool filled loop of bowel. 2. Multiple gas and stool-filled loops of bowel are in upper limits of normal for size, could represent constipation pattern versus other etiology. Please correlate above-mentioned findings with clinical presentation of abdominal pain. ACT 112: Negative or not required by law. The above report was generated using voice recognition software. It may contain grammatical, syntax or spelling errors. Electronically signed by: Clemencia Hastings DO 12/18/2020 10:10 AM KUB X-Ray 12/19/20 08:30 XR KUB/Abdomen 1 view CLINICAL HISTORY: f/u constipation COMPARISON STUDY: December 18, 2020 FINDINGS: Multiple gas-filled loops of small and large bowel are seen. Interval decrease in amount of stool. Redemonstration of the bilateral urinary stents. Small calcification is seen projecting to the proximal-mid aspect of the left urinary stone which might represent calculus within the collecting system. Cholecystectomy clips, degenerative changes of the spine and bilateral sacroiliac joints are again seen. IMPRESSION: 1. Interval decrease in amount of stool and compared to recent prior study. ACT 112: Negative or not required by law. The above report was generated using voice recognition software. It may contain grammatical, syntax or spelling errors. Electronically signed by: Clemencia Hastings DO 12/19/2020 3:40 PM Renal Ultrasound 12/21/20 08:30 US renal/blad retro comp HISTORY: 65 years-old Female eval for renal abscess, re-eval hydro follow up study in a patient with recent bilateral hydronephrosis COMPARISON: [facility] 12/19/2020, CT abdomen and pelvis 12/14/2020 TECHNIQUE: Multiple real-time sonographic images of the kidneys and urinary bladder were obtained assessing grayscale appearance and color flow FINDINGS: Limited exam secondary to patient body habitus. The right kidney measures 12.1 cm in length. There is moderate right-sided hydroureteronephrosis redemonstrated. No right-sided renal calculi identified. The left kidney measures 11.7 cm in length and demonstrates mild hydronephrosis which is similar to comparison CT. 3.3 x 2.8 x 1.3 cm calculus of the inferior pole left kidney. Cyst of the interpolar left kidney measures 6.9 x 5.4 x 5.2 cm. No perinephric fluid collections. Partial distention of the urinary bladder with wall thickening. Bilateral ureteral stents are better characterized on comparison KUB. Ureteral jets not visualized. IMPRESSION: 1. Moderate right and mild left hydroureteronephrosis redemonstrated. 2. Left nephrolithiasis. ACT 112: Negative or not required by law. The above report was generated using voice recognition software. It may contain grammatical, syntax or spelling errors. Electronically signed by: Adonis Reyes M.D. 12/21/2020 9:32 AM Hospital Course (1) UTI (urinary tract infection): s/p Cystoscopy, Bilateral Ureteral Stent Insertion(Bilateral) - Tj Dias MD on 11/21 Symptoms for 13-14 days prior to admission. Saw PCP three times but thought to be related to COVID vaccination x 2. Continued to have dysuria, fever, chills, back pain, nausea. Had lab-work [employer] and was sent to ER for elevated Cr Nephrolithiasis is again seen on the left, not significantly changed since prior. Bilateral ureteral stents. (Does note large cystic lesion within left renal cortex is not significantly changed since November 20, 2020 exam) Urine culture with amy albicans and gamma strep Blood cx NGTD final ID consulted - recommended continued IV ceftriaxone and Diflucan x14 days and if stents removed then convert to p.o. cephalexin - CLARIFIED WITH ID AND OK FOR PO KEFLEX AT D/C GIVEN STENT EXCHANGE and sent with PO Keflex/Diflucan to complete 14 day course Renal US - Moderate right and mild left hydroureteronephrosis re-demonstrated. Urology consult - s/p bilateral ureteroscopy, laser lithotripsy, right stent removal and left stent exchange [12/22] WBC trending down --> 16.6k max to 13.2 prior to d/c. Remained afebrile Cr trending down now that obstruction relieved -- Cr 1.67 from max 2.53 To have follow up with Urology regarding continued treatment of L sided stone and sent on flomax, pyridium prn and abx as outlined by ID (2) S/P ureteral stent placement: See above (3) Bilateral nephrolithiasis: See above (4) Diabetes mellitus: Hold Trulicity and Metformin while inpatient -- recently started during last admission for A1c 10.6, note never started Trulicity as BSG values low enough with metformin. Consider lower metformin dose on discharge given side effect of diarrhea. She states she has been checking sugars at home and recently AM sugar 118 ISS while inpatient, BSGs acceptable Discontinued metformin at discharge and started glipizide 2.5mg daily as she wanted to avoid Insulin at this time and intolerance to Metformin To continue her weekly Trulicity Follow up with PCP and to continue to monitor sugars at home (given glucometer last admission) (5) Hypothyroidism: Continue levothyroxine 225cg daily Last TSH [10/2020] wnl 1.430 (6) Acute kidney injury: Secondary to UTI/stone Improving --> Pt avoiding soto due to discomfort at this time but may need to reconsider IVF d/c due to congestion/post-obstructive REINA hydronephrosis stable per renal US Cr improved to 1.67 prior to discharge and expect continued improvement with above Repeat BMP in 2 days given for outpatient lab drawn F/u PCP/Urology (7) Fibromyalgia: Chronic. No acute needs (8) Staghorn calculus: noted (9) HTN (hypertension): ECHO w LVH/diastolic grade I and 2+ edema, IVF discontinued due to post- obs REINA Started on amlodipine and increased --> BPs improved but with increased pedal edema --> Discharged on amlodipine 5mg and added HCTZ 25mg daily which will help with her edema and BP (157/80 prior to discharge) BMP outpatient as above and to follow up with PCP (10) Nausea & vomiting: Resolved with tx of above DVT Prophylaxis Heparin SQ -- patient had been refusing, JOHN hoses added and frequent ambulation encouraged Discharged home as patient with festival/parade, no further n/v, pain resolved and Cr and WBC improving. Repeating labs in 2 days as outpatient and she is to have follow up with both Urology and PCP regarding ongoing medical issues Total Time Total Time Spent Total Time Spent (In Minutes): 60 Discharge Plan Discharge Items Patient Disposition: Home - Self-Care Reason For Visit: UTI, B/L URETERAL STENTS Discharge Diagnosis: UTI Goals: You have been hospitalized for an urgent problem which required surgery. During your stay at [facility], we have made an effort to correct the problem that brought you to the hospital while keeping you as comfortable as possible. Surgery and medications were used to bring your condition under control and your discharge instructions will include directions for any medications you should take after leaving the hospital. Please make sure to follow the advice of your surgeon regarding follow up with the surgeon and with your primary care provider. Activity: Resume your previous activity Non-emergency contact: Primary Care Provider and Urologist Call non-emergency contact if: you have any medication questions, your symptoms worsen, your pain is worsening and you have a fever Follow-up/Referrals: Nick Dias MD [Physician] - (Dr. Robertson office will phone you will a follow up appt date and time.) Mery Liang CRNP [Primary Care Provider] - 12/30/20 9:10 am ([facility]) Diet: Carb Consistent or DM2 and Heart Healthy Ambulatory Orders: Basic Metabolic Panel (Routine) Timeframe: 2 Days Location: Determined by Patient Ordered By: Vilma Eduardo Complete Blood Count no Diff (Timed) Timeframe: 2 Days Location: Determined by Patient Ordered By: Vilma Arechiga Attending Provider Instructions: You have been hospitalized for UTI, secondary to infected stone and possibly stents. Urology and Infectious Disease were consulted. You had your stents exchanged and the RIGHT stent removed. The left stent will need further procedures as discussed by Urology in the upcoming weeks. You were treated with IV antibiotics and are being sent on a course of oral antibiotic/antifungals as follows: * Keflex 250mg by mouth FOUR TIMES DAILY, for another FOUR DAYS * Diflucan 200mg by mouth daily for another FOUR days This will complete the treatment. With regards to your diabetes, it is recommended that you continue to hold your metformin at discharge and monitor your blood sugars at home. If remain elevated <300 then please call PCP sooner than follow up appointment to discuss adding on additional agents vs starting insulin injections if you are unable to restart the metformin due to GI intolerance. You are being started on a medication called glipizide in place of the metformin, 2.5mg daily by mouth as discussed. Your blood pressures have remained fairly high and you were started on a medication called amlodipine and this will be continued at discharge at 5mg by mouth daily. For edema/swelling, it was discussed with supervising physician and it is felt that you can also start hydrochlorothiazide 25mg daily to help with BP control and swelling/edema. You will have slips for repeat labs drawn in 2 days. If Creatinine back to normal, you can discuss with your PCP about increasing either of these medications if your BP is still elevated. Please follow up with PCP and Urology in the next week to monitor your progress and to discuss further management of your stones. Please return to the emergency department with any worsening pain, fever, nausea/vomiting or for any other symptoms that are concerning for you. It has been a pleasure being a part of the medical team providing for you while you have been in the hospital. Take care! Pending Studies at Discharge: No Stand-Alone Forms: My [facility] [employer] Medications and DC Order Prescriptions: New fluconazole 100 mg Tablet 200 mg PO Q24H Qty: 4 RF: 0 phenazopyridine [Pyridium] 100 mg Tablet 100 mg PO TID PRN (Reason: pain) Qty: 10 RF: 0 cephalexin 250 mg capsule 250 mg PO Q6H 4 Days Qty: 16 RF: 0 hydrochlorothiazide 25 mg tablet 25 mg PO DAILY Qty: 30 RF: 0 glipizide [Glucotrol XL] 2.5 mg tablet extended release 24hr 2.5 mg PO DAILY Qty: 30 RF: 0 amlodipine 5 mg tablet 5 mg PO DAILY Qty: 30 RF: 0 Continued levothyroxine [Synthroid] 25 mcg tablet 25 mcg PO DAILY Qty: 30 RF: 2 levothyroxine [Synthroid] 200 mcg tablet 200 mcg PO DAILY RF: 0 acetaminophen [Tylenol Arthritis Pain] 650 mg tablet extended release 650 mg PO DIRECTED PRN (Reason: Pain) RF: 0 metformin 500 mg tablet extended release 24 hr 500 mg PO BID Qty: 60 RF: 0 (DME) OneTouch Verio test strips Strip See Rx Instructions .ROUTE .MEDSUPPLY Qty: 100 RF: 0 (DME) lancets [OneTouch Delica Lancets] 33 gauge misc See Rx Instructions .ROUTE .MEDSUPPLY Qty: 100 RF: 0 ondansetron HCl 4 mg tablet 4 mg PO Q8H PRN (Reason: Nausea) RF: 0 Trulicity 0.75 mg/0.5 mL pen injector 0.75 mg subcut WK PRN (Reason: DEPENDS ON BLOOD SUGAR LEVELS) RF: 0 tamsulosin 0.4 mg Capsule 0.4 mg PO HS Qty: 30 RF: 0 Discharge Orders: Discharge Order (Routine); Ordered 12/23/20 Ordered By: Vilma Sewell/Other Patient Handouts: Understanding Urinary Tract ..., ED Bladder Infection, Female (Adult) Admission Data Admit Date/Time: 12/16/20 13:13 Attending Provider: Diogo Ellsworth Admit Provider: Matthew Rashid Primary Care Provider: Mery Liang Other Providers: Ranjit Garcia ; Alec Nye ; Tabitha Day ; Luis Felipe Jennings I. ; Maury Mckeon II ; Celina Nuno ; Duncan Blunt ; Diogo Ellsworth Other Interventions: Discharge Summary Assessment (RN) Last Done: 12/23/20 11:43 Supervising Physician Co-Signing Physician Notes I supervised Vilma Eduardo PA-C on this discharge. I interviewed and examined the patient independently of her. The plan is as written in the PA's note except for any following changes/exceptions: None Doing well today. With stone removal, cleared for oral abx per ID. Adjusted some HTN and DM meds which can be followed with her PCP. Coding Level of Care Code D/C Day Management >30 mins Diagnoses UTI (urinary tract infection) N30.01 Hematuria presence: with hematuria Urinary tract infection type: acute cystitis S/P ureteral stent placement Z96.0 Bilateral nephrolithiasis N20.0 Diabetes mellitus E11.9 Hypothyroidism E03.9 Acute kidney injury N17.9 Fibromyalgia M79.7 Staghorn calculus N20.0 HTN (hypertension) I10 Nausea & vomiting R11.2
[2020-12-24] MEDS ORDERED: FLUCONAZOLE 100 MG TAB PO SCH (11:00)
--- NOTE | 2020-12-28 10:25 | Coding Query ---
CODING QUERY To promote full compliance with coding requirements relating to patient care, provider participation is requested in all cases of drainage engineer uncertainty. Please assist us with the question(s) below: Coding Question(s): The Progress Note on 12/16 documents, "*Obtaining ECHO for possible CHF/volume overload and cardiomegaly noted on CXR. Also likely with underlying LVH given longstanding HTN", and the Progress Note on 12/17 documents, "does have some congestion/pulm edema.dc IVFs", then Progress Notes 12/18 to Discharge Summary document, "ECHO w LVH/diastolic grade I and 2+ edema, IVF discontinued due to post-obs REINA". Please specify below, in your clinical opinion. ( ) treated for Pulmonary Edema. Please specify further below: ( ) likely Acute Pulmonary Edema ( ) likely Chronic or Unspecified Pulmonary Edema ( ) Other: Please Specify ( ) treated for CHF. Please Specify further below: ( ) likely Acute CHF ( ) Diastolic CHF ( ) Systolic CHF ( ) Combined Diastolic and Systolic CHF ( ) Other: Please Specify ( ) likely Chronic CHF ( ) Diastolic CHF ( ) Systolic CHF ( ) Combined Diastolic and Systolic CHF ( ) Other: Please Specify ( ) likely Acute on Chronic CHF ( ) Diastolic CHF ( ) Systolic CHF ( ) Combined Diastolic and Systolic CHF ( ) Other: Please Specify ( ) Unspecified CHF ( x ) treated for Volume Overload, Unspecified -> Iatrogenic, due to IV fluids. ( ) Other: Please Specify Physician's Response(s): Thank you Nicole Green Principal Diagnosis: "that condition established after study, to be chiefly responsible for occasioning the admission of the patient to the hospital for care." Co-Existing Principal Diagnosis: "when two or more diagnoses equally meet the criteria for principal diagnosis as determined by the circumstances of admission, diagnostic work up, and/or therapy provided, and the Alphabetic Index, Tabular List, or another coding guideline does not provide sequencing direction, any one of the diagnoses may be sequenced first." "When the physician has documented what appears to be a current diagnosis in the body of the record, but has not included the diagnosis in the final diagnostic statement, the physician should be asked whether the diagnosis should be added." (Source Coding [facility] 2 QTR90. p3-4) TR
== END 2020-12-23 14:24 | disposition home or self-care (01) | DRG 660 ==
LOC: 3W 18:11 → ED 18:11 → SUATTDRO 22:50 → 3W 23:44 → SUATTDRO 12-16 13:13

== ENCOUNTER 2025-01-29 06:31 | Observation (INO) ==
--- NOTE | 2024-12-20 13:57 | PAT Medication Instructions ---
Medication Instructions Date of Service December 20, 2024 Home Medications Medication Instructions Recorded blood sugar diagnostic (OneTouch #100 ea 11/23/20 Verio test strips) lancets 33 gauge (OneTouch Delica #100 ea 11/23/20 Lancets) epinephrine 0.3 mg/0.3 mL 0.3 mg (0.3 mL) IM ONCE PRN 10/21/21 injection, auto-injector anaphylaxis #1 ea acetaminophen 650 mg tablet,extended release (Tylenol Arthritis Pain) 650 mg PO DIRECTED PRN Pain hydrochlorothiazide 25 mg tablet 25 mg PO QAM epinephrine 0.3 mg/0.3 mL injection, auto-injector 0.3 mg (0.3 mL) IM ONCE PRN anaphylaxis amlodipine 5 mg tablet 10 mg PO QAM levothyroxine 200 mcg tablet (Synthroid) 250 mcg PO QAM cholecalciferol (vitamin D3) 25 mcg (1,000 unit) chewable tablet (Vitamin D3) 25 mcg PO DAILY glucosamine sulf dipot chlr,msm,chond 550 mg-C 30 mg-ariana 1 mg capsule (Glucosamine Chondroitin) 1 cap PO DAILY ibuprofen 200 mg tablet (Advil) 600 mg PO BID insulin glargine 100 unit/mL (3 mL) subcutaneous pen 44 unit subcut PM tirzepatide 7.5 mg/0.5 mL subcutaneous pen injector (Mounjaro) 7.5 mg subcut WK Continue as directed epinephrine 0.3 mg/0.3 mL injection, auto-injector 0.3 mg (0.3 mL) IM ONCE PRN anaphylaxis (if needed) STOP 7 days prior to surgery tirzepatide 7.5 mg/0.5 mL subcutaneous pen injector (Mounjaro) 7.5 mg subcut WK ASK your surgeon for instructions ibuprofen 200 mg tablet (Advil) 600 mg PO BID STOP taking 2 weeks before surgery (or as soon as possible if surgery is within 2 weeks) glucosamine sulf dipot chlr,msm,chond 550 mg-C 30 mg-ariana 1 mg capsule (Glucosamine Chondroitin) 1 cap PO DAILY DO NOT take the morning of surgery hydrochlorothiazide 25 mg tablet 25 mg PO QAM cholecalciferol (vitamin D3) 25 mcg (1,000 unit) chewable tablet (Vitamin D3) 25 mcg PO DAILY Take morning of surgery With a small sip of water, OTHERWISE NOTHING TO EAT OR DRINK AFTER MIDNIGHT: acetaminophen 650 mg tablet,extended release (Tylenol Arthritis Pain) 650 mg PO DIRECTED PRN Pain (if needed) amlodipine 5 mg tablet 10 mg PO QAM levothyroxine 200 mcg tablet (Synthroid) 250 mcg PO QAM Take evening before surgery acetaminophen 650 mg tablet,extended release (Tylenol Arthritis Pain) 650 mg PO DIRECTED PRN Pain (if needed) insulin glargine 100 unit/mL (3 mL) subcutaneous pen 44 unit subcut PM Other Notes If you have any questions please call us at [phone] or [phone] or [phone] or [phone]
--- NOTE | 2024-12-26 13:28 | Anesthesiology Consultation ---
Date of Service December 26, 2024 Assessment & Plan (1) Encounter for pre-operative examination: Chart Review Chart Review: Acceptable Risk for Surgery (pending surgeon ordered PCP and cardio clearance ) and Patient seen in Pre Admission Testing -Awaiting PCP clearance 01/08/25 (Dr Srivastava- Teresa [facility]) - Awaiting cardio clearance 01/16/25 (Kathe HOOD [facility] Cardio) - Check BSG AM DOS - Patient informed to stop Mounjaro 7 days prior to surgery. Last dose of Mounjaro scheduled in the morning on 01/22/25. Will be off Mounjaro x 7 days prior to DOS on 01/29/25 Patient is NOT an ideal OPJ candidate- currently 23 hour obs Per PAT appt on 12/26/24, no recent illness/disease exposures, illness related symptoms, or recent illness/disease positive tests. Will leave to surgeon's discretion if preop Covid testing needed Cysto, Left ureteronephroscopy, pyelogram retrograde, laser, stent 01/12/21= Done under [facility] with Glidescope #3 ETT #7.5. Ramped, preoxygenated x 5 minutes. History Surgery Operation Date: 01/29/25 09:05 Proposed Procedures p Right Total Knee Arthroplasty with Tibial Stem - Pasha Mari MD Height/Weight Height: 5 ft 7 in Weight: 167.4 kg Allergies Allergy/AdvReac Type Severity Reaction Status Date / Time morphine Allergy Severe WHOLE BODY Verified 12/20/24 13:04 HOT,SOB,CHEST PAIN adhesive Allergy Intermediate LATEX Verified 12/20/24 13:04 ADHESIVE -RASH, BLISTERS doxycycline Allergy Intermediate RASH Verified 12/20/24 13:04 latex Allergy Intermediate Rash Verified 12/20/24 13:19 Penicillins Allergy Mild rash Verified 12/20/24 13:04 amoxicillin [From Augmentin] Allergy *anaphylaxis, Verified 12/20/24 13:04 see note clavulanic acid Allergy * Verified 12/20/24 13:04 [From Augmentin] anaphylaxis, see note metformin AdvReac Severe diarrhea, Verified 12/20/24 13:04 nausea Medications Home Medications Medication Instructions Recorded Confirmed Last Taken acetaminophen 650 mg 650 mg PO DIRECTED PRN Pain 11/13/19 12/20/24 01/11/21 22:00 tablet,extended release (Tylenol Arthritis Pain) blood sugar diagnostic (OneTouch #100 ea 11/23/20 09/08/23 Unknown Verio test strips) lancets 33 gauge (OneTouch Delica #100 ea 11/23/20 09/08/23 Unknown Lancets) hydrochlorothiazide 25 mg tablet 25 mg PO QAM 01/08/21 12/20/24 01/11/21 11:00 epinephrine 0.3 mg/0.3 mL 0.3 mg (0.3 mL) IM ONCE PRN 10/21/21 12/20/24 Unknown injection, auto-injector anaphylaxis #1 ea amlodipine 5 mg tablet 10 mg PO QAM 12/14/22 12/20/24 Unknown levothyroxine 200 mcg tablet 250 mcg PO QAM 09/08/23 12/20/24 Unknown (Synthroid) cholecalciferol (vitamin D3) 25 25 mcg PO DAILY 12/20/24 12/20/24 Unknown mcg (1,000 unit) chewable tablet (Vitamin D3) glucosamine sulf dipot 1 cap PO DAILY 12/20/24 12/20/24 Unknown chlr,msm,chond 550 mg-C 30 mg-ariana 1 mg capsule (Glucosamine Chondroitin) ibuprofen 200 mg tablet (Advil) 600 mg PO BID 12/20/24 12/20/24 Unknown insulin glargine 100 unit/mL (3 44 unit subcut PM 12/20/24 12/20/24 Unknown mL) subcutaneous pen tirzepatide 7.5 mg/0.5 mL 7.5 mg subcut WK 12/20/24 12/20/24 Unknown subcutaneous pen injector (Mounjaro) Past Medical History Medical History (Updated 12/26/24 @ 15:47 by Verona Basurto PA-C) Aneurysm of anterior communicating artery - rule out - 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 per 2022 head/neck CTA (seen by neuro- recommended repeat CTA in one year) - 2023 head/neck CTA showed " tiny anterior communicating artery aneurysm suggested on 04/17/2023 is not identified and may have been artifactual." DM type 2 (diabetes mellitus, type 2) Fibromyalgia History of anesthesia reaction voice was very hoarse after last sx with intubation 2020, still has some issues with this from time to time ever since - never had formal follow up with provider or ENT History of COVID-21 Jul 2024 - voice is not completely back to normal - voice hoarseness worse from baseline since Covid infection History of depression no meds > controlled HTN (hypertension) Hx of anxiety disorder no longer on meds Hx of deep venous thrombosis LLE > fall 2023 > had hypercoagulable work up 12/18/24 with surgeon's office (only had elevated protein C levels) Was on Eliquis x 3 months Hypothyroidism Incontinence urinary Kidney stones hx MVP (mitral valve prolapse) Moderate mitral annular calcification, trace MR per 2022 ECHO > follows with Dr. Rik KENNEY (postoperative nausea and vomiting) Exercise / Class Metabolic Activity II 4-5 Yardwork/Stairs/Walk up hill (one flight of stairs - no chest pain or SOB- uses cane for support ) Past Family History Family History Mother , MVA, age 72 Hypothyroidism (acquired) Fibromyalgia Osteoarthritis Obesity Father , age 91 Lymphoma Sister Autoimmune disease Fibromyalgia Osteoarthritis PONV (postoperative nausea and vomiting) Brother Osteoarthritis Past Surgical History Surgical History History of cholecystectomy History of cystoscopy 12/22/20 [facility] History of endometrial ablation History of left knee replacement History of left salpingo-oophorectomy History of tonsillectomy History of total left hip arthroplasty History of total right hip arthroplasty S/P endometrial ablation S/P ureteral stent placement Past Anesthesia History No Hx of Anesthesia Complications (with exception to PONV/chronic ongoing voice hoarseness since 2020 surgery) and No Family Hx of Anesthesia Complications (with exception to brother - trouble waking - specific unknown ; patient denies personal issues with waking up slow ) History of PONV History of PONV (improved with pre and perioperative anti nausea medications ) and Hx of Motion Sickness Social History Smoking Status: Former smoker Do You Dip or Chew Tobacco: No Smoking End Date: 30 yrs ago Hx Alcohol Use: No Hx Substance Use: No substance use type: does not use Review of Systems - Palpitations - had skipped BP meds x several days- when back on BP meds - no issues - Hx of snoring - unknown - sleeps alone Patient denies chest pain, shortness of breath, dyspnea on exertion, reflux, cough, wheezing. No hx of seizures, stroke, PR. No hx of blood transfusions Physical Exam Vital Signs VITALS BP 171/77 (done in forearm due to cuff not fitting around upper arm; patient did no take HTN medications yet today; patient will take BP medications and recheck BP at home- patient will call with updated BP; patient educated to go to ER if headache, chest pain or SOB occurs; updated BP 12/28/24 was 139/65 per patient voicemail) P 78 TEMP 97.5 SP02 94% RESP 16 Constitutional no acute distress ENMT Mouth: no TMJ clicking Thyromental Distance: > or= 3.5 Finger Breadths (3.5) Mallampati Class: III (smaller mouth ) Mouth / Teeth: 2 1. Permanent implants 2. Permanent implants Missing molars Neck neck extension not limited Respiratory normal respiratory effort; no respiratory distress Auscultation: lungs clear to auscultation bilaterally; no wheezes Cardiovascular Rate/Rhythm: regular rate and regular rhythm Heart Sounds: + murmur (possible- II/ murmur (head sounds diminished) ) Vessels: no carotid bruit Musculoskeletal Spine: no pain with cervical ROM Extremities: extremities normal to inspection Psychiatric Orientation: alert Lab Results Anesthesia Preop Results Results Anesthesia Widget: 2 WBC 10.99 K/ul (4.8-10.8) H 12/26/24 Hgb 12.7 g/dl (12.0-16.0) 12/26/24 Hct 40.8 % (37.0-47.0) 12/26/24 Plt 285 K/uL (130-400) 12/26/24 Na 137 mmol/L (136-145) 12/26/24 K 4.0 mmol/L (3.5-5.1) 12/26/24 Cl 103 mmol/L (98-107) 12/26/24 CO2 27 mmol/L (21-32) 12/26/24 BUN 18 mg/dl (6-23) 12/26/24 Creat 0.75 mg/dl (0.6-1.2) 12/26/24 Glucose Level 98 mg/dl (70-99(Fasting)) 12/26/24 PT 10.4 Seconds (9.0-12.0) 12/26/24 PTT 31 Seconds (21-31) 12/26/24 INR 1.0 (0.9-1.1) 12/26/24 HA1c 7.1 % (4.5-5.6) H 12/26/24 Urine Color Yellow 12/26/24 Urine Appearance Clear (Clear) 12/26/24 Urine pH 5.5 (4.5-7.5) 12/26/24 Urine Specific [place] 1.012 (1.000-1.030) 12/26/24 Urine Protein Negative (Negative) 12/26/24 Urine Glucose (UA) Negative (Negative) 12/26/24 Urine Ketones Negative (Negative) 12/26/24 Urine Blood Negative (Negative) 12/26/24 Urine Nitrite Negative (Negative) 12/26/24 Urine Bilirubin Negative (Negative) 12/26/24 Urine Urobilinogen Negative (Negative) 12/26/24 Urine Leukocyte Esterase Trace (Negative) H 12/26/24 Urine WBC (Auto) 0-5 /hpf (0-5) 12/26/24 Urine RBC (Auto) 0-2 /hpf (0-2) 12/26/24 Urine Hyaline Casts (Auto) 0-2 /lpf (0-2) 12/26/24 Urine Epithelial Cells (Auto) 0-2 /hpf (0-2) 12/26/24 Urine Bacteria (Auto) 1+ (None Seen) H 12/26/24 Blood Type O Positive 12/26/24 Antibody Screen NEGATIVE 12/26/24 Testing Laboratory Results Mildly abnormal UA- surgeon's office informed Electrocardiogram Date: 12/26/24 SR with 1st degree AVB at 78bpm Left axis deviation Non specific intraventricular conduction block Minimal voltage criteria for LVH, may be normal variant When compared to EKG from Apr 17, 2023- borderline criteria for lateral infarct are no longer present per cardio Chest X-Ray Date: 12/26/24 Findings: + NAD Echocardiogram Date: 10/11/22 EF: 70% RWMA: + none Other Findings: + LVH (mild/concentric ) and + diastolic dysfunction (Grade I ) Normal RV size and function Normal biatrial size Moderate MAC. Trace MR Normal estimates PASP at 22mmHg (Discussed faint cardiac murmur with distant heart sounds on 12/26/[address] Mehta- patient states she has been told she had murmur on exams in the past; 2022 cardio visit does not note murmur; patient will be seeing cardio prior to surgery. 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 Unremarkable CT angiogram of the brain. The tiny anterior communicating artery aneurysm suggested on 04/17/2023 is not identified and may have been artifactual. Unremarkable CT angiogram of the neck. Brain MRI 04/17/23= No evidence of acute infarction. Global parenchymal volume loss with chronic microvascular ischemic changes.
--- NOTE | 2025-01-29 05:26 | History & Physical Bridge Note ---
Date of Service January 29, 2025 History & Physical Bridge Note I have examined the patient, reviewed the History & Physical and in the interval since the performance of the History & Physical I have noted the following changes of clinical significance:high BMI riskd emphasized especially DVT/PE ,infection and arthrofibrosis. no changes noted
[2025-01-29] MEDS: LR 60ML/HR IV SCH (05:33)
[~2025-01-29 06:31] MED LIST changes: -ACET1TAB84 PO; -HEMP OIL PO; -HYZ/50125 PO; -LEVO200T6 PO; +LIDOCAINE 2% 2 ML VIAL/AMP(20MG/ML) INFIL ONE; +MIDAZOLAM HCL 1 MG/ML 2ML VIAL ONE; +ONDANSETRON INJ 2 MG/ML 2 ML VIAL ONE; +PROPOFOL IV EMULSION 10 MG/ML 20 ML VIAL IV ONE
[2025-01-29] MEDS ORDERED: BUPIVACAINE 0.5 % 5 MG/1 ML PF 10ML VIAL ONE (06:54)
[2025-01-29] MEDS ORDERED: ROPIVACAINE 0.5% 5 MG/ML 30 ML VIAL ONE (06:54)
[2025-01-29] MEDS: LR 500ML BOLUS, THEN 15ML/HR IV SCH (07:27)
[2025-01-29] MEDS ORDERED: PROPOFOL IV EMULSION 10 MG/ML 20 ML VIAL IV ONE ×3 (07:58→10:51)
[2025-01-29] MEDS ORDERED: ATROPINE SULFATE 0.1 MG/ML 10ML SYR IV PRN (08:25)
[2025-01-29] MEDS: ceFAZolin 3000MG 3,000 MG/72.5 ML BAG IV SCH (09:10)
[2025-01-29] MEDS ORDERED: MIDAZOLAM HCL 1 MG/ML 2ML VIAL ONE (09:17)
[2025-01-29] MEDS: ROPIV 0.5% 246mg, Ketorolac 30mg, EPINEPHrine 0.5mg in NSS INFIL SCH (10:03)
[2025-01-29] MEDS: TRANEXAMIC ACID 1,000 MG x 1 **TOPICAL Use Intraop TOP SCH (10:04)
[2025-01-29] MEDS: ORTHO JOINT ANESTHETIC ONE (10:04)
[2025-01-29] MEDS: BUPIVACAINE 0.5 % 5 MG/1 ML MPF 30ML VIAL ONE (10:16)
--- NOTE | 2025-01-29 11:05 | Post Operative Brief Note ---
Immediate Post Op Note Date of Surgery January 29, 2025 Pre & Post Diagnosis Operation Date: 01/29/25 08:50 <No data on this case meets the specified criteria> Osteoarthritis with varus deformity flexion deformity right knee pre and postop diagnosis same high BMI patient modifier 22 I identified the patient and participated in the time-out.: Yes Procedure Operation Date: 01/29/25 08:50 <No data on this case meets the specified criteria> Cemented right total knee replacement Surgeon Pasha Mari MD Road Oiling Truck Driver José Luis/Elvia Estimated Blood Loss 50 Findings Consistent with Post-Op Diagnosis Severe osteoarthritis significant limitations of range of motion in flexion based on impingement with posterior tissue of the calf and the thigh marked varus alignment BMI is 60.2 Fluids 1100 cc Complications None
--- NOTE | 2025-01-29 11:11 | Operative Report ---
Post Operative Report Pre & Post Diagnosis Operation Date: 01/29/25 08:50 <No data on this case meets the specified criteria> Osteoarthritis right knee with flexion varus deformity high BMI patient 60.2 morbid obesity pre and postop diagnosis same I identified the patient and participated in the time-out.: Yes Procedure Operation Date: 01/29/25 08:50 <No data on this case meets the specified criteria> Cemented right total knee replacement modifier 22 required assistance with retraction and support of the leg during the procedure. This was required during the entire case. Surgeon Pasha Mari MD Accounts Payable Assistant José Luis/Elvia Estimated Blood Loss 50 Findings Consistent with Post-Op Diagnosis Severe osteoarthritis with varus flexion deformity right knee BMI 60.2 Fluids 1100 cc Specimens Bone pathology Drains None Complications None Indications Severe pain marked deformity on x-ray failed conservative management Description of Procedure This patient has a high BMI 60.2 is a modifier 22 requiring additional assistance surgically to support the leg scales retractors and provide appropriate exposure during the entire case. Patient was identified appropriately in the right lower extremity prepped and draped use routine fashion. Tourniquet inflated to 275 mmHg for total of 63 minutes once the leg was exsanguinated with a rubber Esmarch bandage. A generous midline exposure was utilized based on patient's size. Appropriate dissection carried out appropriate parapatellar arthrotomy performed. There was marked synovitis marked destruction marked osteophytes. All of this was all debrided. The patella was unable to be everted. There was grade 4 disease through the patellofemoral joint through the medial compartment and grade 3 disease on the tibial laterally compartment. Once the cruciates were resected the menisci were resected after the tibia was subluxated which required additional support of the ends and a hyperflexion of the impingement of the soft tissue posteriorly. This required assistance during the entire case and required the modifier 22. Once the distal femur was then entered the distal femur resected 10 mm proximal tibia 4 mm and the extension gap was excellent. The femur was sized to a size 5 and appropriate cutting block applied the anterior posterior, chamfer cuts made there was no notching. Flexion gap was checked it was excellent the box cut was then made and the size 5 femur fit well. The tibia was then subluxated a size 4 tray fit best it was then appropriately applied for the revision platform based on her size and appropriate seating and reaming carried out and broaching carried out and then the trial reduction with a 7 poly was excellent. The patella tracked well. It was quite small. It was resected minimally with the extra kevin leaving 14 mm on the seating holes made for 32 patella. It tracked well. Ortho mix was then injected all about the knee. Wound was then irrigated and soaked in TXA for 3 minutes of Betadine for 3 minutes then irrigated and then the permanent cemented in position tibia femur patella in that order at 12 minutes the tourniquet deflated minor bleeding points controlled after cautery of 14 minutes the knee was inspected no cement removal required the trial poly was removed the knee irrigated in the permanent seated and then closed at 40 degrees of flexion with #2 Vicryl 2-0 Vicryl and stainless steel clips appropriate dressing applied including [place] cotton in the patient transferred recovery in satisfactory condition he tolerated the procedure well. Based on her high BMI modifier 22 applies we will see is a Prevena postop to protect the soft tissue is much as possible due to her high risk of DVT infection and arthrofibrosis. Summary of implants all ATT UNE De[employer] total knee system size 32 patella size 5 right femur posterior cruciate substituting size 4 tibia revision tibial base rotating platform size 5 x 7 poly posterior cruciate substituting 2 bags of [place] G cement EBL 75 cc or less crystalloid low 100 cc bone pathology pending DVT prophylaxis to start tomorrow she was worked up for potential medical reasons for DVT but had an unprovoked DVT and will require at least 6 weeks of prophylaxis postop. Will use Eliquis. I attest to the content of the Intraoperative Record and any orders documented therein. Any exceptions are noted below.
--- NOTE | 2025-01-29 11:12 | Orthopedic Progress Note ---
Date of Service January 29, 2025 Orthopedic Progress Note Patient underwent right total knee replacement. Tolerated well. Denies chest pain shortness of breath fever chills nausea vomit or headache. Vital signs stable. She is afebrile. Neurovascular check limited by spinal. Family contacted. X-ray pending.
--- NOTE | 2025-01-29 11:14 | Discharge Summary ---
Date of Service January 30, 2025 Admission HPI Per Admitting Provider Osteoarthritis right knee morbid obesity BMI 60.2 Principal Diagnosis Osteoarthritis right knee high BMI Discharge Data Allergies Allergy/AdvReac Type Severity Reaction Status Date / Time morphine Allergy Severe WHOLE BODY Verified 01/29/25 07:01 HOT,SOB,CHEST PAIN adhesive Allergy Intermediate LATEX Verified 01/29/25 07:01 ADHESIVE -RASH, BLISTERS doxycycline Allergy Intermediate RASH Verified 01/29/25 07:01 latex Allergy Intermediate Rash Verified 01/29/25 07:01 Penicillins Allergy Mild rash Verified 01/29/25 07:01 amoxicillin [From Augmentin] Allergy *anaphylaxis, Verified 01/29/25 07:01 see note clavulanic acid Allergy * Verified 01/29/25 07:01 [From Augmentin] anaphylaxis, see note metformin AdvReac Severe diarrhea, Verified 01/29/25 07:01 nausea Vaccinations None Consultations None Procedures Performed Operation Date: 01/29/25 08:50 <No data on this case meets the specified criteria> Cemented right total knee replacement with tibial revision plate Ordered Studies 01/29/25 05:00 US - OR guided needle placemen Routine Hospital Course (1) Status post right knee replacement: Care plan total knee replacement appropriate anticoagulation postop Total Time Total Time Spent Total Time Spent (In Minutes): 5 Discharge Plan Discharge Items Reason For Visit: Right Knee Degenerative Joint Disease Discharge Diagnosis: Right knee s/p total knee replacement Condition on Discharge: Good Activity: Per Instructions section Lifting: Wait until after follow-up appointment Bathing: Keep incision dry Sexual Activity: Wait until after follow-up appointment Exercise/Sports: Wait until after follow-up appointment Driving/Machine Use: No driving until cleared by Dr. Mari Weightbearing: Full weightbearing Non-emergency contact: Surgeon Call non-emergency contact if: you have any medication questions, your pain is not controlled, your temperature is above 101, your wound has increased redness, your wound has increased drainage and your wound pain has increased Follow-up/Referrals: Italia Guevara DO [Primary Care Provider] - Diet: Carb Count or DM1 Addtl Attending Provider Instructions: New Medicine: * You will likely be taking one or more of these medications: 1. Percocet - Take, as directed, when you need it, every four to six hours to control your pain. 2. Iron Sulfate - Take 1x each day for the month after surgery to help you replace the blood lost during surgery. 3. Aspirin - Thins your blood to lessen the chance of forming a blood clot. The dose of this is different for each person and is based on your blood tests that are done twice a week. * The most common side effects of pain medicine and iron are nausea and constipation. If nausea or constipation is too much of a problem or if you have any questions about your new medicines or doses, call [facility] at . We will try to help you manage these issues. "VERY IMPORTANT TO READ AND REVIEW" Blood Clots and Blood Thinning Medicine: * You are given Aspirin during the immediate post-operative period to lessen the risk of blood clots forming in your legs and/or lungs. it is usually given for six weeks after Pain: * The immediate post-operative period after knee replacement surgery is often quite painful. * You are given a prescription for pain medicine. You should take it, as directed, when you need it, especially before physical therapy and before going to bed. Pain that interferes with sleep is very common and can last several months. * You will likely need pain medicine for the first four to six weeks. It will not stop all of the pain. The pain will lessen and as you feel better, you may change to milder pain medicine such as Tylenol. * The most common side effects of pain medicine are nausea and constipation, so don't take more than you need. Physical Therapy: * You will have physical therapy two or three times each week for four to six weeks after your surgery in order to regain your knee range of motion and to retrain your knee to work properly. * It is just as important to make sure you are getting your knee perfectly straight as it is to regain your knee bend. * Taking a pain pill an hour before therapy can help you have a more productive and comfortable therapy session if needed. Home Exercise: * You were shown a series of exercises (heel props, heel slides, etc.) in the hospital. Do these exercises three to four times each day including the exercises you were shown in physical therapy. Walking: * Get up and walk several times each day. For the first four weeks, try not to stand or walk for more than one hour at a time. If you do stand or walk for more than one hour, you will not hurt anything, but your knee and leg will likely swell. * As you feel comfortable, you may change from the walker or crutches to a cane and then to independent walking. SELF CARE INSTRUCTIONS AFTER TOTAL KNEE REPLACEMENT A. You may need to continue a physical therapy program after discharge from the hospital. There are several options available to you. Your doctor will assist you in selecting the best one for you. 1. An out-patient facility 2 to 3 times a week for therapy or home therapy. 2. Continue working on all exercises taught to you in the hospital. Your goals should be to increase bending of your knee to 90 degrees and beyond and to fully straighten your knee. B. You may progress at your own pace from walking with a walker or crutches to a cane; then to no assistive devices. C. Make walking a part of your daily routine. Be up as much as comfortable with rest periods throughout the day. Rest with leg elevation is very important. Use the ice wrap frequently for the first 3-4 weeks. D. There are no restrictions on activities. You may ride in a car, shop, participate in contact representative and all social activities. E. Wear the long elastic stockings (JOHN hose) 20 hours a day for six weeks after surgery. They can be removed several times a day for laundering and for a shower. F. Do not place a pillow behind your knee when resting. A pillow at your ankle is okay. G. You may return to previous diet. VERY IMPORTANT TO READ AND REVIEW A. Take Aspirin (blood thinning medication) as directed by your doctor. B. There are a few signs you need to watch for after you are home. Call [facility] if you notice any of the followin. Increased severe knee pain. Some pain is expected especially when you exercise. 2. Increased swelling in your leg or knee; pain or swelling of the calf muscle in either lower leg. 3. Any fluid drainage from the incision. 4. Shortness of breath or chest pain. C. Please call [facility] at if you have any concerns or questions about your operation or recovery. The doctor or his nurse will return your call promptly. D. You must take antibiotics before dental work, bladder, bowel or other surgery. Call the office to obtain a prescription at least 2 days prior to your appointment. * CALL IF INCREASED PAIN, REDNESS, DRAINAGE OR FEVER GREATER THAT 101. * Sutures should be removed 12-14 days after surgery unless you are on chronic steroids, then it will be 14-18 days after surgery. Call your doctor if: * Temperature above 101 degrees F. * Pain not relieved by pain medicine ordered. * Increased drainage or redness from incision. * Notify your doctor with any questions or concerns. MEDICATIONS: * Please take your prescriptions as instructed at your pre-op appointment and/or see medication discharge instructions listed above. * If concerns develop, call your physician's office at . SPECIAL CARE INSTRUCTIONS: * Ice/Elevate as instructed. * Keep dressing clean, dry, intact. * Your surgical extremity may be discolored due to prepping agents used on the skin. A bluish-green tint is a normal variant and should not cause alarm. Call your doctor at [phone] if: * Temperature above 101 degrees * Pain not relieved by pain medicine ordered * There is increased drainage or redness from any incision * You have any unanswered questions, problems or concerns. FOLLOW UP VISIT: * If not already scheduled, please call the office at to schedule a follow-up appointment. Pending Studies at Discharge: Yes Studies:: bone pathology Stand-Alone Forms: My [facility] Medications and DC Order Prescriptions: No Action acetaminophen [Tylenol Arthritis Pain] 650 mg tablet extended release 650 mg PO DIRECTED PRN (Reason: Pain) levothyroxine [Synthroid] 200 mcg tablet 250 mcg PO QAM Rx Instructions: BRAND NAME NEEDED. TAKE WITH 25MCG =225MCG DAILY (DME) OneTouch Verio test strips Strip See Rx Instructions .ROUTE .MEDSUPPLY Qty: 100 0RF Rx Instructions: check 2x/day (DME) lancets [OneTouch Delica Lancets] 33 gauge misc See Rx Instructions .ROUTE .MEDSUPPLY Qty: 100 0RF Rx Instructions: to check 2x/day hydrochlorothiazide 25 mg tablet 25 mg PO QAM amlodipine 5 mg tablet 10 mg PO QAM epinephrine 0.3 mg/0.3 mL auto-injector 0.3 mg IM ONCE PRN (Reason: anaphylaxis) Qty: 1 0RF ibuprofen [Advil] 200 mg Tablet 600 mg PO BID insulin glargine [Semglee Pen U-100 Insulin] 100 unit/mL (3 mL) Insulin Pen 44 unit SUBCUT PM cholecalciferol (vitamin D3) [Vitamin D3] 25 mcg (1,000 unit) Tablet,Chewable 25 mcg PO DAILY Glucosamine Chondroitin 550-30-1 mg Capsule 1 cap PO DAILY Mounjaro 7.5 mg/0.5 mL Pen Injector 7.5 mg SUBCUT WK Patient Comments: takes on Wednesdays > last dose 01/22/25 Admission Data Admit Date/Time: 01/29/25 11:29 Attending Provider: Pasha Mari Admit Provider: Pasha Mari Primary Care Provider: Italia Guevara Other Providers: [facility],Home Healthcare
--- NOTE | 2025-01-29 11:20 | Operative Report ---
Post Operative Report Pre & Post Diagnosis Operation Date: 01/29/25 08:50 Pre-Op Diagnosis: Right Knee Degenerative Joint Disease Post-Op Diagnosis: Right Knee Degenerative Joint Disease I identified the patient and participated in the time-out.: Yes Procedure Operation Date: 01/29/25 08:50 Actual Procedures p Right Total Knee Arthroplasty with Tibial Stem(Right) - Pasha Mari MD Surgeon Pasha Mari MD Medical Office Rep José Luis/Elvia Estimated Blood Loss 50 Findings Consistent with Post-Op Diagnosis Specimens Right knee bone pathology Description of Procedure Patient was brought to the operative suite where she underwent anesthesia. Right lower extremity prepped and draped in the usual sterile fashion. Surgical timeout was performed. Patient underwent a right total knee arthroplasty. Please see Dr. Mari's operative report for full details. I was present and assisted with patient positioning, limb positioning, soft tissue retraction, hemostasis, hardware implantation, wound closure, postoperative dressing placement. Patient was taken recovery in stable condition. I attest to the content of the Intraoperative Record and any orders documented therein. Any exceptions are noted below.
--- NOTE | 2025-01-29 11:32 | XRay Report ---
XR knee RT 1 or 2V routine CLINICAL HISTORY: S/P R TKA COMPARISON: 11/04/2024 FINDINGS: Right knee prosthesis shows no hardware complication. There is expected soft tissue gas. S kin kayla are present. IMPRESSION: Unremarkable postoperative exam. ACT 112: Negative or not required by law. Electronically signed by: Km Reeves M.D. 01/29/2025 11:31 AM
--- NOTE | 2025-01-29 11:34 | Operative Report ---
Post Operative Report Pre & Post Diagnosis Operation Date: 01/29/25 08:50 Pre-Op Diagnosis: Right Knee Degenerative Joint Disease Post-Op Diagnosis: Right Knee Degenerative Joint Disease I identified the patient and participated in the time-out.: Yes Procedure Operation Date: 01/29/25 08:50 Actual Procedures p Right Total Knee Arthroplasty with Tibial Stem(Right) - Pasha Mari MD Surgeon JONAH Mari MD [employer] José Luis/Elvia CROWDER Estimated Blood Loss 50 Findings Consistent with Post-Op Diagnosis see operative report Specimens see operative report Drains none Complications none Disposition Accompanied Patient To Recovery: Yes Indications This 69 year old female presented to the office complaints of persisting right knee pain. She had tried conservative care measures, including OTC medications and activity modification, without improvement. She noted significant difficulty with ADLs, as well as standing. She elected to proceed with surgical invention after being educated about potential risks and outcomes. Preoperative imaging was obtained. Description of Procedure The patient was administered a spinal anesthetic and then taken to the operating room where she was given sedation. She was prepped and draped in the usual sterile fashion. Please see Dr. Mari's operative report for specifics of the procedure. I was present for the entire case from initial patient positioning through final wound closure. Assistance was provided in tissue retraction, hemostasis, trial implant placement, final implant placement, and final wound closure. The patient was taken to the recovery room in satisfactory condition. I attest to the content of the Intraoperative Record and any orders documented therein. Any exceptions are noted below.
[2025-01-29] MEDS: ONDANSETRON INJ 2 MG/ML 2 ML VIAL IV PRN (11:46)
--- NOTE | 2025-01-29 12:07 | Orthopedic Progress Note ---
Date of Service January 29, 2025 Orthopedic Progress Note Postop check patient seen in recovery room. She is doing well denies chest pain shortness of breath fever chills nausea vomiting headache. Vital signs are stable she is afebrile. Neurovascular check femoral sciatic nerve demonstrates dorsi flexion and ankle plantarflexion inversion eversion toe extension flexion also has ability to do a straight leg raise with some challenge. Wound dressing clean dry and intact. Postop x-rays look excellent. Assessment doing well status post right total knee replacement. High BMI high risk patient. Has significant comorbidities. He is to get out of bed needs to move. Need to do this ASHWIN. Once her legs wake up completely she can do this. Her postop x-rays look excellent. Will place Agnes on tomorrow for additional wound care. Initiate anticoagulation tomorrow. Daughter Remy was contacted.
--- NOTE | 2025-01-29 12:14 | Anesthesiology Progress Note ---
Date of Service January 29, 2025 Anesthesia Post Procedure Vital Signs Vital Signs: Temp Pulse Pulse Resp BP Pulse Ox O2 Del Method 01/29/25 12:05 72 13 143/66 H 99 Nasal Cannula 01/29/25 11:55 97.5 F L 72 16 146/66 H 96 Nasal Cannula 01/29/25 11:45 70 14 142/72 H 92 Nasal Cannula 01/29/25 11:35 72 18 141/76 H 93 Room Air 01/29/25 11:25 75 18 135/69 92 Room Air 01/29/25 11:17 97.0 F L 74 19 129/66 93 Room Air 01/29/25 06:58 97.7 F 84 20 162/70 H 95 Room Air O2 Flow Rate 01/29/25 12:05 3 01/29/25 11:55 3 01/29/25 11:45 3 01/29/25 11:35 01/29/25 11:25 01/29/25 11:17 01/29/25 06:58 Pain Intensity Back: Pain Intensity: 4 Transfer of Care Handoff Completed per policy Notes Mental Status: alert / awake / arousable and participated in evaluation Patient Amnestic to Procedure: Yes Nausea / Vomiting: adequately controlled Pain: adequately controlled Airway Patency, RR, SpO2: stable & adequate BP & HR: stable & adequate Hydration State: stable & adequate Neuraxial Anesthesia: was administered and sensory block is resolving Anesthetic Complications: no major complications apparent and Pt Satisfied with anesthetic care
[2025-01-29] MEDS ORDERED: NALOXONE HCL 0.4 MG/1 ML VIAL/CARP IV PRN (14:18)
[2025-01-29] MEDS ORDERED: VANCOMYCIN CONSULT ACTIVE PRN (14:18)
[2025-01-29] MEDS ORDERED: diphenhydrAMINE 50 MG/ML VIAL IV PRN (14:18)
[2025-01-29] MEDS ORDERED: ONDANSETRON INJ 2 MG/ML 2 ML VIAL IV PRN (14:18)
[2025-01-29] MEDS ORDERED: MAGNESIUM HYDROXIDE SUSP 30 ML UDC PO PRN (14:18)
[2025-01-29] MEDS ORDERED: PHARMACY GLYCEMIC MGMT CONSULT PRN (14:18)
[2025-01-29] MEDS ORDERED: METOCLOPRAMIDE HCL INJ 5 MG/ML 2 ML VIAL IV PRN (14:18)
[2025-01-29] MEDS ORDERED: ALUMINUM/MAGNESIUM SUSP 30 ML UDC PO PRN (14:18)
[2025-01-29] MEDS: ACETAMINOPHEN 500 MG TAB PO SCH (14:53)
[2025-01-29] MEDS: SODIUM CHLORIDE 0.9% 1,000 ML IV SCH (14:54)
--- NOTE | 2025-01-29 15:09 | Pharmacy Report ---
Pharmacy Glycemic Short Note 2 - Date of Service January 29, 2025 - Glycemic Short BSG Results (Last 24 hours): 01/29/25 01/29/25 07:10 14:00 POC Glucose 152 H 131 H OUTPATIENT ANTIDIABETIC REGIMEN: * Semglee 44 units SQ QPM * HbA1c 7.1% (12/26/24) ASSESSMENT: * Hanane is a 69 year old female admitted status post right total knee arthroplasty with a history of type 2 diabetes mellitus. Pharmacy has been consulted to assist with glycemic management while inpatient. * Preoperative BSG this AM acceptable, it appears no steroids wer given perioperatively, but dexamethasone IV 10mg x1 ordered for tomorrow AM. Will do a basal scale up to approximately her home basal dose based on BSGs. Reassess basal in AM with steroids. * NovoLog a weight based stress of 2. PLAN FOR INPATIENT GLYCEMIC CONTROL: * Hold outpatient oral diabetes medications * Basal insulin * Lantus 20-40 units SQ HS (see eMAR for additional details) * Bolus insulin * NovoLog per scale ACHS or Q6hrs while NPO * Goal Range: Low 110 mg/dL - High 140 mg/dL * Correction Factor: 15 mg/dL/unit * Nutritional / Prandial insulin per carb ratio of 1 unit per 5 grams CHO consumed
[2025-01-29] MEDS: VANCOMYCIN HCL 2,000 MG in SODIUM CHLORIDE 0.9% 500 ML IV ONE (15:15)
[2025-01-29] MEDS: KETOROLAC TROMETHAMINE 15 MG/ML VIAL IV SCH (15:16)
[2025-01-29] MEDS: ASCORBIC ACID 500 MG TAB PO SCH (17:13)
[2025-01-29] MEDS: INSULIN ASPART PER UNIT CHARGE SC SCH (17:14)
[2025-01-29] MEDS: FERROUS GLUCONATE 324 MG TAB PO SCH (17:14)
[2025-01-29] MEDS: LANTUS PER UNIT CHARGE SC SCH (20:18)
[2025-01-29] MEDS: DOCUSATE SODIUM 100 MG CAP PO SCH (20:19)
[2025-01-29] MEDS: SENNA 8.6 MG TAB PO SCH (20:19)
[2025-01-29 21:58] VITALS: RESP 16
[2025-01-30] MEDS: HYDROmorphone INJ 0.5 MG/0.5 ML SYR IV PRN (03:56)
[2025-01-30] MEDS: LEVOTHYROXINE SODIUM 125 MCG TABLET PO SCH (05:49)
--- NOTE | 2025-01-30 06:53 | Orthopedic Progress Note ---
Date of Service January 30, 2025 Assessment & Plan Admission and Anticipated Discharge Date Admission Date: January 29, 2025 Orthopedic Progress Note Postop day 1 status post right total knee replacement. She is resting comfortably in bed. She states she slept well. She denies chest pain shortness of breath fever chills nausea or headache. Vital signs are stable she is afebrile. Wound dressing clean dry and intact neurovascular check femoral sciatic nerve is normal. Am labs pending. Assessment overall doing well plan is to discharge after PT OT today. Initiate anticoagulation today dressing changed this morning by PA. Will place wound VAC on. Follow-up in a week. Advised and emphasized exercises advised and emphasized anticoagulation she states she understands.
[2025-01-30 07:53] VITALS: BP 152/84; TEMP 97.5; O2SAT 92
[2025-01-30] MEDS: hydroCHLOROthiazide 25 MG TAB PO SCH (09:16)
[2025-01-30] MEDS: MULTIVITAMIN TAB PO SCH (09:16)
[2025-01-30] MEDS: dexAMETHasone 10 MG in SYRINGE 0 ML IV SCH (09:17)
[2025-01-30] MEDS: APIXABAN 2.5 MG TAB PO SCH (09:17)
[2025-01-30] MEDS: LANTUS PER UNIT CHARGE SC ONE (09:20)
[2025-01-30 09:23] LABS: Hematocrit (blood only) 35.2 % (37.0-47.0); Hemoglobin 10.7 g/dl (12.0-16.0); Mean Corpuscular Hemoglobin 26.0 pg (25.0-34.0); Mean Corpuscular Volume 85.4 fL (80.0-100.0); Platelet Count 231 K/uL (130-400); RDW Standard Deviation 49.3 fL (36.4-46.3); Red Blood Count 4.12 M/uL (4.20-5.40); White Blood Count 10.13 K/ul (4.8-10.8)
--- NOTE | 2025-01-30 09:40 | Orthopedic Progress Note ---
Date of Service January 30, 2025 Assessment & Plan (1) Status post right knee replacement: Plan: The patient's dressings were removed today. Prevena wound VAC was placed. She will see me in a week in the office for removal. She will start her Eliquis this morning. Continue twice daily x 6 weeks. Prescription for Percocet 5/325 mg was sent to her pharmacy. Written discharge instructions were provided. Importance of performing her range of motion exercises several times per day was emphasized. Continue with frequent icing and elevation to reduce pain and swelling. Admission and Anticipated Discharge Date Admission Date: January 29, 2025 Subjective This 69-year-old female was seen today in her room. She is 1 day status post right total knee arthroplasty. She states she is having some pain this morning. She denies any chest pain, shortness of breath, nausea, vomiting, or abdominal pain. She has finished her breakfast and is awaiting physical therapy. No other complaints. Review of Systems Review of Systems: Unchanged from yesterday. Physical Exam Physical Exam: General: Well-developed, well-nourished, middle-aged female, in no acute distress. Laying in her bed. Alert and oriented. Skin: Warm and dry with good turgor. Postsurgical dressings are in place on the right leg. Upon removal, she has scant dried blood on her inner dressings. There is no active bleeding. [place] are in place. Wound edges are well- approximated. No erythema, ecchymosis, or edema at this point. Musculoskeletal: Right knee evaluation reveals full terminal extension. She is able to flex to approximately 40 degrees. She has intact motor function to her ankle and toes. She is unable to perform a straight leg raise. Neurologic: Gross sensation is intact across the right leg by soft touch. Peripheral pulses are 2+. Results & Data Vital Signs (Past 12 Hours) Vital Signs Temp Pulse Resp BP Pulse Ox O2 Del Method 01/30/25 07:48 36.4 C L 93 H 16 152/84 H 92 Room Air 01/30/25 03:57 36.8 C 84 16 134/73 95 Room Air 01/30/25 00:00 36.6 C 70 16 134/68 97 Room Air 01/29/25 21:37 36.7 C 72 16 130/78 95 Room Air Laboratory Results CBC obtained this morning shows a normal white count of 10.1. H&H of 10.7 and 35.2. Normal platelets at 231,000. Glucose this morning is 153. PRP is still pending.
[2025-01-30 09:44] LABS: Anion Gap 7.0 (3-11); Blood Urea Nitrogen 24.0 mg/dl (6-23); Calcium 8.6 mg/dl (8.6-10.3); Carbon Dioxide 29.0 mmol/L (21-32); Chloride 102.0 mmol/L (98-107); Creatinine Clr Calc Pharmacy 85.3 ml/min; Glucose 180.0 mg/dl (70-99(Fasting)); Potassium 3.7 mmol/L (3.5-5.1); Sodium 138.0 mmol/L (136-145)
[2025-01-30 10:55] VITALS: PULSE 77
== END 2025-01-30 14:04 | disposition home health service (06) ==
LOC: PACUINP 06:31 → ASU 06:31 → 3W 14:14